=== PATIENT | female | born 1940 | race Caucasian/White ===

== ENCOUNTER 2019-07-04 16:48 | Emergency (ER) | payer MEDICARE, MEDICAID, SELFPAY ==
[2019-07-04] VITALS (8 sets, daily range): BP systolic 150–180; BP diastolic 94–111; PULSE 79–90; RESP 18–20; TEMP 36.5–36.9; O2SAT 92–95; BMI 26.9
--- NOTE | 2019-07-04 19:46 | ED_ITS ---
Entered by Kelley Pacheco, acting as scribe for Jul 04, 2019 16:48 HPI - SOB/Dyspnea General: Chief Complaint: Shortness of Breath/Dyspnea Stated Complaint: sob Time Seen by Provider: 07/04/19 19:50 Source: patient Mode of arrival: ambulatory History of Present Illness: HPI Narrative: 78 yo female presents with shortness of breath due to coughing. pt states this started before rebecca and it has worsened. pt stated she has bilateral swelling to lower legs. pt was seen on 07/02/19 and they placed her on Doxycline for the cough. pt denies any other symptoms at this time. MD elicited complaint: shortness of breath and cough Onset (ago): week(s) (3 weeks) Context: recent illness (cough and congestion, given medications Doxycline from ED) Timing: constant Exacerbating factors: coughing Relieving factors: nothing Associated symptoms: Reports cough and other (bilateral leg swelling); Deny abdominal pain, chest pain, fever(s), nausea, polyuria or vomiting Treatment prior to arrival: other (Doxycline from ED for coughing on ) Related Data: Home oxygen amount: none Review of Systems Const: Denies: fever or chills Eyes: Denies: change in vision ENMT: Denies: throat pain or mouth pain Card: Denies: chest pain Resp: Reports: non-productive cough; Denies: shortness of breath GI: Denies: abdominal pain, nausea, vomiting or diarrhea : Denies: difficulty urinating Musc: Reports: extremity swelling; Denies: back pain or joint pain Skin/Breast: Denies: rash Neuro: Denies: headache or behavioral changes Psych: Denies: depression Endo: Denies: excessive urination Mik/Lymph: Denies: easy bruising All/Imm: Denies: hives PFSH ED PFSH: Statuses (acute, chronic, etc) shown below reflect problem list status as previously entered and may not be historically accurate Social History Smoking and tobacco status: never smoked Physical Exam Const: COMMON NORMALS: no apparent distress and healthy appearing HENMT: COMMON NORMALS: normocephalic and external nose normal HEAD & SCALP: normocephalic NOSE: external nose normal and no nasal discharge (nasal dischage) Eye: COMMON NORMALS: PERRL PUPIL: Yes PERRL Neck/C-Spine: COMMON NORMALS: full ROM and no lymphadenopathy Chest: COMMONS NORMALS: inspection of chest normal Resp: COMMON NORMALS: normal respiratory effort and clear to auscultation bilaterally AUSCULTATION: clear to auscultation bilaterally Cardio: COMMON NORMALS: regular rate and regular rhythm RATE: regular rate RHYTHM: regular rhythm GI: COMMON NORMALS: soft to palpation PALPATION: Yes soft Extremity: COMMON NORMALS: normal to inspection, full ROM and normal capillary refill NARRATIVE EXTREMITY EXAM: 2+ lower ext edema Psych: COMMON NORMALS: mental status grossly normal and cooperative Skin: COMMON NORMALS: no rashes or lesions noted GENERAL SKIN EXAM: no rashes or lesions noted Course Vital Signs: Vital signs: Vital Signs Temperature 97.7 F 07/04/19 18:02 Pulse Rate 89 07/04/19 22:40 Respiratory Rate 19 H 07/04/19 22:40 Blood Pressure 180/109 07/04/19 22:40 Pulse Oximetry 93 07/04/19 22:40 MDM - SOB/Dyspnea MDM Narrative: Medical decision making narrative: Patient presents here with lower extremity edema. Patient has no signs of congestive heart failure and EKG and x-ray are normal. Patient is in no distress here. Will start on Lasix and she is to use compression stockings. Patient is to follow-up with Ben in 3 to 5 days and return if worsening. Lab Data: Labs: Lab Results 07/04/19 07/04/19 07/04/19 Range/Units 20:08 20:08 20:08 WBC 10.7 H (4.0-10.0) 10^3/ uL RBC 3.55 L (4.1-5.3) 10^6/u L Hgb 9.8 L (11.5-15.3) g/dL Hct 30.7 L (37.0-47.0) % MCV 86.5 (81-99) fL MCH 27.6 L (28.0-34.0) pg MCHC 31.9 (30.0-36.0) g/dL RDW 15.7 H (12.1-15.1) % Plt Count 426 H (130-400) 10^3/c mm MPV 9.2 (7.4-10.4) fL Neut % (Auto) 74.6 % Lymph % (Auto) 14.2 % [place] % (Auto) 7.8 % Eos % (Auto) 2.3 % Baso % (Auto) 0.3 % Neut # (Auto) 8.0 H (1.8-7.7) 10^3/u L Lymph # (Auto) 1.5 (0.8-4.8) 10^3/u L [place] # (Auto) 0.8 (0.2-0.9) 10^3/u L Eos # (Auto) 0.3 (0.0-0.8) 10^3/u L Baso # (Auto) 0.0 (0.0-0.1) 10^3/u L Nucleated RBC % (a uto) 0 % Nucleated RBCs # 0.0 /100WBC Sodium 127 L (136-145) mmol/L Potassium 3.6 (3.5-5.1) mmol/L Chloride 90 L (98-107) mmol/L Carbon Dioxide 25 (22-29) mmol/L Anion Gap 15.6 (5-19) BUN 13 (8-23) mg/dL Creatinine 0.6 (0.5-0.9) mg/dL Glucose 106 (74-106) mg/dL Calcium 9.5 (8.8-10.2) mg/Dl Total Bilirubin 0.5 (0.15-1.2) mg/dL AST 50 H (0-32) U/L ALT 41 H (0-33) U/L Alkaline Phosphata se 79 (35-105) IU/L Troponin T Baselin e 20 H (0-10) ng/mL Troponin T 120 Min [place] (0-10) ng/mL Delta Troponin T (0-10) ABS# NT-Pro-B Natriuret Pep 308 (0-450) pg/mL Total Protein 6.7 (6.6-8.7) g/dL Albumin 3.8 (3.5-5.2) g/dL Globulin 2.9 (1.3-4.6) g/dL Urine Color (Yellow) Urine Appearance (CLEAR) Urine pH (5-7) Ur Specific Gravit y (1.005-1.030) Urine Protein (Negative) Urine Glucose (UA) (Normal) Urine Ketones (Negative) Urine Occult Blood (Negative) Urine Nitrate (Negative) Urine Bilirubin (NEGATIVE) Urine Urobilinogen (Negative) mg/dL Ur Leukocyte Sophie ase (Negative) 07/04/19 07/04/19 Range/Units 21:13 22:02 WBC (4.0-10.0) 10^3/ uL RBC (4.1-5.3) 10^6/u L Hgb (11.5-15.3) g/dL Hct (37.0-47.0) % MCV (81-99) fL MCH (28.0-34.0) pg MCHC (30.0-36.0) g/dL RDW (12.1-15.1) % Plt Count (130-400) 10^3/c mm MPV (7.4-10.4) fL Neut % (Auto) % Lymph % (Auto) % [place] % (Auto) % Eos % (Auto) % Baso % (Auto) % Neut # (Auto) (1.8-7.7) 10^3/u L Lymph # (Auto) (0.8-4.8) 10^3/u L [place] # (Auto) (0.2-0.9) 10^3/u L Eos # (Auto) (0.0-0.8) 10^3/u L Baso # (Auto) (0.0-0.1) 10^3/u L Nucleated RBC % (a uto) % Nucleated RBCs # /100WBC Sodium (136-145) mmol/L Potassium (3.5-5.1) mmol/L Chloride (98-107) mmol/L Carbon Dioxide (22-29) mmol/L Anion Gap (5-19) BUN (8-23) mg/dL Creatinine (0.5-0.9) mg/dL Glucose (74-106) mg/dL Calcium (8.8-10.2) mg/Dl Total Bilirubin (0.15-1.2) mg/dL AST (0-32) U/L ALT (0-33) U/L Alkaline Phosphata se (35-105) IU/L Troponin T Baselin e (0-10) ng/mL Troponin T 120 Min [place] 21.29 H (0-10) ng/mL Delta Troponin T 1.29 (0-10) ABS# NT-Pro-B Natriuret Pep (0-450) pg/mL Total Protein (6.6-8.7) g/dL Albumin (3.5-5.2) g/dL Globulin (1.3-4.6) g/dL Urine Color Colorless (Yellow) Urine Appearance Clear (CLEAR) Urine pH 7 (5-7) Ur Specific Gravit y 1.010 (1.005-1.030) Urine Protein Neg (Negative) Urine Glucose (UA) Norm (Normal) Urine Ketones Negative (Negative) Urine Occult Blood Neg (Negative) Urine Nitrate Negative (Negative) Urine Bilirubin Neg (NEGATIVE) Urine Urobilinogen Norm (Negative) mg/dL Ur Leukocyte Sophie ase Negative (Negative) Imaging Data^: CXR: Attestation: I personally reviewed and interpreted this imaging study as follows: My impression: no acute abnormalities EKG Data^: EKG 1: Attestation: I personally reviewed and interpreted this EKG as follows: EKG Interpretation Date: 07/04/19 EKG interpretation time: 20:20 Interpretation: nsr hr [address] or t wave abnormalities qrs 90 qtc 430 EKG 2: Attestation: I personally reviewed and interpreted this EKG as follows: EKG Interpretation Date: 07/04/19 EKG interpretation time: 21:57 Interpretation: nsr hr [address] or t wave abnormalities qrs 90 qtc 428 Discharge Plan Discharge Patient Disposition: Home, Self-Care Clinical Impression: Edema leg, Acute upper respiratory infection Condition: Stable Prescriptions: New Lasix 40 mg tablet 40 mg PO DAILY Qty: 30 RF: 0 No Action labetalol 100 mg Tablet 100 mg PO BID RF: 0 Referrals: Baldev Duque MD [Primary Care Provider] - Carl Burch DO [Family Provider] - (in 3-5 days) Discharge Diet: Advance as tolerated Discharge Activity: Resume usual activity Patient Instructions: Furosemide (By mouth), Leg Edema (ED) Coding Level of Care Code ED Developer Programmer for Chg Fwd Exam Problem Focused The documentation recorded by the Junior james Bridget Annette, accurately reflects the service I personally performed and the decisions made by me, Anderson Anaya MD Jul 04, 2019 16:48
--- NOTE | 2019-07-04 19:58 | ECG_ITS ---
Measurements Intervals [place] Rate: 90 P: 32 WV: 152 QRS: -16 QRSD: 90 T: 18 QT: 382 QTc: 469 SINUS RHYTHM Compared to ECG 07/02/2017 08:48:59 No significant changes Electronically Signed On 07-05-2019 5:36:38 INGOT SUPERVISOR by Danelle Brady M.D. [email or web address]
--- NOTE | 2019-07-04 19:58 | XR_ITS ---
WS: [id number] PORTABLE CHEST HISTORY: cough COMPARISON: 06/22/2019 Hyperinflated lungs with emphysema. There are a few scattered opacifications in the RIGHT lower lung field which are new. No pleural effusion or pneumothorax. Cardiac size: Mildly enlarged cardiac silhouette. Mediastinum/Aorta: Mild atherosclerosis aorta. Diffuse osteopenia. Degenerative changes at the glenohumeral joints. XR/XR chest 1V portable [id number] IMPRESSION: 1. New opacifications in the RIGHT lower lobe. Most likely developing pneumoni a or pneumonitis. 2. Chronic emphysema and cardiomegaly.
[2019-07-04] MEDS: FUROsemide 10 mg/mL SDV 4mL 40 MG IVP (20:20)
[2019-07-04 20:31] LABS: Basophils % 0.3 %; Eosinophils # 0.3 10^3/uL (0.0-0.8); Eosinophils % 2.3 %; Hematocrit 30.7 % (37.0-47.0); Hemoglobin 9.8 g/dL (11.5-15.3); Lymphocytes # 1.5 10^3/uL (0.8-4.8); Lymphocytes % 14.2 %; Mean Corpuscular HGB Conc 31.9 g/dL (30.0-36.0); Mean Corpuscular Hemoglobin 27.6 pg (28.0-34.0); Mean Corpuscular Volume 86.5 fL (81-99); Mean Platelet Volume 9.2 fL (7.4-10.4); Monocytes # 0.8 10^3/uL (0.2-0.9); Monocytes % 7.8 %; Neutrophils % 74.6 %; Nucleated Red Blood Cells % 0 %; Platelet Count 426 10^3/cmm (130-400); Red Blood Count 3.55 10^6/uL (4.1-5.3); Red Cell Distribution Width 15.7 % (12.1-15.1); White Blood Count 10.7 10^3/uL (4.0-10.0)
[2019-07-04 20:34] LABS: Troponin(5th) Baseline 20 ng/mL (0-10)
[2019-07-04 20:43] LABS: Alanine Aminotransferase 41 U/L (0-33); Albumin Level 3.8 g/dL (3.5-5.2); Alkaline Phosphatase 79 IU/L (35-105); Anion Gap 15.6 (5-19); Aspartate Amino Transferase 50 U/L (0-32); Blood Urea Nitrogen 13 mg/dL (8-23); Calcium 9.5 mg/Dl (8.8-10.2); Carbon Dioxide 25 mmol/L (22-29); Chloride 90 mmol/L (98-107); Globulin 2.9 g/dL (1.3-4.6); Glucose 106 mg/dL (74-106); NT Pro B Type Natriuretic Pept 308 pg/mL (0-450); Potassium 3.6 mmol/L (3.5-5.1); Sodium 127 mmol/L (136-145); Total Bilirubin 0.5 mg/dL (0.15-1.2); Total Protein 6.7 g/dL (6.6-8.7)
[2019-07-04 21:33] LABS: Add Urine Microscopic? NO
[2019-07-04 21:40] LABS: Bilirubin Urine Neg (NEGATIVE); Blood Urine Neg (Negative); Glucose Urine UA Norm (Normal); Ketones Urine Negative (Negative); Leukocyte Esterase Urine Negative (Negative); Nitrate Urine Negative (Negative); Protein Urine Neg (Negative); Urine Appearance Clear (CLEAR); Urine Color Colorless (Yellow); Urobilinogen Urine Norm (Negative); pH Urine 7 (5-7)
--- NOTE | 2019-07-04 22:00 | ECG_ITS ---
Measurements Intervals [place] Rate: 81 P: -8 WA: 149 QRS: -26 QRSD: 90 T: 8 QT: 390 QTc: 455 SINUS RHYTHM BORDERLINE LEFT AXIS DEVIATION [QRS AXIS < -20] MODERATE VOLTAGE CRITERIA FOR LVH, CONSIDER NORMAL VARIANT [MEETS CRITERIA IN ONE OF: R(aVL), S(V1), R(V5), R(V5/V6)+S(V1)] Compared to ECG 07/02/2017 08:48:59 No significant changes Electronically Signed On 07-05-2019 15:08:10 DIGITAL FORENSICS EXAMINER by Ramila Garnica M.D. [email or web address]
--- NOTE | 2019-07-04 22:23 | PC.NURSE ---
Assisted patient to the bedside commode and back to bed. Patient stated that she takes two Tylenol at night and it helps her cough. Informed a nurse and assigned nurse will be informed.
[2019-07-04 22:25] LABS: Troponin 5 2HR 21.29 ng/mL (0-10)
[2019-07-04 22:28] LABS: Troponin 5 2HR Delta 1.29 ABS# (0-10)
[2019-07-04] MEDS: acetaminophen 500 mg Tablet 1000 MG PO (22:42)
== END 2019-07-04 22:59 | disposition home or self-care (01) ==
PROVIDERS: Emergency Provider Emergency Medicine; Family Provider Family Medicine; PCP Internal Medicine
DX: J06.9 Acute upper respiratory infection, unspecified (principal); R60.0 Localized edema; I70.0 Atherosclerosis of aorta
CPT/HCPCS: 71045; 80053; 81003; 83880; 84484; 85025; 93005; 96374; 99283; J1940; J7611

== ENCOUNTER → 2020-11-27 10:19 | Outpatient (BNVA) | payer MEDICARE, MEDICAID, SELFPAY | PROVIDERS: PCP Internal Medicine; Visit Provider Surgery | DX: Z01.812 Encounter for preprocedural laboratory examination (principal); Z20.822 Contact with and (suspected) exposure to COVID-19 | CPT/HCPCS: 87635 ==

== ENCOUNTER 2020-12-01 10:51 | Day surgery (SDC) | payer MEDICARE, MEDICAID, SELFPAY ==
[2020-11-26 12:58] VITALS: BMI 26.6
[2020-12-01 11:29] VITALS: BP 140/87; PULSE 99; RESP 16; TEMP 36.6; O2SAT 98
[2020-12-01] MEDS: sodium chloride 0.9% 1,000 ML 30 ML IV (11:58)
--- NOTE | 2020-12-01 12:44 | ANES.PREANE2 ---
Pre-Anesthetic Assessment Pre-Anesthetic Assessment: Height/Weight: Height 1.7 m Weight 77.111 kg Temp Pulse Resp BP Pulse Ox 97.8 F 99 16 140/87 98 12/01/20 11:29 12/01/20 11:29 12/01/20 11:29 12/01/20 11:29 12/01/20 11:29 Preop Diagnosis: Bleeding per rectum Proposed Procedure: Operation Date: 12/01/20 12:30 Proposed Procedures p Colonoscopy 54077 k62.5(Not Applicable) - Rickey Dugan MD Was Beta Dorota taken within 24 hours: N/A Was Clonidine taken within 24 hours: N/A Last intake: Intake Last Liquid Date 11/30/20 Last Liquid Time 00:00 Last Solid Date 11/29/20 Last Solid Time 21:00 Social: Social History: No alcohol and No tobacco Exam: Pre-Anes Outpt Exam: alert, oriented x 3, clear to auscultation bilaterally and regular rate & rhythm Airway: Submandibular: WNL Cervical ROM: WNL MP: 3 Dentition: Full CV/HEM: CV/HEM: HTN Anesthetic Plan: ASA status: 2 Anesthesia: MAC Risk of > 500 ml blood loss (7ml/kg in children): No Meds/Allergies Current Medications: Current Medications Generic Name Dose Route Start Last Admin Trade Name Freq PRN Reason Stop Dose Admin Sodium Chloride 1,000 mls @ 30 ml s/hr 12/01/20 11:30 12/01/20 11:58 Sodium Chloride 0.9% IV 12/02/20 11:29 30 mls/hr .Q24H SEAN Administration PFSH Anesthesia PFSH: Family History Father CAD (coronary artery disease) Mother Cancer Hypertension Denies family history of Diabetes Social History Smoking and tobacco status: never smoked Data Anesthesia Cardiac Studies: No Data to Display
--- NOTE | 2020-12-01 14:31 | W.PM.OPSFHP ---
Same Day Surgery H&P Indication for Procedure/HPI DATE OF PROCEDURE: December 01, 2020 CHIEF COMPLAINT/INDICATIONFOR SURGICAL PROCEDURE: Blood in stool PREOP DIAGNOSIS: Bleeding per rectum PLANNED PROCEDRUE: Operation Date: 12/01/20 12:30 Proposed Procedures p Colonoscopy 56582 k62.5(Not Applicable) - Rickey Dugan MD This is a pleasant 80 years old female patient referred to my practice with history of bleeding per rectum, she did have a colonoscopy about 12 years ago and polyps were found and she reports they were benign. No evidence of colon cancer history or nonintentional weight loss. Patient is referred to my practice for evaluation potential colonoscopy. Interim history 12/02/2019 Patient comes today for colonoscopy ROS All systems have been reviewed negative except as per the above or per problem list Medications/Allergies* Home Medications Medication Instructions Recorded Confirmed Type labetalol 100 mg PO BID 07/04/19 12/01/20 History ibuprofen 200 mg PO Q6H PRN 11/26/20 12/01/20 History loratadine 10 mg PO DAILY 11/26/20 12/01/20 History Allergies/Adverse Reactions Allergy/AdvReac Type Severity Reaction Status Date / Time No Known Allergies Allergy Verified 11/26/20 12:46 Current Medications: Generic Name Dose Route Start Last Admin Trade Name Freq PRN Reason Stop Dose Admin Sodium Chloride 1,000 mls @ 30 mls/hr 12/01/20 11:30 12/01/20 11:58 Sodium Chloride 0.9% IV 12/02/20 11:29 30 mls/hr .Q24H SEAN Administration Pertinent History/Comorbid Conditions* Family History (Updated 10/15/20 @ 13:23 by Muna Villatoro) CAD (coronary artery disease) Father Cancer Mother Hypertension Mother Denies family history of Diabetes Social History Smoking and tobacco status: never smoked Pertinent Exam Findings alert, oriented x 3, clear to auscultation bilaterally, regular rate & rhythm and procedure specific exam findings (Abdominal examination nontender nondistended soft) Recommendations Surgery/Procedure today (Diagnostic colonoscopy) Other Plans: Plan of care; After thorough history and physical examination and reviewing the chart, plan to perform diagnostic colonoscopy. I discussed with the patient in details the risks,benefits,alternatives and indications.The risk of aspiration, bleeding, soft tissue injury, perforation of the colon and other potential concomitant complications were explained to the patient in details,also the potential need for Laproscoy/Laparotomy to repair any related complications including but not limited to colectomy and or Closotomy.The patient understood this well and did agree to proceed. Rationale was carefully and clearly discussed with the patient.Appropriate informed consent have been reviewed and signed All questions have been answered and all concerns have been addressed to patient's satisfaction. Verbal and written Instructions were given to the patient for colonoscopy prep Coding Level of Care Code Acute Clinical Biostatistics Director for Prabhu Sullivan
[2020-12-01 16:36] VITALS: BP 165/89; PULSE 84; RESP 18; TEMP 37.2; O2SAT 96
--- NOTE | 2020-12-01 16:38 | ANE.PACU2 ---
Documented by User: Artie Jaime Jr, CRNA 12/01/20 16:38 Inpatient post-anesthesia follow up: Airway intact: Yes Vital signs: Temperature 97.8 F Pulse Rate 99 Respiratory Rate 16 Blood Pressure 140/87 Pulse Oximetry 98 Oxygen Delivery Me thod Room Air Oxygen Flow Rate Fraction of Inspir ed Oxygen Hydration adequate: Yes Nausea and vomiting: No Pain level: 1 Mental status: Baseline
--- NOTE | 2020-12-01 16:59 | ANE.PACU2 ---
Inpatient post-anesthesia follow up: Airway intact: Yes Vital signs: Temperature 99 F Pulse Rate 84 Respiratory Rate 18 Blood Pressure 165/89 Pulse Oximetry 96 Oxygen Delivery Me thod Nasal Cannula Oxygen Flow Rate 3 Fraction of Inspir ed Oxygen Hydration adequate: Yes Nausea and vomiting: No Pain level: 1 Mental status: Baseline
[2020-12-10 08:20] LABS: Miscellaneous Test See Scanned Lab Rpt
== END 2020-12-01 17:36 | disposition home or self-care (01) ==
PROVIDERS: PCP Obstetrics & Gynecology; Visit Provider Surgery
PROC: 0DJD8ZZ Inspection of Lower Intestinal Tract, Via Natural or Artificial Opening Endoscopic (ICD-10-PCS; CPT 45378; principal; 2020-12-01 12:30)
DX: C18.9 Malignant neoplasm of colon, unspecified (principal); K92.1 Melena; K57.30 Diverticulosis of large intestine without perforation or abscess without bleeding; I10 Essential (primary) hypertension
CPT/HCPCS: 45380; 88304; 88341; 88342; 96360; 96361; J2704; J7030

== ENCOUNTER 2020-12-15 13:48 | Outpatient (CLI) | payer MEDICARE, MEDICAID, SELFPAY ==
[2020-12-15 14:06] LABS: Basophils # 0.1 10^3/uL (0.0-0.1); Basophils % 0.9 %; Eosinophils # 0.2 10^3/uL (0.0-0.8); Eosinophils % 3.8 %; Hematocrit 28.2 % (37.0-47.0); Hemoglobin 8.6 g/dL (11.5-15.3); Lymphocytes # 1.3 10^3/uL (0.8-4.8); Lymphocytes % 22.5 %; Mean Corpuscular HGB Conc 30.5 g/dL (30.0-36.0); Mean Corpuscular Hemoglobin 25.7 pg (28.0-34.0); Mean Corpuscular Volume 84.4 fL (81-99); Mean Platelet Volume 8.8 fL (7.4-10.4); Monocytes # 0.6 10^3/uL (0.2-0.9); Monocytes % 9.6 %; Nucleated Red Blood Cells % 0 %; Platelet Count 324 10^3/cmm (130-400); Red Blood Count 3.34 10^6/uL (4.1-5.3); Red Cell Distribution Width 17.7 % (12.1-15.1); White Blood Count 5.9 10^3/uL (4.0-10.0)
[2020-12-15 14:51] LABS: Carcinoembryonic Antigen 30.5 ng/mL (0.0-4.7)
[2020-12-15 15:02] LABS: Alanine Aminotransferase 10 U/L (0-33); Alkaline Phosphatase 62 IU/L (35-105); Anion Gap 14.6 (5-19); Aspartate Amino Transferase 16 U/L (0-32); Blood Urea Nitrogen 18 mg/dL (8-23); Calcium 9.1 mg/dL (8.5-10.5); Carbon Dioxide 23 mmol/L (22-29); Chloride 101 mmol/L (98-107); Globulin 2.5 g/dL (1.3-4.6); Glucose 90 mg/dL (65-115); Osmolality Calculated 279 mOsm/kg (285-295); Potassium 4.6 mmol/L (3.5-5.1); Sodium 134 mmol/L (136-145); Total Bilirubin 0.2 mg/dL (0.15-1.2); Total Protein 6.5 g/dL (6.6-8.7)
== END 2020-12-15 13:49 | disposition home or self-care (01) ==
LOC: LAB 13:51
PROVIDERS: PCP Obstetrics & Gynecology; Visit Provider Surgery
DX: K62.5 Hemorrhage of anus and rectum (principal)
CPT/HCPCS: 80053; 82378; 85025

== ENCOUNTER 2020-12-21 05:47 | Outpatient (CLI) | payer MEDICARE, MEDICAID, SELFPAY ==
--- NOTE | 2020-12-22 16:01 | ONC CON_ITS ---
Dr. Espinoza New Patient Note Patient: Macy Guevara Unit #: [id number]: 1940 Dicatated By: Isela Espinoza M.D.Date of Visit: Dec 21, 2020 Onc MED New Patient/Consult Referring Physician: Dr. KENNY BAILEY M.D. History of Present Illness: Ms. Diane Guevara, is a 80-year-old female with history of off-and-on rectal bleed for which she was referred to Dr. Bailey for evaluation, patient underwent colonoscopy on December 01, 2020 which showed circumferential, about 2 cm from anal verge proximal and going all the way to the distal about 10 cm mass, bleed to touch with induration and hard in consistency. Mass noted to have ulceration and cavitation with heaped up edges consistent with malignant growth and presence of external hemorrhoids,. 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 Bellamy in [place] for further evaluation. Patient denies any abdominal pain, denies any nausea or vomiting, denies any diarrhea or but off-and-on constipation, denies any hematuria or dysfunctional uterine bleeding. Denies any bony pains, denies any jaundice denies any weight loss Past Medical History: Ms. Guevara's medical history is unremarkable. Past Surgical History: Ms. Guevara's surgical/procedural history consists of colonoscopy in 2020. Medications: There is no information available for Current Medications - Patient. Allergies: No Known Allergies. Social History: Ms. Guevara is . Ms. Guevara has never smoked. She has no history of drinking. Family History: Ms. Guevara's mother at age 83: Cancer, and hypertension. Ms. Guevara's father at age 84: coronary artery disease. Review Of Symptoms: Review of Systems is not available for this patient. Vital Signs: Performed on Dec 21, 2020 11:26: 0, 29.22, 1.87 sq.m, 65 in, 97 %, 82 /min, 18 /min, 165/92 mm(hg) (HIGH), 98.7 F, and 175.6 lbs (HIGH). Performance Status: 0 - Fully active, able to carry on all predisease activities without restrictions. (ECOG) Physical Examination: ENMT - No mouth sores, no thrush, no jaundice, Respiratory - Lungs are clear to auscultation, Cardiovascular - Regular rate and rhythm of heart, Abdomen - Soft, bowel sounds present, Extremities - No visible edema. Lab/Imaging: Most recent lab results are not available for this patient. 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 Simon, colorectal surgeon in [place] for evaluation, in the meantime, we will refer her to radiation oncology for possible neoadjuvant therapy as patient is not considering colostomy bag, which I think she will need it at least temporarily., Treatment options based on the staging including upfront surgery but less likely or neoadjuvant chemoradiation, followed by adjuvant chemotherapy based on thePostsurgical disease status/staging or total neoadjuvant therapy. Patient agreed for staging work-up but somewhat reluctant for chemotherapy but may consider oral chemotherapy. She will return to clinic after CT PET scan with CBC CMP and CEA. Signed By: Isela Espinoza M.D. <<Signature on File>>
== END 2020-12-21 05:48 | disposition home or self-care (01) ==
LOC: ONCMED 05:55
PROVIDERS: PCP Family Medicine; Visit Provider Internal Medicine Hematology & Oncology
DX: C20 Malignant neoplasm of rectum (principal); I10 Essential (primary) hypertension; Z79.899 Other long term (current) drug therapy
CPT/HCPCS: 99204

== ENCOUNTER 2020-12-30 06:11 | Outpatient (CLI) | payer MEDICARE, MEDICAID, SELFPAY ==
[2020-12-30 15:44] LABS: Basophils % 0.7 %; Eosinophils # 0.2 10^3/uL (0.0-0.8); Eosinophils % 3.6 %; Hematocrit 30.5 % (37.0-47.0); Hemoglobin 9.1 g/dL (11.5-15.3); Lymphocytes # 1.1 10^3/uL (0.8-4.8); Lymphocytes % 19.3 %; Mean Corpuscular HGB Conc 29.8 g/dL (30.0-36.0); Mean Corpuscular Hemoglobin 25.4 pg (28.0-34.0); Mean Corpuscular Volume 85.2 fL (81-99); Mean Platelet Volume 9.4 fL (7.4-10.4); Monocytes # 0.6 10^3/uL (0.2-0.9); Monocytes % 10.5 %; Neutrophils # 3.63 10^3/uL (1.8-7.7); Neutrophils % 65.5 %; Nucleated Red Blood Cells % 0 %; Platelet Count 338 10^3/cmm (130-400); Red Blood Count 3.58 10^6/uL (4.1-5.3); White Blood Count 5.5 10^3/uL (4.0-10.0)
[2020-12-30 16:45] LABS: Carcinoembryonic Antigen 31.2 ng/mL (0.0-4.7)
[2020-12-30 17:00] LABS: Alanine Aminotransferase 10 U/L (0-33); Albumin Level 3.6 g/dL (3.5-5.2); Alkaline Phosphatase 61 IU/L (35-105); Anion Gap 15.3 (5-19); Aspartate Amino Transferase 14 U/L (0-32); Blood Urea Nitrogen 22 mg/dL (8-23); Calcium 8.4 mg/dL (8.5-10.5); Carbon Dioxide 23 mmol/L (22-29); Chloride 102 mmol/L (98-107); Globulin 2.7 g/dL (1.3-4.6); Glucose 98 mg/dL (65-115); Osmolality Calculated 285 mOsm/kg (285-295); Potassium 4.3 mmol/L (3.5-5.1); Sodium 136 mmol/L (136-145); Total Bilirubin 0.2 mg/dL (0.15-1.2); Total Protein 6.3 g/dL (6.6-8.7)
== END 2020-12-30 06:12 | disposition home or self-care (01) ==
LOC: ONCMED 06:29
PROVIDERS: PCP Family Medicine; Visit Provider Internal Medicine Hematology & Oncology
DX: C18.6 Malignant neoplasm of descending colon (principal); Z79.899 Other long term (current) drug therapy
CPT/HCPCS: 36415; 80053; 82378; 85025

== ENCOUNTER 2020-12-31 05:28 | Outpatient (CLI) | payer MEDICARE, MEDICAID, SELFPAY ==
--- NOTE | 2020-12-31 17:49 | ONC FU_ITS ---
Dr. Espinoza follow up note Patient: Macy Guevara Unit #: [id number]: 1940 Dicatated By: Isela Espinoza M.D.Date of Visit:Dec 31, 2020 Onc Med Follow-up/Prog Note History of Present Illness: Ms. Diane Guevara, is a 80-year-old female with history of off-and-on rectal bleed for which she was referred to Dr. Dugan for evaluation, patient underwent colonoscopy on December 01, 2020 which showed circumferential, about 2 cm from anal verge proximal and going all the way to the distal about 10 cm mass, bleed to touch with induration and hard in consistency. Mass noted to have ulceration and cavitation with heaped up edges consistent with malignant growth and presence of external hemorrhoids,. 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 Bellamy in [place] for further evaluation. Patient denies any abdominal pain, denies any nausea or vomiting, denies any diarrhea or but off-and-on constipation, denies any hematuria or dysfunctional uterine bleeding. Denies any bony pains, denies any jaundice denies any weight loss Follow-up CT PET scan done on December 26, 2020 showed there is a 3.8 cm rectal mass with SUV of 25.5, multiple perirectal lymph nodes with modest FDG activity, consistent with local metastatic disease. Additional malignant adenopathy in the right common iliac, left external iliac territories. Index right common iliac lymph node is 1.4 cm with SUV of 3.8. No hepatic metastatic disease or distant mets. Came for follow-up, denies any specific complaints, no fever chills, no nausea or vomiting, no diarrhea or constipation, no abdominal pain Medications: There is no information available for Current Medications - Patient. Allergies: No Known Allergies. Review of Systems: Review of Systems is not available for this patient. Vital Signs: Performed on Dec 31, 2020 10:49 Height - 65.00 in Weight - 173.8 lbs (LOW) BSA - 1.86 sq.m BMI - 28.92 Temperature - 97 F (LOW) Pulse - 96 /min Respiration - 18 /min BP - 146/91 mm(hg) (HIGH) O2 Sat - 98 % Pain - 0 Fatigue - 0 Performance Status: 0 - Fully active, able to carry on all predisease activities without restrictions. (ECOG) Physical Examination: ENMT - No mouth sores, no thrush, no jaundice, Respiratory - Lungs are clear to auscultation, Cardiovascular - Regular rate and rhythm of heart, Abdomen - Soft, bowel sounds present, Extremities - No visible edema. Lab/Imaging: Most recent lab results are not available for this patient. 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 done on December 01, 2020, Staging CT PET scan done on December 26, 2020 shows FDG positive perirectal, bilateral common iliac and left external iliac lymph node consistent with malignancy no distant mets, clinically stage III disease Anemia, probably due to above, considering her age underlying myelodysplasia cannot be ruled out Hypertension Plan: Discussed with patient regarding her labs white blood count 5.5 hemoglobin 9.1 g hematocrit 30.5 platelets 338 CMP within normal limits CEA 31.2, CT PET scan shows primary rectal carcinoma, FDG positive perirectal, bilateral common iliac, left external iliac lymph nodes, no distant mets Clinically, patient doing reasonably well, her staging CT PET scan shows rectal primary and pelvic lymphadenopathy, case was discussed with radiation oncology, with extent of lymph nodes, will be extended field radiation therapy if upfront chemoradiation is considered, means higher toxicity on the other hand will consider total neoadjuvant therapy with systemic chemotherapy with FOLFOX by weekly x6 followed by CT PET scan, if there is resolution of lymphadenopathy then reduced field radiation therapy concurrent with oral Xeloda followed by surgical resection is recommended, patient agreed with the plan, all the side effect possible benefits associated with FOLFOX including but not limited to bone marrow suppression, hair loss, nausea vomiting, hand-foot syndrome especially with 5-FU, intolerance to cold beverages, peripheral neuropathy especially with oxaliplatin were mentioned, further teaching will be done by chemotherapy nurse, will obtain approval from her insurance prior to the treatment, will also request Port-A-Cath placement. And patient is also awaiting colorectal surgeon evaluation, patient was referred to [place]. As far as anemia is concerned, we will consider anemia work-up which include iron studies B12 folic acid and if deficiency, consider supplement Patient return to clinic 1 week after chemotherapy is initiated with CBC CMP Signed By: Isela Espinoza M.D. <<Signature on File>>
== END 2020-12-31 05:29 | disposition home or self-care (01) ==
LOC: ONCMED 05:32
PROVIDERS: PCP Family Medicine; Visit Provider Internal Medicine Hematology & Oncology
DX: C20 Malignant neoplasm of rectum (principal); D64.9 Anemia, unspecified; I10 Essential (primary) hypertension; R59.1 Generalized enlarged lymph nodes; Z79.899 Other long term (current) drug therapy
CPT/HCPCS: 99214

== ENCOUNTER 2021-01-07 07:05 | Outpatient (CLI) | payer MEDICARE, MEDICAID, SELFPAY ==
--- NOTE | 2021-01-07 11:18 | N.ONRAD NP_ITS ---
Radiation Oncology Consultation Patient Name: Macy Guevara Date of : 1940 Date of Service: 01/07/2021 Attending Physician: Aldo Newman M.D. Macy Guevara was seen in consultation this morning at the request of Tanya Espinoza M.D. for consideration of pelvic radiotherapy in the management of a recently diagnosed distal rectal cancer. She was evaluated by Rickey Dugan M.D. for evaluation of hematochezia. A colonoscopy performed on December 01, 2020 identified a circumferential mass extending 2 cm from the anal verge distally 10 cm. Biopsies diagnosed a moderately differentiated invasive adenocarcinoma. The tumor demonstrated normal expression of DNA mismatch repair proteins. Initial lab studies indicated anemia (8 g/dL) and the CEA was 31.2 ng/mL. A PET/CT (independently visualized in [facility]) ordered on December 26, 2020 confirmed a 3.8 cm rectal mass with an SUV of 25.5, perirectal, left external iliac, and right common iliac lymphadenopathy. The patient will be scheduled to be evaluated by colorectal surgery. She presents for discussion regarding neoadjuvant pelvic radiotherapy. I discussed with Ms. 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 I also reviewed the National [employer] Guidelines for neoadjuvant chemoradiotherapy. I anticipate a five week course of pelvic radiotherapy subsequent to total neoadjuvant chemotherapy, The potential toxicities of pelvic radiotherapy were reviewed. The patient has verbalized understanding would like to proceed as recommended. The patient's medical treatment plan was discussed with Tanya Espinoza M.D. Signed by: Dr. Aldo Newman 01/07/2021 11:17:03 AM
== END 2021-01-07 07:06 | disposition home or self-care (01) ==
LOC: ONCMED 07:06
PROVIDERS: PCP Family Medicine; Visit Provider Radiology Radiation Oncology
DX: C20 Malignant neoplasm of rectum (principal); K92.1 Melena; Z79.899 Other long term (current) drug therapy
CPT/HCPCS: 87635; 99205

== ENCOUNTER 2021-01-28 05:44 | Outpatient (RCR) | payer MEDICARE, MEDICAID, SELFPAY ==
[2021-01-18 12:44] LABS: Basophils % 0.6 %; Eosinophils # 0.1 10^3/uL (0.0-0.8); Eosinophils % 1.7 %; Hematocrit 29.1 % (37.0-47.0); Hemoglobin 8.8 g/dL (11.5-15.3); Lymphocytes # 1.2 10^3/uL (0.8-4.8); Lymphocytes % 17.3 %; Mean Corpuscular HGB Conc 30.2 g/dL (30.0-36.0); Mean Corpuscular Hemoglobin 25.5 pg (28.0-34.0); Mean Corpuscular Volume 84.3 fL (81-99); Mean Platelet Volume 9.3 fL (7.4-10.4); Monocytes # 0.7 10^3/uL (0.2-0.9); Monocytes % 10.4 %; Neutrophils # 4.83 10^3/uL (1.8-7.7); Neutrophils % 69.9 %; Nucleated Red Blood Cells % 0 %; Platelet Count 345 10^3/cmm (130-400); Red Blood Count 3.45 10^6/uL (4.1-5.3); Red Cell Distribution Width 17.8 % (12.1-15.1); White Blood Count 6.9 10^3/uL (4.0-10.0)
[2021-01-18 13:34] LABS: Alanine Aminotransferase 11 U/L (0-33); Albumin Level 3.5 g/dL (3.5-5.2); Alkaline Phosphatase 63 IU/L (35-105); Anion Gap 15.3 (5-19); Aspartate Amino Transferase 15 U/L (0-32); Blood Urea Nitrogen 19 mg/dL (8-23); Calcium 8.6 mg/dL (8.5-10.5); Carbon Dioxide 24 mmol/L (22-29); Chloride 100 mmol/L (98-107); Globulin 2.9 g/dL (1.3-4.6); Glucose 100 mg/dL (65-115); Osmolality Calculated 282 mOsm/kg (285-295); Potassium 4.3 mmol/L (3.5-5.1); Sodium 135 mmol/L (136-145); Total Bilirubin 0.3 mg/dL (0.15-1.2); Total Protein 6.4 g/dL (6.6-8.7)
[2021-01-19 10:02] LABS: Ferritin 20 ng/mL (15-150); Iron 25 ug/dL (37-145); Percent Saturation 7.8 % (20-50); Total Iron Binding Capacity 319 mcg/dl; Unsaturated Iron Binding 294 ug/dL (112-347)
[2021-01-19 10:18] LABS: Vitamin B12 1450 pg/mL (232-1245)
--- NOTE | 2021-01-19 17:32 | ONC FU_ITS ---
Dr. Espinoza follow up note Patient: Macy Guevara < Unit #: [id number]: 1940 Dicatated By: Isela Espinoza M.D.Date of Visit:Jan 19, 2021 Onc Med Follow-up/Prog Note History of Present Illness: Ms. Diane Guevara, is a 80-year-old female with history of off-and-on rectal bleed for which she was referred to Dr. Dugan for evaluation, patient underwent colonoscopy on December 01, 2020 which showed circumferential, about 2 cm from anal verge proximal and going all the way to the distal about 10 cm mass, bleed to touch with induration and hard in consistency. Mass noted to have ulceration and cavitation with heaped up edges consistent with malignant growth and presence of external hemorrhoids,. 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 Bellamy in [place] for further evaluation. Patient denies any abdominal pain, denies any nausea or vomiting, denies any diarrhea or but off-and-on constipation, denies any hematuria or dysfunctional uterine bleeding. Denies any bony pains, denies any jaundice denies any weight loss Follow-up CT PET scan done on December 26, 2020 showed there is a 3.8 cm rectal mass with SUV of 25.5, multiple perirectal lymph nodes with modest FDG activity, consistent with local metastatic disease. Additional malignant adenopathy in the right common iliac, left external iliac territories. Index right common iliac lymph node is 1.4 cm with SUV of 3.8. No hepatic metastatic disease or distant mets. Came for follow-up, denies any specific complaints, no fever chills, no nausea or vomiting, no diarrhea or constipation, patient was scheduled for Port-A-Cath placement but patient said she was told it will take 2 hours so she decided not to go for it rather consider chemotherapy pill. Patient is here to discuss further treatment plans Medications: There is no information available for Current Medications - Patient. Allergies: No Known Allergies. Review of Systems: Review of Systems is not available for this patient. Vital Signs: Performed on Jan 19, 2021 08:18 Height - 65.00 in Weight - 173.6 lbs (LOW) BSA - 1.86 sq.m BMI - 28.89 Temperature - 98.1 F (LOW) Pulse - 94 /min Respiration - 18 /min BP - 144/85 mm(hg) (HIGH) O2 Sat - 97 % Pain - 0 Fatigue - 0 Performance Status: 0 - Fully active, able to carry on all predisease activities without restrictions. (ECOG) Physical Examination: ENMT - No mouth sores, no thrush, no jaundice, Respiratory - Lungs are clear to auscultation , Cardiovascular - Regular rate and rhythm of heart, Abdomen - Soft, bowel sounds present, Extremities - No visible edema. Lab/Imaging: Most recent lab results are not available for this patient. 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 done on December 01, 2020, Staging CT PET scan done on December 26, 2020 shows FDG positive perirectal, bilateral common iliac and left external iliac lymph node consistent with malignancy no distant mets, clinically stage III disease Anemia, probably due to above, considering her age underlying myelodysplasia cannot be ruled out Hypertension Plan: Discussed with patient regarding her labs white blood count 6.9 hemoglobin 8.8 hematocrit 29.1 platelets 345,000 CMP within normal limits Clinically, patient is doing reasonably well with no new signs symptoms, total neoadjuvant chemotherapy with FOLFOX x6 followed by Xeloda/radiation therapy is under consideration but for FOLFOX, patient had Port-A-Cath placement which she is refusing, patient was reassured and advised to discuss with Dr. Dugan as Port-A-Cath placement would not take 2 hours. Patient said she would consider chemotherapy pill, in that case she was advised to consider oxaliplatin/Xeloda based chemo regimen but considering her age, higher dose of oxaliplatin using Capox regimen is some concern. But patient said she would consider 3 weekly oxaliplatin and 2-week oral Xeloda rather than FOLFOX which she has to take chemotherapy pump on, moreover she does not want Port-A-Cath. So all the side effect possible benefits associated with oxaliplatin/Xeloda were discussed including but not limited to hand-foot syndrome, especially with Xeloda and mouth sores, diarrhea, hepatic toxicity, skin rash and cold intolerance, peripheral neuropathy especially with oxaliplatin, bone marrow suppression, hair loss were also mentioned, further teaching done by chemotherapy nurse. At this point will obtain approval from her insurance prior to treatment and consider oxaliplatin every 3 weeks and oral Xeloda day 1 through 14 and repeat every 3 weeks x [address] PET scan if good response, proceed with oral Xeloda/concurrent radiation therapy. Patient agreed, and at this time we have decided to use peripheral line for chemo administration so patient return to clinic 1 week after chemotherapy is initiated with CBC CMP As far as anemia is concerned, could be multifactorial we will consider anemia work-up including iron studies B12 folic acid and reticulocyte count and if there is a deficiency, consider supplement Signed By: Isela Espinoza M.D. <<Signature on File>>
[2021-01-28 10:05] LABS: Basophils # 0.1 10^3/uL (0.0-0.1); Basophils % 0.8 %; Eosinophils # 0.1 10^3/uL (0.0-0.8); Hematocrit 26.7 % (37.0-47.0); Hemoglobin 8.1 g/dL (11.5-15.3); Lymphocytes # 1.2 10^3/uL (0.8-4.8); Lymphocytes % 19.3 %; Mean Corpuscular HGB Conc 30.3 g/dL (30.0-36.0); Mean Corpuscular Hemoglobin 25.5 pg (28.0-34.0); Mean Platelet Volume 9.1 fL (7.4-10.4); Monocytes # 0.7 10^3/uL (0.2-0.9); Monocytes % 11.1 %; Neutrophils # 3.99 10^3/uL (1.8-7.7); Neutrophils % 66.5 %; Nucleated Red Blood Cells % 0 %; Platelet Count 339 10^3/cmm (130-400); Red Blood Count 3.18 10^6/uL (4.1-5.3); Red Cell Distribution Width 17.7 % (12.1-15.1)
[2021-01-28 10:31] LABS: Alanine Aminotransferase 10 U/L (0-33); Albumin Level 3.6 g/dL (3.5-5.2); Alkaline Phosphatase 60 IU/L (35-105); Anion Gap 14.2 (5-19); Aspartate Amino Transferase 16 U/L (0-32); Blood Urea Nitrogen 14 mg/dL (8-23); Calcium 8.6 mg/dL (8.5-10.5); Carbon Dioxide 23 mmol/L (22-29); Chloride 104 mmol/L (98-107); Globulin 2.8 g/dL (1.3-4.6); Glucose 90 mg/dL (65-115); Osmolality Calculated 284 mOsm/kg (285-295); Potassium 4.2 mmol/L (3.5-5.1); Sodium 137 mmol/L (136-145); Total Bilirubin 0.2 mg/dL (0.15-1.2); Total Protein 6.4 g/dL (6.6-8.7)
--- NOTE | 2021-01-29 09:41 | ONC FU_ITS ---
Dr. Espinoza follow up note Patient: Macy Guevara Unit #: [id number]: 1940 Dicatated By: Isela Espinoza M.D.Date of Visit:Jan 29, 2021 Onc Med Follow-up/Prog Note History of Present Illness: Ms. Diane Guevara, is a 80-year-old female with history of off-and-on rectal bleed for which she was referred to Dr. Dugan for evaluation, patient underwent colonoscopy on December 01, 2020 which showed circumferential, about 2 cm from anal verge proximal and going all the way to the distal about 10 cm mass, bleed to touch with induration and hard in consistency. Mass noted to have ulceration and cavitation with heaped up edges consistent with malignant growth and presence of external hemorrhoids,. 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 Bellamy in [place] for further evaluation. Patient denies any abdominal pain, denies any nausea or vomiting, denies any diarrhea or but off-and-on constipation, denies any hematuria or dysfunctional uterine bleeding. Denies any bony pains, denies any jaundice denies any weight loss Follow-up CT PET scan done on December 26, 2020 showed there is a 3.8 cm rectal mass with SUV of 25.5, multiple perirectal lymph nodes with modest FDG activity, consistent with local metastatic disease. Additional malignant adenopathy in the right common iliac, left external iliac territories. Index right common iliac lymph node is 1.4 cm with SUV of 3.8. No hepatic metastatic disease or distant mets. CT scan of chest abdomen pelvis done on January 22, 2021 in [place] showed no pulmonary nodule or mediastinal lymphadenopathy. Asymmetric rectal thickening, involving length of approximately 6.5 cm. Perirectal stranding thickening of mesorectal fascia. Mild perirectal adenopathy. A few small low-attenuation hepatic lesions that are too small to accurately characterize. Came for follow-up, denies any specific complaints except generalized weakness and fatigue, as per patient she was taking oral iron for iron deficiency anemia but had to quit because of upset stomach and nausea. Complaining of dyspnea on exertion but no shortness of breath at rest, denies any melena or hematochezia denies any hemoptysis or hematemesis denies any jaundice denies any abdominal pain. Patient has seen Dr. Simon in [place] last week and as per patient and discussion with him, patient will need APR and most likely permanent colostomy bag and patient is reluctant. Now being started on total neoadjuvant therapy with oxaliplatin/Xeloda followed by combined chemoradiation with oral Xeloda alone. Medications: This patient reports not taking external medications. Allergies: No Known Allergies. Review of Systems: Review of Systems is not available for this patient. Vital Signs: Performed on Jan 29, 2021 08:40 Height - 65.00 in Temperature - 98.3 F (LOW) Pulse - 85 /min Respiration - 18 /min BP - 162/100 mm(hg) (HIGH) O2 Sat - 97 % Pain - 0 Performance Status: 0 - Fully active, able to carry on all predisease activities without restrictions. (ECOG) Physical Examination: ENMT - No mouth sores, no thrush, no jaundice, Respiratory - Lungs are clear to auscultation , Cardiovascular - Regular rate and rhythm of heart, Abdomen - Soft, bowel sounds present, Extremities - No visible edema. Lab/Imaging: Most recent lab results are not available for this patient. 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 done on December 01, 2020, Staging CT PET scan done on December 26, 2020 shows FDG positive perirectal, bilateral common iliac and left external iliac lymph node consistent with malignancy no distant mets, clinically stage III disease CT scan of chest abdomen pelvis done on January 23, 2020 in [place] showed no pulmonary nodule, no mediastinal lymphadenopathy. Asymmetric rectal thickening, involving the length of approximately 6.5 cm. Perirectal stranding. Thickening of mesorectal fascia. Mild perirectal adenopathy. Few very small low-attenuation hepatic lesions that are too small to characterize Anemia, probably due to above, considering her age underlying myelodysplasia cannot be ruled out Hypertension Plan: Discussed with patient regarding her labs white blood count 6.0 hemoglobin 8.1 g compared to 8.8 g earlier hematocrit 26.7 platelets 339,000 CMP within normal limits and anemia work-up done recently showed iron saturation 7.8% ferritin 20 iron 25 B12 1450 TIBC 319 Clinically, patient is doing reasonably well, now in mild to moderate distress due to progressive severe iron deficiency anemia, patient was on oral iron but stopped taking it because of GI intolerance., We will continue to monitor her H&H if hemoglobin drops below 8 g, will consider blood transfusion and in the meantime, as patient not willing to take oral iron, will consider parenteral iron Injectafer 750 mg IV weekly x2. As far as locally advanced rectal cancer is concerned, CT PET scan done on December 26, 2020 showed no liver mets but CT scan done on January 22, 2021 shows a few very small low-attenuation hepatic lesions that are too small to accurately characterize. At this point, will consider total neoadjuvant chemotherapy with [place] ox regimen, she will start day 1 oxaliplatin on coming Monday which will be given every 3 weeks and she will also start her oral Xeloda on Monday, day 1 through 14 and then will repeat cycle every 3 weeks, chemotherapy nurse will discuss with patient again regarding chemotherapy schedule. So patient will return to clinic on Monday to start her 3 weekly oxaliplatin and oral Xeloda day 1 through 14., We will consider follow-up CT PET scan after 4 cycles to assess disease response Patient will return to clinic 1 week after chemotherapy is initiated with CBC CMP Signed By: Isela Espinoza M.D. <<Signature on File>>
== END 2021-01-30 23:59 | disposition home or self-care (01) ==
LOC: ONCMED 05:44
PROVIDERS: PCP Family Medicine; Visit Provider Internal Medicine Hematology & Oncology
DX: C18.6 Malignant neoplasm of descending colon (principal); D50.9 Iron deficiency anemia, unspecified; I10 Essential (primary) hypertension; Z79.899 Other long term (current) drug therapy
CPT/HCPCS: 36415; 80053; 82607; 82728; 82746; 83540; 83550; 85025; 99214

== ENCOUNTER 2021-02-10 13:53 | Outpatient (RCR) | payer MEDICARE, MEDICAID, SELFPAY ==
[2021-02-01] MEDS: dextrose 5% 250 ML IV (09:36)
[2021-02-01] MEDS: palonosetron 0.25 mg/5 mL SDV IVP (09:36)
[2021-02-01] MEDS: ferric carboxy (IVPB) 750 MG in sodium chloride 0.9% (100 ml) 100 ML 460 MG IV (14:35)
[2021-02-01] MEDS: sodium chloride 0.9% (100 ml) 100 ML 75 ML (14:35)
[2021-02-08 13:43] LABS: Basophils % 0.2 %; Eosinophils # 0.2 10^3/uL (0.0-0.8); Eosinophils % 2.7 %; Hematocrit 29.7 % (37.0-47.0); Lymphocytes # 1.1 10^3/uL (0.8-4.8); Lymphocytes % 20.5 %; Mean Corpuscular HGB Conc 30.3 g/dL (30.0-36.0); Mean Corpuscular Hemoglobin 25.4 pg (28.0-34.0); Mean Corpuscular Volume 83.7 fL (81-99); Mean Platelet Volume 9.2 fL (7.4-10.4); Monocytes # 0.9 10^3/uL (0.2-0.9); Monocytes % 16.5 %; Neutrophils # 3.27 10^3/uL (1.8-7.7); Neutrophils % 59.7 %; Nucleated Red Blood Cells % 0 %; Platelet Count 351 10^3/cmm (130-400); Red Blood Count 3.55 10^6/uL (4.1-5.3); Red Cell Distribution Width 16.9 % (12.1-15.1); White Blood Count 5.5 10^3/uL (4.0-10.0)
[2021-02-08] MEDS: sodium chloride 0.9% (100 ml) 100 ML 75 ML (13:49)
[2021-02-08] MEDS: ferric carboxy (IVPB) 750 MG in sodium chloride 0.9% (100 ml) 100 ML 460 MG IV (13:49)
[2021-02-08 14:20] LABS: Alanine Aminotransferase 12 U/L (0-33); Albumin Level 3.7 g/dL (3.5-5.2); Alkaline Phosphatase 59 IU/L (35-105); Anion Gap 16.5 (5-19); Aspartate Amino Transferase 22 U/L (0-32); Blood Urea Nitrogen 20 mg/dL (8-23); Calcium 8.2 mg/dL (8.5-10.5); Carbon Dioxide 20 mmol/L (22-29); Chloride 104 mmol/L (98-107); Globulin 3.2 g/dL (1.3-4.6); Glucose 89 mg/dL (65-115); Osmolality Calculated 286 mOsm/kg (285-295); Potassium 3.5 mmol/L (3.5-5.1); Sodium 137 mmol/L (136-145); Total Bilirubin 0.4 mg/dL (0.15-1.2); Total Protein 6.9 g/dL (6.6-8.7)
[2021-02-09 10:01] LABS: Add Urine Microscopic? NO; Charge for UA Resulting for Rev
[2021-02-09 10:16] LABS: Bilirubin Urine Neg (Negative); Blood Urine Neg (Negative); Glucose Urine UA Norm (Normal); Ketones Urine Negative (Negative); Leukocyte Esterase Urine Negative (Negative); Nitrate Urine Negative (Negative); Protein Urine Neg (Negative); Urine Appearance Clear (CLEAR); Urine Color Yellow (Yellow); Urobilinogen Urine Norm (Negative); pH Urine 6 (5-7)
--- NOTE | 2021-02-09 17:48 | ONC FU_ITS ---
Dr. Espinoza follow up note Patient: Macy Guevara Unit #: [id number]: 1940 Dicatated By: Isela Espinoza M.D.Date of Visit:Feb 09, 2021 Onc Med Follow-up/Prog Note History of Present Illness: Ms. Diane Guevara, is a 80-year-old female with history of off-and-on rectal bleed for which she was referred to Dr. Dugan for evaluation, patient underwent colonoscopy on December 01, 2020 which showed circumferential, about 2 cm from anal verge proximal and going all the way to the distal about 10 cm mass, bleed to touch with induration and hard in consistency. Mass noted to have ulceration and cavitation with heaped up edges consistent with malignant growth and presence of external hemorrhoids,. 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 Bellmay in [place] for further evaluation. Patient denies any abdominal pain, denies any nausea or vomiting, denies any diarrhea or but off-and-on constipation, denies any hematuria or dysfunctional uterine bleeding. Denies any bony pains, denies any jaundice denies any weight loss Follow-up CT PET scan done on December 26, 2020 showed there is a 3.8 cm rectal mass with SUV of 25.5, multiple perirectal lymph nodes with modest FDG activity, consistent with local metastatic disease. Additional malignant adenopathy in the right common iliac, left external iliac territories. Index right common iliac lymph node is 1.4 cm with SUV of 3.8. No hepatic metastatic disease or distant mets. CT scan of chest abdomen pelvis done on January 22, 2021 in [place] showed no pulmonary nodule or mediastinal lymphadenopathy. Asymmetric rectal thickening, involving length of approximately 6.5 cm. Perirectal stranding thickening of mesorectal fascia. Mild perirectal adenopathy. A few small low-attenuation hepatic lesions that are too small to accurately characterize. Started on total neoadjuvant chemotherapy with oxaliplatin/Xeloda on February 01, 2021 Came for follow-up, denies any specific complaint except off-and-on mild discomfort in the right flank and burning micturition but no hematuria, no fever chills, no nausea or vomiting, no diarrhea or constipation, no peripheral neuropathy, tolerated first cycle of oxaliplatin well now tolerating oral Xeloda well, no mouth sores, no jaundice, no skin rash, no hand-foot rash.Also tolerated parenteral iron well Medications: This patient reports not taking external medications. Allergies: No Known Allergies. Review of Systems: Review of Systems is not available for this patient. Vital Signs: Performed on Feb 09, 2021 09:30 Height - 65.00 in Weight - 167 lbs (LOW) BSA - 1.83 sq.m BMI - 27.79 Temperature - 98.4 F Pulse - 98 /min Respiration - 18 /min BP - 145/92 mm(hg) (HIGH) O2 Sat - 99 % Pain - 0 Fatigue - 0 Performance Status: 0 - Fully active, able to carry on all predisease activities without restrictions. (ECOG) Physical Examination: ENMT - No mouth sores, no thrush, no jaundice, Respiratory - Lungs are clear to auscultation, Cardiovascular - Regular rate and rhythm of heart, Abdomen - Soft, bowel sounds present, Extremities - No visible edema or rash. Lab/Imaging: Most recent lab results are not available for this patient. 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 done on December 01, 2020, Staging CT PET scan done on December 26, 2020 shows FDG positive perirectal, bilateral common iliac and left external iliac lymph node consistent with malignancy no distant mets, clinically stage III [address] CT scan of chest abdomen pelvis done on January 23, 2020 in [place] showed no pulmonary nodule, no mediastinal lymphadenopathy. Asymmetric rectal thickening, involving the length of approximately 6.5 cm. Perirectal stranding. Thickening of mesorectal fascia. Mild perirectal adenopathy. Few very small low-attenuation hepatic lesions that are too small to characterize Started on total neoadjuvant chemotherapy with oxaliplatin/Xeloda on February 01, 2021 Anemia, probably due to above, considering her age underlying myelodysplasia cannot be ruled out, Status post Injectafer x2 in January 2021 Hypertension Plan: Discussed with patient regarding her labs white blood count 5.5 hemoglobin 9 g compared to 8.1 g previously prior to Injectafer infusion hematocrit 29.7 platelets 351,000 CMP within normal limits Clinically, patient doing well with no new signs symptoms tolerated first cycle of 3 weekly oxaliplatin well now tolerating 14 days course of oral Xeloda well. She will conclude her first cycle in a week. Patient was also given parenteral iron for iron deficiency anemia as she could not tolerate oral iron and she tolerated parenteral iron well. She is complaining of off and on right flank discomfort/dysuria so we will check her urine, if there is sign of infection may consider intervention but patient not spiking any fever. Return to clinic in 2 weeks with CBC CMP blood count reasonable for the second cycle of chemotherapy with 3 weekly oxaliplatin and day 1 through 14 oral Xeloda. She return to clinic in 2 weeks with CBC CMP Signed By: Isela Espinoza M.D. <<Signature on File>>
[2021-02-10] MEDS: sodium chloride 0.9% 1,000 ML 999 ML IV (14:17)
[2021-02-10] MEDS: HYDROcodone-acetaminophen 10-325 mg Tablet 0.5 TAB PO (15:00)
--- NOTE | 2021-02-10 15:35 | XR_ITS ---
WS: [id number] Lumbar spine, 3 views, 02/10/2021 Clinical Data: lower back pain Comparison: None. Findings: No compression fractures or subluxation is seen. There is degenerative disc narrowing at L2-L3, L3-L4 and L4-L5.. The transverse processes and SI joints are normal. There is a levoscoliosis of the lumbar spine. There is anterior osteoarthritic change of the vertebra l bodies L1-L5. Osteoporosis is present. There is a large amount of fecal material throughout the col on. There is a 3.7 cm calcification in the left true pelvis which is probably a leiomyoma. XR/XR lumbar spine 2-3V* [id number] Impression: 1. 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 2. Levoscoliosis.
--- NOTE | 2021-02-10 15:35 | XR_ITS ---
WS: [id number] Left hip, AP and frog leg views, 02/10/2021 Clinical Data: lt. hip pain Comparison: None. Findings: No fractures or dislocations are seen. There is an acetabular spur. No erosion, sclerosis or severe narrowing is present but there is mild narrowing of the left hip joint. The left SI joint and pubic symphysis are unremarkable.. The soft tissues are not remarkable. There is a 3.7 cm calcification in the true pelvis which is probably a uterine leiomyoma. WS: [id number] Right hip, AP and frog leg views, 02/10/2021 Clinical Data: rt. hip pain Comparison: None. Findings: No fractures or dislocations are seen. The right hip joint is intact. There is an acetabular spur of the right hip. There is minimal narrowing of the joint space but no sclerosis or cyst formation. The soft tissues are not remarkable. The right SI joint and pubic symphysis are unremarkable.. There is a 3.7 cm irregular calcification on the left side of the true pelvis which is probably a leiomyoma. XR/XR hip RT 2-3V wo/w pel* [id number] Impression: Mild osteoarthritis of the right hip. Tonnis classification: grade 1: sclerosis of femoral head and acetabulum or slight joint space narrowing or slight lipping at joint margins Dictated By: Claudette Cannon MD Signed By: Claudette Cannon MD Signed Date/Time: 02/10/211550 DD/ [facility] XR/XR hip LT 2-3V wo/w pel* [id number] Impression: Mild osteoarthritis of the left hip. Tonnis classification: grade 1: sclerosis of femoral head and acetabulum or sli ght joint space narrowing or slight lipping at joint margins
== END 2021-02-11 09:30 | disposition home or self-care (01) ==
LOC: ONCMED 13:53
PROVIDERS: PCP Family Medicine; Visit Provider Internal Medicine Hematology & Oncology
DX: Z51.11 Encounter for antineoplastic chemotherapy (principal); C20 Malignant neoplasm of rectum; D50.9 Iron deficiency anemia, unspecified; D46.9 Myelodysplastic syndrome, unspecified; Z79.899 Other long term (current) drug therapy
CPT/HCPCS: 72100; 73502; 73522; 80053; 81003; 85025; 96360; 96365; 96367; 96413; 96415; 99214; J1100; J1439; J2469; J7030; J9263

== ENCOUNTER 2021-02-18 17:57 | Emergency (ER) | payer MEDICARE, MEDICAID, SELFPAY ==
[2021-02-18 18:18] VITALS: BP 111/74; PULSE 127; RESP 22; TEMP 37; O2SAT 98
[2021-02-18 18:44] VITALS: BP 107/82; PULSE 123; RESP 16; O2SAT 98
--- NOTE | 2021-02-18 19:00 | XRR_ITS ---
PROCEDURE INFORMATION: Exam: XR Abdomen Exam date and time: 02/18/2021 7:00 PM Age: 80 years old Clinical indication: Abdominal pain; Patient HX: HX rectal cancer, abd pain, n/d TECHNIQUE: Imaging protocol: XR of the abdomen. Views: 2 Views. Upright and supine views. COMPARISON: CT abdomen pelvis w con* [id number] 07/02/2017 11:38 AM FINDINGS: Heart/Mediastinum: Stable moderate enlargement of the cardiac silhouette. Mediastinal contours are unremarkable. Lungs: Lungs are clear bilaterally. Pleural space: No pleural effusion. No pneumothorax. Gastrointestinal tract: No evidence for bowel obstruction or perforation. Intraperitoneal space: No free intraperitoneal air. Organs: Popcorn like calcification consistent with an intrauterine fibroid in the pelvis, findings are stable. No organomegaly. Vasculature: Vascular calcifications in the aorta. Bones/joints: Multiple old right-sided rib fractures. Mild scoliosis in the visualized spine. Degenerative changes in the spine, sacroiliac joints, hips, and shoulders. Bones are diffusely osteopenic. XR/XR acute abdomen series [id number] IMPRESSION: 1. No evidence for bowel obstruction or perforation. 2. No acute cardiopulmonary process. 3. Incidental/nonacute findings are listed in the report.
--- NOTE | 2021-02-18 19:02 | W.ED.ABDPA2 ---
HPI - Abdominal Pain General: Chief Complaint: Abdominal Pain Stated Complaint: DIARRHEA & BACK PAIN X 3 WEEKS Time Seen by Provider: 02/18/21 18:55 History of Present Illness: HPI narrative: This patient is a 80-year-old female who presents to the emergency department with a recent diagnosis of rectal cancer. And is followed by Dr. Espinoza and Dr. Dugan. Patient states that she has had a couple weeks worth of developing diarrhea and loose stools. Patient states she is currently starting chemotherapy on Monday of this week. Patient states she did get nauseated after eating a piece of fish and vomited. Patient states that she is having some rumbling in her lower abdomen denies any fever. Patient came in for medical evaluation believes she is dehydrated. MD elicited complaint: abdominal pain Pertinent past history: none Onset (ago): day(s) Pain Consistency: intermittent Location: None Severity: moderate Radiation: none Exacerbating factors: nothing Relieving factors: nothing Associated Symptoms: Reports diarrhea and nausea; Denies chills, dysuria, fever(s) and vomiting Review of Systems General: Reports: 10 or more systems reviewed and unremarkable except in HPI and below Const: Denies: fever(s), chills, body aches or fatigue Eyes: Denies: change in vision or blurry vision ENMT: Denies: throat pain, hoarseness or mouth pain Card: Denies: chest pain, palpitations, irregular heart rhythm, edema, swelling of feet/ankles or lightheadedness Resp: Denies: dyspnea, productive cough, non-productive cough, wheezing or pain on inspiration GI: Reports: abdominal pain, nausea and diarrhea; Denies: vomiting : Denies: flank pain, difficulty voiding, dysuria, urinary frequency, urinary urgency or urinary hesitancy Musc: Denies: neck pain, back pain, extremity pain, extremity swelling, joint pain, joint swelling, joint redness, joint warmth or limited range of motion Skin/Breast: Denies: rash, pruritus, erythema or skin tenderness Neuro: Denies: headache(s), numbness in extremities or weakness in extremities Psych: Denies: anxiety or depression PFS ED PFSH: Medical History Bleeding per rectum Anal mass, biopsies were obtained to rule out anal cancer Diverticulosis Family History Father CAD (coronary artery disease) Mother Cancer Hypertension Denies family history of Diabetes Social History Smoking and tobacco status: never smoked Physical Exam Const: COMMON NORMALS: no acute distress, average body habitus, patient oriented x3, no limitations, healthy appearing, alert and well nourished HENMT: COMMON NORMALS: normocephalic, atraumatic, hearing grossly normal bilaterally, external ears normal, EAC's normal, TM's normal bilaterally, Normal external nose present, Normal nasal mucous membranes and turbinates present, moist oral mucous membranes, oropharynx normal, dentition normal and gingiva normal HEAD & SCALP: normocephalic and atraumatic NOSE: Normal external nose present and Normal nasal mucous membranes and turbinates present EXTERNAL EAR: Yes external ears normal EXTERNAL AUDITORY CANAL: EAC's normal TYMPANIC MEMBRANE: TM's normal bilaterally Neck/C-Spine: COMMON NORMALS: full ROM, no lymphadenopathy, supple, no meningeal signs, no JVD, Thyroid normal and No carotid bruits THYROID: Thyroid normal Chest: COMMONS NORMALS: normal inspection of the chest, normal palpation of entire chest wall, normal inspection of the breasts and normal palpation of the breasts Breast/axilla inspection: Yes normal inspection of the breasts BREAST/AXILLA PALPATION: Yes normal palpation of the breasts Resp: COMMON NORMALS: normal respiratory effort, No retractions, No use of accessory muscles, clear to auscultation bilaterally and percussion normal AUSCULTATION: clear to auscultation bilaterally PERCUSSION: percussion normal Cardio: COMMON NORMALS: no JVD, regular rate, regular rhythm, S1 normal heart sound present, S2 normal heart sound present, No gallops present (Cardio), No clicks present (Cardio), No murmurs present (Cardio), No rub (Cardio) and Peripheral pulses 2+ throughout RATE: regular rate RHYTHM: regular rhythm HEART SOUNDS: S1 normal heart sound present and S2 normal heart sound present PERIPHERAL PULSES: Peripheral pulses 2+ throughout : COMMON NORMALS: Yes no CVA tenderness, Yes normal external appearance, Yes normal appearance of the vagina, Yes normal appearance of the cervix, Yes normal bimanual exam, Yes No adnexal tenderness and Yes no masses BLADDER/KIDNEY EXAM: Yes no CVA tenderness BIMANUAL EXAM - VAGINA & UTERUS: Yes normal bimanual exam Back/Pelvis: COMMON NORMALS: no CVA tenderness, thoracic and lumbar spine normal to inspection, no thoracic nor lumbar tenderness, thoraco-lumbar ROM normal and straight leg raise negative bilaterally Extremity: COMMON NORMALS: normal to inspection, full ROM, capillary refill normal, no joint enlargement, no clubbing, cyanosis or edema, no calf tenderness and no pedal edema Neuro: COMMON NORMALS: patient oriented x3 SENSORIUM/ORIENTATION: Yes alert MENINGEAL SIGNS: Yes no meningeal signs Course Reevaluation(s): Reevaluation #1: Patient appears to be stable. Patient is supposed start chemotherapy on Monday. Patient complains of back muscle pain on the right especially she tries to get up and move. This has been going on for some time request pain medication. Patient will be discharged home on Flagyl. Patient is encouraged to continue with her home medications. And follow-up with oncology as instructed. Patient will also be given a prescription for hydrocodone for the next couple days for her back pain. Time: 22:08 Vital Signs: Vital signs: Vital Signs Temperature 98.6 F 02/18/21 18:18 Pulse Rate 100 02/18/21 20:29 Respiratory Rate 18 02/18/21 20:29 Blood Pressure 135/86 02/18/21 20:29 Pulse Oximetry 98 02/18/21 20:29 MDM - Abdominal Pain Differential Diagnosis: Differential diagnosis abdominal pain: Likely abdominal pain, acute appendicitis, calculus of kidney, constipation, diverticulitis, endometriosis, gastroenteritis, pancreatitis and small bowel obstruction Medical Records: Attestation: I reviewed the patient's medical records. Lab Data: Attestation: I reviewed the patient's lab results. Labs: Lab Results 02/18/21 02/18/21 Range/Units 19:49 20:15 WBC 4.0 (4.0-10.0) 10^3/ uL RBC 3.78 L (4.1-5.3) 10^6/u L Hgb 10.2 L (11.5-15.3) g/dL Hct 31.8 L (37.0-47.0) % MCV 84.1 (81-99) fl MCH 27.0 L (28.0-34.0) pg MCHC 32.1 (30.0-36.0) g/dL RDW 21.2 H (12.1-15.1) % Plt Count 361 (130-400) 10^3/c mm MPV 9.5 (7.4-10.4) fL Neut % (Auto) 69.7 % Lymph % (Auto) 8.3 % [place] % (Auto) 20.5 % Eos % (Auto) 0.0 % Baso % (Auto) 1.0 % Neut # (Auto) 2.79 (1.8-7.7) 10^3/u L Lymph # (Auto) 0.3 L (0.8-4.8) 10^3/u L [place] # (Auto) 0.8 (0.2-0.9) 10^3/u L Eos # (Auto) 0.0 (0.0-0.8) 10^3/u L Baso # (Auto) 0.0 (0.0-0.1) 10^3/u L Nucleated RBC % (a uto) 0 % Nucleated RBCs # 0.0 /100WBC Sodium 134 L (136-145) mmol/L Potassium 3.1 L (3.5-5.1) mmol/L Chloride 104 (98-107) mmol/L Carbon Dioxide 18 L (22-29) mmol/L Anion Gap 15.1 (5-19) BUN 18 (8-23) mg/dL Creatinine 0.3 L (0.5-0.9) mg/dL GFR Calculation Not Reportable Glucose 120 H (65-115) mg/dL Calculated Osmolal ity 281 L (285-295) mOsm/k g Calcium 8.3 L (8.5-10.5) mg/dL Total Bilirubin 0.4 (0.15-1.2) mg/dL AST 22 (0-32) U/L ALT 14 (0-33) U/L Alkaline Phosphata se 64 (35-105) IU/L Total Protein 6.1 L (6.6-8.7) g/dL Albumin 3.2 L (3.5-5.2) g/dL Globulin 2.9 (1.3-4.6) g/dL Lipase 36 (13-60) U/L Imaging Data ^: AAS: Attestation: I personally reviewed and interpreted this imaging study as follows: Radiologist's impression: IMPRESSION: 1. No evidence for bowel obstruction or perforation. 2. No acute cardiopulmonary process. 3. Incidental/nonacute findings are listed in the report. Discharge Plan Discharge Patient Disposition: Home Clinical Impression: Rectal cancer, Frequent loose stools, Low back pain Condition: Stable Prescriptions: New hydrocodone-acetaminophen 5-325 mg tablet 1 tab PO Q6H PRN (Reason: pain) Qty: 7 RF: 0 metronidazole [Flagyl] 500 mg tablet 500 mg PO BID 7 Days Qty: 14 RF: 0 No Action loratadine 10 mg Capsule 10 mg PO DAILY RF: 0 labetalol 100 mg Tablet 100 mg PO BID RF: 0 Discharge Orders: Discharge ED (Routine); Ordered 02/18/21 Ordered By: Jae Muir Referrals: Carl Burch DO [Primary Care Provider] - Discharge Diet: Advance as tolerated Discharge Activity: Resume usual activity Patient Instructions: Opioid Safety Activity Restrictions/Additional Instructions: Encourage p.o. fluids. Take medications as instructed. May use heating pad as needed for low back pain. Take medications as prescribed. High-fiber diet to help with loose stool. Follow-up with oncology as scheduled to begin her chemotherapy treatment. Coding Level of Care Code ED Cable Television Program Director for Prabhu Fwd Exam Comprehensive
[2021-02-18 20:17] LABS: Hematocrit 31.8 % (37.0-47.0); Hemoglobin 10.2 g/dL (11.5-15.3); Lymphocytes # 0.3 10^3/uL (0.8-4.8); Lymphocytes % 8.3 %; Mean Corpuscular HGB Conc 32.1 g/dL (30.0-36.0); Mean Corpuscular Volume 84.1 fl (81-99); Mean Platelet Volume 9.5 fL (7.4-10.4); Monocytes # 0.8 10^3/uL (0.2-0.9); Monocytes % 20.5 %; Neutrophils # 2.79 10^3/uL (1.8-7.7); Neutrophils % 69.7 %; Nucleated Red Blood Cells % 0 %; Platelet Count 361 10^3/cmm (130-400); Red Blood Count 3.78 10^6/uL (4.1-5.3); Red Cell Distribution Width 21.2 % (12.1-15.1)
[2021-02-18 20:29] VITALS: BP 135/86; PULSE 100; RESP 18; O2SAT 98
[2021-02-18 20:32] LABS: Alanine Aminotransferase 14 U/L (0-33); Albumin Level 3.2 g/dL (3.5-5.2); Alkaline Phosphatase 64 IU/L (35-105); Aspartate Amino Transferase 22 U/L (0-32); Blood Urea Nitrogen 18 mg/dL (8-23); Calcium 8.3 mg/dL (8.5-10.5); Carbon Dioxide 18 mmol/L (22-29); Chloride 104 mmol/L (98-107); Globulin 2.9 g/dL (1.3-4.6); Glucose 120 mg/dL (65-115); Lipase 36 U/L (13-60); Osmolality Calculated 281 mOsm/kg (285-295); Sodium 134 mmol/L (136-145); Total Bilirubin 0.4 mg/dL (0.15-1.2); Total Protein 6.1 g/dL (6.6-8.7)
[2021-02-18 20:34] LABS: Anion Gap 15.1 (5-19); Potassium 3.1 mmol/L (3.5-5.1)
[2021-02-18] MEDS: sodium chloride 0.9% 1,000 ML 999 ML IV (21:02)
[2021-02-18] MEDS: ondansetron 2 mg/ML SDV 2 mL 4 MG IVP (21:03)
[2021-02-18 22:50] LABS: Urine Color Yellow (Yellow)
[2021-02-18 22:51] LABS: Bilirubin Urine 1+ (Negative); Blood Urine Neg (Negative); Glucose Urine UA Norm (Normal); Ketones Urine 2+ (Negative); Nitrate Urine Negative (Negative); Protein Urine Trace (Negative); Specific Gravity, Urine 1.015 (1.005-1.030); Urine Appearance Hazy (CLEAR); pH Urine 6.5 (5-7)
[2021-02-18 22:52] LABS: Add Urine Microscopic? YES; Leukocyte Esterase Urine Trace (Negative); RBC Urine 0-4 /hpf (0-2); Urobilinogen Urine Norm (Negative)
[2021-02-18 22:53] LABS: Add Urine Culture? No; Amorphous Sediment Urine TRACE /hpf; Bacteria Urine TRACE /hpf; Mucus Urine 3+ /hpf; Squamous Epithelial Cell Urine 0-4 /hpf (0-5)
[2021-02-18] MEDS: morphine 4 mg/mL SDV 1 mL 2 MG IM (22:58)
[2021-02-18] MEDS: ondansetron 2 mg/ML SDV 2 mL 4 MG IM (22:58)
[2021-02-18 23:08] VITALS: BP 135/86; PULSE 100; RESP 18; TEMP 37; O2SAT 98
== END 2021-02-18 23:18 | disposition home or self-care (01) ==
PROVIDERS: Nurse Practitioner Family; Emergency Provider Emergency Medicine; PCP Family Medicine
DX: R19.7 Diarrhea, unspecified (principal); M54.5 Low back pain; C20 Malignant neoplasm of rectum
CPT/HCPCS: 74022; 80053; 81001; 83690; 85025; 87493; 96361; 96372; 96374; 99284; J2270; J2405; J7030

== ENCOUNTER 2021-03-03 05:27 | Outpatient (RCR) | payer MEDICARE, MEDICAID, SELFPAY ==
[2021-03-03 08:49] LABS: Basophils % 0.5 %; Eosinophils % 0.3 %; Hematocrit 38.7 % (37.0-47.0); Lymphocytes # 0.6 10^3/uL (0.8-4.8); Lymphocytes % 14.1 %; Mean Corpuscular HGB Conc 33.6 g/dL (30.0-36.0); Mean Corpuscular Hemoglobin 27.8 pg (28.0-34.0); Mean Corpuscular Volume 82.9 fl (81-99); Mean Platelet Volume 10.3 fL (7.4-10.4); Monocytes # 0.1 10^3/uL (0.2-0.9); Monocytes % 3.1 %; Neutrophils % 81.7 %; Nucleated Red Blood Cells % 0 %; Platelet Count 222 10^3/cmm (130-400); Red Blood Count 4.67 10^6/uL (4.1-5.3); Red Cell Distribution Width 25.5 % (12.1-15.1); White Blood Count 3.9 10^3/uL (4.0-10.0)
[2021-03-03 09:25] LABS: Alanine Aminotransferase 16 U/L (0-33); Albumin Level 2.6 g/dL (3.5-5.2); Alkaline Phosphatase 73 IU/L (35-105); Anion Gap 17.9 (5-19); Aspartate Amino Transferase 19 U/L (0-32); Blood Urea Nitrogen 35 mg/dL (8-23); Calcium 7.9 mg/dL (8.5-10.5); Carbon Dioxide 16 mmol/L (22-29); Chloride 103 mmol/L (98-107); Globulin 2.2 g/dL (1.3-4.6); Glucose 147 mg/dL (65-115); Osmolality Calculated 289 mOsm/kg (285-295); Sodium 134 mmol/L (136-145); Total Bilirubin 0.5 mg/dL (0.15-1.2); Total Protein 4.8 g/dL (6.6-8.7)
[2021-03-03 09:33] LABS: Slide Review Slide Review Perform
[2021-03-03 09:36] LABS: Potassium 2.9 mmol/L (3.5-5.1)
--- NOTE | 2021-03-04 15:45 | ONC FU_ITS ---
Dr. Espinoza follow up note Patient: Macy Guevara Unit #: [id number]: 1940 Dicatated By: Isela Espinoza M.D.Date of Visit:Mar 03, 2021 Onc Med Follow-up/Prog Note History of Present Illness: Ms. Diane Guevara, is a 80-year-old female with history of off-and-on rectal bleed for which she was referred to Dr. Dugan for evaluation, patient underwent colonoscopy on December 01, 2020 which showed circumferential, about 2 cm from anal verge proximal and going all the way to the distal about 10 cm mass, bleed to touch with induration and hard in consistency. Mass noted to have ulceration and cavitation with heaped up edges consistent with malignant growth and presence of external hemorrhoids,. 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 Bellamy in [place] for further evaluation. Patient denies any abdominal pain, denies any nausea or vomiting, denies any diarrhea or but off-and-on constipation, denies any hematuria or dysfunctional uterine bleeding. Denies any bony pains, denies any jaundice denies any weight loss Follow-up CT PET scan done on December 26, 2020 showed there is a 3.8 cm rectal mass with SUV of 25.5, multiple perirectal lymph nodes with modest FDG activity, consistent with local metastatic disease. Additional malignant adenopathy in the right common iliac, left external iliac territories. Index right common iliac lymph node is 1.4 cm with SUV of 3.8. No hepatic metastatic disease or distant mets. CT scan of chest abdomen pelvis done on January 22, 2021 in [place] showed no pulmonary nodule or mediastinal lymphadenopathy. Asymmetric rectal thickening, involving length of approximately 6.5 cm. Perirectal stranding thickening of mesorectal fascia. Mild perirectal adenopathy. A few small low-attenuation hepatic lesions that are too small to accurately characterize. Started on total neoadjuvant chemotherapy with oxaliplatin/Xeloda on February 01, 2021 Came for follow-up, complaining of generalized weakness and fatigue, dizziness lightheadedness, near syncopal attack, palpitations/tachycardia and poor oral intake and progressive diarrhea no fever chills, no nausea or vomiting no jaundice, no skin rash, no mouth sores, as per patient she did not not take her oral Xeloda for the last 2 days. Medications: This patient reports not taking external medications. Allergies: No Known Allergies. Review of Systems: Review of Systems is not available for this patient. Vital Signs: Performed on Mar 03, 2021 10:53 Height - 65.00 in Temperature - 96.9 F (LOW) Pulse - 124 /min (HIGH) Respiration - 20 /min BP - 145/95 mm(hg) (HIGH) O2 Sat - 98 % Pain - 0 Fatigue - 10 Performance Status: 2 - Ambulatory/capable of all self-care, unable to perform any work activities. Up and about more than 50% of waking hours. (ECOG) Physical Examination: ENMT - Dry oral mucosa, mild mucositis, no thrush, no jaundice, Respiratory - Poor air entry otherwise clear, Cardiovascular - Sinus tachycardia, Abdomen - Soft, bowel sounds present nontender, Extremities - Trace edema. Lab/Imaging: Most recent lab results are not available for this patient. 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 done on December 01, 2020, Staging CT PET scan done on December 26, 2020 shows FDG positive perirectal, bilateral common iliac and left external iliac lymph node consistent with malignancy no distant mets, clinically stage III disease CT scan of chest abdomen pelvis done on January 23, 2020 in [place] showed no pulmonary nodule, no mediastinal lymphadenopathy. Asymmetric rectal thickening, involving the length of approximately 6.5 cm. Perirectal stranding. Thickening of mesorectal fascia. Mild perirectal adenopathy. Few very small low-attenuation hepatic lesions that are too small to characterize Started on total neoadjuvant chemotherapy with oxaliplatin/Xeloda on February 01, 2021 Anemia, probably due to above, considering her age underlying myelodysplasia cannot be ruled out, Status post Injectafer x2 in January 2021 Hypertension Plan: Discussed with patient regarding her labs white blood count 3.9 hemoglobin 13 hematocrit 38.7 platelets 222,000 CMP within normal limit except potassium 2.9 sodium 134 albumin 2.6 compared to 3.7 previously Clinically, patient is moderate to severe distress due to severe dehydration due to poor oral intake as well as diarrhea probably due to chemotherapy, as per patient she did not take oral Xeloda for the last 2 days she was not supposed to be taking it as she is on oxaliplatin/oral Xeloda which she take for 2 weeks along with day 1 oxaliplatin which was given on February 01, 2021, patient appears confused, at this point we will admit her to hospital for inpatient care and supportive care, in the meantime we will request chemo nurse to review her chemotherapy regimen and do patient education. Signed By: Isela Espinoza M.D. <<Signature on File>>
== END 2021-03-03 11:00 | disposition home or self-care (01) ==
LOC: ONCMED 05:27
PROVIDERS: PCP Family Medicine; Visit Provider Internal Medicine Hematology & Oncology
DX: C18.6 Malignant neoplasm of descending colon (principal); C77.8 Secondary and unspecified malignant neoplasm of lymph nodes of multiple regions; C78.7 Secondary malignant neoplasm of liver and intrahepatic bile duct; D50.9 Iron deficiency anemia, unspecified; I10 Essential (primary) hypertension; Z79.899 Other long term (current) drug therapy; Z92.21 Personal history of antineoplastic chemotherapy
CPT/HCPCS: 36415; 80053; 83735; 85025; 99214

== ENCOUNTER 2021-03-03 11:36 | Inpatient (IN) | payer MEDICARE, MEDICAID, SELFPAY ==
[2021-03-03] VITALS (8 sets, daily range): BP systolic 113–141; BP diastolic 83–103; PULSE 102–121; RESP 17–19; TEMP 36.4–36.7; O2SAT 95–100; BMI 24.2
--- NOTE | 2021-03-03 11:40 | XR_ITS ---
WS: [id number] Portable AP upright chest, 03/03/2021 Clinical Data: dyspnea Comparison: Portable chest, 07/04/2019. Findings: No nodules, masses or effusions are seen. The heart is normal. The pulmonary vascularity is not increased. No pneumonia or pneumothorax is seen. The aortic arch and descending aorta are tortuo us. There is a slight dextroscoliosis. There is osteoarthritis of the right shoulder joint. XR/XR chest 1V portable [id number] Impression: Atherosclerosis.
--- NOTE | 2021-03-03 11:40 | ECG_ITS ---
[facility] Test Date: 2021-03-03 Pat Name: Macy Guevara Department: Room: Gender: Female Medicine Worker: : 1940 Requested By: Zane Hare Order Number: [id number] Jose MD: Jn Orozco M.D. Measurements Intervals [place] Rate: 127 P: 39 [place]: 145 QRS: -28 QRSD: 91 T: 55 QT: 407 QTc: 593 Interpretive Statements SINUS TACHYCARDIA LEFT VENTRICULAR HYPERTROPHY AND ST-T CHANGE [VOLTAGE CRITERIA PLUS ST/T ABNORMALITY] POSSIBLE SEPTAL MYOCARDIAL INFARCTION , PROBABLY OLD [30 ms Q WAVE IN V1/V2] Compared to ECG 07/04/2019 21:57:41 ST (T wave) deviation now present Myocardial infarct finding now present Sinus rhythm no longer present Electronically Signed On 03-03-2021 19:43:29 CDT by Jn Orozco M.D. [email or web address] [facility].[employer]/store/NU/[id number] f
--- NOTE | 2021-03-03 12:17 | ED_ITS ---
HPI - General Adult General: Chief complaint: Arrhythmia/Palpitations Stated complaint: TACHYCARDIA/ WEAKNESS Time Seen by Provider: 03/03/21 11:40 History of Present Illness: HPI narrative: Patient is a 80-year-old female with a history of rectal cancer complicated by bleeding presenting to the emergency room for generalized weakness, inability to tolerate p.o., diarrhea and dehydration. Patient was transferred here at the request of Dr. Espinoza for concerns of dehydration and tachycardia. Patient denies any GI bleeding, melena/hematochezia, or current rectal drainage. Patient reports last round of neoadjuvant chemotherapy was 3 weeks ago. Patient denies any cough, chest pain, shortness of breath, palpitation, nausea/vomiting, fever or chills. Onset: chronic Duration:ongoing Location:home Severity:moderate/severe Review of Systems Narrative: Constitutional: No fever, no chills. +generalized weakness, +fatigue HEENT: No vision changes CV: No chest pain, no palpitations PULM: no cough, no dyspnea. GI: No abdominal pain, +N/-V/+D. : No dysuria MSKEL: No muscle pain SKIN: No new rashes, no lesions. NEURO: No headache, no focal weakness. HEME: No visible bruises PSYCH: Normal mood PFSH ED PFSH: Medical History (Updated 03/03/21 @ 19:20 by Lester Osman MD) Arthritis Bleeding per rectum Anal mass, biopsies were obtained to rule out anal cancer Diverticulosis Hypertension Surgical History (Updated 03/03/21 @ 18:59 by Lester Osman MD) H/O rhinoplasty History of colonoscopy 2011 History of nasal surgery History of tonsillectomy Family History Father CAD (coronary artery disease) Mother Cancer Hypertension Denies family history of Diabetes Social History Smoking and tobacco status: never smoked Alcohol intake: never Substance/Drug Use: never Lives independently: Yes Household members: none Housing: Apartment Marital status: Single Female Reproductive History: Date of last menstrual period: 09/24/20 Physical Exam Narrative: EXAM NARRATIVE: Head: Atraumatic Eyes: PERRL, conjunctiva without injection ENT: Dry membrane moist NECK: Supple, ROM intact LUNGS: LCTAB, no crackles/rhonchi CV: Tachycarida ABDOMEN: Soft, nontender in all quadrants EXTREMITY: Normal ROM SKIN: No rash or erythema NEURO: Awake and alert, no focal motor deficits PSYCH: Normal mood and affect Course Vital Signs: Vital signs: Vital Signs Temperature 97.7 F 03/04/21 04:00 Pulse Rate 79 03/04/21 04:00 Respiratory Rate 20 H 03/04/21 04:00 Blood Pressure 127/85 03/04/21 04:00 Pulse Oximetry 96 03/04/21 04:00 MDM - General Adult MDM Narrative: Medical decision making narrative: 80-year-old female with history of rectal cancer on neoadjuvant chemotherapy presenting to the emergency room with worsening diarrhea x1 month. On arrival, patient appears to be dry on exam. Tachycardic to the 130s to 140s. Given physical exam findings, will work-up for sepsis and dehydration at the request of Dr. Espinoza. EKG showing regular sinus rhythm at HT of [127]. Normal axis. No ST elevations/depressions to suggest coronary occlusion. Normal CA, QRS, QT intervals. Patient is noted to have a white count of 3.5K, afebrile today. Will order blood culture lactic acid. Patient is noted to have potassium of 3.1 today. Will supplement. Patient received 1 L fluid, heart rate improved to low 100s. Given no neutropenia, fever, or lactic elevation, will defer ABx. Given decreased p.o. intake, patient will be admitted to hospital for rehydration. Disposition: Admission Lab Data: Labs: Lab Results 03/03/21 03/03/21 03/03/21 Range/Units 12:20 12:50 12:50 WBC 3.5 L (4.0-10.0) 10^3/ uL RBC 4.61 (4.1-5.3) 10^6/u L Hgb 13.0 (11.5-15.3) g/dL Hct 39.9 (37.0-47.0) % MCV 86.6 (81-99) fl MCH 28.2 (28.0-34.0) pg MCHC 32.6 (30.0-36.0) g/dL RDW 25.8 H (12.1-15.1) % Plt Count 198 (130-400) 10^3/c mm MPV 9.5 (7.4-10.4) fL Neut % (Auto) 82.8 % Lymph % (Auto) 12.8 % [place] % (Auto) 2.9 % Eos % (Auto) 0.3 % Baso % (Auto) 0.9 % Neut # (Auto) 2.86 (1.8-7.7) 10^3/u L Lymph # (Auto) 0.4 L (0.8-4.8) 10^3/u L [place] # (Auto) 0.1 L (0.2-0.9) 10^3/u L Eos # (Auto) 0.0 (0.0-0.8) 10^3/u L Baso # (Auto) 0.0 (0.0-0.1) 10^3/u L Nucleated RBC % (a uto) 0 % Nucleated RBCs # 0.0 /100WBC PT 18.40 H (12.1-14.9) SECO NDS INR 1.49 H (0.8-1.2) Sodium (136-145) mmol/L Potassium (3.5-5.1) mmol/L Chloride (98-107) mmol/L Carbon Dioxide (22-29) mmol/L Anion Gap (5-19) BUN (8-23) mg/dL Creatinine (0.5-0.9) mg/dL GFR Calculation Glucose (65-115) mg/dL Calculated Osmolal ity (285-295) mOsm/k g Lactic Acid (0.5-2.2) mmol/L Calcium (8.5-10.5) mg/dL Total Bilirubin (0.15-1.2) mg/dL AST (0-32) U/L ALT (0-33) U/L Alkaline Phosphata se (35-105) IU/L NT-Pro-B Natriuret Pep (0-450) pg/mL Total Protein (6.6-8.7) g/dL Albumin (3.5-5.2) g/dL Globulin (1.3-4.6) g/dL Lipase (13-60) U/L SARS-CoV-2 Ag (Rap id) Negative (Negative) 03/03/21 03/03/21 Range/Units 12:50 12:50 WBC (4.0-10.0) 10^3/ uL RBC (4.1-5.3) 10^6/u L Hgb (11.5-15.3) g/dL Hct (37.0-47.0) % MCV (81-99) fl MCH (28.0-34.0) pg MCHC (30.0-36.0) g/dL RDW (12.1-15.1) % Plt Count (130-400) 10^3/c mm MPV (7.4-10.4) fL Neut % (Auto) % Lymph % (Auto) % [place] % (Auto) % Eos % (Auto) % Baso % (Auto) % Neut # (Auto) (1.8-7.7) 10^3/u L Lymph # (Auto) (0.8-4.8) 10^3/u L [place] # (Auto) (0.2-0.9) 10^3/u L Eos # (Auto) (0.0-0.8) 10^3/u L Baso # (Auto) (0.0-0.1) 10^3/u L Nucleated RBC % (a uto) % Nucleated RBCs # /100WBC PT (12.1-14.9) SECO NDS INR (0.8-1.2) Sodium 137 (136-145) mmol/L Potassium 3.1 L (3.5-5.1) mmol/L Chloride 107 (98-107) mmol/L Carbon Dioxide 19 L (22-29) mmol/L Anion Gap 14.1 (5-19) BUN 39 H (8-23) mg/dL Creatinine 0.7 (0.5-0.9) mg/dL GFR Calculation Not Reportable Glucose 164 H (65-115) mg/dL Calculated Osmolal ity 297 H (285-295) mOsm/k g Lactic Acid 1.3 (0.5-2.2) mmol/L Calcium 7.6 L (8.5-10.5) mg/dL Total Bilirubin 0.4 (0.15-1.2) mg/dL AST 16 (0-32) U/L ALT 14 (0-33) U/L Alkaline Phosphata se 65 (35-105) IU/L NT-Pro-B Natriuret Pep 435 (0-450) pg/mL Total Protein 4.8 L (6.6-8.7) g/dL Albumin 2.7 L (3.5-5.2) g/dL Globulin 2.1 (1.3-4.6) g/dL Lipase 100 H (13-60) U/L SARS-CoV-2 Ag (Rap id) (Negative) Imaging Data^: Other Imaging: Radiologist's impression: [facility] [place], [place] [address]WMaj ReportSigned Patient: Fawad Guevara #: [id number]: 1940cct#:[id number]/Sex: 80 / FADM Date: 03/03/21Loc: ERRoom/Bed:Attending Dr: Ordering Provider/Ordering MD: Zane Hare MD Date of Service: 03/03/21 Procedure(s): XR chest 1V portable [id number] Accession Number(s): [id number] Report Number: [id number] WS: [id number] Portable AP upright chest, 03/03/2021 Clinical Data: dyspnea Comparison: Portable chest, 07/04/2019. Findings: No nodules, masses or effusions are seen. The heart is normal. The pulmonary vascularity is not increased. No pneumonia or pneumothorax is seen. The aortic arch and descending aorta are tortuous. There is a slight dextroscoliosis. There is osteoarthritis of the right shoulder joint. XR/XR chest 1V portable [id number] Impression: Atherosclerosis. Dictated By:Claudette Cannon MDSigned By:Claudette Cannon MDSigned Date/Time:0 03/03/21 1202 Discharge Plan Discharge Patient Disposition: Admitted As Inpatient Admit Provider: Lester Osman Clinical Impression: Dehydration, Diarrhea, Rectal cancer Condition: Stable Coding Level of Care Code ED Personal Consultant for Prabhu Sullivan
[2021-03-03] MEDS: sodium chloride 0.9% 1,000 ML 999 ML IV ×2 (12:18→15:09)
--- NOTE | 2021-03-03 12:58 | PC.PHAR ---
Addendum entered by Aileen Storey 03/03/21 13:04: I ALSO SPOKE WITH DR. MENDES AND HE SAID IT WAS OK FOR ME TO JUST NOTE EVERYTHING SHE SAID AND NOT TRY TO TALK TO HER AGAIN. Original Note: PT STATES SHE CANNOT UNDERSTAND WHAT I AM ASKING HER, THEN SHE SITS UP IN BED AND YELLS THAT SHE TAKES CANCER MEDICATION AND IBUPROFEN. I CALLED HER PHARMACY AND THEY STATES THAT ON HER XELODA, BOTH THE 500 MG AND THE 150 MG WERE SUPPOSED TO START ON 02/22/2021, AND SHE WAS TO TAKE THEM FOR 2 WEEKS. THEY STATED THAT THEY WORRIED ABOUT WHETHER OR NOT SHE UNDERSTOOD THE DIRECTIONS. I WENT BY HER MED HISTORY AND PHARMACY LIST AND KELSEY, FROM THE PHARMACY.
[2021-03-03 12:59] LABS: Basophils % 0.9 %; Eosinophils % 0.3 %; Hematocrit 39.9 % (37.0-47.0); Lymphocytes # 0.4 10^3/uL (0.8-4.8); Lymphocytes % 12.8 %; Mean Corpuscular HGB Conc 32.6 g/dL (30.0-36.0); Mean Corpuscular Hemoglobin 28.2 pg (28.0-34.0); Mean Corpuscular Volume 86.6 fl (81-99); Mean Platelet Volume 9.5 fL (7.4-10.4); Monocytes # 0.1 10^3/uL (0.2-0.9); Monocytes % 2.9 %; Neutrophils # 2.86 10^3/uL (1.8-7.7); Neutrophils % 82.8 %; Nucleated Red Blood Cells % 0 %; Platelet Count 198 10^3/cmm (130-400); Red Blood Count 4.61 10^6/uL (4.1-5.3); Red Cell Distribution Width 25.8 % (12.1-15.1); White Blood Count 3.5 10^3/uL (4.0-10.0)
[2021-03-03 13:13] LABS: INR 1.49 (0.8-1.2)
--- NOTE | 2021-03-03 13:14 | ECG_ITS ---
[facility] Test Date: 2021-03-03 Pat Name: Macy Guevara Department: Room: Gender: Female Creative Project Manager: : 1940 Requested By: Zane Hare Order Number: [id number] Jose MD: Jn Orozco M.D. Measurements Intervals [place] Rate: 126 P: 37 TN: 143 QRS: -28 QRSD: 92 T: 5 QT: 408 QTc: 593 Interpretive Statements SINUS TACHYCARDIA LEFT VENTRICULAR HYPERTROPHY AND ST-T CHANGE [VOLTAGE CRITERIA PLUS ST/T ABNORMALITY] POSSIBLE SEPTAL MYOCARDIAL INFARCTION , PROBABLY OLD [30 ms Q WAVE IN V1/V2] Compared to ECG 07/04/2019 21:57:41 ST (T wave) deviation now present Myocardial infarct finding now present Sinus rhythm no longer present Electronically Signed On 03-03-2021 19:37:50 CDT by Jn Orozco M.D. [email or web address] Therapeuticsblanchard valley [facility].LiquidText/store/NU/[id number] f
[2021-03-03 13:15] LABS: Lactic Sepsis W/Reflex 1.3 mmol/L (0.5-2.2)
[2021-03-03 13:23] LABS: SARS Covid-2 Antigen Negative (Negative)
[2021-03-03 13:32] LABS: Alanine Aminotransferase 14 U/L (0-33); Albumin Level 2.7 g/dL (3.5-5.2); Alkaline Phosphatase 65 IU/L (35-105); Anion Gap 14.1 (5-19); Aspartate Amino Transferase 16 U/L (0-32); Blood Urea Nitrogen 39 mg/dL (8-23); Calcium 7.6 mg/dL (8.5-10.5); Carbon Dioxide 19 mmol/L (22-29); Chloride 107 mmol/L (98-107); Globulin 2.1 g/dL (1.3-4.6); Glucose 164 mg/dL (65-115); Lipase 100 U/L (13-60); NT Pro B Type Natriuretic Pept 435 pg/mL (0-450); Osmolality Calculated 297 mOsm/kg (285-295); Potassium 3.1 mmol/L (3.5-5.1); Sodium 137 mmol/L (136-145); Total Bilirubin 0.4 mg/dL (0.15-1.2); Total Protein 4.8 g/dL (6.6-8.7)
[2021-03-03] MEDS: potassium chloride oral liq 20 mEq/15 mL UDC 40 MEQ PO (15:56)
--- NOTE | 2021-03-03 17:10 | ECG_ITS ---
[facility] Test Date: 2021-03-03 Pat Name: Macy Guevara Department: Room: 261 Gender: Female Psychologists: : 1940 Requested By: Zane Hare Order Number: [id number] Jose MD: Jn Orozco M.D. Measurements Intervals [place] Rate: 103 P: 26 [place]: 149 QRS: -32 QRSD: 95 T: 29 QT: 344 QTc: 452 Interpretive Statements SINUS TACHYCARDIA LEFT AXIS DEVIATION [QRS AXIS < -30] PATTERN CONSISTENT WITH PULMONARY DISEASE LEFT VENTRICULAR HYPERTROPHY AND ST-T CHANGE [VOLTAGE CRITERIA PLUS ST/T ABNORMALITY] Compared to ECG 03/03/2021 12:08:26 Left-axis deviation now present Myocardial infarct finding no longer present ST (T wave) deviation still present Electronically Signed On 03-03-2021 19:43:59 CDT by Jn Orozco M.D. [email or web address]app[employer] EnergyCivitas Therapeuticscleveland clinic.smsPREP/store/[id number]
--- NOTE | 2021-03-03 18:43 | PM.HP ---
Providers/Chief Complaint Admitting Physician: Lester Osman Primary Care Provider: Carl Burch DO Chief Complaint: TACHYCARDIA/ WEAKNESS History of Present Illness Pleasant 80-year-old lady with history of rectal cancer, rectal bleeding, with persistent diarrhea over the last 3-4 weeks, last chemotherapy 4 weeks ago, presented with generalized weakness, orthostatic symptoms with lightheadedness, shortness of breath after standing up, walking, dehydration, tachycardia. In ER with noted sinus tachycardia, initially in 120s, with improvement with fluid bolus, down to 108. COVID-19 obtained in ER, rapid negative. PCR pending. Chest x-ray without acute abnormality. Atherosclerosis. As she is not yet back to baseline, continues with some dehydration, sinus tachycardia, we are asked to place her under observation in the hospital for additional IV hydration and monitoring. In case of cardiopulmonary arrest she would not want to have CPR. 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 Review of Systems Const: Reports: fatigue; Denies: fever(s), chills, body aches or malaise Eyes: Denies: change in vision or eye redness ENMT: Denies: throat pain, oral sores or ear or mastoid pain Card: Reports: swelling of feet/ankles and dyspnea on exertion; Denies: chest pain, edema or pre-syncope Resp: Denies: dyspnea, productive cough, change in phlegm color or hemoptysis GI: Denies: abdominal pain, nausea, vomiting, diarrhea, constipation, hematochezia or melena : Denies: flank pain, urinary frequency or hematuria Musc: Denies: back pain, joint swelling or joint redness Skin/Breast: Denies: rash, sores or new lesions Neuro: Reports: dizziness; Denies: headache(s), numbness in extremities, weakness in extremities, confusion or seizure-like activity Endo: Denies: polyuria or polydipsia Mik/Lymph: Denies: easy bleeding or purpura All/Imm: Denies: urticaria, throat swelling or tongue swelling Medications/Allergies Home Medications Medication Instructions Recorded Confirmed Last Taken Type labetalol 100 mg PO BID 07/04/19 03/03/21 12/01/20 History loratadine 10 mg PO DAILY 11/26/20 03/03/21 11/30/20 History hydrocodone-acetaminophen 1 tab PO Q6H PRN #7 tab 02/18/21 03/03/21 Unknown Rx capecitabine [Xeloda] See Rx Instructions .ROUTE .COMPLEX 03/03/21 03/03/21 Unknown History capecitabine [Xeloda] See Rx Instructions .ROUTE .COMPLEX 03/03/21 03/03/21 Unknown History Allergies Allergy/AdvReac Type Severity Reaction Status Date / Time No Known Allergies Allergy Verified 01/14/21 06:29 PFSH Acute PFSH: Medical History (Updated 03/03/21 @ 19:20 by Lester Osman MD) Arthritis Bleeding per rectum Anal mass, biopsies were obtained to rule out anal cancer Diverticulosis Hypertension Surgical History (Updated 03/03/21 @ 18:59 by Lester Osman MD) H/O rhinoplasty History of colonoscopy 2010 History of nasal surgery History of tonsillectomy Family History Father CAD (coronary artery disease) Mother Cancer Hypertension Denies family history of Diabetes Social History Smoking and tobacco status: never smoked Alcohol intake: never Substance/Drug Use: never Lives independently: Yes Household members: none Housing: Apartment Marital status: Single Female Reproductive History: Date of last menstrual period: 09/24/20 Vitals/I&O/Wt Last Vital Signs Temp 97.6 F 03/03/21 15:16 Pulse 108 H 03/03/21 18:32 Resp 19 H 03/03/21 18:32 BP 130/102 03/03/21 18:32 Pulse Ox 99 03/03/21 18:32 Weight last 48 hrs Weight 68.039 kg Physical Exam Const: COMMON NORMALS: no acute distress and patient oriented x3 OTHER: [place] [employer] HENMT: COMMON NORMALS: oropharynx normal Neck/C-Spine: COMMON NORMALS: no JVD Resp: COMMON NORMALS: normal respiratory effort and clear to auscultation bilaterally AUSCULTATION: clear to auscultation bilaterally Cardio: COMMON NORMALS: no JVD, regular rhythm, S1 normal heart sound present, S2 normal heart sound present and No murmurs present (Cardio) RHYTHM: regular rhythm HEART SOUNDS: S1 normal heart sound present and S2 normal heart sound present GI: COMMON NORMALS: Normal to inspection, nondistended, normoactive bowel sounds present, Soft to palpation and non-tender PALPATION: Yes Soft to palpation Extremity: COMMON NORMALS: no joint enlargement GENERAL: Yes edema (2+ LE edema) Neuro: COMMON NORMALS: patient oriented x3 and moves all extremities Skin: COMMON NORMALS: no rashes or lesions noted GENERAL SKIN EXAM: no rashes or lesions noted Data : 03/03/21 12:50 03/03/21 12:50 Micro: Microbiology 03/03/21 12:52 Blood Culture - Preliminary Blood SPECIMEN COLLECTED 03/03/21 12:50 Blood Culture - Preliminary Blood SPECIMEN COLLECTED A&P Assessment and plan (1) Dehydration: Continue gentle rehydration. Oral intake is tolerating. Check orthostatic blood pressure. Status: Acute (2) Diarrhea: Dehydration with IV fluids. Also stool studies, C. difficile, bacterial, parasite panel panel. Status: Acute (3) Rectal cancer: Status: Acute (4) Leg edema: Assess lower extremity duplex. Status: Acute (5) Hypokalemia: Replace. Check magnesium. Status: Acute Attestations Medical Necessity Statement*: Place in observation/management of dehydration, orthostatic symptoms secondary to protracted diarrhea, assessment of the diarrhea, electrolyte replacement, reassessment of orthostasis, electrolyte replacement. 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
[2021-03-03 21:21] LABS: Potassium 3.2 mmol/L (3.5-5.1)
[2021-03-03 21:42] LABS: Magnesium 1.9 mg/dL (1.7-2.3)
[2021-03-03] MEDS: potassium chloride oral liq 20 mEq/15 mL UDC PO (22:01)
[2021-03-03] MEDS: trazodone 50 mg Tablet 25 MG PO (22:01)
[2021-03-03] MEDS: lactated ringers 1,000 ML 75 ML IV (22:01)
[2021-03-04] VITALS (8 sets, daily range): BP systolic 107–136; BP diastolic 75–90; PULSE 79–144; RESP 14–20; TEMP 36.3–36.6; O2SAT 96–98; BMI 24.2
[2021-03-04] MEDS: ondansetron 2 mg/ML SDV 2 mL 4 MG IVP (01:03)
--- NOTE | 2021-03-04 07:00 | USCV_ITS ---
Macy Guevara Age: 80 Gender: F : 1940 Exam Date: 03/04/2021 06:33 Ordering Phys: Lester Osman MD Technologist: [place] [facility] [place]: LT SWELLING HISTORY: Lower extremity edema. PROCEDURES: The venous duplex Doppler examination of both lower extremities was performed in the standard fashion. The following venous structures were evaluated: common femoral vein, profunda vein, proximal portion of the greater saphenous vein, superficial femoral vein, and the popliteal vein. In addition, the posterior tibial and peroneal trunk were evaluated. FINDINGS: Evidence of acute occlusive deep vein thrombosis in the left popliteal vein with abnormal flow dynamics. Evidence of acute occlusive deep vein thrombosis in the left tibioperoneal vein with abnormal flow dynamics. The veins of the right lower extremity are readily compressible with normal venous flow dynamics including spontaneous flow, respiratory phasic variation and augmentation. CONCLUSIONS Acute, occlusive left lower extremity deep venous thrombosis, popliteal through tibioperoneal veins. Dr. Ariana Jasso DO (Electronically Signed) Final Date: 04 March 2021 08:03 S
--- NOTE | 2021-03-04 07:00 | USCV_ITS ---
Macy Guevara Age: 80 Gender: F : 1940 Exam Date: 03/04/2021 06:19 Ordering Phys: Lester Osman MD Technologist: [place] [facility] [place]: TACH BP: 127 / 85 HR: 125 Rhythm: Sinus Technical Quality: Adequate MEASUREMENTS (Male / Female) Normal Values 2D ECHO LV Diastolic Diameter PLAX 2.9 cm 4.2 - 5.9 / 3.9 - 5.3 cm LV Systolic Diameter PLAX 2.3 cm IVS Diastolic Thickness 0.8 cm 0.6 - 1.0 / 0.6 - 0.9 cm IVS Systolic Thickness 1.2 cm LVPW Diastolic Thickness 0.7 cm 0.6 - 1.0 / 0.6 - 0.9 cm LVPW Systolic Thickness 1.0 cm LVOT Diameter 2.0 cm LV Ejection Fraction 2D Teich 46.1 % LV Ejection Fraction MOD 2C 70.0 % LV Ejection Fraction 2C AL 70.4 % LA Diameter 3.0 cm LA Width 4.0 cm LA Height 4.4 cm RA Width 3.3 cm RA Height 4.9 cm Aorta at Sinotubular Diameter 2.8 cm DOPPLER AV Peak Velocity 121.0 cm/s LVOT Peak Velocity 107.0 cm/s AV Area Cont Eq vti 3.6 cm squared AV Area Cont Eq pk 2.9 cm squared MV Area PHT 5.0 cm squared Mitral E to A Ratio 0.7 MV E' Velocity 38.5 cm/s Mitral E to MV E' Ratio 8.7 Mitral E to LV E' Lateral Ratio 7.8 Mitral E to LV E' Septal Ratio 9.9 TR Peak Velocity 155.0 cm/s TR Peak Gradient 9.6 mmHg TV Peak E Velocity 95.0 cm/s Right Atrial Pressure 3.0 mmHg Pulmonary Artery Systolic Pressu 12.6 mmHg FINDINGS Left Ventricle Normal left ventricular cavity size. Normal left ventricular systolic function. Left ventricular ejection fraction is estimated at 60 %. In the presence of tachycardia diastolic function cannot be assessed accurately Right Ventricle The right ventricle is normal in size and function. Right Atrium The right atrium is normal in size. Left Atrium The left atrium is normal in size. Mitral Valve Moderately thickened mitral valve. Severe mitral annulus calcification trace mitral valve regurgitation. Aortic Valve Aortic valve sclerosis without stenosis or regurgitation. Tricuspid Valve Structurally normal tricuspid valve without significant stenosis or regurgitation. Pulmonary artery systolic pressure is normal. Pulmonic Valve Structurally normal pulmonic valve without significant stenosis. There is no pulmonic regurgitation. Pericardium Normal pericardium without effusion. Aorta Normal ascending aorta dimension. CONCLUSIONS 1-Normal left ventricular cavity size. Normal left ventricular systolic function. Left ventricular ejection fraction is estimated at 60 %. In the presence of tachycardia diastolic function cannot be assessed accurately. 2-Moderately thickened mitral valve. Severe mitral annulus calcification trace mitral valve regurgitation. 3-Aortic valve sclerosis without stenosis or regurgitation. 4-There is no pericardial effusion. 5-Pulmonary artery systolic pressure is within normal limits. 6-Right atrial pressure is around 5 mm of mercury. 7-There are no prior echocardiogram studies to compare. Ramila Garnica MD (Electronically Signed) Final Date: 04 March 2021 19:23 S
[2021-03-04 08:03] LABS: Basophils % 0.6 %; Eosinophils % 0.3 %; Hematocrit 35.7 % (37.0-47.0); Hemoglobin 11.4 g/dL (11.5-15.3); Lymphocytes # 0.4 10^3/uL (0.8-4.8); Lymphocytes % 12.7 %; Mean Corpuscular HGB Conc 31.9 g/dL (30.0-36.0); Mean Corpuscular Volume 87.7 fl (81-99); Monocytes # 0.1 10^3/uL (0.2-0.9); Monocytes % 3.9 %; Neutrophils # 2.72 10^3/uL (1.8-7.7); Neutrophils % 81.9 %; Nucleated Red Blood Cells % 0 %; Platelet Count 178 10^3/cmm (130-400); Red Blood Count 4.07 10^6/uL (4.1-5.3); Red Cell Distribution Width 26.2 % (12.1-15.1); White Blood Count 3.3 10^3/uL (4.0-10.0)
[2021-03-04 08:21] LABS: Alanine Aminotransferase 10 U/L (0-33); Alkaline Phosphatase 47 IU/L (35-105); Aspartate Amino Transferase 9 U/L (0-32); Blood Urea Nitrogen 29 mg/dL (8-23); Calcium 7.2 mg/dL (8.5-10.5); Carbon Dioxide 16 mmol/L (22-29); Chloride 110 mmol/L (98-107); Globulin 1.6 g/dL (1.3-4.6); Glucose 97 mg/dL (65-115); Osmolality Calculated 290 mOsm/kg (285-295); Sodium 137 mmol/L (136-145); Total Bilirubin 0.3 mg/dL (0.15-1.2); Total Protein 3.6 g/dL (6.6-8.7)
[2021-03-04 08:34] LABS: Slide Review Slide Review Perform
--- NOTE | 2021-03-04 10:00 | PC.CHAP ---
Pastoral Care Encounter/Spiritual Assessment Type of Contact [] Declined tile erector visit [] Patient/Family/Request visit [] Outpatient visit [] Follow-up visit [] Physician referral [] Code/Alert [] Routine visit [] Staff referral [] Actively dying [] Patient sleeping [] Family support [] [] Out of room [] Palliative care [] [] Receiving care in room [] Pre-surgical visit [] Trauma [] Long length of stay [] ICU visit [x] Other: Isolation Relational/Emotional Strength [] Patient feels connected with others/family/visitors/staff [] Distress [] Loneliness/isolation [] Abandonment Spirituality of Patient [] Person of Sheila [] Attends Scientology of their Sheila [] Believes in Prayer [] Reads Bible or Scientology materials [] There are Spiritual issues to be addressed Gold Buyer Interventions [] Prayer [] Active listening [] Non-anxious presence [] Spiritual/emotional support [] Crisis/trauma care [] Spiritual counseling [] Bereavement support [] Provided bereavement packet [] Provided Bible/devotional materials [] Provided toy/stuffed animal, coloring book to patient or family member [] Provided Communion [] Anointing/[place] [] Salvation [] Completed spiritual assessment [] Other: Impact on Illness or Injury [] Angry [] Fearful [] Anxious [] Often cries [] Exhaustion [] Unable to work [] Unable to attend evangelical [] Unable to walk/stand [] Unable to read [] Unable to drive [] Unable to eat/drink [] Unable to sleep [] Unable to be with family [] Patient intubated [] Other: Summary Isolation Time spent with patient 5 mins
--- NOTE | 2021-03-04 10:26 | NM_ITS ---
WS: [id number] NUCLEAR MEDICINE VENTILATION/PERFUSION LUNG SCAN HISTORY: dvt, tachycardia, assess for PE COMPARISON: Chest radiograph 03/03/2021 TECHNIQUE: Ventilation: 32.2 mCi of Technetium 99 DTPA aerosol inhaled. Perfusion: 5.5 mCi of technetium 99m MAA IV. Very patchy distribution of radionuclide on the ventilatory portion of the examination. Very heteroge neous appearance to both lungs. No wedge-shaped defects on the perfusion examination. There is a matc hed wedge-shaped defect posterior RIGHT lateral upper lobe. NM/NM pul vent and perfus* [id number] IMPRESSION: Indeterminate for pulmonary embolism.
[2021-03-04] MEDS: lactated ringers 1,000 ML 75 ML IV (10:42)
--- NOTE | 2021-03-04 10:43 | PM.PN ---
Subjective Subjective: Interval history: Feels it is painful for her to swallow after potassium yesterday and today. No chest pain. Slightly harder to breathe. Vitals/I&O/Wt Last Vital Signs Temp 97.8 F 03/04/21 07:49 Pulse 106 H 03/04/21 07:49 Resp 14 03/04/21 07:49 BP 136/90 03/04/21 07:49 Pulse Ox 97 03/04/21 07:49 03/03/21 03/04/21 03/04/21 22:59 06:59 14:59 Intake Total 1999 950 / 950 Balance 1999 950 / 950 Weight last 48 hrs Weight 68.039 kg Weight 68.039 kg Weight 68.039 kg Physical Exam Const: COMMON NORMALS: no acute distress and patient oriented x3 OTHER: [employer] [employer] [place] HENMT: COMMON NORMALS: oropharynx normal Neck/C-Spine: COMMON NORMALS: no JVD Resp: COMMON NORMALS: normal respiratory effort and clear to auscultation bilaterally AUSCULTATION: clear to auscultation bilaterally Cardio: COMMON NORMALS: no JVD, regular rhythm, S1 normal heart sound present, S2 normal heart sound present and No murmurs present (Cardio) RHYTHM: regular rhythm HEART SOUNDS: S1 normal heart sound present and S2 normal heart sound present GI: COMMON NORMALS: Normal to inspection, nondistended, normoactive bowel sounds present, Soft to palpation and non-tender PALPATION: Yes Soft to palpation Extremity: COMMON NORMALS: no joint enlargement GENERAL: Yes edema (2+ LE edema) Neuro: COMMON NORMALS: patient oriented x3 and moves all extremities Skin: COMMON NORMALS: no rashes or lesions noted GENERAL SKIN EXAM: no rashes or lesions noted Data : 03/04/21 06:14 03/04/21 06:14 Micro: Microbiology 03/03/21 12:52 Blood Culture - Preliminary Blood SPECIMEN COLLECTED 03/03/21 12:50 Blood Culture - Preliminary Blood SPECIMEN COLLECTED A&P Assessment and plan (1) DVT (deep venous thrombosis): Left lower extremity. Discussed with her regarding treatment options. Discussed initiation of anticoagulation which may be risky given some episodes of rectal bleeding previously. She states has not been having any bleeding recently. States her bottom has been overall recently with wiping due to diarrhea. She is wanting to start trial of blood thinner medication. We will start with heparin drip so it may be discontinued in case of bleeding. She has been persistently tachycardic, notes some dyspnea with exertion. Will assess also VQ scan for PE as discussed with her. Hold off additional IV fluid for now. Given prior rectal bleeding, rectal cancer, is at elevated risk of bleeding, needs close monitoring in the hospital with initiation of anticoagulation. Pending COVID-19 PCR. Status: Acute (2) Dehydration: DC IVF. Oral intake as tolerating. Check orthostatic blood pressure. Status: Acute (3) Diarrhea: Dehydration with IV fluids. Also stool studies, C. difficile, bacterial, parasite panel panel. Status: Acute (4) Rectal cancer: Status: Acute (5) Leg edema: Assess lower extremity duplex positive for DVT left lower extremity. Status: Acute (6) Hypokalemia: Replaced. She does not want any more potassium. Status: Acute (7) Dysphagia: Esophageal dysphagia. Suspect esophagitis, possibly candidal. Possibly esophagitis. She states was triggered by potassium pills. Having pain with swallowing water. Add PPI, sucralfate, nystatin swish and swallow. Status: Acute Attestations Medical Necessity Statement*: Admission of over 2 midnights is going to be needed for assessment management with initiation of anticoagulation due to DVT in the presence of rectal cancer, rectal bleeding. Assessment for PE. 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
[2021-03-04] MEDS: pantoprazole 40 mg SDV IVP (11:35)
[2021-03-04] MEDS: sucralfate 1 gm/10 mL Oral Liq UDC PO ×2 (11:38→16:27)
[2021-03-04] MEDS: nystatin 100,000 unit/mL UDC 5 mL 400000 UNIT PO ×2 (13:05→16:28)
--- NOTE | 2021-03-04 14:08 | PC.NURSE ---
Unable to assess standing blood pressure. Repeated test multiple times with errors.
[2021-03-04 16:19] LABS: Coronavirus Test Green County Not Detected
[2021-03-04] MEDS: heparin drip 25,000 UNIT/500 ML PREMIX 20 UNIT IV (16:22)
[2021-03-04] MEDS: heparin 5,000 unit/mL INJ 1 mL IV (16:24)
[2021-03-04] MEDS: labetalol 200 mg Tablet 50 MG PO (17:51)
[2021-03-04] MEDS: trazodone 50 mg Tablet 25 MG PO (21:54)
--- NOTE | 2021-03-04 22:47 | PC.NURSE ---
BM'S Having copious amts watery BM with some vicente mucousy soft stool observed as well. Watery stool has gone all the way to foot of bed. Has been changed X2 this evening. Sent specimen to lab to check for C-diff. Rectal area is extremely red and tender with couple of skin breaks noted. Using Aloe [place] ointment generously to areas.
[2021-03-04 23:46] LABS: Partial Thromboplastin Time 201.2 SECONDS (23.9-36.7)
[2021-03-05] VITALS: BP 109/76; PULSE 90; RESP 16; TEMP 36.5; O2SAT 96
--- NOTE | 2021-03-05 00:03 | PC.NURSE ---
Pt PTT was 201.2 so IV pump was stopped at [address] notified.
[2021-03-05 03:30] LABS: Basophils % 0.5 %; Eosinophils % 0.3 %; Hematocrit 37.5 % (37.0-47.0); Hemoglobin 12.4 g/dL (11.5-15.3); Lymphocytes # 0.5 10^3/uL (0.8-4.8); Lymphocytes % 12.1 %; Mean Corpuscular HGB Conc 33.1 g/dL (30.0-36.0); Mean Corpuscular Hemoglobin 28.5 pg (28.0-34.0); Mean Corpuscular Volume 86.2 fl (81-99); Mean Platelet Volume 9.7 fL (7.4-10.4); Monocytes # 0.1 10^3/uL (0.2-0.9); Monocytes % 3.5 %; Neutrophils % 83.3 %; Nucleated Red Blood Cells % 0 %; Platelet Count 229 10^3/cmm (130-400); Red Blood Count 4.35 10^6/uL (4.1-5.3); Red Cell Distribution Width 26.3 % (12.1-15.1)
[2021-03-05 03:59] LABS: Partial Thromboplastin Time 37.6 SECONDS (23.9-36.7)
[2021-03-05 04:00] VITALS: BP 93/71; PULSE 76; RESP 16; TEMP 36.3; O2SAT 96
[2021-03-05 04:08] LABS: Blood Urea Nitrogen 29 mg/dL (8-23); Calcium 7.9 mg/dL (8.5-10.5); Carbon Dioxide 16 mmol/L (22-29); Chloride 109 mmol/L (98-107); Glucose 124 mg/dL (65-115); Osmolality Calculated 289 mOsm/kg (285-295); Sodium 136 mmol/L (136-145)
[2021-03-05 04:21] LABS: Slide Review Slide Review Perform
--- NOTE | 2021-03-05 04:29 | PC.NURSE ---
New ptt 37.6. Heparin drip resumed at 600 units/[address] notified
--- NOTE | 2021-03-05 06:15 | PC.NURSE ---
Nurse explained purose of carafate to pt but she kept refusing
[2021-03-05] MEDS: lactated ringers 1,000 ML 75 ML IV ×2 (06:27→20:44)
[2021-03-05 07:18] VITALS: BP 115/83; PULSE 110; RESP 18; TEMP 36.5; O2SAT 97
[2021-03-05] MEDS: pantoprazole 40 mg SDV IVP (08:37)
--- NOTE | 2021-03-05 08:51 | PC.NURSE ---
Patient refused all po am medications. States states all medication makes her stomach burn. Attempted to educate patient on medication uses and benefits without success. Patient continued to refuse medication. Will notify primary nurse.
[2021-03-05] MEDS: apixaban 5 mg Tablet 10 MG PO ×2 (10:24→20:43)
[2021-03-05 12:00] VITALS: BP 134/78; PULSE 74; RESP 18; TEMP 36.9; O2SAT 91
--- NOTE | 2021-03-05 13:22 | PM.PN ---
Subjective Subjective: Interval history: Very poor oral intake. Unable to hydrate herself adequately. Mouth feels dry. Pain on swallowing. Some burning pain migrated lower in her abdomen. She blames the potassium supplements. Vitals/I&O/Wt Last Vital Signs Temp 98.4 F 03/05/21 12:00 Pulse 74 03/05/21 12:00 Resp 18 03/05/21 12:00 BP 134/78 03/05/21 12:00 Pulse Ox 91 03/05/21 12:00 03/04/21 03/05/21 03/05/21 22:59 06:59 14:59 Intake Total 700 / 1802.5 371.667 / 2174.167 258.333 / 258.333 Output Total 800 / 1200 Balance 700 / 1402.5 -428.333 / 974.167 258.333 / 258.333 Weight last 48 hrs Weight 68.039 kg Weight 68.039 kg Physical Exam Const: COMMON NORMALS: no acute distress and patient oriented x3 OTHER: [place] HENMT: COMMON NORMALS: oropharynx normal Neck/C-Spine: COMMON NORMALS: no JVD Resp: COMMON NORMALS: normal respiratory effort and clear to auscultation bilaterally AUSCULTATION: clear to auscultation bilaterally Cardio: COMMON NORMALS: no JVD, regular rhythm, S1 normal heart sound present, S2 normal heart sound present and No murmurs present (Cardio) RHYTHM: regular rhythm HEART SOUNDS: S1 normal heart sound present and S2 normal heart sound present GI: COMMON NORMALS: Normal to inspection, nondistended, normoactive bowel sounds present, Soft to palpation and non-tender PALPATION: Yes Soft to palpation Extremity: COMMON NORMALS: no joint enlargement GENERAL: Yes edema (2+ LE edema) Neuro: COMMON NORMALS: patient oriented x3 and moves all extremities Skin: COMMON NORMALS: no rashes or lesions noted GENERAL SKIN EXAM: no rashes or lesions noted Data : 03/05/21 03:15 03/05/21 03:15 Micro: Microbiology 03/04/21 22:35 C.difficile Toxin B Gene (PCR) - Final Stool Routine Collection 03/03/21 12:50 Blood Culture - Preliminary Blood NEGATIVE TO DATE 03/03/21 12:52 Blood Culture - Preliminary Blood NEGATIVE TO DATE A&P Assessment and plan (1) Dehydration: She is having pharyngoesophageal dysphagia. Difficulty with eating or drinking. Very poor oral intake. Mouth is dry. Continued on IV hydration. Getting weaker. Requiring assistance with turning. Feeding. Continue IV hydration for now. Continue sucralfate. PPI. Nystatin swish and swallow. We will assess barium swallow. Could not stand for orthostatics. Status: Acute (2) DVT (deep venous thrombosis): Known DVT. Possible PE, VQ scan indeterminate. Continue to evaluation. Transitioned to oral Eliquis, however, appears to be having difficulties with swallowing. Monitor intake. May need to switch back to parenteral anticoagulation if unable to tolerate medications. Monitor for rectal bleeding and presence of rectal cancer. Negative COVID-19 PCR. Status: Acute (3) Diarrhea: Dehydration with IV fluids. No C. difficile. Status: Acute (4) Rectal cancer: Status: Acute (5) Leg edema: LLE DVT. Anticoagulation as above. Status: Acute (6) Hypokalemia: Replaced. She does not want any more potassium. Status: Acute (7) Dysphagia: Very poor oral intake. Assess barium swallow. Continue PPI, sucralfate, nystatin swish and swallow. Status: Acute (8) Decreased functional activity tolerance: Requiring significant assistance. States recently has been walking with a walker, and even then having difficulty. Here requiring assistance with turning, feeding. This is made worse by very poor oral intake. Continue PT, OT. Appreciate CM assistance withrehabilitation after discharge. Status: Acute Attestations Medical Necessity Statement*: Continue admission for transition of anticoagulation to oral, however complicated by severe limitation of oral intake, odynophagia, as well as needing anticoagulation in the setting of rectal cancer with prior rectal bleeds. Also significantly worsening functional capacity recently, currently unable to independently ambulate turn in bed, and requiring assistance with feeding. Needs quite significant rehabilitation prior to return home. Coding Level of Care Code Acute Senior Product Integrity Engineer for Chg Fwd Diagnoses Dehydration E86.0 DVT (deep venous thrombosis) I82.409 Diarrhea R19.7 Rectal cancer C20 Leg edema R60.0 Hypokalemia E87.6 Dysphagia R13.10 Decreased functional activity tolerance R68.89
--- NOTE | 2021-03-05 13:25 | FL_ITS ---
WS: [id number] Barium swallow and esophagram, 03/05/2021 Clinical Data: Poor oral intake, pain on swallowing Comparison: None. Fluoroscopy time: 0.9 minutes. Findings: The patient swallowed the thin barium, and it flowed through the hypopharynx without hesitation. No stricture, mass, polyp or erosion was seen. The barium entered the esophagus and there was normal motility throughout. No reflux, stricture, poly p, mass, erosion or ulcer was noted. There was a small sliding hiatal hernia. FL/FL barium swallow [id number] Impression: Small hiatal hernia without significant reflux.
[2021-03-05 13:48] LABS: Creatine Phosphokinase 10 U/L (26-192)
--- NOTE | 2021-03-05 14:29 | PC.NUTR ---
Nutrition assessment for MST. Recommend modifying diet texture as appropriate based upon MBS interpretation. May also benefit from GI soft diet d/t diarrhea. Will add clear supplement at this time, however consistency may need to be modified per INTERNAL AUDIT MANAGER recommendation. See full RD assessment for further details.
--- NOTE | 2021-03-05 14:43 | PC.OT ---
Patient unavailable when therapist there, as she was going out to barium swallow, will attempt later when able.
--- NOTE | 2021-03-05 14:47 | PC.PT ---
Attempted to see patient 2 times for evaluation today, patient having diarrhea both times needing cleaned up by nurses which was done, reattempted evaluation patient's complaint of fatigue, requested attempt in a.m., will see her then thank you
--- NOTE | 2021-03-05 15:17 | PC.CHAP ---
Pastoral Care Encounter/Spiritual Assessment Type of Contact [] Declined grinding machine operator visit [] Patient/Family/Request visit [] Outpatient visit [] Follow-up visit [] Physician referral [] Code/Alert [] Routine visit [] Staff referral [] Actively dying [XX] Patient sleeping [] Family support [] [] Out of room [] Palliative care [] [] Receiving care in room [] Pre-surgical visit [] Trauma [] Long length of stay [] ICU visit [] Other: Relational/Emotional Strength [] Patient feels connected with others/family/visitors/staff [] Distress [] Loneliness/isolation [] Abandonment Spirituality of Patient [] Person of Sheila [] Attends Restoration of their Sheila [] Believes in Prayer [] Reads Bible or Adventism materials [] There are Spiritual issues to be addressed Supervisor Ornamental Ironworking Interventions [] Prayer [] Active listening [] Non-anxious presence [] Spiritual/emotional support [] Crisis/trauma care [] Spiritual counseling [] Bereavement support [] Provided bereavement packet [] Provided Bible/devotional materials [] Provided toy/stuffed animal, coloring book to patient or family member [] Provided Communion [] Anointing/[place] [] Salvation [] Completed spiritual assessment [] Other: Impact on Illness or Injury [] Angry [] Fearful [] Anxious [] Often cries [] Exhaustion [] Unable to work [] Unable to attend yazdanism [] Unable to walk/stand [] Unable to read [] Unable to drive [] Unable to eat/drink [] Unable to sleep [] Unable to be with family [] Patient intubated [] Other: Summary Follow up needed Time spent with patient
[2021-03-05 16:00] VITALS: BP 132/72; PULSE 64; RESP 18; TEMP 36.9; O2SAT 95
[2021-03-05] MEDS: nystatin 100,000 unit/mL UDC 5 mL 400000 UNIT PO ×2 (17:44→20:42)
[2021-03-05] MEDS: sucralfate 1 gm/10 mL Oral Liq UDC PO ×2 (17:44→20:42)
[2021-03-05] MEDS: labetalol 200 mg Tablet 50 MG PO (17:44)
[2021-03-05 20:00] VITALS: BP 110/80; PULSE 114; RESP 20; TEMP 36.4; O2SAT 95
[2021-03-05] MEDS: trazodone 50 mg Tablet 25 MG PO (20:43)
[2021-03-06] VITALS: BP 120/75; PULSE 103; RESP 20; TEMP 36.2; O2SAT 96
[2021-03-06 04:00] VITALS: BP 120/81; PULSE 125; RESP 18; TEMP 36.5; O2SAT 96
[2021-03-06 06:00] VITALS: BMI 23.8
[2021-03-06 07:40] VITALS: BP 105/71; PULSE 137; RESP 20; TEMP 36.7; O2SAT 97
[2021-03-06] MEDS: sucralfate 1 gm/10 mL Oral Liq UDC PO ×3 (08:36→21:07)
[2021-03-06] MEDS: loratadine 10 mg Tablet PO (08:37)
[2021-03-06] MEDS: apixaban 5 mg Tablet 10 MG PO ×2 (08:37→21:07)
[2021-03-06] MEDS: pantoprazole 40 mg SDV IVP (09:09)
[2021-03-06] MEDS: nystatin 100,000 unit/mL UDC 5 mL 400000 UNIT PO ×3 (09:37→21:07)
[2021-03-06] MEDS: HYDROcodone-acetaminophen 5-325 mg Tablet 1 TAB PO (09:38)
[2021-03-06] MEDS: labetalol 200 mg Tablet 50 MG PO ×2 (09:38→19:10)
[2021-03-06 10:55] LABS: Basophils % 1.4 %; Hematocrit 38.9 % (37.0-47.0); Hemoglobin 12.8 g/dL (11.5-15.3); Lymphocytes # 0.1 10^3/uL (0.8-4.8); Lymphocytes % 9.8 %; Mean Corpuscular HGB Conc 32.9 g/dL (30.0-36.0); Mean Corpuscular Hemoglobin 28.3 pg (28.0-34.0); Mean Corpuscular Volume 85.9 fl (81-99); Mean Platelet Volume 10.2 fL (7.4-10.4); Monocytes % 1.4 %; Neutrophils % 83.9 %; Nucleated Red Blood Cells % 0 %; Platelet Count 207 10^3/cmm (130-400); Red Blood Count 4.53 10^6/uL (4.1-5.3); Red Cell Distribution Width 26.5 % (12.1-15.1); White Blood Count 1.4 10^3/uL (4.0-10.0)
[2021-03-06 11:25] VITALS: BP 95/65; PULSE 137; RESP 18; TEMP 36.4; O2SAT 96
[2021-03-06] MEDS: lactated ringers 1,000 ML 75 ML IV (13:19)
[2021-03-06] MEDS: ibuprofen 600 mg Tablet PO ×2 (15:27→23:02)
[2021-03-06 15:37] VITALS: BP 106/74; PULSE 134; RESP 18; O2SAT 93
[2021-03-06 20:00] VITALS: BP 106/71; PULSE 117; RESP 16; TEMP 36.3; O2SAT 97
[2021-03-06] MEDS: trazodone 50 mg Tablet 25 MG PO (21:07)
--- NOTE | 2021-03-06 21:09 | PC.NURSE ---
i reported low temp 97.3 and high pulse 117 to nurse
--- NOTE | 2021-03-06 22:04 | P.PN_ITS ---
Subjective Subjective: Interval history: She is adamant that she wants to take ibuprofen otherwise she is states she is going home. Discussed with her that this has been her concern that she has not been able to go home as she is not getting up, and currently also not eating. We are noticing that she is very weak. She states that she is hurting from her arthritis, which is why she is not getting up, and only ibuprofen can make it better according to her prior experience. Discussed with her ibuprofen may worsen her stomach inflammation, lead to ulcers, GI bleeding, lead to kidney injury, elevated blood pressure, and or other complications. She states she understands, and still wants it. Discussed we will add it to try and get her some relief. Discussed with her results of VQ scan. Discussed continued concern for possible underlying PE. Vitals/I&O/Wt Last Vital Signs Temp 97.3 F L 03/06/21 20:00 Pulse 117 H 03/06/21 20:00 Resp 16 03/06/21 20:00 BP 106/71 03/06/21 20:00 Pulse Ox 97 03/06/21 20:00 03/06/21 03/06/21 03/06/21 06:59 14:59 22:59 Intake Total 1000 / 1000 50 / 1050 Balance 1000 / 1000 50 / 1050 Weight last 48 hrs Weight 67.132 kg Physical Exam Const: COMMON NORMALS: no acute distress and patient oriented x3 OTHER: [place] HENMT: COMMON NORMALS: oropharynx normal Neck/C-Spine: COMMON NORMALS: no JVD Resp: COMMON NORMALS: normal respiratory effort and clear to auscultation bilaterally AUSCULTATION: clear to auscultation bilaterally Cardio: COMMON NORMALS: no JVD, regular rhythm, S1 normal heart sound present, S2 normal heart sound present and No murmurs present (Cardio) RHYTHM: regular rhythm HEART SOUNDS: S1 normal heart sound present and S2 normal heart sound present GI: COMMON NORMALS: Normal to inspection, nondistended, normoactive bowel sounds present, Soft to palpation and non-tender PALPATION: Yes Soft to palpation Extremity: COMMON NORMALS: no joint enlargement GENERAL: Yes edema (2+ LE edema) Neuro: COMMON NORMALS: patient oriented x3 and moves all extremities OTHER: Appears generally weak, lifts legs up off the bed against gravity, moves upper extremities, takes deep breaths. Skin: COMMON NORMALS: no rashes or lesions noted GENERAL SKIN EXAM: no rashes or lesions noted Data : 03/06/21 10:23 03/05/21 03:15 Micro: Microbiology 03/04/21 22:35 Enteric Pathogens (PCR) - Final Stool - Stool Aspirate Parasite Antigen Panel - Final A&P Assessment and plan (1) Generalized weakness: She is convinced that her arthritis pain is to blame for her not getting up, not eating. Insists that she is started on ibuprofen. After discussion of risks, discussed we will start it. The same time discussed we will do some additional work-up. We will check CRP, ESR to start. Check CK. TSH. Phos. B12, folic acid. Recheck UA which for some reason is still uncollected. Has been requiring assistance with turning, feeding. Status: Acute (2) Dehydration: Continue IV hydration for now. Continue sucralfate. PPI. Nystatin swish and swallow. Assessed barium swallow which was unremarkable. Status: Acute (3) DVT (deep venous thrombosis): Known DVT. Possible PE, VQ scan indeterminate. Continue to evaluation. Transitioned to oral Eliquis, however, appears to be having difficulties with swallowing. Monitor intake. May need to switch back to parenteral anticoagulation if unable to tolerate medications. Monitor for rectal bleeding and presence of rectal cancer. Negative COVID-19 PCR. Status: Acute (4) Diarrhea: Dehydration with IV fluids. No C. difficile. Enteric bacterial, parasite panel is negative. Status: Acute (5) Rectal cancer: Status: Acute (6) Leg edema: LLE DVT. Possible PE. Anticoagulation as above. Status: Acute (7) Hypokalemia: Replaced. Status: Acute (8) Dysphagia: Very poor oral intake. Assess barium swallow. Continue PPI, sucralfate, nystatin swish and swallow. Status: Acute (9) Decreased functional activity tolerance: Requiring significant assistance. States recently has been walking with a walker, and even then having difficulty. Here requiring assistance with turning, feeding. This is made worse by very poor oral intake. Continue PT, OT. Appreciate CM assistance withrehabilitation after discharge. Status: Acute Attestations Medical Necessity Statement*: Continue admission for assessment management of weakness, poor oral intake, in the setting of DVT, possible PE. Coding Level of Care Code Acute Bracelet Maker Novelty for Prabhu Sullivan Diagnoses Generalized weakness R53.1 Dehydration E86.0 DVT (deep venous thrombosis) I82.409 Diarrhea R19.7 Rectal cancer C20 Leg edema R60.0 Hypokalemia E87.6 Dysphagia R13.10 Decreased functional activity tolerance R68.89
[2021-03-06 23:37] LABS: Blood Urea Nitrogen 41 mg/dL (8-23); Calcium 7.4 mg/dL (8.5-10.5); Carbon Dioxide 14 mmol/L (22-29); Chloride 111 mmol/L (98-107); Glucose 133 mg/dL (65-115); Osmolality Calculated 294 mOsm/kg (285-295); Sodium 136 mmol/L (136-145)
[2021-03-06 23:39] LABS: Anion Gap 15.7 (5-19); Potassium 4.7 mmol/L (3.5-5.1)
[2021-03-07] VITALS (7 sets, daily range): BP systolic 79–121; BP diastolic 57–91; PULSE 104–119; RESP 16–18; TEMP 36.3–36.9; O2SAT 93–98
--- NOTE | 2021-03-07 00:21 | PC.NURSE ---
i reported low temp 97.5 and high pulse 107 to nurse
[2021-03-07] MEDS: lactated ringers 1,000 ML 75 ML IV ×2 (01:44→15:49)
--- NOTE | 2021-03-07 04:37 | PC.NURSE ---
i reported high pulse 116 to nurse
[2021-03-07] MEDS: ibuprofen 600 mg Tablet PO ×3 (05:51→20:15)
[2021-03-07] MEDS: sucralfate 1 gm/10 mL Oral Liq UDC PO ×4 (06:00→20:15)
[2021-03-07 06:58] LABS: Basophils % 0.8 %; Eosinophils % 2.4 %; Hematocrit 35.7 % (37.0-47.0); Hemoglobin 11.7 g/dL (11.5-15.3); Lymphocytes # 0.4 10^3/uL (0.8-4.8); Lymphocytes % 30.4 %; Mean Corpuscular HGB Conc 32.8 g/dL (30.0-36.0); Mean Corpuscular Hemoglobin 28.3 pg (28.0-34.0); Mean Corpuscular Volume 86.4 fl (81-99); Mean Platelet Volume 10.2 fL (7.4-10.4); Monocytes # 0.1 10^3/uL (0.2-0.9); Monocytes % 8.8 %; Nucleated Red Blood Cells % 0 %; Platelet Count 232 10^3/cmm (130-400); Red Blood Count 4.13 10^6/uL (4.1-5.3); Red Cell Distribution Width 26.7 % (12.1-15.1); White Blood Count 1.3 10^3/uL (4.0-10.0)
[2021-03-07 08:00] LABS: Anion Gap 13.2 (5-19); Blood Urea Nitrogen 41 mg/dL (8-23); C Reactive Protein 68.6 mg/L (0.0-4.9); Calcium 7.8 mg/dL (8.5-10.5); Carbon Dioxide 15 mmol/L (22-29); Chloride 108 mmol/L (98-107); Creatine Phosphokinase 25 U/L (26-192); Glucose 110 mg/dL (65-115); Osmolality Calculated 285 mOsm/kg (285-295); Phosphorus 2.9 mg/dL (2.5-4.5); Potassium 4.2 mmol/L (3.5-5.1); Sodium 132 mmol/L (136-145); Thyroid Stimulating Hormone 2.36 uIU/mL (0.27-4.20); Vitamin B12 1251 pg/mL (232-1245)
[2021-03-07] MEDS: pantoprazole 40 mg SDV IVP (08:38)
[2021-03-07 09:15] LABS: Erythrocyte Sedimentation Rate 10 mm/hr (0-15)
[2021-03-07] MEDS: nystatin 100,000 unit/mL UDC 5 mL 400000 UNIT PO ×4 (09:15→20:15)
[2021-03-07] MEDS: loratadine 10 mg Tablet PO (09:16)
[2021-03-07] MEDS: apixaban 5 mg Tablet 10 MG PO ×2 (09:16→20:14)
[2021-03-07] MEDS: labetalol 200 mg Tablet 50 MG PO (09:31)
--- NOTE | 2021-03-07 10:04 | PC.SOCIAL ---
Pg 2 IMM Explained to pt Pg 2 IMM. No questions voiced. Provided pt a copy. Initialed, dated, & timed a copy & placed in chart.
[2021-03-07] MEDS: lanolin oint 7 gm 1 APPLIC TOPICAL (10:40)
[2021-03-07 11:02] LABS: Folate Level 10.5 ng/mL (4.8-37.3)
[2021-03-07 11:57] LABS: LAB Peripheral Smear Sent for Review
[2021-03-07 12:08] LABS: Monoscreen Negative (Negative)
--- NOTE | 2021-03-07 13:19 | PC.NURSE ---
IV INFILTRATED RIGHT AC SPACE, IV DISCONTINUED, ALL CANNULA INTACT, 2X2 PRESSURE AND COBAN APPLIED TO SITE.
--- NOTE | 2021-03-07 17:03 | PC.CHAP ---
Pastoral Care Encounter/Spiritual Assessment Type of Contact [] Declined wildfire prevention specialist visit [] Patient/Family/Request visit [] Outpatient visit [XX] Follow-up visit [] Physician referral [] Code/Alert [] Routine visit [] Staff referral [] Actively dying [XX] Patient sleeping [] Family support [] [] Out of room [] Palliative care [] [] Receiving care in room [] Pre-surgical visit [] Trauma [] Long length of stay [] ICU visit [] Other: Relational/Emotional Strength [] Patient feels connected with others/family/visitors/staff [] Distress [] Loneliness/isolation [] Abandonment Spirituality of Patient [] Person of Sheila [] Attends Confucianism of their Sheila [] Believes in Prayer [] Reads Bible or Pentecostalism materials [] There are Spiritual issues to be addressed Oxide Furnace Tender Interventions [] Prayer [] Active listening [] Non-anxious presence [] Spiritual/emotional support [] Crisis/trauma care [] Spiritual counseling [] Bereavement support [] Provided bereavement packet [] Provided Bible/devotional materials [] Provided toy/stuffed animal, coloring book to patient or family member [] Provided Communion [] Anointing/[place] [] Salvation [] Completed spiritual assessment [] Other: Impact on Illness or Injury [] Angry [] Fearful [] Anxious [] Often cries [] Exhaustion [] Unable to work [] Unable to attend faith [] Unable to walk/stand [] Unable to read [] Unable to drive [] Unable to eat/drink [] Unable to sleep [] Unable to be with family [] Patient intubated [] Other: Summary Time spent with patient
[2021-03-07] MEDS: trazodone 50 mg Tablet 25 MG PO (20:14)
[2021-03-07 20:59] LABS: Bilirubin Urine 1+ (Negative); Blood Urine Neg (Negative); Glucose Urine UA Norm (Normal); Ketones Urine Negative (Negative); Nitrate Urine Negative (Negative); Protein Urine Trace (Negative); Urine Appearance Clear (CLEAR); Urine Color Yellow (Yellow); pH Urine 5 (5-7)
[2021-03-07 21:00] LABS: Add Urine Microscopic? YES; Leukocyte Esterase Urine Negative (Negative); Sulfosalicylic Acid Urine Negative (Negative); Urobilinogen Urine Norm (Negative)
--- NOTE | 2021-03-07 21:01 | PC.NURSE ---
i reported high pulse 119 to nurse
--- NOTE | 2021-03-07 21:06 | P.PN_ITS ---
Subjective Subjective: Interval history: Bothered by having to have repeat blood work. Discussed with her results of the studies including neutropenia. She is still not mobilizing. Reports that she was in catatonic state for a week after starting her chemotherapy originally. Reports last chemo she had taken was 3 weeks ago. Vitals/I&O/Wt Last Vital Signs Temp 97.6 F 03/07/21 20:00 Pulse 119 H 03/07/21 20:00 Resp 18 03/07/21 20:00 BP 92/60 03/07/21 20:00 Pulse Ox 98 03/07/21 20:00 03/07/21 03/07/21 03/07/21 06:59 14:59 22:59 Intake Total 1591.25 / 2641.25 1240 / 1240 Output Total 240 / 240 Balance 1351.25 / 2401.25 1240 / 1240 Weight last 48 hrs Weight 70.307 kg Weight 67.132 kg Physical Exam Const: COMMON NORMALS: no acute distress and patient oriented x3 OTHER: [place] HENMT: COMMON NORMALS: oropharynx normal Neck/C-Spine: COMMON NORMALS: no JVD Resp: COMMON NORMALS: normal respiratory effort and clear to auscultation bilaterally AUSCULTATION: clear to auscultation bilaterally Cardio: COMMON NORMALS: no JVD, regular rhythm, S1 normal heart sound present, S2 normal heart sound present and No murmurs present (Cardio) RHYTHM: regular rhythm HEART SOUNDS: S1 normal heart sound present and S2 normal heart sound present GI: COMMON NORMALS: Normal to inspection, nondistended, normoactive bowel sounds present, Soft to palpation and non-tender PALPATION: Yes Soft to palpation Extremity: COMMON NORMALS: no joint enlargement GENERAL: Yes edema (2+ LE edema) Neuro: COMMON NORMALS: patient oriented x3 and moves all extremities OTHER: Appears generally weak, lifts legs up off the bed against gravity, moves upper extremities, takes deep breaths. Skin: COMMON NORMALS: no rashes or lesions noted GENERAL SKIN EXAM: no rashes or lesions noted Data : 03/07/21 06:18 03/07/21 06:18 A&P Assessment and plan (1) Generalized weakness: Still not clear because of generalized weakness, to the point of needing assistance with turning. Is not focal, not limited to lower or upper extremities. She reports she was in catatonic state for a week after starting her chemotherapy, although asking her when last chemotherapy dose she is taking states 3 weeks ago. Per review of the oncologist note, however, does appear that she has been confused about the chemotherapy regimen. Once able to con digital marketing coordinator touching base with her chemo nurse. Discussed with her noted neutropenia. Otherwise TSH is normal. B12, folic acid not low. CK normal. CRP with moderate elevation 68.6, although ESR is normal. Not sure what to think of her symptoms, does not appear to present like GBS. LEMS is not really associated with rectal cancer. Possibly hematologic malignancies, although has isolated neutropenia. Peripheral smear requested. Monospot is negative. Myasthenia gravis could be a consideration, although does not appear to have radiation in intensity through the day. Consider icepack test. We will also check tick panel, although tick paralysis likely also less likely. Does not appear to have ascending nature to the symptoms. Also depression may need to be considered. She is here alone, without family. States family lives in [place] are not communicating with her. States she had been staying in contact with some of the caretakers in her building, 1 of whom who could not walk and she had healed with prayer. Has been requiring assistance with turning, feeding. Status: Acute (2) Neutropenia: As above. Reports has not taken chemo for 3 weeks, however, per most recent oncology follow-up note appeared to be confused about her chemo regimen as well. Neutropenic precautions. Afebrile. Monitor for any signs of acute infectious disease. If she will allow consider stopping ibuprofen. Status: Acute (3) Dehydration: Continue IV hydration for now. Blood pressure soft today. Stopped labetalol. Status: Acute (4) DVT (deep venous thrombosis): DVT left lower extremity. Possible PE. Continue anticoagulation with Eliquis. VQ scan indeterminate. Monitor for rectal bleeding and presence of rectal cancer. Negative COVID-19 PCR. Status: Acute (5) Diarrhea: Continue IV fluids. No C. difficile. Enteric bacterial, parasite panel is negative. Check lactoferrin. Loperamide as needed. Status: Acute (6) Dysphagia: Very poor oral intake. Barium swallow with small hiatal hernia, otherwise was normal. Consider appetite stimulant. Continue PPI, sucralfate, nystatin swish and swallow. Status: Acute (7) Rectal cancer: Status: Acute (8) Leg edema: LLE DVT. Anticoagulation as above. Status: Acute (9) Hypokalemia: Replaced. Status: Acute (10) Decreased functional activity tolerance: Requiring significant assistance. States recently has been walking with a walker, and even then having difficulty. Here requiring assistance with turning, feeding. This is made worse by very poor oral intake. Continue PT, OT. Appreciate CM assistance withrehabilitation after discharge. Status: Acute Attestations Medical Necessity Statement*: Continue admission for assessment of management of functional decline, generalized weakness, poor oral intake, neutropenia, in the setting of rectal cancer, new DVT, possible PE. Coding Level of Care Code Acute Mergers And Acquisitions Manager for g Fwd Diagnoses Generalized weakness R53.1 Neutropenia D70.9 Dehydration E86.0 DVT (deep venous thrombosis) I82.409 Diarrhea R19.7 Dysphagia R13.10 Rectal cancer C20 Leg edema R60.0 Hypokalemia E87.6 Decreased functional activity tolerance R68.89
[2021-03-07 21:14] LABS: Add Urine Culture? No; Amorphous Sediment Urine TRACE /hpf; Bacteria Urine TRACE /hpf; Mucus Urine 2+ /hpf; RBC Urine 0-4 /hpf (0-2); Squamous Epithelial Cell Urine 0-4 /hpf (0-5); WBC Urine 0-4 /hpf (0-5)
[2021-03-08] VITALS: BP 90/61; PULSE 100; RESP 18; TEMP 36.5; O2SAT 96
[2021-03-08 04:00] VITALS: BP 94/63; PULSE 99; RESP 16; TEMP 36.6; O2SAT 96
[2021-03-08] MEDS: lactated ringers 1,000 ML 75 ML IV ×2 (04:45→17:42)
[2021-03-08 06:44] LABS: Basophils % 1.2 %; Eosinophils % 1.2 %; Hematocrit 34.8 % (37.0-47.0); Hemoglobin 11.4 g/dL (11.5-15.3); Lymphocytes # 0.4 10^3/uL (0.8-4.8); Lymphocytes % 21.4 %; Mean Corpuscular HGB Conc 32.8 g/dL (30.0-36.0); Mean Corpuscular Hemoglobin 27.7 pg (28.0-34.0); Mean Corpuscular Volume 84.7 fl (81-99); Mean Platelet Volume 10.4 fL (7.4-10.4); Monocytes # 0.2 10^3/uL (0.2-0.9); Monocytes % 14.3 %; Neutrophils # 1.01 10^3/uL (1.8-7.7); Neutrophils % 60.1 %; Nucleated Red Blood Cells % 1.2 %; Platelet Count 252 10^3/cmm (130-400); Red Blood Count 4.11 10^6/uL (4.1-5.3); White Blood Count 1.7 10^3/uL (4.0-10.0)
[2021-03-08 07:10] LABS: Alanine Aminotransferase 8 U/L (0-33); Alkaline Phosphatase 63 IU/L (35-105); Anion Gap 15.3 (5-19); Aspartate Amino Transferase 10 U/L (0-32); Blood Urea Nitrogen 40 mg/dL (8-23); Calcium 7.7 mg/dL (8.5-10.5); Carbon Dioxide 15 mmol/L (22-29); Chloride 109 mmol/L (98-107); Globulin 1.9 g/dL (1.3-4.6); Glucose 86 mg/dL (65-115); Osmolality Calculated 289 mOsm/kg (285-295); Potassium 4.3 mmol/L (3.5-5.1); Sodium 135 mmol/L (136-145); Total Bilirubin 0.5 mg/dL (0.15-1.2); Total Protein 3.9 g/dL (6.6-8.7)
[2021-03-08 07:24] VITALS: BP 106/71; PULSE 130; RESP 18; TEMP 37; O2SAT 97
[2021-03-08] MEDS: nystatin 100,000 unit/mL UDC 5 mL 400000 UNIT PO ×2 (08:17→15:23)
[2021-03-08] MEDS: apixaban 5 mg Tablet 10 MG PO ×2 (08:17→20:09)
[2021-03-08] MEDS: pantoprazole 40 mg SDV IVP (08:17)
[2021-03-08] MEDS: loratadine 10 mg Tablet PO (08:17)
--- NOTE | 2021-03-08 10:37 | PC.PT ---
Patient refused physical therapy 2x (early and late AM).
--- NOTE | 2021-03-08 12:13 | P.PN_ITS ---
Subjective Subjective: Interval history: Patient reports she still feels very weak. Still having quite a few bowel movements. Wonders if she can have something for diarrhea. Wants to take her home ibuprofen. Medications: Reviewed: Yes Vitals/I&O/Wt Last Vital Signs Temp 98.6 F 03/08/21 07:24 Pulse 130 H 03/08/21 07:24 Resp 18 03/08/21 07:24 BP 106/71 03/08/21 07:24 Pulse Ox 97 03/08/21 07:24 03/07/21 03/08/21 03/08/21 22:59 06:59 14:59 Intake Total 1240 / 1240 970 / 2210 Balance 1240 / 1240 970 / 2210 Weight last 48 hrs Weight 70.307 kg Physical Exam Narrative: EXAM NARRATIVE: General exam no distress Oropharynx multiple mouth lesions Neck is supple no lymphadenopathy or thyromegaly Cardiovascular regular, tachycardic Lungs clear Abdomen is soft, positive bowel sounds Extremities no cyanosis clubbing or edema. Able to lift all extremities off bed. Data : 03/08/21 06:12 03/08/21 06:12 Micro: Microbiology 03/08/21 04:40 Stool Lactoferrin - Final Stool A&P Assessment and plan (1) Generalized weakness: Appears to have generalized weakness. Patient relates this has been going on since initiating chemotherapy. She is able to lift all extremities off the bed and demonstrates a fair amount of resistance and muscle tone. TSH was normal. CK normal. I do not think she has myasthenia gravis, or any other nefarious myopathy/neuropathy causing consideration. I think she is globally weak secondary to her chemotherapy. She may also be depressed. Encouraged her to be up with physical therapy She reports she also needs her ibuprofen so she can participate. I am okay with her taking her home medication as long as the dosage is appropriate. Status: Acute (2) Neutropenia: Resolving Last chemotherapy 3 weeks ago Status: Acute (3) Dehydration: Resolved. Reinitiate beta-juan ramon secondary to tachycardia. Lower dose. Status: Acute (4) DVT (deep venous thrombosis): DVT left lower extremity. Possible PE. Continue anticoagulation with Eliquis. VQ scan indeterminate. Monitor for rectal bleeding and presence of rectal cancer. Negative COVID-19 PCR. Status: Acute (5) Diarrhea: Continue IV fluids. No C. difficile. Enteric bacterial, parasite panel is negative. Loperamide as needed. Status: Acute (6) Dysphagia: Very poor oral intake. Barium swallow with small hiatal hernia, otherwise was normal. Consider appetite stimulant. Continue PPI, sucralfate, nystatin swish and swallow. Status: Acute (7) Rectal cancer: Status: Acute (8) Leg edema: LLE DVT. Anticoagulation as above. Status: Acute (9) Hypokalemia: Replaced. Normal today Status: Acute (10) Decreased functional activity tolerance: Requiring significant assistance. States recently has been walking with a walker, and even then having difficulty. Continue PT, OT. Placement being arranged Status: Acute Additional A&P Information Stomatitis. Add acyclovir to nystatin Attestations Medical Necessity Statement*: Needs continued hospitalization secondary to severe weakness, stomatitis, poor oral intake requiring continued IV hydration. Coding Level of Care Code Acute [employer] Programs Director for Chg Fwd Diagnoses Generalized weakness R53.1 Neutropenia D70.9 Dehydration E86.0 DVT (deep venous thrombosis) I82.409 Diarrhea R19.7 Dysphagia R13.10 Rectal cancer C20 Leg edema R60.0 Hypokalemia E87.6 Decreased functional activity tolerance R68.89
[2021-03-08] MEDS: loperamide 2 mg Capsule 4 MG PO ×2 (15:24→20:09)
[2021-03-08] MEDS: ibuprofen 600 mg Tablet PO (15:24)
[2021-03-08] MEDS: acyclovir 400 mg Tablet PO ×2 (15:24→20:09)
[2021-03-08 16:00] VITALS: BP 131/79; PULSE 127; RESP 16; TEMP 36.9; O2SAT 98
[2021-03-08] MEDS: labetalol 200 mg Tablet 50 MG PO (17:49)
[2021-03-08 20:00] VITALS: BP 105/75; PULSE 120; RESP 18; TEMP 36.6; O2SAT 97
[2021-03-08] MEDS: trazodone 50 mg Tablet 25 MG PO (20:09)
[2021-03-09] VITALS (9 sets, daily range): BP systolic 74–120; BP diastolic 52–86; PULSE 88–132; RESP 17–95; TEMP 36.3–37.1; O2SAT 93–100
--- NOTE | 2021-03-09 02:14 | PC.NURSE ---
@2000 during hygiene after episode of bowel incontinence, patient stated I wish I would just , patient denied wanting to kill self, patient stated no i don't want to kill myself, I just wish I just , no one should be like this further conversation with patient and patient conveyed feeling tired of being sick. no suicidal ideation
[2021-03-09] MEDS: lactated ringers 1,000 ML 75 ML IV ×2 (06:22→20:44)
[2021-03-09] MEDS: ibuprofen 600 mg Tablet PO (06:22)
[2021-03-09] MEDS: loperamide 2 mg Capsule 4 MG PO ×3 (06:23→20:45)
[2021-03-09 06:48] LABS: Hematocrit 37.3 % (37.0-47.0); Hemoglobin 11.4 g/dL (11.5-15.3); Lymphocytes # 0.4 10^3/uL (0.8-4.8); Lymphocytes % 20.5 %; Mean Corpuscular HGB Conc 30.6 g/dL (30.0-36.0); Mean Corpuscular Hemoglobin 28.2 pg (28.0-34.0); Mean Corpuscular Volume 92.3 fl (81-99); Mean Platelet Volume 10.5 fL (7.4-10.4); Monocytes # 0.3 10^3/uL (0.2-0.9); Monocytes % 14.1 %; Neutrophils # 1.24 10^3/uL (1.8-7.7); Neutrophils % 60.4 %; Platelet Count 266 10^3/cmm (130-400); Red Blood Count 4.04 10^6/uL (4.1-5.3); Red Cell Distribution Width 27.4 % (12.1-15.1); White Blood Count 2.1 10^3/uL (4.0-10.0)
[2021-03-09 07:03] LABS: Alanine Aminotransferase 8 U/L (0-33); Albumin Level 1.8 g/dL (3.5-5.2); Alkaline Phosphatase 72 IU/L (35-105); Anion Gap 16.9 (5-19); Aspartate Amino Transferase 12 U/L (0-32); Blood Urea Nitrogen 28 mg/dL (8-23); Calcium 7.9 mg/dL (8.5-10.5); Carbon Dioxide 13 mmol/L (22-29); Chloride 107 mmol/L (98-107); Globulin 2.1 g/dL (1.3-4.6); Glucose 85 mg/dL (65-115); Osmolality Calculated 281 mOsm/kg (285-295); Potassium 3.9 mmol/L (3.5-5.1); Sodium 133 mmol/L (136-145); Total Bilirubin 0.6 mg/dL (0.15-1.2); Total Protein 3.9 g/dL (6.6-8.7)
[2021-03-09 07:50] LABS: Slide Review Slide Review Perform
[2021-03-09] MEDS: nystatin 100,000 unit/mL UDC 5 mL 400000 UNIT PO ×2 (08:46→12:08)
[2021-03-09] MEDS: loratadine 10 mg Tablet PO (08:47)
[2021-03-09] MEDS: labetalol 200 mg Tablet 50 MG PO (08:47)
[2021-03-09] MEDS: acyclovir 400 mg Tablet PO ×3 (08:47→20:45)
[2021-03-09] MEDS: apixaban 5 mg Tablet 10 MG PO ×2 (08:48→20:45)
[2021-03-09] MEDS: pantoprazole 40 mg SDV IVP (09:59)
--- NOTE | 2021-03-09 11:55 | PM.PN ---
Subjective Subjective: Interval history: Macy reports the nurse is not giving her ibuprofen regularly. She realizes that has significant side effects and wants it given regularly. We went over her dosing at home and she typically will take 400 mg every 4-5 hours. Here she has been getting 600 every 6 hours as needed. She reports this makes everything better and does not make her stomach hurt. She states her mouth is still sore. She does not want any narcotic. Medications: Reviewed: Yes Vitals/I&O/Wt Last Vital Signs Temp 97.6 F 03/09/21 10:49 Pulse 114 H 03/09/21 10:49 Resp 18 03/09/21 10:49 BP 74/52 03/09/21 10:49 Pulse Ox 94 03/09/21 10:49 03/08/21 03/09/21 03/09/21 22:59 06:59 14:59 Intake Total 971.25 / 971.25 1190 / 2161.25 0 / 0 Output Total 0 / 0 Balance 971.25 / 971.25 1190 / 2161.25 0 / 0 Physical Exam Narrative: EXAM NARRATIVE: General exam no distress, somewhat easier to understand than yesterday. Oropharynx multiple mouth lesions Neck is supple no lymphadenopathy or thyromegaly Cardiovascular regular, tachycardic Lungs clear Abdomen is soft, positive bowel sounds Extremities no cyanosis clubbing or edema. Able to lift all extremities off bed. Data : 03/09/21 06:01 03/09/21 06:01 Micro: Microbiology 03/03/21 12:52 Blood Culture - Final Blood NO GROWTH AFTER 5 DAYS 03/03/21 12:50 Blood Culture - Final Blood NO GROWTH AFTER 5 DAYS 03/08/21 04:40 Stool Lactoferrin - Final Stool A&P Assessment and plan (1) Generalized weakness: Appears to have generalized weakness. Patient relates this has been going on since initiating chemotherapy. She is able to lift all extremities off the bed and demonstrates a fair amount of resistance and muscle tone. TSH was normal. CK normal. I do not think she has myasthenia gravis, or any other nefarious myopathy/neuropathy causing consideration. I think she is globally weak secondary to her chemotherapy. She may also be depressed. Encouraged her to be up with physical therapy We will change her ibuprofen to scheduled 400 every 6 hours while in the hospital. I discussed with her this should not continue long-term. Status: Acute (2) Neutropenia: Resolving Last chemotherapy 3 weeks ago Status: Acute (3) Dehydration: Resolved. Beta-juan ramon reinitiated yesterday. Increase dose today. Status: Acute (4) DVT (deep venous thrombosis): DVT left lower extremity. Possible PE. Continue anticoagulation with Eliquis. This will need to be changed to 5 mg twice daily on March 12. VQ scan indeterminate. Monitor for rectal bleeding and presence of rectal cancer. Negative COVID-19 PCR. Status: Acute (5) Diarrhea: Continue IV fluids. Reduce rate. No C. difficile. Enteric bacterial, parasite panel is negative. Loperamide as needed. Appears to be improving. Status: Acute (6) Dysphagia: Very poor oral intake. Barium swallow with small hiatal hernia, otherwise was normal. Consider appetite stimulant. Continue PPI, sucralfate, nystatin swish and swallow. Status: Acute (7) Rectal cancer: Status: Acute (8) Leg edema: LLE DVT. Anticoagulation as above. Status: Acute (9) Hypokalemia: Replaced. Normal today Status: Acute (10) Decreased functional activity tolerance: Requiring significant assistance. States recently has been walking with a walker, and even then having difficulty. Continue PT, OT. Placement being arranged Status: Acute Additional A&P Information Stomatitis. Acyclovir added to nystatin Possible discharge to long term facility tomorrow if continues to improve. 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
[2021-03-09] MEDS: ibuprofen 200 mg Tablet 400 MG PO ×2 (12:08→18:33)
[2021-03-09] MEDS: sucralfate 1 gm/10 mL Oral Liq UDC PO (12:09)
--- NOTE | 2021-03-09 15:39 | PC.SOCIAL ---
IMM update IMM updated with patient. Verbalized an understanding. Initialled, dated, timed, and placed in chart.
[2021-03-09] MEDS: labetalol 200 mg Tablet 100 MG PO (18:34)
[2021-03-09] MEDS: trazodone 50 mg Tablet 25 MG PO (20:45)
[2021-03-10] VITALS (10 sets, daily range): BP systolic 76–104; BP diastolic 50–64; PULSE 113–160; RESP 16–19; TEMP 36.3–37.1; O2SAT 93–97
[2021-03-10] MEDS: ibuprofen 200 mg Tablet 400 MG PO ×2 (00:25→06:25)
[2021-03-10 06:20] LABS: Basophils % 0.7 %; Hematocrit 34.1 % (37.0-47.0); Hemoglobin 11.1 g/dL (11.5-15.3); Lymphocytes # 0.5 10^3/uL (0.8-4.8); Lymphocytes % 16.2 %; Mean Corpuscular HGB Conc 32.6 g/dL (30.0-36.0); Mean Corpuscular Hemoglobin 28.2 pg (28.0-34.0); Mean Corpuscular Volume 86.8 fl (81-99); Mean Platelet Volume 10.8 fL (7.4-10.4); Monocytes # 0.2 10^3/uL (0.2-0.9); Monocytes % 7.7 %; Neutrophils # 2.05 10^3/uL (1.8-7.7); Platelet Count 265 10^3/cmm (130-400); Red Blood Count 3.93 10^6/uL (4.1-5.3); Red Cell Distribution Width 27.6 % (12.1-15.1)
[2021-03-10 06:39] LABS: Alanine Aminotransferase 7 U/L (0-33); Albumin Level 1.5 g/dL (3.5-5.2); Alkaline Phosphatase 74 IU/L (35-105); Anion Gap 19.4 (5-19); Aspartate Amino Transferase 12 U/L (0-32); Blood Urea Nitrogen 40 mg/dL (8-23); Calcium 7.9 mg/dL (8.5-10.5); Carbon Dioxide 13 mmol/L (22-29); Chloride 107 mmol/L (98-107); Globulin 2.2 g/dL (1.3-4.6); Glucose 84 mg/dL (65-115); Osmolality Calculated 289 mOsm/kg (285-295); Potassium 4.4 mmol/L (3.5-5.1); Sodium 135 mmol/L (136-145); Total Bilirubin 0.6 mg/dL (0.15-1.2); Total Protein 3.7 g/dL (6.6-8.7)
[2021-03-10 06:40] LABS: Slide Review Slide Review Perform
--- NOTE | 2021-03-10 10:58 | PM.PN ---
Subjective Subjective: Interval history: Macy reports she feels poorly. She still wants ibuprofen. I discussed the reasons that she should not have it at this time as her renal function is worsening. Medications: Reviewed: Yes Vitals/I&O/Wt Last Vital Signs Temp 97.4 F L 03/10/21 07:18 Pulse 113 H 03/10/21 07:18 Resp 16 03/10/21 07:18 BP 99/64 03/10/21 07:18 Pulse Ox 97 03/10/21 07:18 03/09/21 03/10/21 03/10/21 22:59 06:59 14:59 Intake Total 1000 / 1240 120 / 1360 360 / 360 Balance 1000 / 1240 120 / 1360 360 / 360 Physical Exam Narrative: EXAM NARRATIVE: General exam no distress, somewhat easier to understand than yesterday. Oropharynx multiple mouth lesions, stomatitis still present Neck is supple no lymphadenopathy or thyromegaly Cardiovascular regular, tachycardic Lungs clear Abdomen is soft, positive bowel sounds, some mild generalized tenderness Extremities no cyanosis clubbing or edema. Data : 03/10/21 06:09 03/10/21 06:09 A&P Assessment and plan (1) Generalized weakness: Appears to have generalized weakness. Patient relates this has been going on since initiating chemotherapy. She is able to lift all extremities off the bed and demonstrates a fair amount of resistance and muscle tone. TSH was normal. CK normal. I do not think she has myasthenia gravis, or any other nefarious myopathy/neuropathy causing consideration. I think she is globally weak secondary to her chemotherapy. She may also be depressed. Encouraged her to be up with physical therapy At this point ibuprofen has to be discontinued. Tramadol as needed for pain. Status: Acute (2) Neutropenia: Resolving Last chemotherapy 3 weeks ago Status: Acute (3) Dehydration: Continued poor oral intake. Increase IV fluids to 100 cc an hour Status: Acute (4) DVT (deep venous thrombosis): DVT left lower extremity. Possible PE. Continue anticoagulation with Eliquis. This will need to be changed to 5 mg twice daily on March 12. VQ scan indeterminate. Monitor for rectal bleeding and presence of rectal cancer. Negative COVID-19 PCR. Status: Acute (5) Diarrhea: Increase fluids. Enteric bacterial, parasite panel is negative. Loperamide as needed. Although this appears to be improving per output recorded patient and nursing reports she is still having this. We will check a CT of her abdomen and pelvis noncontrast secondary to her renal function. Status: Acute (6) Dysphagia: Very poor oral intake. Barium swallow with small hiatal hernia, otherwise was normal. Continue PPI, sucralfate, Magic mouthwash Acyclovir for stomatitis Changed to Diflucan IV Status: Acute (7) Rectal cancer: Status: Acute (8) Leg edema: LLE DVT. Anticoagulation as above. Status: Acute (9) Hypokalemia: Replaced. Normal today Status: Acute (10) Decreased functional activity tolerance: Requiring significant assistance. States recently has been walking with a walker, and even then having difficulty. Continue PT, OT. Placement being arranged Status: Acute Additional A&P Information Stomatitis. Acyclovir, fluconazole Possible discharge to shelter facility if improves Attestations Medical Necessity Statement*: Needs continued hospital stay for persistent diarrhea, weakness, poor oral intake and severe stomatitis not yet able to hydrate enough to discontinue IV fluids. 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
--- NOTE | 2021-03-10 11:03 | CT_ITS ---
WS: [id number] CT ABDOMEN PELVIS TECHNIQUE: Noncontrast CT of the abdomen and pelvis with coronal and sagittal reformatted images. CLINICAL INFORMATION: abdominal pain COMPARISON: 017 DLP: 1531.[address] scans at [facility] use at least one of these dose optimization techniques: automated e xposure control; mA and/or kV adjustment per patient size (includes targeted exams where dose is matc hed to clinical indication); or iterative reconstruction. FINDINGS: Noncontrast liver is normal. Fluid distended gallbladder which is otherwise normal in appearance. No gallbladder wall thickening or pericholecystic fluid. Small left hepatic cyst. Small esophageal hiata l hernia. Trace fluid left lower lobe. Atelectasis in the lung bases. Fatty atrophy of the pancreas. Noncontrast spleen is normal. Adrenal glands are normal. Normal caliber abdominal aorta. Aortic calci fication. Diffuse air formation in the bladder wall compatible with emphysematous cystitis. Recommend correlati on with urinary tract infection and gas forming bacteria. Calcified uterine fibroid. A few sigmoid di verticuli. No evidence of acute diverticulitis. Air distended transverse colon compatible with ileus. Normal caliber small bowel loops with a few air-fluid levels. Prior appendectomy. No abdominal or pelvic lymphadenopathy. No periaortic or retroperitoneal lymphadenopathy. Small amoun t of fluid along the right proximal inguinal canal. Lumbar curve convex left. Chronic appearing biconcave compression L1 vertebral body. CT/CT abdomen pelvis con [id number] IMPRESSION: 1. Peripheral gas formation within the bladder wall compatible with emphysemat ous cystitis. Correlation with urinary tract infection and gas forming bacteria . 2. No evidence of pyelonephritis or hydronephrosis in either kidney. 3. Trace left pleural fluid with slight bibasilar atelectasis. 4. Fluid distended gallbladder is otherwise normal in appearance. 5. Air distended transverse colon. Compatible with ileus. Normal caliber small bowel with a few air-fluid levels. No evidence of high-grade obstruction. 6. Sigmoid diverticulosis. 7. Chronic appearing biconcave compression L1. Notified Malvin Scott MD at 03/10/2021 1:08 PM.
[2021-03-10] MEDS: sucralfate 1 gm/10 mL Oral Liq UDC PO (11:21)
[2021-03-10] MEDS: acyclovir 400 mg Tablet PO ×2 (11:22→21:54)
[2021-03-10] MEDS: apixaban 5 mg Tablet 10 MG PO (11:22)
[2021-03-10] MEDS: loratadine 10 mg Tablet PO (11:26)
[2021-03-10] MEDS: lidocaine 2% viscous 1.667 ML, diphenhydrAMINE oral liq 4.165 MG, aluminum-mag hydrox-s... MUCOUS MEM (11:33)
[2021-03-10 13:08] LABS: Lyme AB Screen <0.90 index
[2021-03-10] MEDS: lactated ringers 1,000 ML 100 ML IV (13:13)
[2021-03-10] MEDS: fluconazole premix 200 MG/100 ML PREMIX 100 MG IV (13:14)
[2021-03-10] MEDS: pantoprazole 40 mg SDV IVP (15:02)
[2021-03-10] MEDS: cefTRIAXone 1,000 MG in sodium chloride 0.9% (plus) 50 ML 100 MG IV (15:35)
[2021-03-10 18:29] LABS: Glucose Urine UA Norm (Normal); Ketones Urine 1+ (Negative); Protein Urine 3+ (Negative); Specific Gravity, Urine 1.015 (1.005-1.030); Urine Appearance Cloudy (CLEAR); Urine Color Red (Yellow); pH Urine 7 (5-7)
[2021-03-10 18:30] LABS: Add Urine Microscopic? YES; Bilirubin Urine Neg (Negative); Blood Urine 4+ (Negative); Leukocyte Esterase Urine Trace (Negative); Nitrate Urine Negative (Negative); Urobilinogen Urine Norm (Negative)
[2021-03-10 18:31] LABS: Add Urine Culture? No; Bacteria Urine 4+ /hpf; RBC Urine TOO NUMEROUS TO CNT /hpf (0-2); Squamous Epithelial Cell Urine 0-4 /hpf (0-5)
[2021-03-10] MEDS: sodium chloride 0.9% 500 ML 999 ML IV (18:32)
[2021-03-10] MEDS: sodium chloride 0.9% 1,000 ML 999 ML IV (20:00)
--- NOTE | 2021-03-10 20:09 | PC.NURSE ---
this morning during med pass patient assignment was changed and this nurse was given this patient d/t her demanding another nurse. in report this nurse was told the patient had refused all PO meds after they had been crushed so she had wasted them in the pyxis. after passing meds for other patients, this nurse pulled all morning meds and went to pts room, pt is YUROK, and d/t stomatis is also hard to understand when speaking. pt was willing to take most of her morning meds for this nurse.
--- NOTE | 2021-03-10 20:17 | PC.NUTR ---
Nutrition note: PO intakes averaging 0-10% X past 7 days. Will increase Ensure clear to BID. Recommend to continue to encourage po intakes of meals/supplements and provide preferences as available. If po intakes as poor as chart indicates, would recommend consideration of nutrition support if consistent with goals of pt care. See full RD assessment for further details.
[2021-03-10 20:51] LABS: Hematocrit 34.8 % (37.0-47.0); Hemoglobin 10.6 g/dL (11.5-15.3)
[2021-03-10] MEDS: trazodone 50 mg Tablet 25 MG PO (21:54)
--- NOTE | 2021-03-10 22:13 | ECG_ITS ---
[facility] Test Date: 2021-03-10 Pat Name: Macy Guevara Department: Room: 261 Gender: Female Media Relations Associate: Janet : 1940 Requested By: Kira Brown Order Number: [id number] Jose MD: Roddy Sylvester M.D. Measurements Intervals [place] Rate: 128 P: 172 SD: 206 QRS: -19 QRSD: 89 T: 44 QT: 314 QTc: 459 Interpretive Statements SINUS TACHYCARDIA MODERATE ST DEPRESSION [0.05+ mV ST DEPRESSION] Compared to ECG 03/03/2021 13:53:02 Left-axis deviation no longer present Left ventricular hypertrophy no longer present ST (T wave) deviation still present Electronically Signed On 03-11-2021 20:07:57 CDT by Roddy Sylvester M.D. [email or web address]
[2021-03-11] VITALS (139 sets, daily range): BP systolic 80–137; BP diastolic 60–92; PULSE 88–132; RESP 10–29; TEMP 35.5; O2SAT 89–100; BMI 25.0
[2021-03-11] MEDS: lactated ringers 1,000 ML 100 ML IV ×3 (01:22→21:11)
[2021-03-11 03:48] LABS: Basophils # 0.1 10^3/uL (0.0-0.1); Eosinophils % 0.4 %; Hematocrit 35.3 % (37.0-47.0); Hemoglobin 11.3 g/dL (11.5-15.3); Lymphocytes # 0.5 10^3/uL (0.8-4.8); Lymphocytes % 7.5 %; Mean Corpuscular Volume 87.4 fl (81-99); Mean Platelet Volume 10.4 fL (7.4-10.4); Monocytes # 0.2 10^3/uL (0.2-0.9); Monocytes % 2.6 %; Neutrophils # 5.76 10^3/uL (1.8-7.7); Neutrophils % 83.2 %; Nucleated Red Blood Cells % 0.6 %; Platelet Count 315 10^3/cmm (130-400); Red Blood Count 4.04 10^6/uL (4.1-5.3); White Blood Count 6.9 10^3/uL (4.0-10.0)
[2021-03-11 04:09] LABS: Alanine Aminotransferase 7 U/L (0-33); Albumin Level 1.5 g/dL (3.5-5.2); Alkaline Phosphatase 84 IU/L (35-105); Aspartate Amino Transferase 10 U/L (0-32); Blood Urea Nitrogen 54 mg/dL (8-23); Calcium 7.2 mg/dL (8.5-10.5); Carbon Dioxide 11 mmol/L (22-29); Chloride 107 mmol/L (98-107); Glucose 87 mg/dL (65-115); Osmolality Calculated 292 mOsm/kg (285-295); Sodium 134 mmol/L (136-145); Total Bilirubin 0.6 mg/dL (0.15-1.2); Total Protein 3.5 g/dL (6.6-8.7)
[2021-03-11 05:06] LABS: Acanthocytes 1+; Add RBC Morph Yes; Anisocytosis 2+; Burr Cells 3+; Macrocytosis 2+; Ovalocytes Trace; Poikilocytosis 2+; RBC Morph Comp No; Slide Review Slide Review Perform
--- NOTE | 2021-03-11 07:08 | PC.NURSE ---
Patient continues to have blood colored urine. Irrigated Vargas until was running clear then within minutes the vargas bag would be blood colored. Numerous clots when irrigating. Patient bp also at 112/66 after 2 hours of norepinephrine.
--- NOTE | 2021-03-11 09:05 | PC.PHAR ---
Pharmacokinetic dosing service Date:03/11/21 Time: 899 Patient: Macy Guevara Floor: ICU06-1 Age: 80 yo Serum creatinine: 1.3 mg/dL Height: 66.0 Inches Weight (kg): 70.31 Assessment: IBW (kg): 59.30 Dosing wt(kg): 70.31 Estimated Creatinine clearance (ml/min): 33.4 CRCL method: Cockcroft and Gault using ibw(default). Drug selected: Vancomycin Loading dose (mg): Vd (liters): 49.2 (factor used: 0.7 L/kg) Nash (hr-1): 0.032 Half life (hrs): 21.66 CLvanco= 1.574 L/hr Recommended dose: 1000 mg Interval: 24 hrs Infusion time (hrs): 1 Predicted peak (mcg/mL): 37.3 Predicted trough (mcg/mL): 17.87 Total body weight is being used for vancomycin dosing. Renal function is stable [ ] /unstable [X] Recommendations: Give Vancomycin 1000 mg q 24 hrs with an expected Cpeak of 37.3 mcg/ml and an expected Ctrough of 17.87 mcg/ml AUC 0-24 /TOM Data: TOM 0.5 mcg/mL: AUC/TOM: 1270.6 TOM 1.0 mcg/mL: AUC/TOM: 635.3 --------- TOM 1.5 mcg/mL: AUC/TOM: 423.5 TOM 2.0 mcg/mL: AUC/TOM: 317.7 Thank you for the consult, will continue to follow. Signature: Quita PerkinsD
[2021-03-11] MEDS: nystatin 100,000 unit/mL UDC 5 mL 400000 UNIT PO ×4 (10:52→21:11)
[2021-03-11] MEDS: loratadine 10 mg Tablet PO (10:53)
[2021-03-11] MEDS: sodium bicarbonate 650 mg Tablet PO ×3 (10:53→21:11)
[2021-03-11] MEDS: acyclovir 400 mg Tablet PO ×3 (10:53→21:11)
[2021-03-11] MEDS: pantoprazole 40 mg SDV IVP (10:54)
[2021-03-11] MEDS: vancomycin 1,000 MG in sodium chloride 0.9% 250 ML 250 MG IV (10:55)
--- NOTE | 2021-03-11 12:33 | PC.NURSE ---
labetolol not given this am d/t just turning levophed off. dr. cuellar notified and will [facility].
[2021-03-11] MEDS: sucralfate 1 gm/10 mL Oral Liq UDC PO ×3 (12:44→21:17)
[2021-03-11] MEDS: metoprolol tartrate 25 mg Tablet 12.5 MG PO ×2 (13:35→21:11)
[2021-03-11] MEDS: fluconazole premix 200 MG/100 ML PREMIX 100 MG IV (13:56)
--- NOTE | 2021-03-11 14:43 | PC.SOCIAL ---
IMM not Given IMM not Updated. Pt is not expected to d/c within the next 24-48hrs.
--- NOTE | 2021-03-11 15:01 | P.PN_ITS ---
Subjective Subjective: Interval history: Macy reports she still has some mouth pain. I discussed with her in detail why she was moved to the ICU, and the concerns with her bladder. Medications: Reviewed: Yes Vitals/I&O/Wt Last Vital Signs Temp 98.1 F 03/10/21 20:00 Pulse 113 H 03/11/21 07:00 Resp 13 03/11/21 07:00 BP 112/69 03/11/21 07:00 Pulse Ox 97 03/11/21 07:00 03/11/21 03/11/21 03/11/21 06:59 14:59 22:59 Intake Total 1000 / 4130 1306.667 / 1306.667 Balance 1000 / 4130 1306.667 / 1306.667 Weight last 48 hrs Weight 70.307 kg Physical Exam Narrative: EXAM NARRATIVE: General exam no distress, I am able to understand her but phonation is not yet normal. Oropharynx multiple mouth lesions, stomatitis still present Neck is supple no lymphadenopathy or thyromegaly Cardiovascular regular, tachycardic Lungs clear Abdomen is soft, positive bowel sounds, some mild generalized tenderness Extremities no cyanosis clubbing or edema. Urinary Catheter Management^: Cain: Cath Placed During This Visit: yes Reason for Continuing Indwelling Catheter: Other Urinary Catheter Date of Insertion: 03/10/21 Urinary Catheter Time of Insertion: 17:10 Data : 03/11/21 03:30 03/11/21 03:30 A&P Assessment and plan (1) Generalized weakness: Appears to have generalized weakness. Patient relates this has been going on since initiating chemotherapy. She is able to lift all extremities off the bed and demonstrates a fair amount of resistance and muscle tone. TSH was normal. CK normal. I do not think she has myasthenia gravis, or any other nefarious myopathy/neuropathy causing consideration. I think she is globally weak secondary to her chemotherapy. She may also be depressed. Encouraged her to be up with physical therapy Ibuprofen discontinued secondary to renal dysfunction. Tramadol as needed for pain. Status: Acute (2) Neutropenia: Resolving Last chemotherapy 3 weeks ago Status: Acute (3) Dehydration: Continued poor oral intake. Continue IV fluids Status: Acute (4) DVT (deep venous thrombosis): DVT left lower extremity. Possible PE. Anticoagulation discontinued secondary to significant hematuria VQ scan indeterminate. Monitor for rectal bleeding and presence of rectal cancer. Consider restart of anticoagulation at lower dose if bleeding improves Negative COVID-19 PCR. Status: Acute (5) Diarrhea: Enteric bacterial, parasite panel is negative. Loperamide as needed. Status: Acute (6) Dysphagia: Very poor oral intake. Barium swallow with small hiatal hernia, otherwise was normal. Continue PPI, sucralfate, Magic mouthwash Acyclovir for stomatitis Diflucan IV Status: Acute (7) Rectal cancer: Status: Acute (8) Leg edema: LLE DVT. Anticoagulation discontinued secondary to active bleeding Status: Acute (9) Hypokalemia: Supplemented Status: Acute (10) Decreased functional activity tolerance: Requiring significant assistance. States recently has been walking with a walker, and even then having difficulty. Continue PT, OT. Will need placement on discharge Status: Acute Additional A&P Information Stomatitis. Acyclovir, fluconazole Emphysematous bladder with hematuria. Broad-spectrum antibiotics of vancomycin and imipenem. Urine culture. Urology consultation. Bladder irrigation. Hypotension. Has required norepinephrine intermittently Metabolic acidosis. Bicarbonate initiated. Possible discharge to [facility] facility if improves Attestations Medical Necessity Statement*: Needs continued hospital stay secondary to emphysematous bladder with infection, severe weakness. Coding Level of Care Code Acute Community Relations Police Lieutenant for g Fwd Diagnoses Generalized weakness R53.1 Neutropenia D70.9 Dehydration E86.0 DVT (deep venous thrombosis) I82.409 Diarrhea R19.7 Dysphagia R13.10 Rectal cancer C20 Leg edema R60.0 Hypokalemia E87.6 Decreased functional activity tolerance R68.89
[2021-03-11 16:43] LABS: RMSF IGG NOT DETECTED; RMSF IGM NOT DETECTED
[2021-03-11 17:18] LABS: E. Chaffeensis AB IGG <1:64; E. Chaffeensis AB IGM <1:20
--- NOTE | 2021-03-11 18:34 | PM.CONSULT ---
Providers/Reason For Consult Consulting Physician/Specialty*: Urology/Francisco Reason for Consult*: Hematuria Attending Physician: Malvin Scott MD Primary Care Provider: Carl Burch DO History of Present Illness History of Present Illness Macy Guevara is a 80 year old female who I evaluated for the first time today for gross hematuria. Chart has been reviewed. From a urologic perspective she was recently noted while hospitalized with having gross hematuria. Catheter was placed. Irrigation has been continued manually periodically. CT scan demonstrated emphysematous cystitis. She denied recurrent urinary tract infection history. She also denied any significant bladder symptoms until the gross hematuria was identified. Catheter has been irrigated on multiple occasions. And is currently functioning with bloody urine but not thick. Is on vancomycin, ceftriaxone, and fluconazole.Urine culture is growing gram-negative rods. Final ID and sensitivities pending. In addition she is suffering from severe stomatitis related to chemotherapy for rectal cancer. Struggling with communication because of that and is obviously frustrated. Recommendations: 1. Maintain Cain catheter with manual irrigation as needed 2. If catheter becomes repeatedly occluded from clots would manually irrigate and follow with normal saline CBI running at a rate to keep clear to light pink. Review of Systems Const: Reports: fatigue and malaise ENMT: Reports: throat pain, oral sores and other GI: Reports: nausea and diarrhea : Reports: hematuria Musc: Denies: joint redness Psych: Reports: anxiety and depression Mik/Lymph: Reports: easy bruising and easy bleeding; Denies: enlarged lymph nodes All/Imm: Denies: urticaria Meds/Allergies Home Medications and Allergies Home Medications Medication Instructions Recorded Confirmed Last Taken Type labetalol 100 mg PO BID 07/04/19 03/03/21 12/01/20 History loratadine 10 mg PO DAILY 11/26/20 03/03/21 11/30/20 History hydrocodone-acetaminophen 1 tab PO Q6H PRN #7 tab 02/18/21 03/03/21 Unknown Rx capecitabine [Xeloda] See Rx Instructions .ROUTE .COMPLEX 03/03/21 03/03/21 Unknown History capecitabine [Xeloda] See Rx Instructions .ROUTE .COMPLEX 03/03/21 03/03/21 Unknown History Allergies Allergy/AdvReac Type Severity Reaction Status Date / Time No Known Allergies Allergy Verified 01/14/21 06:29 Current Medications Current Medications Generic Name Dose Route Start Last Admin Trade Name Freq PRN Reason Stop Dose Admin Hydrocodone Bitart/Acetaminophen 1 tab 03/03/21 21:14 03/06/21 09:38 Hydrocodone-Acetaminophen 5-325 Mg Tablet PO 1 tab Q6H PRN Administration SEVERE pain Acyclovir 400 mg 03/08/21 15:00 03/11/21 16:28 Acyclovir 400 Mg Tablet PO 400 mg TID SEAN Administration Apixaban 10 mg 03/05/21 09:00 03/10/21 11:22 Apixaban 5 Mg Tablet PO 10 mg BID@0900,2100 SEAN Administration Lidocaine HCl 1.667 ml/ 0 ml 03/09/21 10:28 03/10/21 11:33 Diphenhydramine HCl 4.165 mg/ MUCOUS MEM 7 ml Al Hydrox/Mg Hydrox/ Q4H PRN Administration Simethicone 1.667 ml MOUTH PAIN Lactated Ringer's 1,000 mls @ 100 mls/hr 03/03/21 21:14 03/11/21 10:56 Lactated Ringers IV 100 mls/hr .Q10H SEAN Administration Fluconazole 200 mg in 100 mls @ 100 mls/hr 03/10/21 12:00 03/11/21 13:56 Diflucan Premix IV 100 mls/hr Q24H SEAN Administration Norepinephrine Bitartrate 4 mg 254 mls @ 0 mls/hr 03/10/21 23:15 03/11/21 00:55 / Dextrose IV 2 mcg/min .Q0M SEAN 7.62 mls/hr Administration Protocol Per Protocol Imipenem/Cilastatin Sodium 250 100 mls @ 200 mls/hr 03/11/21 09:30 03/11/21 17:00 mg/ Sodium Chloride IV Infused Q6H SEAN Infusion Protocol Vancomycin HCl 1,000 mg/ 250 mls @ 250 mls/hr 03/11/21 09:30 03/11/21 13:57 Sodium Chloride IV Infused Q24H SEAN Infusion Lanolin 1 applic 03/05/21 22:13 03/07/21 10:40 Lanolin Oint 7 Gm TOPICAL 1 applic PRN PRN Administration DRYNESS Loratadine 10 mg 03/04/21 09:00 03/11/21 10:53 Loratadine 10 Mg Tablet PO 10 mg DAILY SEAN Administration Nystatin 400,000 unit 03/04/21 13:00 03/11/21 14:19 Nystatin 100,000 Unit/Ml Udc 5 Ml PO 400,000 unit QID SEAN Administration Ondansetron HCl 4 mg 03/03/21 21:14 03/04/21 01:03 Ondansetron 2 Mg/Ml Sdv 2 Ml IVP 4 mg Q8H PRN Administration vomiting, or N/V if npo Pantoprazole Sodium 40 mg 03/04/21 11:30 03/11/21 10:54 Pantoprazole 40 Mg Sdv IVP 40 mg DAILY SEAN Administration Sodium Bicarbonate 650 mg 03/11/21 09:00 03/11/21 16:28 Sodium Bicarbonate 650 Mg Tablet PO 650 mg TID SEAN Administration Sucralfate 1 gm 03/04/21 11:00 03/11/21 12:44 Sucralfate 1 Gm/10 Ml Oral Liq Udc PO 1 gm AC&BEDTIME SEAN Administration Trazodone HCl 25 mg 03/03/21 21:14 03/10/21 21:54 Trazodone 50 Mg Tablet PO 25 mg BEDTIME SEAN Administration PFSH Acute PFSH: Medical History Arthritis Bleeding per rectum Anal mass, biopsies were obtained to rule out anal cancer Diverticulosis Hypertension Surgical History H/O rhinoplasty History of colonoscopy 2011 History of nasal surgery History of tonsillectomy Family History Father CAD (coronary artery disease) Mother Cancer Hypertension Denies family history of Diabetes Social History Smoking and tobacco status: never smoked Alcohol intake: never Substance/Drug Use: never Lives independently: Yes Household members: none Housing: Apartment Marital status: Single Female Reproductive History: Date of last menstrual period: 09/24/20 Vitals/I&O/Wt Last Vital Signs Temp 98.1 F 03/10/21 20:00 Pulse 113 H 03/11/21 07:00 Resp 13 03/11/21 07:00 BP 112/69 03/11/21 07:00 Pulse Ox 97 03/11/21 07:00 03/11/21 03/11/21 03/11/21 06:59 14:59 22:59 Intake Total 1000 / 4130 1306.667 / 1306.667 100 / 1406.667 Balance 1000 / 4130 1306.667 / 1306.667 100 / 1406.667 Weight last 48 hrs Weight 155 lb Physical Exam : OTHER: Catheter draining pink urine. Psych: COMMON NORMALS: negative for speech normal ATTITUDE: Yes engaged SPEECH: No normal speech MOOD & AFFECT: Yes anxious Urinary Catheter Management^: Cain: Cath Placed During This Visit: yes Reason for Continuing Indwelling Catheter: Other Urinary Catheter Date of Insertion: 03/10/21 Urinary Catheter Time of Insertion: 17:10 Data Micro: Micro: Microbiology 03/10/21 17:10 Urine Culture - Pr eliminary Urine Catheterize d Gram Negative R ods A&P Assessment and plan (1) Emphysematous cystitis: Identified on CT scan. Denied having history of recurrent UTIs or any overt severe bladder symptoms until gross hematuria identified. Status: Acute (2) Gross hematuria: Does not appear to be that bad at this point. Encouraged nursing staff to irrigate as needed. Status: Acute (3) DVT (deep venous thrombosis): Was on anticoagulation which may have stimulated more bleeding in her bladder from the emphysematous cystitis. Status: Acute Consult Attestations Medical Necessity Statement: See attending Coding Level of Care Code Acute Real Estate Broker Associate for Prabhu Sullivan Diagnoses Emphysematous cystitis N30.80 Gross hematuria R31.0 DVT (deep venous thrombosis) I82.409
[2021-03-11] MEDS: trazodone 50 mg Tablet 25 MG PO (21:11)
[2021-03-12] VITALS (23 sets, daily range): BP systolic 102–120; BP diastolic 69–86; PULSE 97–124; RESP 11–25; TEMP 36.7; O2SAT 94–100
--- NOTE | 2021-03-12 05:47 | PC.NURSE ---
8 run of V then converted back to baseline of sinus tach of [address] Brown, approved t.o. for BMP and Mg
[2021-03-12] MEDS: lactated ringers 1,000 ML 100 ML IV ×2 (05:51→17:27)
[2021-03-12] MEDS: sucralfate 1 gm/10 mL Oral Liq UDC PO ×4 (06:11→20:50)
[2021-03-12] MEDS: pantoprazole 40 mg SDV IVP (08:13)
[2021-03-12] MEDS: vancomycin 1,000 MG in sodium chloride 0.9% 250 ML 250 MG IV (09:37)
[2021-03-12 12:05] LABS: Hematocrit 36.3 % (37.0-47.0); Hemoglobin 11.8 g/dL (11.5-15.3); Mean Corpuscular HGB Conc 32.5 g/dL (30.0-36.0); Mean Corpuscular Hemoglobin 28.3 pg (28.0-34.0); Mean Corpuscular Volume 87.1 fl (81-99); Mean Platelet Volume 11.1 fL (7.4-10.4); Platelet Count 292 10^3/cmm (130-400); Red Blood Count 4.17 10^6/uL (4.1-5.3); Red Cell Distribution Width 28.7 % (12.1-15.1); White Blood Count 9.5 10^3/uL (4.0-10.0)
[2021-03-12] MEDS: fluconazole premix 200 MG/100 ML PREMIX 100 MG IV (12:09)
[2021-03-12] MEDS: nystatin 100,000 unit/mL UDC 5 mL 400000 UNIT PO ×3 (12:09→20:49)
[2021-03-12 12:22] LABS: Anion Gap 13.7 (5-19); Blood Urea Nitrogen 41 mg/dL (8-23); Carbon Dioxide 15 mmol/L (22-29); Chloride 110 mmol/L (98-107); Glucose 83 mg/dL (65-115); Osmolality Calculated 289 mOsm/kg (285-295); Potassium 3.7 mmol/L (3.5-5.1); Sodium 135 mmol/L (136-145)
[2021-03-12 12:41] LABS: Absolute Segmented Neutrophil 6.7 10/cmm (1.6-7.1); Band Neutrophils Absolute 1.4 10^3/cmm (0.0-1.2); Lymphocytes 4 %; Segmented Neutrophils 71 %; Total Cells Counted 100 (0-100)
[2021-03-12 12:42] LABS: Absolute Neutrophil 8.2 10^3/cmm (1.4-6.5); Anisocytosis 2+; Lymphocytes Absolute 0.6 10^3/cmm (1.2-3.4); Monocytes Absolute 0.6 10^3/cmm (0.1-0.6); Platelet Estimate Normal (Normal); Poikilocytosis 2+; Tear Drop Cells 1+
[2021-03-12 12:43] LABS: Burr Cells Trace; Crenated RBC 2+; Ovalocytes 1+
--- NOTE | 2021-03-12 12:52 | PM.PN ---
Subjective Subjective: Interval history: Macy reports she has met the nurse last night for a variety of issues. It is hard to get her to talk about anything else. Medications: Reviewed: Yes Vitals/I&O/Wt Last Vital Signs Temp 96 F L 03/11/21 15:45 Pulse 113 H 03/12/21 08:00 Resp 11 L 03/12/21 08:00 BP 109/74 03/12/21 08:00 Pulse Ox 97 03/12/21 08:00 03/11/21 03/12/21 03/12/21 22:59 06:59 14:59 Intake Total 1200 / 2606.667 966.667 / 3573.334 100 / 100 Output Total 300 / 300 Balance 1200 / 2606.667 666.667 / 3273.334 100 / 100 Weight last 48 hrs Weight 71.214 kg Weight 70.307 kg Physical Exam Narrative: EXAM NARRATIVE: General exam no distress Oropharynx multiple mouth lesions, possibly slightly improved. Neck is supple no lymphadenopathy or thyromegaly Cardiovascular regular, tachycardic Lungs clear Abdomen is soft, positive bowel sounds, some mild generalized tenderness Extremities no cyanosis clubbing or edema. Urine appears clear Urinary Catheter Management^: Cain: Cath Placed During This Visit: yes Reason for Continuing Indwelling Catheter: Accurate Measurement of Urinary Output in Critically Ill Patients Urinary Catheter Date of Insertion: 03/10/21 Urinary Catheter Time of Insertion: 17:10 Data : 03/12/21 11:48 03/12/21 11:48 Micro: Microbiology 03/10/21 17:10 Urine Culture - Final Urine Catheterized Klebsiella pneumoniae A&P Assessment and plan (1) Generalized weakness: Appears to have generalized weakness. Patient relates this has been going on since initiating chemotherapy. She is able to lift all extremities off the bed and demonstrates a fair amount of resistance and muscle tone. TSH was normal. CK normal. I do not think she has myasthenia gravis, or any other nefarious myopathy/neuropathy causing consideration. I think she is globally weak secondary to her chemotherapy. She may also be depressed. Encouraged her to be up with physical therapy Ibuprofen discontinued secondary to renal dysfunction. Tramadol as needed for pain. Status: Acute (2) Neutropenia: Resolving Last chemotherapy 3 weeks ago Status: Acute (3) Dehydration: Continued poor oral intake. Continue IV fluids Status: Acute (4) DVT (deep venous thrombosis): DVT left lower extremity. Possible PE. Anticoagulation discontinued secondary to significant hematuria VQ scan indeterminate. Monitor for rectal bleeding and presence of rectal cancer. Consider restart of anticoagulation at lower dose if bleeding improves. Urine appears to be clearing up significantly. Consider restarting Eliquis at 2.5 mg twice daily tomorrow if no recurrence. Negative COVID-19 PCR. Status: Acute (5) Diarrhea: Enteric bacterial, parasite panel is negative. Loperamide as needed. Status: Acute (6) Dysphagia: Very poor oral intake. Barium swallow with small hiatal hernia, otherwise was normal. Continue PPI, sucralfate, Magic mouthwash Acyclovir for stomatitis Diflucan IV Status: Acute (7) Rectal cancer: Status: Acute (8) Leg edema: LLE DVT. Anticoagulation discontinued secondary to active bleeding. Consider restarting tomorrow if no evidence of significant hematuria at that time. Could consider starting at lower dose 2.5 mg twice daily. Status: Acute (9) Hypokalemia: Supplemented Status: Acute (10) Decreased functional activity tolerance: Requiring significant assistance. States recently has been walking with a walker, and even then having difficulty. Continue PT, OT. Will need placement on discharge Status: Acute Additional A&P Information Stomatitis. Acyclovir, fluconazole Emphysematous bladder with hematuria. Broad-spectrum antibiotics of vancomycin and imipenem. Urine culture growing gram-negative lev. Can discontinue vancomycin. Urology consultation appreciated. Bladder irrigation. Hypotension. Has required norepinephrine intermittently Metabolic acidosis. Bicarbonate initiated. Improving Possible discharge to assisted facility if improves Attestations Medical Necessity Statement*: Needs continued hospitalization for IV antibiotics secondary to UTI, emphysematous bladder, hematuria, DVT, global weakness. Coding Level of Care Code Acute Lunch Counter Manager for Chg Fwd Diagnoses Generalized weakness R53.1 Neutropenia D70.9 Dehydration E86.0 DVT (deep venous thrombosis) I82.409 Diarrhea R19.7 Dysphagia R13.10 Rectal cancer C20 Leg edema R60.0 Hypokalemia E87.6 Decreased functional activity tolerance R68.89
[2021-03-12] MEDS: acyclovir 400 mg Tablet PO ×2 (15:41→20:50)
[2021-03-12] MEDS: sodium bicarbonate 650 mg Tablet PO ×2 (15:41→20:49)
--- NOTE | 2021-03-12 15:52 | PC.NURSE ---
Q2HR turns have been attempted. Patient continues to refuse. Education has been provided on importance of frequent turning.
[2021-03-12] MEDS: trazodone 50 mg Tablet 25 MG PO (20:49)
[2021-03-12] MEDS: metoprolol tartrate 25 mg Tablet 12.5 MG PO (20:49)
--- NOTE | 2021-03-12 23:57 | PC.NURSE ---
report called to Med surg
[2021-03-13] VITALS (8 sets, daily range): BP systolic 95–111; BP diastolic 58–78; PULSE 107–121; RESP 18–20; TEMP 36.4–36.7; O2SAT 96–99; BMI 25.3
[2021-03-13] MEDS: lactated ringers 1,000 ML 100 ML IV (03:34)
[2021-03-13] MEDS: sucralfate 1 gm/10 mL Oral Liq UDC PO ×4 (06:06→21:23)
[2021-03-13 07:36] LABS: Basophils # 0.1 10^3/uL (0.0-0.1); Eosinophils % 0.3 %; Hematocrit 37.8 % (37.0-47.0); Hemoglobin 12.2 g/dL (11.5-15.3); Lymphocytes # 0.7 10^3/uL (0.8-4.8); Lymphocytes % 8.9 %; Mean Corpuscular HGB Conc 32.3 g/dL (30.0-36.0); Mean Corpuscular Volume 86.7 fl (81-99); Mean Platelet Volume 11.6 fL (7.4-10.4); Monocytes # 0.5 10^3/uL (0.2-0.9); Neutrophils # 5.57 10^3/uL (1.8-7.7); Nucleated Red Blood Cells % 0.5 %; Platelet Count 285 10^3/cmm (130-400); Red Blood Count 4.36 10^6/uL (4.1-5.3); Red Cell Distribution Width 27.9 % (12.1-15.1); White Blood Count 7.3 10^3/uL (4.0-10.0)
[2021-03-13 07:58] LABS: Anion Gap 13.8 (5-19); Blood Urea Nitrogen 35 mg/dL (8-23); Calcium 7.2 mg/dL (8.5-10.5); Carbon Dioxide 16 mmol/L (22-29); Chloride 112 mmol/L (98-107); Glucose 79 mg/dL (65-115); Osmolality Calculated 293 mOsm/kg (285-295); Potassium 3.8 mmol/L (3.5-5.1); Sodium 138 mmol/L (136-145)
--- NOTE | 2021-03-13 08:58 | PC.SOCIAL ---
IM follow up explained and copy provided. Patient verbalized understanding.
[2021-03-13] MEDS: pantoprazole 40 mg SDV IVP (09:28)
[2021-03-13] MEDS: nystatin 100,000 unit/mL UDC 5 mL 400000 UNIT PO ×4 (09:28→21:21)
[2021-03-13] MEDS: metoprolol tartrate 25 mg Tablet 12.5 MG PO ×2 (09:29→21:09)
[2021-03-13] MEDS: acyclovir 400 mg Tablet PO ×2 (09:29→16:05)
[2021-03-13] MEDS: sodium bicarbonate 650 mg Tablet PO ×3 (09:29→21:07)
[2021-03-13] MEDS: loratadine 10 mg Tablet PO (09:29)
[2021-03-13 09:47] LABS: Slide Review Slide Review Perform
[2021-03-13 09:48] LABS: Neutrophils % 82.8 %
[2021-03-13] MEDS: fluconazole premix 200 MG/100 ML PREMIX 100 MG IV (11:14)
[2021-03-13] MEDS: albumin 12.5 GM/250 ML VIAL IV (12:24)
--- NOTE | 2021-03-13 14:09 | PC.NUTR ---
Nutrition support recommendations: Pt with < 10% intakes X 10 days, with past 3 days being 0% all meals. Will increase Ensure clear to TID but no documentation of whether pt is consuming. Recommend to continue to encourage po intakes of meals/supplements and provide preferences as available. If consistent with patient's goals of care, would recommend consideration of nutrition support. If TF appropriate, recommend Jevity 1.2, starting at 10 ml/hr, increasing by 10 ml/hr q 8 hrs to goal rate of 60 ml/hr, with 100 ml H2O flushes q 4 hours, to provide 1728 kcal, 79 g protein, and 1762 ml H2O. If TF not appropriate, recommend TPN, Clinimix 5/20, beginning at 10 ml/hr and increasing by 10 ml/hr q 8 hours to goal rate of 60 ml/hr, with 250 ml lipids daily, to provide 1767 kcal, 72 g protein, and 288 g dextrose. See full RD assessment for further details.
--- NOTE | 2021-03-13 15:02 | CTR_ITS ---
PROCEDURE INFORMATION: Exam: CT Head Without Contrast Exam date and time: 03/13/2021 3:02 PM Age: 80 years old Clinical indication: Speech disturbance; Slurred speech; Additional info: Dysarthia TECHNIQUE: Imaging protocol: Computed tomography of the head without contrast. Radiation optimization: All CT scans at this facility use at least one of these dose optimization techniques: automated exposure control; mA and/or kV adjustment per patient size (includes targeted exams where dose is matched to clinical indication); or iterative reconstruction. COMPARISON: XA FL barium swallow [id number] 03/05/2021 1:42 PM RADIATION DOSE METRICS: Total DLP (mGy-cm): 705.74 FINDINGS: Brain: No intracranial hemorrhage. Normal singletary white differentiation. No evidence of edema or territorial infarct. Mild decreased attenuation of the periventricular white matter is nonspecific but compatible with chronic microvascular ischemic change. No abnormal mass effect or midline shift. No extra-axial fluid collection. Cerebral ventricles: No hydrocephalus. A normal variant cavum septum pellucidum et vergae is noted. Paranasal sinuses: Visualized sinuses are unremarkable. No fluid levels. Mastoid air cells: Visualized mastoid air cells are well aerated. Bones/joints: No acute fracture. Soft tissues: Unremarkable. CT/CT head wo con* [id number] IMPRESSION: No acute findings on non-contrast CT. Radiation Dose CTDIVOL = (mGy): DLP = 705.74 (mGy-cm)
--- NOTE | 2021-03-13 17:12 | PM.PN ---
Subjective Subjective: Interval history: Requested speech evaluation CT head Rule out stroke Patient does have dysarthria Modified barium swallow unremarkable Patient is refusing dietary recommendations by dietitian She is very frustrated with her dysarthria Generalized weakness no acute neurological deficits noted Vitals/I&O/Wt Last Vital Signs Temp 97.6 F 03/13/21 12:00 Pulse 107 H 03/13/21 12:00 Resp 18 03/13/21 12:00 BP 100/58 03/13/21 12:05 Pulse Ox 97 03/13/21 12:00 03/13/21 03/13/21 03/13/21 06:59 14:59 22:59 Intake Total 1704 / 3004 690 / 690 250 / 940 Output Total 400 / 400 Balance 1304 / 2604 690 / 690 250 / 940 Weight last 48 hrs Weight 71.214 kg Weight 71.214 kg Physical Exam Narrative: EXAM NARRATIVE: female appears stated age Dysarthria noted EOMI, PERRLA She does have good neck flexion, no acute respite distress Generalized weakness of upper and lower extremities No acute neurological/focal deficits noted No facial asymmetry or pupillary deficits Awake alert oriented x3 S1, S2 Generalized anasarca Tender papule right arm noted No sign of cellulitis Urinary Catheter Management^: Cain: Cath Placed During This Visit: yes Reason for Continuing Indwelling Catheter: Accurate Measurement of Urinary Output in Critically Ill Patients Urinary Catheter Date of Insertion: 03/10/21 Urinary Catheter Time of Insertion: 17:10 Data : 03/13/21 06:54 03/13/21 06:54 Micro: Microbiology 03/10/21 17:10 Urine Culture - Final Urine Catheterized Klebsiella pneumoniae A&P Assessment and plan (1) Gross hematuria: Status: Acute (2) Emphysematous cystitis: Status: Acute (3) Generalized weakness: Status: Acute (4) Decreased functional activity tolerance: Status: Acute (5) Dysphagia: Status: Acute (6) DVT (deep venous thrombosis): Status: Acute (7) Anasarca: Status: Acute Additional A&P Information Generalized weakness Does not have typical myasthenia gravis features, adequate ventilation on room air She does have good neck flexion No acute neurological deficits noted We will request CT head TSH, CK normal 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 antibiotics Dysphagia and dysarthria Barium swallow unremarkable will request speech evaluation for appropriate diet orders however she refused dietary recommendations today For stomatitis she has been getting acyclovir Anasarca: We will give 1 amp of albumin Awaiting group home placement We will follow up with Dr. Francisco in 2 weeks Metabolic acidosis currently on bicarb DNR/DNI Attestations Medical Necessity Statement*: Awaiting group home placement Time Spent in Patient Care: 16 - 35 minutes Coding Level of Care Code Acute Sweatband Cutting Machine Operator for Chg Fwd Diagnoses Gross hematuria R31.0 Emphysematous cystitis N30.80 Generalized weakness R53.1 Decreased functional activity tolerance R68.89 Dysphagia R13.10 DVT (deep venous thrombosis) I82.409 Anasarca R60.1
[2021-03-13] MEDS: trazodone 50 mg Tablet 25 MG PO (21:06)
[2021-03-13] MEDS: apixaban 5 mg Tablet PO (21:10)
[2021-03-13] MEDS: lanolin oint 7 gm 1 APPLIC TOPICAL (23:27)
[2021-03-14] MEDS: HYDROcodone-acetaminophen 5-325 mg Tablet 1 TAB PO (00:40)
[2021-03-14 03:16] VITALS: BP 101/69; PULSE 79; RESP 18; TEMP 36.3; O2SAT 92
[2021-03-14 07:27] VITALS: BP 108/76; PULSE 102; RESP 16; TEMP 36.4; O2SAT 99
[2021-03-14] MEDS: nystatin 100,000 unit/mL UDC 5 mL 400000 UNIT PO ×4 (08:34→21:36)
[2021-03-14] MEDS: apixaban 5 mg Tablet PO ×2 (08:34→21:36)
[2021-03-14] MEDS: sodium bicarbonate 650 mg Tablet PO ×3 (08:34→21:36)
[2021-03-14 10:45] VITALS: BP 128/87; PULSE 104; RESP 20; TEMP 36.4; O2SAT 97
[2021-03-14] MEDS: sucralfate 1 gm/10 mL Oral Liq UDC PO ×3 (10:48→21:36)
[2021-03-14] MEDS: loperamide 2 mg Capsule PO ×2 (10:48→16:26)
--- NOTE | 2021-03-14 11:17 | CTR_ITS ---
PROCEDURE INFORMATION: Exam: CT Angiography Head With Contrast, Arteriography Exam date and time: 03/14/2021 11:17 AM Age: 80 years old Clinical indication: Other: Dysarthria TECHNIQUE: Imaging protocol: Computed tomography angiography of the head with contrast. Exam focused on the arteries. 3D rendering (Not supervised by radiologist): MIP and/or 3D reconstructed images were created by the technologist. Radiation optimization: All CT scans at this facility use at least one of these dose optimization techniques: automated exposure control; mA and/or kV adjustment per patient size (includes targeted exams where dose is matched to clinical indication); or iterative reconstruction. Contrast material: OMNI 350; Contrast volume: 95 ml; Contrast route: INTRAVENOUS (IV); COMPARISON: CT head wo con* [id number] 03/13/2021 4:29 PM RADIATION DOSE METRICS: Total DLP (mGy-cm): 1726.33 FINDINGS: ANTERIOR CIRCULATION: Right internal carotid artery: Unremarkable. Intracranial segment is patent with no significant stenosis. No aneurysm. Right middle cerebral artery: Unremarkable. No occlusion or significant stenosis. No aneurysm. Right anterior cerebral artery: Unremarkable. No occlusion or significant stenosis. No aneurysm. Left internal carotid artery: Unremarkable. Intracranial segment is patent with no significant stenosis. No aneurysm. Left middle cerebral artery: Unremarkable. No occlusion or significant stenosis. No aneurysm. Left anterior cerebral artery: Unremarkable. No occlusion or significant stenosis. No aneurysm. POSTERIOR CIRCULATION: Right vertebral artery: Unremarkable. No occlusion or significant stenosis. No aneurysm. Left vertebral artery: Unremarkable. No occlusion or significant stenosis. No aneurysm. Basilar artery: Unremarkable. No occlusion or significant stenosis. No aneurysm. Right posterior cerebral artery: Unremarkable. No occlusion or significant stenosis. No aneurysm. Left posterior cerebral artery: Unremarkable. No occlusion or significant stenosis. No aneurysm. Brain: No definite mass, mass effect, or midline shift. Cerebral ventricles: No ventriculomegaly. Bones/joints: Unremarkable. No acute fracture. Soft tissues: Unremarkable. IMPRESSION: No large vessel stenosis or occlusion. PROCEDURE INFORMATION: Exam: CT Angiography Neck With Contrast Exam date and time: 03/14/2021 11:17 AM Age: 80 years old Clinical indication: Other: Dysarthria TECHNIQUE: Imaging protocol: Computed tomography angiography of the neck with contrast. 3D rendering (Not supervised by radiologist): MIP and/or 3D reconstructed images were created by the technologist. Radiation optimization: All CT scans at this facility use at least one of these dose optimization techniques: automated exposure control; mA and/or kV adjustment per patient size (includes targeted exams where dose is matched to clinical indication); or iterative reconstruction. Contrast material: OMNI 350; Contrast volume: 95 ml; Contrast route: INTRAVENOUS (IV); COMPARISON: CT head wo con* [id number] 03/13/2021 4:29 PM RADIATION DOSE METRICS: Total DLP (mGy-cm): 1726.33 FINDINGS: Right common carotid artery: No stenosis. No dissection or occlusion. Right internal carotid artery: There is mild calcification at the origin with no stenosis. No dissection or occlusion. Right external carotid artery: No occlusion or stenosis of the origin. Left common carotid artery: No stenosis. No dissection or occlusion. Left internal carotid artery: There is mild calcification at the origin with mild less than 50% stenosis. No dissection or occlusion. Left external carotid artery: No occlusion or stenosis of the origin. Right vertebral artery: No stenosis. No dissection or occlusion. Left vertebral artery: No stenosis. No dissection or occlusion. Soft tissues: Normal. No significant soft tissue swelling. Bones/joints: No acute fracture. Pleural spaces: There are small bilateral pleural effusions. CT/CT angio headneck* [id number] IMPRESSION: No significant stenosis in the carotid or vertebral arteries. REFERENCES: NASCET CRITERIA. The degree of internal carotid artery stenosis is based on NASCET criteria. Normal is no stenosis. Mild is less than 50% stenosis. Moderate is 50-69% stenosis. Severe is 70% to 99% stenosis. Total occlusion is no detectable patent lumen. Radiation Dose CTDIVOL = (mGy): DLP = 1726.33~1726.33 (mGy-cm)
--- NOTE | 2021-03-14 11:59 | P.PN_ITS ---
Subjective Subjective: Interval history: Patient was in better mood today she was able to tell me her roman catholic belief Not complaining of any active chest pain or shortness of breath She has not been able to get out of bed Has active diarrhea requested C. difficile panel Tachycardia Turned off fluids yesterday Received albumin as well which improved her blood pressure We will request CTA head and neck today CT head unremarkable Requested Cetacaine spray and change of diet to GI soft Vitals/I&O/Wt Last Vital Signs Temp 97.5 F L 03/14/21 10:45 Pulse 104 H 03/14/21 10:45 Resp 20 H 03/14/21 10:45 BP 128/87 03/14/21 10:45 Pulse Ox 97 03/14/21 10:45 03/13/21 03/14/21 03/14/21 22:59 06:59 14:59 Intake Total 490 / 1900 30 / 30 Output Total 400 / 400 375 / 775 Balance 90 / 1500 -375 / 1125 30 / 30 Weight last 48 hrs Weight 88.949 kg Weight 71.214 kg Physical Exam Narrative: EXAM NARRATIVE: Sensations intact no neurological deficit She has good neck flexion Does not have typical myasthenia gravis symptoms Good neck flexion Generalized weakness with proximal distal muscle involvement No ptosis Patient is stating that she is not able to talk because of burning sensation and dry mouth Dysarthria slightly improved S1, S2 sinus tachycardia Abdomen soft Extremity edema generalized anasarca Awake alert &o x3 GCS 15 Pressure ulcer stage I multiple at 5 different spots buttocks and sacral area Urinary Catheter Management^: Cain: Cath Placed During This Visit: yes Reason for Continuing Indwelling Catheter: Accurate Measurement of Urinary Output in Critically Ill Patients Urinary Catheter Date of Insertion: 03/10/21 Urinary Catheter Time of Insertion: 17:10 Data : 03/13/21 06:54 03/13/21 06:54 A&P Assessment and plan (1) Anasarca: Status: Acute (2) Gross hematuria: Status: Acute (3) Emphysematous cystitis: Status: Acute (4) Generalized weakness: Status: Acute (5) Decreased functional activity tolerance: Status: Acute (6) Dysphagia: Status: Acute (7) DVT (deep venous thrombosis): Status: Acute Additional A&P Information Generalized anasarca status post albumin on 03/13 blood pressure improved Diarrhea: Requested C. difficile Emphysematous cystitis currently afebrile started on p.o. antibiotics culture sensitive report reviewed Generalized weakness without focal deficits CT head unremarkable we will request CTA head and neck she has proximal distal muscle weakness with intact sensations does not have Guillain-Crowley? 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
[2021-03-14] MEDS: cetacaine Spray 5 gm Can 1 SPRAY TOPICAL (12:19)
[2021-03-14] MEDS: iohexol 350 mg/mL 100 mL Btl IV (12:52)
[2021-03-14 15:59] VITALS: BP 125/84; PULSE 100; RESP 18; TEMP 36.4; O2SAT 98
[2021-03-14 20:00] VITALS: BP 99/76; PULSE 127; RESP 17; TEMP 36.2; O2SAT 96
[2021-03-14] MEDS: trazodone 50 mg Tablet 25 MG PO (21:36)
[2021-03-14] MEDS: metoprolol tartrate 25 mg Tablet 12.5 MG PO (21:36)
[2021-03-15] VITALS: BP 107/76; PULSE 107; RESP 16; TEMP 36.5; O2SAT 96
[2021-03-15 04:00] VITALS: BP 100/70; PULSE 111; RESP 18; TEMP 36.8; O2SAT 95
[2021-03-15] MEDS: sucralfate 1 gm/10 mL Oral Liq UDC PO (06:01)
[2021-03-15 08:00] VITALS: BP 109/70; PULSE 110; RESP 16; TEMP 36.5; O2SAT 94
[2021-03-15] MEDS: metoprolol tartrate 25 mg Tablet 12.5 MG PO (08:14)
[2021-03-15] MEDS: methylphenidate 10 mg Tablet PO (08:14)
[2021-03-15] MEDS: loperamide 2 mg Capsule PO (08:16)
[2021-03-15] MEDS: loratadine 10 mg Tablet PO (08:16)
[2021-03-15] MEDS: apixaban 5 mg Tablet PO (08:16)
[2021-03-15] MEDS: sodium bicarbonate 650 mg Tablet PO (08:16)
[2021-03-15] MEDS: nystatin 100,000 unit/mL UDC 5 mL 400000 UNIT PO (08:16)
--- NOTE | 2021-03-15 11:01 | PC.SOCIAL ---
IMM IMM signed, dated and given to patient, patient verbalized understanding
--- NOTE | 2021-03-15 11:09 | P.DS_ITS ---
Discharge Providers Date of Admission: 03/04/21 10:45 Date of Discharge: March 15, 2021 Attending Provider at Admission: Lester Osman Attending Provider at Discharge: Ramila Light MD Primary Care Provider: Carl Burch DO Diagnoses at Discharge Discharge Diagnosis (1) Anasarca: Status: Acute (2) Gross hematuria: Status: Acute (3) Emphysematous cystitis: Status: Acute (4) Generalized weakness: Status: Acute (5) Decreased functional activity tolerance: Status: Acute (6) Dysphagia: Status: Acute (7) DVT (deep venous thrombosis): Status: Acute Reason for Visit Reason for Visit: TACHYCARDIA/ WEAKNESS Hospital Course Hospital Course History of Present Illness by Dr. Osman Pleasant 80-year-old lady with history of rectal cancer, rectal bleeding, with persistent diarrhea over the last 3-4 weeks, last chemotherapy 4 weeks ago, presented with generalized weakness, orthostatic symptoms with lightheadedness, shortness of breath after standing up, walking, dehydration, tachycardia. In ER with noted sinus tachycardia, initially in 120s, with improvement with fluid bolus, down to 108. COVID-19 obtained in ER, rapid negative. PCR pending. Chest x-ray without acute abnormality. Atherosclerosis. As she is not yet back to baseline, continues with some dehydration, sinus tachycardia, we are asked to place her under observation in the hospital for additional IV hydration and monitoring. In case of cardiopulmonary arrest she would not want to have CPR. 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 Hospital course patient was admitted for management of generalized weakness, dehydration and diarrhea, her weakness was in proximal and distal muscles however did not show typical myasthenia gravis or Guillain-Crowley? symptoms , she did have good neck flexion CK, TSH normal no neurological deficits CTA head and neck CT head unremarkable. She was not able to participate with physical therapy during hospitalization. Her mentation remained normal. Neutropenia improved. Her dehydration was treated with IV fluids, she had generalized anasarca, 1 dose of albumin was given which improved her blood pressure and swelling of extremities. She was diagnosed with DVT and required Eliquis. This was put on hold with hematuria however her urine color improved and Cain catheter was removed at the time of discharge. Negative Covid PCR. Her diarrhea was most likely secondary to underlying cancer enteric bacterial and parasitic panel negative. C. difficile panel negative. She did have multiple stage I ulcers around her buttocks, zinc oxide was prescribed. For her stomatitis nystatin acyclovir and Cetacaine spray was used she was treated with vancomycin and ceftriaxone and fluconazole for emphysematous cystitis, urine culture positive for Klebsiella she was transitioned to p.o. antibiotics after culture and sensitivity report. She remained afebrile. She qualified for SNF placement. She'll be discharged to [facility] CODE STATUS DNR/DNI Physical Exam Narrative: EXAM NARRATIVE: Sensations intact no neurological deficit She has good neck flexion Does not have typical myasthenia gravis symptoms Good neck flexion Generalized weakness with proximal distal muscle involvement No ptosis Patient is stating that she is not able to talk because of burning sensation and dry mouth Dysarthria slightly improved S1, S2 sinus tachycardia Abdomen soft Extremity edema generalized anasarca Awake alert &o x3 GCS 15 Pressure ulcer stage I multiple at 5 different spots buttocks and sacral area Urinary Catheter Management^: Cain: Cath Placed During This Visit: yes Reason for Continuing Indwelling Catheter: Assist Healing of Perineal & Sacral Wounds- Incontinent Patients Urinary Catheter Date of Insertion: 03/10/21 Urinary Catheter Time of Insertion: 17:10 Discharge Data Data Completed and Pending: Completed Studies During Hospitalization Category Date Time Status CT abdomen pelvis wo con 11813 Rout ine Cat Scan 03/10/21 11:[address] angio headneck * [id number] Stat Cat Scan 03/14/21 11:[address] head wo con* 7 0450 Stat Cat Scan 03/13/21 15:02 Completed FL barium swallow [id number] Routine Exams 03/05/21 13:25 Completed XR chest 1V bart ble [id number] Urgent Exams 03/03/21 11:40 Completed NM pul vent and p erfus* [id number] Routi ne Nuc Med 03/04/21 10:26 [place] [id number] Routin e Ultrasound 03/04/21 07:00 Completed CV. echo complete * [id number] Routine Ultrasound 03/04/21 07:00 Completed Pending at discharge Category Date Time Status COVID [SARS Covid -2 Antigen] Routin e Lab 03/15/21 09:03 Uncollected Clostridioides Di fficile PCR Routin e Lab 03/14/21 15:17 Received Vitals: Last Vital Signs Temp 97.7 F 03/15/21 08:00 Pulse 110 H 03/15/21 08:00 Resp 16 03/15/21 08:00 BP 109/70 03/15/21 08:00 Pulse Ox 94 03/15/21 08:00 Discharge Plan Discharge Patient Disposition: Xfer SNF Condition: Stable Prescriptions: New Eliquis 5 mg Tablet 5 mg PO BID@0900,2100 30 Days Qty: 60 RF: 3 nystatin 100,000 unit/mL Suspension 400,000 unit PO QID 14 Days Qty: 224 RF: 0 loperamide 2 mg Capsule 2 mg PO QID PRN (Reason: Diarrhea) 30 Days Qty: 30 RF: 0 zinc oxide 20 % Ointment 1 applic topical PRN PRN (Reason: Skin Protectant) Qty: 30 RF: 0 levofloxacin 750 mg tablet 750 mg PO DAILY 14 Days RF: 0 Medrol (Ed) 4 mg tablets,dose pack See Rx Instructions .ROUTE .COMPLEX Qty: 21 RF: 0 Cetacaine 2 %-2 %-14 % (200 mg/sec) aerosol,spray 1 spray mucous membrane .with meal 7 Days Qty: 5 RF: 0 Cetacaine 2 %-2 %-14 % (200 mg/sec) aerosol,spray 1 spray mucous membrane .with meals Qty: 20 RF: 0 Eliquis 5 mg tablet 5 mg PO BID Qty: 60 RF: 2 levofloxacin 750 mg tablet 750 mg PO DAILY 14 Days RF: 0 nystatin 100,000 unit/mL suspension 1 ml PO QID 14 Days Qty: 56 RF: 0 zinc oxide Ointment 1 applic topical TID PRN (Reason: skin irritation) Qty: 56.7 RF: 0 Medrol (Ed) 4 mg tablets,dose pack See Rx Instructions .ROUTE .COMPLEX Qty: 21 RF: 0 loperamide 2 mg tablet 1 mg PO DAILY PRN (Reason: loose stool) Qty: 30 RF: 0 Continued loratadine 10 mg Capsule 10 mg PO DAILY RF: 0 hydrocodone-acetaminophen 5-325 mg tablet 1 tab PO Q6H PRN (Reason: pain) Qty: 7 RF: 0 Xeloda 500 mg tablet See Rx Instructions .ROUTE .COMPLEX RF: 0 Xeloda 150 mg tablet See Rx Instructions .ROUTE .COMPLEX RF: 0 labetalol 100 mg Tablet 100 mg PO BID RF: 0 Discharge Orders: Discharge Order (Routine); Ordered 03/15/21 Ordered By: Ramila Light Referrals: [facility] [Other] (Please call this number to provide all the information related to your health and ask about completing questionnaire to be approved for in home services. ) Carl Burch, DO [Primary Care Provider] - Discharge Diet: GI Soft Discharge Activity: Increase activity as tolerated and Use walker/crutches as instructed Patient Instructions: Levofloxacin (By mouth), Apixaban (By mouth), Opioid Safety Activity Restrictions/Additional Instructions: You will take Eliquis 5 mg twice a day for DVT Levaquin 14 days for Klebsiella UTI You can use Cetacaine spray along nystatin for your stomatitis Your diarrhea seems related to chemotherapy give you Medrol pack Discharge Attestations Time Spent in Discharge Care*: less than 30 min Quality Metrics Clinical Quality Measures During this hospital stay, did patient experience: None Coding Level of Care Code Acute [facility] note Diagnoses Anasarca R60.1 Gross hematuria R31.0 Emphysematous cystitis N30.80 Generalized weakness R53.1 Decreased functional activity tolerance R68.89 Dysphagia R13.10 DVT (deep venous thrombosis) I82.409
[2021-03-15 11:43] VITALS: BP 100/68; PULSE 105; RESP 16; TEMP 36.7; O2SAT 98
[2021-03-15 12:17] LABS: SARS Covid-2 Antigen Negative (Negative)
[2021-03-15 14:35] VITALS: BP 100/68; PULSE 105; RESP 16; TEMP 36.7; O2SAT 98
--- NOTE | 2021-03-16 12:44 | PC.SOCIAL ---
spoke with case management at [facility], patient will be seeing facility physician then at discharge the snf will make follow up appointment for patient to see PCP.
== END 2021-03-15 14:36 | disposition skilled nursing facility (03) | DRG 300 ==
LOC: ER 12:19 → MEDSURG 17:07 → ICU 03-11 00:14 → MEDSURG 03-13 00:13
PROVIDERS: Hospitalist; Internal Medicine; Student in an Organized Health Care Education/Training Program; Admitting Provider Internal Medicine; Emergency Provider Emergency Medicine; PCP Family Medicine; Visit Provider Internal Medicine
DX: I82.432 Acute embolism and thrombosis of left popliteal vein (principal); C20 Malignant neoplasm of rectum; K52.1 Toxic gastroenteritis and colitis; E87.2 Acidosis; I82.442 Acute embolism and thrombosis of left tibial vein; E86.0 Dehydration; R00.0 Tachycardia, unspecified; Z79.899 Other long term (current) drug therapy; K57.90 Diverticulosis of intestine, part unspecified, without perforation or abscess without bleeding; I10 Essential (primary) hypertension; T45.1X5A Adverse effect of antineoplastic and immunosuppressive drugs, initial encounter; I25.10 Atherosclerotic heart disease of native coronary artery without angina pectoris; Z66 Do not resuscitate; E87.6 Hypokalemia; R13.10 Dysphagia, unspecified; M19.90 Unspecified osteoarthritis, unspecified site; D70.1 Agranulocytosis secondary to cancer chemotherapy; F32.9 Major depressive disorder, single episode, unspecified; K44.9 Diaphragmatic hernia without obstruction or gangrene; M62.81 Muscle weakness (generalized); K12.1 Other forms of stomatitis; I95.9 Hypotension, unspecified; N30.81 Other cystitis with hematuria; B96.1 Klebsiella pneumoniae [K. pneumoniae] as the cause of diseases classified elsewhere; L89.321 Pressure ulcer of left buttock, stage 1; L89.311 Pressure ulcer of right buttock, stage 1; Z79.891 Long term (current) use of opiate analgesic
CPT/HCPCS: 36415; 51702; 70450; 70496; 70498; 71045; 74176; 74220; 78014; 80048; 80053; 80500; 81001; 82550; 82607; 82746; 83605; 83630; 83690; 83735; 83880; 84100; 84132; 84443; 85007; 85014; 85018; 85025; 85610; 85651; 85730; 86140; 86308; 86618; 86666; 86757; 87040; 87077; 87086; 87186; 87426; 87493; 87506; 87635; 93005; 93306; 93970; 96360; 96361; 97110; 97161; 97165; 97530; 97535; 99214; 99285; A9540; A9567; C9113; G0378; J0696; J0743; J1450; J1644; J2405; J3370; J7030; J7040; J7050; J8499; P9041; Q9967

== ENCOUNTER 2021-03-26 13:18 | Inpatient (IN) | payer MEDICARE, MEDICAID, SELFPAY ==
--- NOTE | 2021-03-26 13:22 | XR_ITS ---
WS: [id number] Portable AP upright chest, 03/26/2021 Clinical Data: rule out pna Comparison: Portable chest, 03/03/2021. Findings: No nodules, masses or effusions are seen. The heart is normal. The pulmonary vascularity is not increased. No pneumonia or pneumothorax is seen. The aortic arch shows tortuosity. The patient h as a poor inspiratory effort. There are monitor leads on the chest wall. XR/XR chest 1V portable [id number] Impression: Atherosclerosis.
--- NOTE | 2021-03-26 13:22 | CT_ITS ---
WS: [id number] CTA scan of the head and neck. Additional two-dimensional coronal and sagittal reconstruction along w ith MIP images was performed. 03/26/2021 Clinical Data: rule out dissection Comparison: CTA of the head and neck, 03/14/2021. DLP: 1693.[address] scans at [facility] use at least one of these dose optimization techniques: automated e xposure control; mA and/or kV adjustment per patient size (includes targeted exams where dose is matc hed to clinical indication); or iterative reconstruction. Findings: The carotid arteries bifurcate normally into the internal carotid arteries. There is minimal calcific ation at the bifurcations of the right and left common carotid arteries. The vertebral arteries are u nremarkable. The internal carotid and common carotid arteries are unremarkable. No stenosis or dissec tion is seen. The intracerebral circulation shows that the internal carotid arteries bifurcate into t he anterior and middle cerebral arteries. The basilar arterial system is normal. The [place] of [place] is intact. No aneurysms are seen. There is no prevertebral soft tissue swelling. 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 The intraorbital contents, paranasal sinuses, internal auditory canals and s fiona turcica are normal. The parotid glands are normal. The parapharyngeal areas are unremarkable. Th e larynx is symmetrical. The thyroid gland shows normal enhancement. The ventricular system is modera tely dilated without shift. CT/CT angio headneck* [id number] Impression: 1. Negative CTA of the arteries of the head and neck unchanged from 12 days ago . 2. No evidence of any carotid or vertebral artery dissection.
--- NOTE | 2021-03-26 13:23 | ECG_ITS ---
[facility] Test Date: 2021-03-26 Pat Name: Macy Guevara Department: Room: Gender: Female Filer Finish: : 1940 Requested By: Zane Hare Order Number: [id number] Reading MD: HUI MIR Measurements Intervals [place] Rate: 109 P: 39 MO: 155 QRS: -25 QRSD: 94 T: 138 QT: 365 QTc: 492 Interpretive Statements SINUS TACHYCARDIA BORDERLINE LEFT AXIS DEVIATION [QRS AXIS < -20] ST DEVIATION AND MODERATE T-WAVE ABNORMALITY, CONSIDER LATERAL ISCHEMIA [-0.1+ mV T-WAVE IN I/aVL/V5/V6] Compared to ECG 03/10/2021 22:25:53 T-wave abnormality now present Possible ischemia now present ST (T wave) deviation no longer present Electronically Signed On 03-26-2021 15:40:36 CDT by HUI MIR [id number] f
--- NOTE | 2021-03-26 13:23 | CT_ITS ---
WS: [id number] CT HEAD TECHNIQUE: Noncontrast CT of the head obtained from the skullbase to the vertex. CLINICAL INFORMATION: Symptoms of Acute Stroke COMPARISON: March 13, 2021 DLP: [address] scans at [facility] use at least one of these dose optimization techniques: automated e xposure control; mA and/or kV adjustment per patient size (includes targeted exams where dose is matc hed to clinical indication); or iterative reconstruction. FINDINGS: No evidence of intracranial hemorrhage or mass effect. Ventricular system and basal cisterns are bartlett nt. Mild small vessel changes with moderate parenchymal volume loss. No extra-axial fluid collections . No evidence of mass or mass effect. Chronic encephalomalacia left inferior frontal lobe unchanged f rom previous. Incidental cavum septum pellucidum and vergae. Paranasal sinuses are well aerated. Chronic appearing opacification right mastoid air cells and middl e ear CT/CT head wo con* [id number] IMPRESSION: 1. No evidence of intracranial hemorrhage or mass effect. 2. Mild small vessel changes. Moderate parenchymal volume loss. 3. Chronic appearing opacification right mastoid air cells and middle ear. 4. No acute intracranial findings. Attempted notification Zane Hare MD at 03/26/2021 1:34 PM.
[2021-03-26] MEDS: iodixanol 320 mg/mL 100mL Btl IV (13:25)
[2021-03-26 13:40] VITALS: BP 96/68; PULSE 112; RESP 18; TEMP 36.6; O2SAT 93
[2021-03-26 13:45] VITALS: BP 103/68; PULSE 103; RESP 20; TEMP 37; O2SAT 95
[2021-03-26 13:57] LABS: Glucose Point of Care 93 mg/dL (70-110)
[2021-03-26 14:17] LABS: Basophils % 0.4 %; Eosinophils % 0.2 %; Hematocrit 29.9 % (37.0-47.0); Lymphocytes # 0.8 10^3/uL (0.8-4.8); Lymphocytes % 14.7 %; Mean Corpuscular HGB Conc 33.4 g/dL (30.0-36.0); Mean Corpuscular Hemoglobin 29.2 pg (28.0-34.0); Mean Corpuscular Volume 87.2 fl (81-99); Mean Platelet Volume 9.5 fL (7.4-10.4); Monocytes # 0.5 10^3/uL (0.2-0.9); Monocytes % 9.2 %; Neutrophils # 4.13 10^3/uL (1.8-7.7); Neutrophils % 74.8 %; Nucleated Red Blood Cells % 0 %; Platelet Count 156 10^3/cmm (130-400); Red Blood Count 3.43 10^6/uL (4.1-5.3); Red Cell Distribution Width 28.2 % (12.1-15.1); White Blood Count 5.5 10^3/uL (4.0-10.0)
[2021-03-26] MEDS: sodium chloride 0.9% 1,000 ML 999 ML IV (14:24)
[2021-03-26 14:31] LABS: INR 2.27 (0.8-1.2)
[2021-03-26 14:32] LABS: Partial Thromboplastin Time 41.5 SECONDS (23.9-36.7)
[2021-03-26 14:33] LABS: Base Excess VBG 7.7 mmol/L (-3.0-3.0); HCO3 VBG 31.8 mmol/L (24-28); PO2 VBG 31.8 mmHg (25-40); Venous Blood Gas Hematocrit 33.8 % (37-47); pH VBG 7.49 (7.32-7.42)
--- NOTE | 2021-03-26 14:33 | ED_ITS ---
HPI - General Adult General: Chief complaint: Neuro Symptoms/Deficit Stated complaint: STROKE LIKE SYMPTOMS RESOLVING Time Seen by Provider: 03/26/21 13:22 History of Present Illness: HPI narrative: Patient is a 80-year-old female with a history of rectal cancer not on chemotherapy followed by Dr. Espinoza, recent UTI, recent diagnosis of DVT on Eliquis 5 mg twice daily who presents the emergency room after concerns for TIA. Patient was last seen normal at 12:30 PM. Per [facility] facility, patient had left-sided facial droop and left arm numbness. By the time EMS arrived, patient had resolution symptoms at 1:50 PM. Arrival, patient is completely back to baseline H stroke scale 0. Patient is noted to be tachycardic to the 110s, with direct mucous membrane cream. Patient denies fever, chills, cough runny nose, sore throat, abdominal complaints, complaints, diarrhea, excessive rectal bleeding, melena or hematochezia. Onset: 12:30 Duration: 1 hr and 20 minutes Location:home Severity:moderate Review of Systems Narrative: Constitutional: No fever, no chills. HEENT: No vision changes, +transient L facial droop CV: No chest pain, no palpitations PULM: no cough, no dyspnea. GI: No abdominal pain, no N/V/D. : No dysuria MSKEL: No muscle pain, +transient L arm numbness SKIN: No new rashes, no lesions. NEURO: No headache, no focal weakness. HEME: No visible bruises PSYCH: Normal mood PFSH ED PFSH: Medical History Arthritis Bleeding per rectum Anal mass, biopsies were obtained to rule out anal cancer Diverticulosis Hypertension Surgical History H/O rhinoplasty History of colonoscopy 2011 History of nasal surgery History of tonsillectomy Family History Father CAD (coronary artery disease) Mother Cancer Hypertension Denies family history of Diabetes Social History Smoking and tobacco status: never smoked Alcohol intake: never Lives independently: Yes Household members: none Housing: Apartment Marital status: Single Female Reproductive History: Date of last menstrual period: 09/24/20 Physical Exam Narrative: EXAM NARRATIVE: Head: Atraumatic Eyes: PERRL, conjunctiva without injection ENT: Mucous membrane moist NECK: Supple, ROM intact LUNGS: LCTAB, no crackles/rhonchi CV: RRR ABDOMEN: Soft, nontender in all quadrants EXTREMITY: Normal ROM SKIN: No rash or erythema NEURO: Mental status? Awake, alert, and oriented to self, year, month, location, and situation.? Following simple axial and appendicular commands.? Has appropriate fund of knowledge, comprehension, and insight.? Able to recall and understands pertinent aspects of medical history and current treatment status.? ? Language? Speech is fluent without word-finding difficulties.? Intact naming, expression, bisque ware dipper, and repetition.? ? Cranial nerves? 2,3,4,6: PERRL, EOMI with no nystagmus. 5: Intact sensation to light touch, symmetric? 7: Smile symmetrical, no facial droop.? 8: Hearing grossly intact.? 9,10: Normal palate movement.? 11: Normal strength in trapezius bilaterally 12: Tongue protrudes midline.? ? Motor examination? Normal bulk & tone. Strength as follows (R/L): Delts (5/5), Biceps (5/5), Triceps (5/5), Wrist ext (5/5), hip flexors (5/5), plantarflexors (5/5), dorsiflexors (5/5). ? Reflexs? Deep tendon examination (R/L): Biceps (2+/2+), Brachialis (2+/2+), Triceps (2+/2+), Knee jerk (2+/2+), Ankle Jerk (1+, 1+), Plantars (down/down) ? Sensation? Light Touch: Grossly intact and equal in upper and lower extremities bilaterally? Romberg: Negative.? Distal joint position sense intact ? Coordination? Fcuqul-vf-mimj-finger movements intact without dysmetria or past-pointing.? Rapid fingertaps: preserved amplitude without decriment.? No tremor, myoclonus or truncal ataxia.? ? Gait/stance? Steady, normal narrow base gait with appropriate arm swing and turning.? Tandem gait without hesitation or loss of balance. PSYCH: Normal mood and affect Course Vital Signs: Vital signs: Vital Signs Temperature 97.6 F 03/26/21 20:00 Pulse Rate 114 H 03/26/21 20:00 Respiratory Rate 16 03/26/21 20:00 Blood Pressure 96/64 03/26/21 20:00 Pulse Oximetry 98 03/26/21 20:00 MDM - General Adult MDM Narrative: Medical decision making narrative: 80-year-old female who presents the emergency room after possible TIA. Arrival, patient is tachycardic to 110s, appears to be dry on exam. Patient has a temperature of 98. White count within normal limit. Not currently on chemotherapy. Given concerns of TIA, case was discussed with Dr. Sales who tells me that patient is already on maximal therapy and at this point time, not been benefit from further medical management of TIA. She will follow patient during hospitalization. White count 5.5 not currently on chemotherapy. No suspicion for acute sepsis at this time. Likely source of tachycardia is dehydration. Patient will be admitted to the hospital for rehydration. K of 2.5, will replete. Troponin of 66, will trend. Disposition: Admission for rehydration and lab abnormalities. Lab Data: Labs: Lab Results 03/26/21 03/26/21 03/26/21 13:55 14:08 14:08 WBC 5.5 10^3/uL 10^3/ uL (4.0-10.0) RBC 3.43 10^6/uL L 10 ^6/uL (4.1-5.3) Hgb 10.0 g/dL L g/dL (11.5-15.3) Hct 29.9 % L % (37.0-47.0) MCV 87.2 fl fl (81-99) MCH 29.2 pg pg (28.0-34.0) MCHC 33.4 g/dL g/dL (30.0-36.0) RDW 28.2 % H % (12.1-15.1) Plt Count 156 10^3/cmm 10^3 /cmm (130-400) MPV 9.5 fL fL (7.4-10.4) Neut % (Auto) 74.8 % % Lymph % (Auto) 14.7 % % Cotton % (Auto) 9.2 % % Eos % (Auto) 0.2 % % Baso % (Auto) 0.4 % % Neut # (Auto) 4.13 10^3/uL 10^3 /uL (1.8-7.7) Lymph # (Auto) 0.8 10^3/uL 10^3/ uL (0.8-4.8) Cotton # (Auto) 0.5 10^3/uL 10^3/ uL (0.2-0.9) Eos # (Auto) 0.0 10^3/uL 10^3/ uL (0.0-0.8) Baso # (Auto) 0.0 10^3/uL 10^3/ uL (0.0-0.1) Nucleated RBC % (a uto) 0 % % Nucleated RBCs # 0.0 /100WBC /100W BC PT 25.50 SECONDS H S ECONDS (12.1-14.9) INR 2.27 H (0.8-1.2) APTT 41.5 SECONDS H SE CONDS (23.9-36.7) Specimen Type Sample Site Jeremias Test VBG pH VBG pCO2 VBG pO2 VBG HCO3 VBG Base Excess VBG Hematocrit O2 Delivery Device Manufacturing Engineer Supervisor ID Sodium Potassium Chloride Carbon Dioxide Anion Gap BUN Creatinine GFR Calculation Glucose POC Glucose 93 mg/dL mg/dL (70-110) Calculated Osmolal ity Lactate Calcium Total Bilirubin AST ALT Alkaline Phosphata se Troponin T Gen 5 n g/L NT-Pro-B Natriuret Pep Total Protein Albumin Globulin Procalcitonin 03/26/21 03/26/21 03/26/21 14:08 14:08 14:08 WBC RBC Hgb Hct MCV MCH MCHC RDW Plt Count MPV Neut % (Auto) Lymph % (Auto) Cotton % (Auto) Eos % (Auto) Baso % (Auto) Neut # (Auto) Lymph # (Auto) Cotton # (Auto) Eos # (Auto) Baso # (Auto) Nucleated RBC % (a uto) Nucleated RBCs # PT INR APTT Specimen Type Sample Site Jeremias Test VBG pH VBG pCO2 VBG pO2 VBG HCO3 VBG Base Excess VBG Hematocrit O2 Delivery Device Manufacturing Engineer Supervisor ID Sodium 130 mmol/L L mmol /L (136-145) Potassium 2.5 mmol/L L* mmo l/L (3.5-5.1) Chloride 94 mmol/L L mmol/ L (98-107) Carbon Dioxide 26 mmol/L mmol/L (22-29) Anion Gap 12.5 (5-19) BUN 12 mg/dL mg/dL (8-23) Creatinine 0.3 mg/dL L mg/dL (0.5-0.9) GFR Calculation Not Reportable Glucose 85 mg/dL mg/dL (65-115) POC Glucose Calculated Osmolal ity 269 mOsm/kg L mOs m/kg (285-295) Lactate 1.5 mmol/L mmol/L (0.5-2.2) Calcium 7.2 mg/dL L mg/dL (8.5-10.5) Total Bilirubin 0.5 mg/dL mg/dL (0.15-1.2) AST 19 U/L U/L (0-32) ALT 12 U/L U/L (0-33) Alkaline Phosphata se 103 IU/L IU/L (35-105) Troponin T Gen 5 n g/L 67 ng/L H ng/L (0-10) NT-Pro-B Natriuret Pep Total Protein 3.8 g/dL L g/dL (6.6-8.7) Albumin 1.6 g/dL L g/dL (3.5-5.2) Globulin 2.2 g/dL g/dL (1.3-4.6) Procalcitonin 03/26/21 03/26/21 14:08 14:23 WBC RBC Hgb Hct MCV MCH MCHC RDW Plt Count MPV Neut % (Auto) Lymph % (Auto) Cotton % (Auto) Eos % (Auto) Baso % (Auto) Neut # (Auto) Lymph # (Auto) Cotton # (Auto) Eos # (Auto) Baso # (Auto) Nucleated RBC % (a uto) Nucleated RBCs # PT INR APTT Specimen Type Venous Sample Site Not specified Jeremias Test N/a VBG pH 7.49 H (7.32-7.42) VBG pCO2 42.0 mmHg mmHg (41-51) VBG pO2 31.8 mmHg mmHg (25-40) VBG HCO3 31.8 mmol/L H mmo l/L (24-28) VBG Base Excess 7.7 mmol/L H mmol /L (-3.0-3.0) VBG Hematocrit 33.8 % L % (37-47) O2 Delivery Device N/paper feeder ID Ed Sodium Potassium Chloride Carbon Dioxide Anion Gap BUN Creatinine GFR Calculation Glucose POC Glucose Calculated Osmolal ity Lactate Calcium Total Bilirubin AST ALT Alkaline Phosphata se Troponin T Gen 5 n g/L NT-Pro-B Natriuret Pep 3155 pg/mL H pg/m L (0-450) Total Protein Albumin Globulin Procalcitonin 0.13 ng/mL ng/mL (0-0.5) Imaging Data^: Other Imaging: Radiologist's impression: [facility] [place], [place] [address]GY Scan ReportSigned Patient: Fawad Guevara #: [id number]: [id number]#:[id number]/Sex: 80 / FADM Date: 03/26/21Loc: ERRoom/Bed:Attending Dr: Ordering Provider/Ordering MD: Zane Hare MD Date of Service: 03/26/21 Procedure(s): CT head wo con* [id number] Accession Number(s): [id number] Report Number: [id number] WS: [id number] CT HEAD TECHNIQUE: Noncontrast CT of the head obtained from the skullbase to the vertex. CLINICAL INFORMATION: Symptoms of Acute Stroke COMPARISON: March 13, 2021 DLP: [address] scans at [facility] use at least one of these dose optimization techniques: automated exposure control; mA and/or kV adjustment per patient size (includes targeted exams where dose is matched to clinical indication); or iterative reconstruction. FINDINGS: No evidence of intracranial hemorrhage or mass effect. Ventricular system and basal cisterns are patent. Mild small vessel changes with moderate parenchymal volume loss. No extra-axial fluid collections. No evidence of mass or mass effect. Chronic encephalomalacia left inferior frontal lobe unchanged from previous. Incidental cavum septum pellucidum and vergae. Paranasal sinuses are well aerated. Chronic appearing opacification right mastoid air cells and middle ear CT/CT head wo con* [id number] IMPRESSION: 1. No evidence of intracranial hemorrhage or mass effect. 2. Mild small vessel changes. Moderate parenchymal volume loss. 3. Chronic appearing opacification right mastoid air cells and middle ear. 4. No acute intracranial findings. Attempted notification Zane Hare MD at 03/26/2021 1:34 PM. Dictated By:Wilian Montanez MDSigned By:Wilian Montanez MDSigned Date/Time:03/26/21 1336DD/ 1328 [facility] [place], [place] [address]FW Scan ReportSigned Patient: Fawad Guevara #: [id number]: 1940cct#:[id number]/Sex: 80 / FADM Date: 03/26/21Loc: ERRoom/Bed:Attending Dr: Ordering Provider/Ordering MD: Zane Hare MD Date of Service: 03/26/21 Procedure(s): CT angio headneck* [id number] Accession Number(s): [id number] Report Number: [id number] WS: [id number] CTA scan of the head and neck. Additional two-dimensional coronal and sagittal reconstruction along with MIP images was performed. 03/26/2021 Clinical Data: rule out dissection Comparison: CTA of the head and neck, 03/14/2021. DLP: 1693.[address] scans at [facility] use at least one of these dose optimization techniques: automated exposure control; mA and/or kV adjustment per patient size (includes targeted exams where dose is matched to clinical indication); or iterative reconstruction. Findings: The carotid arteries bifurcate normally into the internal carotid arteries. There is minimal calcification at the bifurcations of the right and left common carotid arteries. The vertebral arteries are unremarkable. The internal carotid and common carotid arteries are unremarkable. No stenosis or dissection is seen. The intracerebral circulation shows that the internal carotid arteries bifurcate into the anterior and middle cerebral arteries. The basilar arterial system is normal. The blackfeet of [place] is intact. No aneurysms are seen. There is no prevertebral soft tissue swelling. 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 The intraorbital contents, paranasal sinuses, internal auditory canals and sella turcica are normal. The parotid glands are normal. The parapharyngeal areas are unremarkable. The larynx is symmetrical. The thyroid gland shows normal enhancement. The ventricular system is moderately dilated without shift. CT/CT angio headneck* [id number] Impression: 1. Negative CTA of the arteries of the head and neck unchanged from 12 days ago. 2. No evidence of any carotid or vertebral artery dissection. Dictated By:Claudette Cannon MDSigned By:Claudette Cannon MDSigned Date/Time:03/26/[address] [address]YEik ReportSigned Patient: Fawad Guevara #: [id number]: 1940cct#:[id number]/Sex: 80 / FADM Date: 03/26/21Loc: ERRoom/Bed:Attending Dr: Ordering Provider/Ordering MD: Zane Hare MD Date of Service: 03/26/21 Procedure(s): XR chest 1V portable [id number] Accession Number(s): [id number] Report Number: [id number] WS: [id number] Portable AP upright chest, 03/26/2021 Clinical Data: rule out pna Comparison: Portable chest, 03/03/2021. Findings: No nodules, masses or effusions are seen. The heart is normal. The pulmonary vascularity is not increased. No pneumonia or pneumothorax is seen. The aortic arch shows tortuosity. The patient has a poor inspiratory effort. There are monitor leads on the chest wall. XR/XR chest 1V portable [id number] Impression: Atherosclerosis. Dictated By:Claudette Cannon MDSigned By:Claudette Cannon MDSigned Date/Time:03/26/21 1355DD/ 1354 Discharge Plan Discharge Patient Disposition: Admitted As Inpatient Admit Provider: Papito Gilmore Clinical Impression: Brain TIA, Dehydration, Hypokalemia, Elevated troponin Condition: Stable Coding Level of Care Code ED Smelter Liner for Maryg Laurie
[2021-03-26 14:34] LABS: Blood Gas Operator Identificat ED; Blood Gas Sample Site Not specified; Blood Gas Sample Type Venous
[2021-03-26 14:36] LABS: Lactate (Lactic Acid level) 1.5 mmol/L (0.5-2.2)
[2021-03-26 14:37] LABS: Alanine Aminotransferase 12 U/L (0-33); Albumin Level 1.6 g/dL (3.5-5.2); Alkaline Phosphatase 103 IU/L (35-105); Anion Gap 12.5 (5-19); Aspartate Amino Transferase 19 U/L (0-32); Blood Urea Nitrogen 12 mg/dL (8-23); Calcium 7.2 mg/dL (8.5-10.5); Carbon Dioxide 26 mmol/L (22-29); Chloride 94 mmol/L (98-107); Globulin 2.2 g/dL (1.3-4.6); Glucose 85 mg/dL (65-115); Osmolality Calculated 269 mOsm/kg (285-295); Sodium 130 mmol/L (136-145); Total Bilirubin 0.5 mg/dL (0.15-1.2); Total Protein 3.8 g/dL (6.6-8.7)
[2021-03-26 14:38] LABS: Troponin T (5th) Once 67 ng/L (0-10)
[2021-03-26 14:52] LABS: Potassium 2.5 mmol/L (3.5-5.1)
--- NOTE | 2021-03-26 15:40 | PC.NURSE ---
dr changed potassium order to iv.
--- NOTE | 2021-03-26 16:12 | P.HP_ITS ---
Providers/Chief Complaint Primary Care Provider: Carl Burch DO Chief Complaint: STROKE LIKE SYMPTOMS RESOLVING History of Present Illness Macy Guevara is a 80 year old female with a past medical history of rectal cancer, rectal bleeding, on chemotherapy,left lower extremity DVT on Eliquis, finished antibiotic therapy, history of emphysematous bladder infection, who presents to [facility] due to left-sided weakness, facial droop, slurring of speech. Currently patient is at [facility], recently discharged from [facility] for deconditioning, left lower extremity DVT, emphysematous cystitis. According to penitentiary at baseline they get her up into a wheelchair, but she prefers to be in bed, she is alert oriented x3, she can feed herself, patient's last known well normal was 12:30 PM. At roughly 1:30 patient was up in a chair, when nursing staff noticed that her speech became slurred, she had left facial droop, left pupil was dilated, she had left upper left lower extremity weakness, and then she became unresponsive, lasting roughly a minute, nursing staff checked her vitals, her blood pressures were 90s over 60s, heart rates in the 140s, irregular, temp was 99.4, she was put back into bed, she had Trendelenburg, and she returned back to normal self roughly 20 minutes after, no seizure-like episode, no urinary or bowel incontinence, no postictal confusion. In the emergency room emergency room physician did discuss the case with Dr. Sales, initial CT of the head was negative for acute bleed, given that she is on Eliquis, she is not deemed a candidate for TPA. During my examination, she is alert oriented x3, she has a very slight left facial droop, left upper and left lower extremities are slightly more weak compared to the right, no slurring of her speech, no word finding difficulty, no visual deficits, NIH stroke scale is 3, she is passed a bedside swallow eval, her neck CTA had no acute findings, EKG showed no arrhythmia event, 5-second cardiac, ST depressions in lateral leads, she appeared dehydrated, was given fluid, hypokalemic, urine is pending, she does have generalized anasarca, particular in the bilateral lower extremities. Patient tells me that she was originally from [place], born and raised, she is half Lao half Togolese, she came to [place] because her 's work brought her here, her has , and all her family in [place], she tells me that she is here because the penitentiary center of them are worried about her weakness on the left side, she is concerned about her left facial droop, she asked me if it still there, she does report diarrhea, she has a Cain catheter in place which was placed on the due to concerns of urinary retention, denies any fevers, chills, no cough, currently her only complaint is that she is quite thirsty and would like something to drink Review of Systems Const: Denies: fever(s) or chills Eyes: Denies: blurry vision Resp: Denies: dyspnea or wheezing GI: Denies: abdominal pain, nausea, vomiting, diarrhea, hematochezia or melena : Denies: flank pain Musc: Denies: back pain Skin/Breast: Denies: rash Neuro: Denies: headache(s) Endo: Denies: polyuria Medications/Allergies Home Medications Medication Instructions Recorded Confirmed Last Taken Type labetalol 100 mg PO BID 07/04/19 03/03/21 12/01/20 History loratadine 10 mg PO DAILY 11/26/20 03/03/21 11/30/20 History hydrocodone-acetaminophen 1 tab PO Q6H PRN #7 tab 02/18/21 03/03/21 Unknown Rx Xeloda See Rx Instructions .ROUTE .COMPLEX 03/03/21 03/03/21 Unknown History Xeloda See Rx Instructions .ROUTE .COMPLEX 03/03/21 03/03/21 Unknown History apixaban [Eliquis] 5 mg PO BID #60 tab 03/15/21 Unknown Rx apixaban [Eliquis] 5 mg PO BID@0900,2100 30 Days #60 03/15/21 Unknown Rx tab suxsbxjl-lxujmwawvn-kekhstrufd 1 spray MUCOUS MEMBRANE .with 03/15/21 Unknown Rx [Cetacaine] meals #20 g levofloxacin 750 mg PO DAILY 14 Days tab 03/15/21 Unknown Rx levofloxacin 750 mg PO DAILY 14 Days tab 03/15/21 Unknown Rx loperamide 1 mg PO DAILY PRN #30 tab 03/15/21 Unknown Rx loperamide 2 mg PO QID PRN 30 Days #30 cap 03/15/21 Unknown Rx methylprednisolone [Medrol (Ed)] See Rx Instructions .ROUTE 03/15/21 Unknown Rx .COMPLEX #21 ea methylprednisolone [Medrol (Ed)] See Rx Instructions .ROUTE 03/15/21 Unknown Rx .COMPLEX #21 ea nystatin 1 ml PO QID 14 Days #56 ml 03/15/21 Unknown Rx nystatin 400,000 unit PO QID 14 Days #224 ml 03/15/21 Unknown Rx zinc oxide 1 applic TOPICAL PRN PRN #30 g 03/15/21 Unknown Rx zinc oxide 1 applic TOPICAL TID PRN #56.7 g 03/15/21 Unknown Rx Allergies Allergy/AdvReac Type Severity Reaction Status Date / Time No Known Allergies Allergy Verified 01/14/21 06:29 PFSH Acute PFSH: Medical History Arthritis Bleeding per rectum Anal mass, biopsies were obtained to rule out anal cancer Diverticulosis Hypertension Surgical History H/O rhinoplasty History of colonoscopy 2011 History of nasal surgery History of tonsillectomy Family History Father CAD (coronary artery disease) Mother Cancer Hypertension Denies family history of Diabetes Social History Smoking and tobacco status: never smoked Alcohol intake: never Lives independently: Yes Household members: none Housing: Apartment Marital status: Single Female Reproductive History: Date of last menstrual period: 09/24/20 Vitals/I&O/Wt Last Vital Signs Temp 97.9 F 03/26/21 13:40 Pulse 112 H 03/26/21 13:40 Resp 18 03/26/21 13:40 BP 96/68 03/26/21 13:40 Pulse Ox 93 03/26/21 13:40 Weight last 48 hrs Weight 76.657 kg Physical Exam Const: COMMON NORMALS: no acute distress ORIENTATION/CONSCIOUSNESS: Yes awake, Yes oriented to person and Yes oriented to place; not oriented to time HENMT: COMMON NORMALS: normocephalic Eye: COMMON NORMALS: Equal, round and reactive pupils present Neck/C-Spine: COMMON NORMALS: no lymphadenopathy and Thyroid normal Resp: COMMON NORMALS: normal respiratory effort, No retractions, No use of accessory muscles and clear to auscultation bilaterally Cardio: COMMON NORMALS: regular rate, regular rhythm, S1 normal heart sound present and S2 normal heart sound present GI: COMMON NORMALS: Normal to inspection, nondistended, normoactive bowel sounds present, Soft to palpation and non-tender : COMMON NORMALS: Yes no CVA tenderness Extremity: COMMON NORMALS: full ROM NARRATIVE EXTREMITY EXAM: Bilateral lower extremity anasarca, 2+ pitting edema Neuro: SENSORIUM/ORIENTATION: Yes alert, Yes oriented to person, Yes oriented to place and No oriented to time CRANIAL NERVES: Yes CN normal except as noted COORDINATION/BALANCE: No bamivz-bq-kvst test normal SPEECH: speech normal (Possibly quite slight slurring, difficult to discern, as she has a Togolese ) OTHER: Left upper extremity compared to right upper extremity 4 out of 5 Left lower extremity compared to right lower extremity strength 4 out of 5 But does have generalized weakness Slight left facial droop but has generalized weakness Data : 03/26/21 14:08 03/26/21 14:08 Micro: Microbiology 03/26/21 14:21 Blood Culture - Preliminary Blood SPECIMEN COLLECTED 03/26/21 14:24 Blood Culture - Preliminary Blood SPECIMEN COLLECTED A&P Assessment and plan (1) CVA (cerebral vascular accident): -Some very mildly persistent left-sided deficits -NIH stroke scale of 3 -Out of TPA window -Is already on Eliquis -ER physician contacted Dr. Sales, advised of medical management CT head: -1. No evidence of intracranial hemorrhage or mass effect. 2. Mild small vessel changes. Moderate parenchymal volume loss. 3. Chronic appearing opacification right mastoid air cells and middle ear. 4. No acute intracranial findings. -CTA head and neck: 1. Negative CTA of the arteries of the head and neck unchanged from 12 days ago. 2. No evidence of any carotid or vertebral artery dissection. -Given history provided from the ER sounds like possible embolic event with her tachycardia, but also could be a watershed stroke as she was sat up and had a drop in blood pressure Plan: -Admit to general medical floors -Neurochecks, NIH stroke scales, seizure precautions, aspiration precautions -Continue Eliquis -Continue aspirin 1 mg, atorvastatin 80 mg -Follow urine cultures, stool cultures -Allow for permissive hypertension, might require midodrine -Telemetry monitoring -Protonix for GI prophylaxis -Eliquis for DVT prophylaxis -DNR/DNI Dehydration, continue gentle IV hydration, keep patient flat might require midodrine Previous history of UTI, continue antibiotic therapy Hypokalemia, potassium replacement Elevated troponin, EKG does show ST depressions and T wave inversions in lateral leads, no complaints of chest pain, telemetry monitoring serial EKGs, serial troponins, aspirin, statin, cardiac echo Anasarca likely secondary to hypoalbuminemia, 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, currently Xeloda is on hold Status: Acute (2) Dehydration: Status: Acute (3) Hypokalemia: Status: Acute (4) Elevated troponin: Status: Acute (5) Anasarca: Status: Acute (6) Generalized weakness: Status: Acute (7) DVT (deep venous thrombosis): Status: Acute (8) Diarrhea: Status: Acute (9) Rectal cancer: Status: Acute Attestations Medical Necessity Statement*: Patient requires hospitalization, inpatient, greater than 2 midnights for CVA, dehydration, elevated troponins Coding Level of Care Code Acute Haircutter for Chg Fwd Diagnoses CVA (cerebral vascular accident) I63.9 Dehydration E86.0 Hypokalemia E87.6 Elevated troponin R77.8 Anasarca R60.1 Generalized weakness R53.1 DVT (deep venous thrombosis) I82.409 Diarrhea R19.7 Rectal cancer C20
[2021-03-26] MEDS: lidocaine 1% 5 ML in potassium chloride premix 100 ML 25 ML IV ×2 (16:20→20:43)
[2021-03-26 16:25] LABS: NT Pro B Type Natriuretic Pept 3155 pg/mL (0-450); Procalcitonin 0.13 ng/mL (0-0.5)
--- NOTE | 2021-03-26 16:49 | PC.NURSE ---
unable to updated medications, patient unsurem no family at bedside, no pharmacy care coordinator on shift. dr darby
[2021-03-26 17:10] LABS: Add Urine Microscopic? YES; Bilirubin Urine Neg (Negative); Blood Urine 2+ (Negative); Glucose Urine UA Norm (Normal); Ketones Urine Negative (Negative); Leukocyte Esterase Urine Negative (Negative); Nitrate Urine Negative (Negative); Protein Urine Neg (Negative); Urine Appearance Clear (CLEAR); Urine Color Colorless (Yellow); Urobilinogen Urine Norm (Negative); pH Urine 7 (5-7)
[2021-03-26 17:11] LABS: Add Urine Culture? No; Bacteria Urine TRACE /hpf; Squamous Epithelial Cell Urine 0-4 /hpf (0-5); WBC Urine 0-4 /hpf (0-5)
[2021-03-26 17:13] LABS: SARS Covid-2 Antigen Negative (Negative)
--- NOTE | 2021-03-26 17:21 | PC.NURSE ---
tried to call report, rosario unavailable at this time. will call back.
[2021-03-26 17:42] VITALS: BP 104/65; PULSE 106; RESP 20; TEMP 36.9; O2SAT 98
[2021-03-26 19:51] LABS: Lactic Sepsis W/Reflex 1.2 mmol/L (0.5-2.2)
[2021-03-26 20:00] VITALS: BP 96/64; PULSE 114; RESP 16; TEMP 36.4; O2SAT 98
[2021-03-26 20:01] LABS: Thyroid Stimulating Hormone 4.17 uIU/mL (0.27-4.20)
[2021-03-26 21:00] VITALS: BP 96/64; PULSE 114; RESP 16; TEMP 36.4
[2021-03-26] MEDS: apixaban 5 mg Tablet PO (21:00)
[2021-03-26] MEDS: nystatin powder 15 gm Btl 1 APPLIC TOPICAL (21:00)
[2021-03-26] MEDS: atorvastatin 40 mg Tablet PO (21:00)
[2021-03-26] MEDS: aspirin 81 mg EC Tablet PO (21:00)
[2021-03-26] MEDS: pantoprazole DR 40 mg Tablet PO (21:00)
[2021-03-26] MEDS: cefTRIAXone 1,000 MG in sodium chloride 0.9% (plus) 50 ML 100 MG IV (22:17)
[2021-03-26 23:00] VITALS: BP 96/64; PULSE 114; RESP 16; TEMP 36.4
[2021-03-27] VITALS (9 sets, daily range): BP systolic 94–122; BP diastolic 55–83; PULSE 90–111; RESP 14–19; TEMP 36.6–37.1; O2SAT 95–97
[2021-03-27] MEDS: sodium chloride 0.9% 1,000 ML 75 ML IV (01:35)
[2021-03-27 05:19] LABS: Basophils % 0.5 %; Eosinophils % 0.5 %; Hematocrit 29.1 % (37.0-47.0); Hemoglobin 9.3 g/dL (11.5-15.3); Lymphocytes # 0.9 10^3/uL (0.8-4.8); Lymphocytes % 15.6 %; Mean Corpuscular Hemoglobin 29.1 pg (28.0-34.0); Mean Corpuscular Volume 90.9 fl (81-99); Mean Platelet Volume 9.9 fL (7.4-10.4); Monocytes # 0.6 10^3/uL (0.2-0.9); Monocytes % 9.6 %; Neutrophils # 4.18 10^3/uL (1.8-7.7); Neutrophils % 73.3 %; Nucleated Red Blood Cells % 0 %; Platelet Count 145 10^3/cmm (130-400); Red Cell Distribution Width 28.6 % (12.1-15.1); White Blood Count 5.7 10^3/uL (4.0-10.0)
[2021-03-27 05:54] LABS: Alanine Aminotransferase 12 U/L (0-33); Albumin Level 1.4 g/dL (3.5-5.2); Alkaline Phosphatase 95 IU/L (35-105); Anion Gap 11.3 (5-19); Aspartate Amino Transferase 19 U/L (0-32); Blood Urea Nitrogen 10 mg/dL (8-23); Calcium 7.1 mg/dL (8.5-10.5); Carbon Dioxide 26 mmol/L (22-29); Chloride 99 mmol/L (98-107); Globulin 2.2 g/dL (1.3-4.6); Glucose 65 mg/dL (65-115); Magnesium 1.5 mg/dL (1.7-2.3); Osmolality Calculated 273 mOsm/kg (285-295); Potassium 3.3 mmol/L (3.5-5.1); Sodium 133 mmol/L (136-145); Total Bilirubin 0.4 mg/dL (0.15-1.2); Total Protein 3.6 g/dL (6.6-8.7)
[2021-03-27] MEDS: apixaban 5 mg Tablet PO ×2 (08:08→20:20)
[2021-03-27] MEDS: pantoprazole DR 40 mg Tablet PO ×2 (08:08→20:21)
[2021-03-27] MEDS: aspirin 81 mg EC Tablet PO (08:08)
[2021-03-27] MEDS: nystatin powder 15 gm Btl 1 APPLIC TOPICAL (08:10)
[2021-03-27] MEDS: midodrine 5 mg TABLET 10 MG PO ×3 (10:15→20:20)
[2021-03-27] MEDS: lidocaine 1% 5 ML in potassium chloride premix 100 ML 25 ML IV (10:21)
[2021-03-27] MEDS: FUROsemide 10 mg/mL SDV 4mL 40 MG IVP (11:28)
--- NOTE | 2021-03-27 13:26 | PM.PN ---
Subjective Subjective: Interval history: Patient was seen this morning, she is alert and oriented x3, no slurring of her speech, no facial droop, no left upper and left lower extremity weakness, her blood pressures have been on the lower end of normal, she does have generalized anasarca secondary to hypoalbuminemia, she does complain of generalized swelling, she asks for the water pill. Vitals/I&O/Wt Last Vital Signs Temp 98.4 F 03/27/21 11:33 Pulse 102 H 03/27/21 11:33 Resp 18 03/27/21 11:33 BP 106/70 03/27/21 12:40 Pulse Ox 97 03/27/21 11:33 03/26/21 03/27/21 03/27/21 22:59 06:59 14:59 Intake Total 1155 / 1155 105 / 1260 1310 / 1310 Output Total 1500 / 1500 300 / 1800 Balance -345 / -345 -195 / -540 1310 / 1310 Weight last 48 hrs Weight 76.657 kg Physical Exam Const: COMMON NORMALS: no acute distress and patient oriented x3 Resp: COMMON NORMALS: normal respiratory effort, No retractions, No use of accessory muscles and clear to auscultation bilaterally AUSCULTATION: clear to auscultation bilaterally Cardio: COMMON NORMALS: regular rate, regular rhythm, S1 normal heart sound present and S2 normal heart sound present RATE: regular rate RHYTHM: regular rhythm HEART SOUNDS: S1 normal heart sound present and S2 normal heart sound present GI: COMMON NORMALS: Normal to inspection, nondistended, normoactive bowel sounds present, Soft to palpation and non-tender PALPATION: Yes Soft to palpation Extremity: COMMON NORMALS: no pedal edema Neuro: COMMON NORMALS: patient oriented x3, CN's II-XII intact bilaterally, moves all extremities and no focal motor deficits Psych: COMMON NORMALS: mental status grossly normal Data : 03/27/21 04:44 03/27/21 04:44 Micro: Microbiology 03/26/21 14:21 Blood Culture - Preliminary Blood SPECIMEN COLLECTED 03/26/21 14:24 Blood Culture - Preliminary Blood SPECIMEN COLLECTED A&P Assessment and plan (1) CVA (cerebral vascular accident): -Some very mildly persistent left-sided deficits on admission -NIH stroke scale of 3 on admission -Out of TPA window -Is already on Eliquis -ER physician contacted Dr. Sales, advised of medical management CT head: -1. No evidence of intracranial hemorrhage or mass effect. 2. Mild small vessel changes. Moderate parenchymal volume loss. 3. Chronic appearing opacification right mastoid air cells and middle ear. 4. No acute intracranial findings. -CTA head and neck: 1. Negative CTA of the arteries of the head and neck unchanged from 12 days ago. 2. No evidence of any carotid or vertebral artery dissection. -Given history provided from the ER sounds like possible embolic event with her tachycardia, but also could be a watershed stroke as she was sat up and had a drop in blood pressure -Currently resolved, no significant focal neurologic deficits Plan: -Admit to general medical floors -Neurochecks, NIH stroke scales, seizure precautions, aspiration precautions -Continue Eliquis -Continue aspirin 1 mg, atorvastatin 80 mg -Follow urine cultures, stool cultures -Start midodrine -Telemetry monitoring -Protonix for GI prophylaxis -Eliquis for DVT prophylaxis -DNR/DNI Dehydration, hold IV hydration Previous history of UTI, continue antibiotic therapy Hypokalemia, potassium replacement Elevated troponin, EKG does show ST depressions and T wave inversions in lateral leads, no complaints of chest pain, telemetry monitoring serial EKGs, serial troponins, aspirin, statin, cardiac echo Anasarca likely secondary to hypoalbuminemia, will give 1 dose of Lasix with albumin, with midodrine 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, currently Xeloda is on hold Status: Acute (2) Dehydration: Status: Acute (3) Hypokalemia: Status: Acute (4) Elevated troponin: Status: Acute (5) Anasarca: Status: Acute (6) Generalized weakness: Status: Acute (7) DVT (deep venous thrombosis): Status: Acute (8) Diarrhea: Status: Acute (9) Rectal cancer: Status: Acute Attestations Medical Necessity Statement*: Patient requires hospitalization for acute CVA, anasarca, dehydration, UTI Coding Level of Care Code Acute 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
[2021-03-27] MEDS: cefTRIAXone 1,000 MG in sodium chloride 0.9% (plus) 50 ML 100 MG IV (20:20)
[2021-03-27] MEDS: atorvastatin 40 mg Tablet PO (20:20)
[2021-03-28 04:00] VITALS: BP 112/70; PULSE 92; RESP 18; TEMP 36.6; O2SAT 95
[2021-03-28 04:52] LABS: Quest SARS-CoV-2 RNA NOT DETECTED (NOT DETECTED)
[2021-03-28 05:34] LABS: Magnesium 1.4 mg/dL (1.7-2.3); Phosphorus 2.4 mg/dL (2.5-4.5)
--- NOTE | 2021-03-28 06:00 | USCV_ITS ---
Macy Guevara Age: 80 Gender: F : 1940 Exam Date: 03/28/2021 06:36 Ordering Phys: Papito Gilmore MD Technologist: Shantel Archer [place] [facility] [place]: CVA BP: 112 / 70 HR: 86 Rhythm: Sinus Technical Quality: Adequate MEASUREMENTS (Male / Female) Normal Values 2D ECHO LV Diastolic Diameter PLAX 3.4 cm 4.2 - 5.9 / 3.9 - 5.3 cm LV Systolic Diameter PLAX 2.4 cm LV Chamber Size 3.9 cm IVS Diastolic Thickness 1.7 cm 0.6 - 1.0 / 0.6 - 0.9 cm IVS Systolic Thickness 1.9 cm LVPW Diastolic Thickness 1.2 cm 0.6 - 1.0 / 0.6 - 0.9 cm LVPW Systolic Thickness 1.3 cm RV Chamber Size 3.1 cm LVOT Diameter 1.9 cm LV Ejection Fraction 2D Teich 58.4 % LV Ejection Fraction MOD 2C 57.2 % LV Ejection Fraction 2C AL 57.5 % LA Diameter 2.9 cm LA Width 3.5 cm LA Height 4.6 cm RA Width 2.2 cm RA Height 4.7 cm Aorta at Sinotubular Diameter 3.0 cm M-MODE LV Diastolic Diameter MM 5.0 cm 4.2 - 5.9 / 3.9 - 5.3 cm LV Systolic Diameter MM 3.2 cm LV Ejection Fraction MM Teich 64.9 % IVS Diastolic Thickness MM 1.7 cm 0.6 - 1.0 / 0.6 - 0.9 cm IVS Systolic Thickness MM 2.1 cm LVPW Diastolic Thickness MM 1.2 cm 0.6 - 1.0 / 0.6 - 0.9 cm LVPW Systolic Thickness MM 1.9 cm Aortic Annulus Diameter 3.3 cm LA Ao Ratio MM 1.1 MV E Point Septal Separation 0.4 cm DOPPLER AV Peak Velocity 139.0 cm/s LVOT Peak Velocity 112.0 cm/s AV Area Cont Eq vti 2.3 cm squared AV Area Cont Eq pk 2.2 cm squared MV Area PHT 3.3 cm squared Mitral E to A Ratio 0.8 MV E' Velocity 43.0 cm/s Mitral E to MV E' Ratio 15.9 Mitral E to LV E' Lateral Ratio 14.0 Mitral E to LV E' Septal Ratio 19.0 TR Peak Velocity 216.0 cm/s TR Peak Gradient 18.7 mmHg TV Peak E Velocity 63.0 cm/s Right Atrial Pressure 3.0 mmHg Pulmonary Artery Systolic Pressu 21.7 mmHg PV Peak Velocity 75.0 cm/s RV Acceleration Time 0.1 s RV Ejection Time 0.2 s RV AcT/ET 0.2 FINDINGS Left Ventricle Normal left ventricular size. LV systolic function is normal with EF of 60-65%. No regional wall motion abnormalities. Grade 1 diastolic dysfunction Right Ventricle The right ventricle is mildly dilated. Right Atrium The right atrium is normal in size. Left Atrium The left atrium is normal in size. Mitral Valve Mitral annular calcification is noted without significant stenosis or prolapse. There is trace mitral regurgitation. Aortic Valve Structurally normal aortic valve without significant sclerosis or stenosis. There is no aortic regurgitation. Tricuspid Valve Structurally normal tricuspid valve without significant stenosis or regurgitation. Insufficient TR jet to calculate RVSP Pulmonic Valve Structurally normal pulmonic valve without significant stenosis. There is no pulmonic regurgitation. Pericardium Normal pericardium without effusion. Aorta Normal ascending aorta dimension. CONCLUSIONS LV systolic function is normal with EF of 60-65% Grade 1 diastolic dysfunction Right ventricle is midly dilated and hypokinetic Trace mitral regurgitation Compared to prior echocardiogram from 03/04/2021, right ventricle is mildly dilated. Roddy Sylvester MD (Electronically Signed) Final Date: 28 March 2021 12:00 S
[2021-03-28 06:26] LABS: Alanine Aminotransferase 11 U/L (0-33); Albumin Level 2.1 g/dL (3.5-5.2); Alkaline Phosphatase 87 IU/L (35-105); Aspartate Amino Transferase 21 U/L (0-32); Blood Urea Nitrogen 6 mg/dL (8-23); Carbon Dioxide 27 mmol/L (22-29); Chloride 97 mmol/L (98-107); Globulin 1.6 g/dL (1.3-4.6); Glucose 73 mg/dL (65-115); Osmolality Calculated 270 mOsm/kg (285-295); Sodium 132 mmol/L (136-145); Total Bilirubin 0.6 mg/dL (0.15-1.2); Total Protein 3.7 g/dL (6.6-8.7)
[2021-03-28 06:29] LABS: Basophils % 0.5 %; Eosinophils % 0.3 %; Hematocrit 25.6 % (37.0-47.0); Hemoglobin 8.2 g/dL (11.5-15.3); Lymphocytes # 0.8 10^3/uL (0.8-4.8); Mean Corpuscular Hemoglobin 29.1 pg (28.0-34.0); Mean Corpuscular Volume 90.8 fl (81-99); Mean Platelet Volume 10.4 fL (7.4-10.4); Monocytes # 0.6 10^3/uL (0.2-0.9); Monocytes % 10.5 %; Neutrophils # 4.46 10^3/uL (1.8-7.7); Neutrophils % 74.7 %; Nucleated Red Blood Cells % 0 %; Platelet Count 133 10^3/cmm (130-400); Red Blood Count 2.82 10^6/uL (4.1-5.3); Red Cell Distribution Width 28.4 % (12.1-15.1)
[2021-03-28 07:16] VITALS: BP 105/64; PULSE 94; RESP 18; TEMP 36.8; O2SAT 97
[2021-03-28 09:26] LABS: Iron 26 ug/dL (37-145)
[2021-03-28 09:38] LABS: Ferritin 1361 ng/mL (15-150)
[2021-03-28 09:58] LABS: Vitamin B12 > 2000 pg/mL (232-1245)
[2021-03-28 10:01] LABS: Folate Level 9.5 ng/mL (4.8-37.3)
[2021-03-28] MEDS: midodrine 5 mg TABLET 10 MG PO ×3 (10:05→20:45)
[2021-03-28] MEDS: pantoprazole DR 40 mg Tablet PO ×2 (10:06→20:45)
[2021-03-28] MEDS: magnesium sulfate premix 2 GM/50 ML PIGGYBACK IV (10:55)
[2021-03-28 11:07] VITALS: BP 107/64; PULSE 95; RESP 18; TEMP 36.8; O2SAT 100
[2021-03-28] MEDS: sucralfate 1 gm Tablet PO ×3 (11:43→20:45)
[2021-03-28] MEDS: nystatin powder 15 gm Btl 1 APPLIC TOPICAL ×2 (11:49→20:55)
--- NOTE | 2021-03-28 12:51 | P.PN_ITS ---
Vitals/I&O/Wt Last Vital Signs Temp 98.3 F 03/28/21 11:07 Pulse 95 03/28/21 11:07 Resp 18 03/28/21 11:07 BP 107/64 03/28/21 11:07 Pulse Ox 100 03/28/21 11:07 03/27/21 03/28/21 03/28/21 22:59 06:59 14:59 Intake Total 715 / 5 236 / 236 Output Total 640 / 640 230 / 870 Balance 75 / 1385 -230 / 1155 236 / 236 Weight last 48 hrs Weight 76.657 kg Physical Exam Const: COMMON NORMALS: no acute distress, patient oriented x3 and alert ORIENTATION/CONSCIOUSNESS: Yes awake, Yes oriented to person, Yes oriented to place and Yes oriented to time Resp: COMMON NORMALS: normal respiratory effort, No retractions, No use of accessory muscles and clear to auscultation bilaterally AUSCULTATION: clear to auscultation bilaterally Cardio: COMMON NORMALS: regular rate, regular rhythm, S1 normal heart sound present and S2 normal heart sound present RATE: regular rate RHYTHM: reg ular rhythm HEART SOUNDS: S1 normal heart sound present and S2 normal heart sound present GI: COMMON NORMALS: Normal to inspection, nondistended, normoactive bowel sounds present, Soft to palpation, non-tender and No hepatosplenomegaly present PALPATION: Yes Soft to palpation and Yes No hepatosplenomegaly present Extremity: NARRATIVE EXTREMITY EXAM: Diffuse anasarca, bilateral lower extremity 2+ pitting edema Neuro: COMMON NORMALS: patient oriented x3, CN's II-XII intact bilaterally, moves all extremities and no focal motor deficits SENSORIUM/ORIENTATION: Yes alert, Yes oriented to person, Yes oriented to place and Yes oriented to time Urinary Catheter Management^: Cain: Cath Placed During This Visit: no Reason for Continuing Indwelling Catheter: Assist Healing of Perineal & Sacral Wounds- Incontinent Patients Data : 03/28/21 04:30 03/28/21 04:30 Micro: Microbiology 03/28/21 11:06 Stool Lactoferrin - Final Stool Occult Blood (FIT) - Final 03/26/21 14:21 Blood Culture - Preliminary Blood NEGATIVE TO DATE 03/26/21 14:24 Blood Culture - Preliminary Blood NEGATIVE TO DATE A&P Assessment and plan (1) CVA (cerebral vascular accident): -Some very mildly persistent left-sided deficits on admission -NIH stroke scale of 3 on admission -Out of TPA window -Is already on Eliquis -ER physician contacted Dr. Sales, advised of medical management CT head: -1. No evidence of intracranial hemorrhage or mass effect. 2. Mild small vessel changes. Moderate parenchymal volume loss. 3. Chronic appearing opacification right mastoid air cells and middle ear. 4. No acute intracranial findings. -CTA head and neck: 1. Negative CTA of the arteries of the head and neck unchanged from 12 days ago. 2. No evidence of any carotid or vertebral artery dissection. -Given her history of her drop in blood pressure while sitting up and associate tachycardia, and improvement of her symptoms when she was laid down and Trendelenburg was down, sounds a lot like a watershed stroke -Currently resolved, no significant focal neurologic deficits Plan: -Admit to general medical floors -Neurochecks, NIH stroke scales, seizure precautions, aspiration precautions -Hold Eliquis given anemia -Continue aspirin 1 mg, atorvastatin 80 mg -Urine cultures negative -Continue midodrine 10 mg 3 times daily, likely discharge with this -Telemetry monitoring -Protonix for GI prophylaxis -DVT prophylaxis, Eliquis currently on hold -DNR/DNI Acute on chronic anemia, has a history of iron deficiency anemia, has a history of invasive adenocarcinoma of the rectum, her hemoglobin has dropped to 8.2, iron levels are low, did receive iron transfusion roughly a month ago, Hemoccult positive. Indicated of bleeding from rectal cancer - I have talked Dr. Jasso, who will speak to Dr. Espinoza about pursuing early outpatient radiation therapy for the rectal cancer which will hopefully slow down the bleeding -For now hold Eliquis -Trend hemoglobin, if less than 7 will transfuse -Monitor hemodynamics -Protonix, Carafate Left lower extremity DVT, Acute, occlusive left lower extremity deep venous thrombosis, popliteal through tibioperoneal veins diagnosed 03/04/2021, on Eliquis as outpatient, currently Eliquis on hold due to anemia as above, options are available is we can continue to hold Eliquis and hopefully if she can have radiation therapy soon, this can slow down the rectal bleeding and we can resume Eliquis soon after for versus IVC filter placement Dehydration, resolved Previous history of UTI, on a 14-day treatment, continue antibiotic therapy Hypokalemia, potassium replacement Elevated troponin, EKG does show ST depressions and T wave inversions in lateral leads, no complaints of chest pain, telemetry monitoring serial EKGs, serial troponins, aspirin, statin, cardiac echo Anasarca likely secondary to hypoalbuminemia, will give 1 dose of Lasix with albumin, with midodrine Bilateral lower extremity edema, 1 dose of Lasix with albumin and midodrine 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
[2021-03-28 13:07] LABS: Hematocrit 25.9 % (37.0-47.0); Hemoglobin 8.6 g/dL (11.5-15.3)
[2021-03-28] MEDS: FUROsemide 10 mg/mL SDV 4mL 40 MG IVP (13:31)
--- NOTE | 2021-03-28 13:51 | PC.CHAP ---
Pastoral Care Encounter/Spiritual Assessment Type of Contact [] Declined care companion visit [] Patient/Family/Request visit [] Outpatient visit [] Follow-up visit [] Physician referral [] Code/Alert [XX] Routine visit [] Staff referral [] Actively dying [] Patient sleeping [] Family support [] [] Out of room [] Palliative care [] [] Receiving care in room [] Pre-surgical visit [] Trauma [] Long length of stay [] ICU visit [] Other: Relational/Emotional Strength [XX] Patient feels connected with others/family/visitors/staff [] Distress [] Loneliness/isolation [] Abandonment Spirituality of Patient [XX] Person of Sheila [] Attends Jainism of their Sheila [XX] Believes in Prayer [] Reads Bible or Scientologist materials [] There are Spiritual issues to be addressed Insurance Follow Up Representative Interventions [] Prayer [] Active listening [XX] Non-anxious presence [] Spiritual/emotional support [] Crisis/trauma care [] Spiritual counseling [] Bereavement support [] Provided bereavement packet [] Provided Bible/devotional materials [] Provided toy/stuffed animal, coloring book to patient or family member [] Provided Communion [] Anointing/[place] [] Salvation [] Completed spiritual assessment [] Other: Impact on Illness or Injury [] Angry [] Fearful [] Anxious [] Often cries [] Exhaustion [] Unable to work [] Unable to attend methodist [] Unable to walk/stand [] Unable to read [] Unable to drive [] Unable to eat/drink [] Unable to sleep [] Unable to be with family [] Patient intubated [] Other: Summary: Visit was brief. Pt said that she didn't need care companion visit because she was filled with the spirit. Spiritual assessment incomplete. Time spent with patient: 5 minutes
[2021-03-28 16:00] VITALS: BP 129/81; PULSE 100; RESP 19; TEMP 36.6; O2SAT 97
[2021-03-28] MEDS: lidocaine 1% 5 ML in potassium chloride premix 100 ML 25 ML IV (17:04)
[2021-03-28] MEDS: aspirin 81 mg EC Tablet PO (17:56)
[2021-03-28 19:17] LABS: Hematocrit 25.2 % (37.0-47.0); Hemoglobin 8.5 g/dL (11.5-15.3)
[2021-03-28 19:30] VITALS: BP 120/71; PULSE 108; RESP 17; TEMP 37; O2SAT 96
--- NOTE | 2021-03-28 19:31 | PC.NURSE ---
i reported to nurse high pulse 108
[2021-03-28] MEDS: cefTRIAXone 1,000 MG in sodium chloride 0.9% (plus) 50 ML 100 MG IV (20:45)
[2021-03-28] MEDS: atorvastatin 40 mg Tablet PO (20:45)
[2021-03-29] VITALS (12 sets, daily range): BP systolic 98–129; BP diastolic 50–77; PULSE 81–867; RESP 17–20; TEMP 36.6–37.7; O2SAT 95–97
--- NOTE | 2021-03-29 02:14 | ECG_ITS ---
[facility] Test Date: 2021-03-29 Pat Name: Macy Guevara Department: Room: 254 Gender: Female Assayer: : 1940 Requested By: Kira Brown Order Number: [id number] Jose MD: Roddy Sylvester M.D. Measurements Intervals [place] Rate: 148 P: -25 AR: 152 QRS: 9 QRSD: 93 T: 0 QT: 323 QTc: 507 Interpretive Statements SINUS TACHYCARDIA POSSIBLE LATERAL MYOCARDIAL INFARCTION , PROBABLY OLD [30 ms Q WAVE IN I/aVL/V5/V6] ABNORMAL RHYTHM ECG Compared to ECG 03/26/2021 13:59:48 Myocardial infarct finding now present T-wave abnormality no longer present Possible ischemia no longer present Electronically Signed On 03-29-2021 22:23:01 CDT by Roddy Sylvester M.D. [id number]
[2021-03-29] MEDS: acetaminophen 325 mg Tablet 650 MG PO (02:21)
[2021-03-29] MEDS: metoprolol tartrate 1 mg/1 mL SDV 5 mL 5 MG IVP (02:31)
[2021-03-29 05:52] LABS: Basophils # 0.1 10^3/uL (0.0-0.1); Basophils % 0.6 %; Eosinophils % 0.3 %; Hematocrit 23.9 % (37.0-47.0); Hemoglobin 7.8 g/dL (11.5-15.3); Lymphocytes # 1.2 10^3/uL (0.8-4.8); Lymphocytes % 14.8 %; Mean Corpuscular HGB Conc 32.6 g/dL (30.0-36.0); Mean Corpuscular Hemoglobin 29.2 pg (28.0-34.0); Mean Corpuscular Volume 89.5 fl (81-99); Mean Platelet Volume 9.6 fL (7.4-10.4); Monocytes # 0.7 10^3/uL (0.2-0.9); Monocytes % 8.9 %; Neutrophils # 5.83 10^3/uL (1.8-7.7); Neutrophils % 74.5 %; Nucleated Red Blood Cells % 0 %; Platelet Count 108 10^3/cmm (130-400); Red Blood Count 2.67 10^6/uL (4.1-5.3); White Blood Count 7.8 10^3/uL (4.0-10.0)
[2021-03-29] MEDS: sucralfate 1 gm Tablet PO ×4 (06:17→20:53)
[2021-03-29 06:26] LABS: Alanine Aminotransferase 9 U/L (0-33); Albumin Level 2.5 g/dL (3.5-5.2); Alkaline Phosphatase 84 IU/L (35-105); Anion Gap 9.7 (5-19); Aspartate Amino Transferase 17 U/L (0-32); Blood Urea Nitrogen 6 mg/dL (8-23); Calcium 7.3 mg/dL (8.5-10.5); Carbon Dioxide 31 mmol/L (22-29); Chloride 94 mmol/L (98-107); Globulin 1.6 g/dL (1.3-4.6); Glucose 81 mg/dL (65-115); Magnesium 1.6 mg/dL (1.7-2.3); Osmolality Calculated 271 mOsm/kg (285-295); Phosphorus 2.2 mg/dL (2.5-4.5); Sodium 132 mmol/L (136-145); Total Bilirubin 0.8 mg/dL (0.15-1.2); Total Protein 4.1 g/dL (6.6-8.7)
[2021-03-29 06:29] LABS: Potassium 2.7 mmol/L (3.5-5.1)
[2021-03-29] MEDS: sodium chloride 0.9% (100 ml) 100 ML 25 ML (08:55)
[2021-03-29] MEDS: midodrine 5 mg TABLET 10 MG PO ×3 (08:55→20:52)
[2021-03-29] MEDS: lidocaine 1% 5 ML in potassium chloride premix 100 ML 25 ML IV ×2 (08:55→13:31)
[2021-03-29] MEDS: pantoprazole DR 40 mg Tablet PO ×2 (08:56→20:52)
[2021-03-29] MEDS: aspirin 81 mg EC Tablet PO (08:56)
[2021-03-29] MEDS: nystatin powder 15 gm Btl 1 APPLIC TOPICAL ×2 (11:38→20:53)
[2021-03-29] MEDS: vancomycin 1,250 MG/250 ML PIGGYBACK 250 MG IV (13:35)
--- NOTE | 2021-03-29 14:08 | PC.SOCIAL ---
Imm Update pg 2 of IMM updated and reviewed w/ patient. Copy provided.
--- NOTE | 2021-03-29 19:31 | PM.PN ---
Subjective Subjective: Interval history: Patient was seen and examined this morning, over all she is doing fine. Has remained afebrile, tolerating diet well. Her other Vitals and labs have been reviewed. Medications: Reviewed: Yes Vitals/I&O/Wt Last Vital Signs Temp 98.2 F 03/29/21 19:14 Pulse 116 H 03/29/21 19:14 Resp 20 H 03/29/21 19:14 BP 110/63 03/29/21 19:14 Pulse Ox 95 03/29/21 19:14 03/29/21 03/29/21 03/29/21 06:59 14:59 22:59 Intake Total 100 / 981 355 / 560 Output Total 1200 / 3100 375 / 375 Balance -1100 / -2119 - / 185 Physical Exam Const: COMMON NORMALS: patient oriented x3 HENMT: COMMON NORMALS: normocephalic and atraumatic HEAD & SCALP: normocephalic and atraumatic Resp: COMMON NORMALS: clear to auscultation bilaterally AUSCULTATION: clear to auscultation bilaterally Cardio: COMMON NORMALS: regular rate, regular rhythm, S1 normal heart sound present, S2 normal heart sound present, No gallops present (Cardio), No murmurs present (Cardio), No rub (Cardio) and Peripheral pulses 2+ throughout RATE: regular rate RHYTHM: regular rhythm HEART SOUNDS: S1 normal heart sound present and S2 normal heart sound present PERIPHERAL PULSES: Peripheral pulses 2+ throughout GI: COMMON NORMALS: Normal to inspection, nondistended, normoactive bowel sounds present, Soft to palpation, non-tender, No hepatosplenomegaly present and no masses AUSCULTATION: Yes normoactive bowel sounds PALPATION: Yes Soft to palpation and Yes No hepatosplenomegaly present RECTAL EXAM: deferred Extremity: COMMON NORMALS: no clubbing, cyanosis or edema and no pedal edema Neuro: COMMON NORMALS: patient oriented x3 Urinary Catheter Management^: Cain: Cath Placed During This Visit: no Reason for Continuing Indwelling Catheter: Acute Urinary Retention or Obstruction Data : 03/29/21 05:24 03/29/21 05:24 Micro: Microbiology 03/29/21 15:21 Blood Culture - Preliminary Blood SPECIMEN COLLECTED 03/29/21 15:21 Blood Culture - Preliminary Blood SPECIMEN COLLECTED 03/28/21 11:06 Stool Lactoferrin - Final Stool Enteric Pathogens (PCR) - Final Parasite Antigen Panel - Final C.difficile Toxin B Gene (PCR) - Final Occult Blood (FIT) - Final 03/28/21 11:06 Occult Blood (FIT) - Final Stool - Stool Aspirate 03/26/21 14:24 Blood Culture - Preliminary Blood A&P Assessment and plan (1) CVA (cerebral vascular accident): -Some very mildly persistent left-sided deficits on admission -NIH stroke scale of 3 on admission -Out of TPA window -Is already on Eliquis -ER physician contacted Dr. Sales, advised of medical management CT head: -1. No evidence of intracranial hemorrhage or mass effect. 2. Mild small vessel changes. Moderate parenchymal volume loss. 3. Chronic appearing opacification right mastoid air cells and middle ear. 4. No acute intracranial findings. -CTA head and neck: 1. Negative CTA of the arteries of the head and neck unchanged from 12 days ago. 2. No evidence of any carotid or vertebral artery dissection. -Given her history of her drop in blood pressure while sitting up and associate tachycardia, and improvement of her symptoms when she was laid down and Trendelenburg was down, sounds a lot like a watershed stroke -Currently resolved, no significant focal neurologic deficits Plan: -Admit to general medical floors -Neurochecks, NIH stroke scales, seizure precautions, aspiration precautions -Hold Eliquis given anemia -Continue aspirin 1 mg, atorvastatin 80 mg -Urine cultures negative -Continue midodrine 10 mg 3 times daily, likely discharge with this -Telemetry monitoring -Protonix for GI prophylaxis -DVT prophylaxis, Eliquis currently on hold -DNR/DNI Acute on chronic anemia, has a history of iron deficiency anemia, has a history of invasive adenocarcinoma of the rectum, her hemoglobin has dropped to 8.2, iron levels are low, did receive iron transfusion roughly a month ago, Hemoccult positive. Indicated of bleeding from rectal cancer - I have talked Dr. Jasso, who will speak to Dr. Espinoza about pursuing early outpatient radiation therapy for the rectal cancer which will hopefully slow down the bleeding -For now hold Eliquis -Trend hemoglobin, if less than 7 will transfuse -Monitor hemodynamics -Protonix, Carafate Left lower extremity DVT, Acute, occlusive left lower extremity deep venous thrombosis, popliteal through tibioperoneal veins diagnosed 03/04/2021, on Eliquis as outpatient, currently Eliquis on hold due to anemia as above, options are available is we can continue to hold Eliquis and hopefully if she can have radiation therapy soon, this can slow down the rectal bleeding and we can resume Eliquis soon after for versus IVC filter placement Dehydration, resolved Previous history of UTI, on a 14-day treatment, continue antibiotic therapy Hypokalemia, potassium replacement Elevated troponin, EKG does show ST depressions and T wave inversions in lateral leads, no complaints of chest pain, telemetry monitoring serial EKGs, serial troponins, aspirin, statin, cardiac echo Anasarca likely secondary to hypoalbuminemia, will give 1 dose of Lasix with albumin, with midodrine Bilateral lower extremity edema, 1 dose of Lasix with albumin and midodrine Blood Culture : GPC in clusters /3 : Started on Vancomycin, follow repeat Blood Culture. 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 Espinoza, needs a follow-up on discharge Status: Acute (2) Dehydration: Status: Acute (3) Hypokalemia: Status: Acute (4) Elevated troponin: Status: Acute (5) Anasarca: Status: Acute (6) Generalized weakness: Status: Acute (7) DVT (deep venous thrombosis): Status: Acute (8) Diarrhea: Status: Acute (9) Rectal cancer: Status: Acute Attestations Medical Necessity Statement*: Patient needs to be in hospital for monitoring of dropping Hb as well as to follow repeat blood culture. 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
[2021-03-29] MEDS: cefTRIAXone 1,000 MG in sodium chloride 0.9% (plus) 50 ML 100 MG IV (20:50)
[2021-03-29] MEDS: atorvastatin 40 mg Tablet PO (20:52)
[2021-03-30] VITALS (14 sets, daily range): BP systolic 99–136; BP diastolic 57–88; PULSE 11–119; RESP 14–20; TEMP 36.2–37.3; O2SAT 94–98
[2021-03-30] MEDS: vancomycin 1,250 MG/250 ML PIGGYBACK 250 MG IV ×2 (04:15→22:56)
[2021-03-30 05:51] LABS: Basophils % 0.4 %; Eosinophils % 0.4 %; Hematocrit 23.4 % (37.0-47.0); Hemoglobin 7.6 g/dL (11.5-15.3); Lymphocytes # 1.2 10^3/uL (0.8-4.8); Lymphocytes % 17.4 %; Mean Corpuscular HGB Conc 32.5 g/dL (30.0-36.0); Mean Corpuscular Hemoglobin 29.7 pg (28.0-34.0); Mean Corpuscular Volume 91.4 fl (81-99); Monocytes # 0.6 10^3/uL (0.2-0.9); Monocytes % 8.6 %; Neutrophils # 4.93 10^3/uL (1.8-7.7); Neutrophils % 72.3 %; Nucleated Red Blood Cells % 0 %; Platelet Count 112 10^3/cmm (130-400); Red Blood Count 2.56 10^6/uL (4.1-5.3); Red Cell Distribution Width 28.2 % (12.1-15.1); White Blood Count 6.8 10^3/uL (4.0-10.0)
[2021-03-30] MEDS: sucralfate 1 gm Tablet PO ×4 (06:05→20:41)
[2021-03-30 06:14] LABS: Alanine Aminotransferase 9 U/L (0-33); Albumin Level 2.1 g/dL (3.5-5.2); Alkaline Phosphatase 95 IU/L (35-105); Anion Gap 9.2 (5-19); Aspartate Amino Transferase 16 U/L (0-32); Blood Urea Nitrogen 7 mg/dL (8-23); Calcium 7.1 mg/dL (8.5-10.5); Carbon Dioxide 29 mmol/L (22-29); Chloride 97 mmol/L (98-107); Globulin 1.6 g/dL (1.3-4.6); Glucose 71 mg/dL (65-115); Magnesium 1.5 mg/dL (1.7-2.3); Osmolality Calculated 270 mOsm/kg (285-295); Phosphorus 1.6 mg/dL (2.5-4.5); Potassium 3.2 mmol/L (3.5-5.1); Sodium 132 mmol/L (136-145); Total Bilirubin 0.6 mg/dL (0.15-1.2); Total Protein 3.7 g/dL (6.6-8.7)
[2021-03-30] MEDS: midodrine 5 mg TABLET 10 MG PO ×3 (08:52→20:41)
[2021-03-30] MEDS: pantoprazole DR 40 mg Tablet PO ×2 (08:52→20:41)
[2021-03-30] MEDS: aspirin 81 mg EC Tablet PO (08:52)
[2021-03-30] MEDS: nystatin powder 15 gm Btl 1 APPLIC TOPICAL ×2 (08:53→21:13)
--- NOTE | 2021-03-30 11:07 | P.PN_ITS ---
Subjective Subjective: Interval history: Patient was seen and examined this morning,Her Hb has continued to trend down since admission, even though she has been off Ac. No catalina, BRBPR,hematuria. Plan is to transfuse 1 U PRBC Today. Medications: Reviewed: Yes Vitals/I&O/Wt Last Vital Signs Temp 98.0 F 03/30/21 07:53 Pulse 104 H 03/30/21 07:53 Resp 16 03/30/21 07:53 BP 107/57 03/30/21 07:53 Pulse Ox 96 03/30/21 07:53 03/29/21 03/30/21 03/30/21 22:59 06:59 14:59 Intake Total 405 / 610 370 / 980 240 / 240 Output Total 375 / 375 575 / 950 Balance 30 / 235 -205 / 30 240 / 240 Physical Exam Const: COMMON NORMALS: patient oriented x3 HENMT: COMMON NORMALS: normocephalic and atraumatic HEAD & SCALP: normo cephalic and atraumatic Resp: COMMON NORMALS: clear to auscultation bilaterally AUSCULTATION: clear to auscultation bilaterally Cardio: COMMON NORMALS: regular rate, regular rhythm, S1 normal heart sound present, S2 normal heart sound present, No gallops present (Cardio), No murmurs present (Cardio), No rub (Cardio) and Peripheral pulses 2+ throughout RATE: regular rate RHYTHM: regular rhythm HEART SOUNDS: S1 normal heart sound present and S2 normal heart sound present PERIPHERAL PULSES: Peripheral pulses 2+ throughout GI: COMMON NORMALS: Normal to inspection, nondistended, normoactive bowel soun ds present, Soft to palpation, non-tender, No hepatosplenomegaly present and no masses AUSCULTATION: Yes normoactive bowel sounds PALPATION: Yes Soft to palpation and Yes No hepatosplenomegaly present RECTAL EXAM: deferred Extremity: COMMON NORMALS: no clubbing, cyanosis or edema and no pedal edema Neuro: COMMON NORMALS: patient oriented x3 Urinary Catheter Management^: Cain: Cath Placed During This Visit: no Reason for Continuing Indwelling Catheter: Acute Urinary Retention or Obstruction Data : 03/30/21 04:46 03/30/21 04:46 Micro: Microbiology 03/26/21 14:24 Blood Culture - Preliminary Blood Staphylococcus species 03/29/21 15:21 Blood Culture - Preliminary Blood SPECIMEN COLLECTED 03/29/21 15:21 Blood Culture - Preliminary Blood SPECIMEN COLLECTED 03/28/21 11:06 Stool Lactoferrin - Final Stool Enteric Pathogens (PCR) - Final Parasite Antigen Panel - Final C.difficile Toxin B Gene (PCR) - Final Occult Blood (FIT) - Final 03/28/21 11:06 Occult Blood (FIT) - Final Stool - Stool Aspirate A&P Assessment and plan (1) CVA (cerebral vascular accident): -Some very mildly persistent left-sided deficits on admission -NIH stroke scale of 3 on admission -Out of TPA window -Is already on Eliquis -ER physician contacted Dr. Sales, advised of medical management CT head: -1. No evidence of intracranial hemorrhage or mass effect. 2. Mild small vessel changes. Moderate parenchymal volume loss. 3. Chronic appearing opacification right mastoid air cells and middle ear. 4. No acute intracranial findings. -CTA head and neck: 1. Negative CTA of the arteries of the head and neck unchanged from 12 days ago. 2. No evidence of any carotid or vertebral artery dissection. -Given her history of her drop in blood pressure while sitting up and associate tachycardia, and improvement of her symptoms when she was laid down and Trendelenburg was down, sounds a lot like a watershed stroke -Currently resolved, no significant focal neurologic deficits Plan: -Admit to general medical floors -Neurochecks, NIH stroke scales, seizure precautions, aspiration precautions -Hold Eliquis given anemia -Continue aspirin 1 mg, atorvastatin 80 mg -Urine cultures negative -Continue midodrine 10 mg 3 times daily, likely discharge with this -Telemetry monitoring -Protonix for GI prophylaxis -DVT prophylaxis, Eliquis currently on hold -DNR/DNI Acute on chronic anemia, has a history of iron deficiency anemia, has a history of invasive adenocarcinoma of the rectum, her hemoglobin has dropped to 7.6 , iron levels are low, did receive iron transfusion roughly a month ago, Hemoccult positive. Indicated of bleeding from rectal cancer - I have talked Dr. Jasso, who will speak to Dr. Espinoza about pursuing early outpatient radiation therapy for the rectal cancer which will hopefully slow down the bleeding -For now hold Eliquis -Transfuse 1 U PRBC -Monitor hemodynamics -Protonix, Carafate Left lower extremity DVT, Acute, occlusive left lower extremity deep venous thrombosis, popliteal through tibioperoneal veins diagnosed 03/04/2021, on Eliquis as outpatient, currently Eliquis on hold due to anemia as above, options are available is we can continue to hold Eliquis and hopefully if she can have radiation therapy soon, this can slow down the rectal bleeding and we can resume Eliquis soon after for versus IVC filter placement Dehydration, resolved Previous history of UTI, on a 14-day treatment, continue antibiotic therapy Hypokalemia, potassium replacement Elevated troponin, EKG does show ST depressions and T wave inversions in lateral leads, no complaints of chest pain, telemetry monitoring serial EKGs, serial troponins, aspirin, statin, cardiac echo Anasarca likely secondary to hypoalbuminemia, will give 1 dose of Lasix with albumin, with midodrine Bilateral lower extremity edema, 1 dose of Lasix with albumin and midodrine Blood Culture : GPC in clusters 1/3 : Started on Vancomycin, follow repeat Blood Culture. 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 Espinoza, needs a follow-up on discharge Status: Acute (2) Dehydration: Status: Acute (3) Hypokalemia: Status: Acute (4) Elevated troponin: Status: Acute (5) Anasarca: Status: Acute (6) Generalized weakness: Status: Acute (7) DVT (deep venous thrombosis): Status: Acute (8) Diarrhea: Status: Acute (9) Rectal cancer: Status: Acute Attestations Medical Necessity Statement*: Patient needs to be in hospital for PRBC Trans fusion for anemia. Coding Level of Care Code Acute Body Masker for [facility] Fwd Diagnoses CVA (cerebral vascular accident) I63.9 Dehydration E86.0 Hypokalemia E87.6 Elevated troponin R77.8 Anasarca R60.1 Generalized weakness R53.1 DVT (deep venous thrombosis) I82.409 Diarrhea R19.7 Rectal cancer C20
[2021-03-30] MEDS: sodium chloride 0.9% (100 ml) 100 ML 125 ML (15:56)
[2021-03-30] MEDS: atorvastatin 40 mg Tablet PO (20:41)
[2021-03-30] MEDS: cefTRIAXone 1,000 MG in sodium chloride 0.9% (plus) 50 ML 100 MG IV (20:41)
[2021-03-31] VITALS: BP 124/75; PULSE 112; RESP 15; TEMP 36.4; O2SAT 94
[2021-03-31 04:00] VITALS: BP 132/79; PULSE 113; RESP 18; TEMP 37.2; O2SAT 94
[2021-03-31 05:32] LABS: Basophils # 0.1 10^3/uL (0.0-0.1); Basophils % 0.8 %; Eosinophils % 0.5 %; Hematocrit 28.7 % (37.0-47.0); Hemoglobin 9.7 g/dL (11.5-15.3); Lymphocytes # 0.9 10^3/uL (0.8-4.8); Lymphocytes % 14.6 %; Mean Corpuscular HGB Conc 33.8 g/dL (30.0-36.0); Mean Corpuscular Volume 91.7 fl (81-99); Mean Platelet Volume 9.9 fL (7.4-10.4); Monocytes # 0.4 10^3/uL (0.2-0.9); Monocytes % 6.6 %; Neutrophils # 4.69 10^3/uL (1.8-7.7); Neutrophils % 76.8 %; Nucleated Red Blood Cells % 0 %; Platelet Count 121 10^3/cmm (130-400); Red Blood Count 3.13 10^6/uL (4.1-5.3); Red Cell Distribution Width 27.9 % (12.1-15.1); White Blood Count 6.1 10^3/uL (4.0-10.0)
[2021-03-31 05:52] LABS: Alanine Aminotransferase 11 U/L (0-33); Albumin Level 2.1 g/dL (3.5-5.2); Alkaline Phosphatase 121 IU/L (35-105); Anion Gap 10.5 (5-19); Aspartate Amino Transferase 20 U/L (0-32); Blood Urea Nitrogen 7 mg/dL (8-23); Calcium 7.3 mg/dL (8.5-10.5); Carbon Dioxide 26 mmol/L (22-29); Chloride 98 mmol/L (98-107); Globulin 2.1 g/dL (1.3-4.6); Glucose 77 mg/dL (65-115); Magnesium 1.4 mg/dL (1.7-2.3); Osmolality Calculated 271 mOsm/kg (285-295); Phosphorus 1.6 mg/dL (2.5-4.5); Sodium 132 mmol/L (136-145); Total Bilirubin 0.7 mg/dL (0.15-1.2); Total Protein 4.2 g/dL (6.6-8.7)
[2021-03-31 05:58] LABS: Potassium 2.5 mmol/L (3.5-5.1)
[2021-03-31 06:00] VITALS: PULSE 118
--- NOTE | 2021-03-31 07:22 | PC.NURSE ---
patient had a critical potassium lab of 2.5. Dr. Jim was notified. No new orders at this time.
[2021-03-31 07:57] VITALS: BP 114/71; PULSE 105; RESP 18; TEMP 36.7; O2SAT 96
[2021-03-31] MEDS: nystatin powder 15 gm Btl 1 APPLIC TOPICAL (08:31)
[2021-03-31] MEDS: aspirin 81 mg EC Tablet PO (08:32)
[2021-03-31] MEDS: midodrine 5 mg TABLET 10 MG PO (08:32)
[2021-03-31] MEDS: pantoprazole DR 40 mg Tablet PO (08:32)
[2021-03-31] MEDS: lidocaine 1% 5 ML in potassium chloride premix 100 ML 25 ML IV (09:49)
--- NOTE | 2021-03-31 10:09 | PC.SOCIAL ---
Imm Update pg 2 of IMM updated and reviewed w/ patient. Copy provided.
--- NOTE | 2021-03-31 10:27 | P.DS_ITS ---
Discharge Providers Date of Admission: 03/26/21 14:40 Date of Discharge: March 31, 2021 Attending Provider at Admission: Papito Gilmore MD Attending Provider at Discharge: Jason Todd MD Primary Care Provider: Carl Burch DO Diagnoses at Discharge Discharge Diagnosis (1) CVA (cerebral vascular accident): Status: Resolved (2) Dehydration: Status: Resolved (3) Hypokalemia: Status: Acute (4) Elevated troponin: Status: Acute (5) Anasarca: Status: Acute (6) Generalized weakness: Status: Acute (7) DVT (deep venous thrombosis): Status: Acute (8) Diarrhea: Status: Acute (9) Rectal cancer: Status: Acute Reason for Visit Reason for Visit: STROKE LIKE SYMPTOMS RESOLVING Hospital Course Hospital Course HPI Done by 80 year old female with a past medical history of rectal cancer, rectal bleeding, on chemotherapy,left lower extremity DVT on Eliquis, finished antibiotic therapy, history of emphysematous bladder infection, who presents to [facility] due to left-sided weakness, facial droop, slurring of speech. Currently patient is at [facility], recently discharged from [facility] for deconditioning, left lower extremity DVT, emphysematous cystitis. According to shelter at baseline they get her up into a wheelchair, but she prefers to be in bed, she is alert oriented x3, she can feed herself, patient's last known well normal was 12:30 PM. At roughly 1:30 patient was up in a chair, when nursing staff noticed that her speech became slurred, she had left facial droop, left pupil was dilated, she had left upper left lower extremity weakness, and then she became unresponsive, lasting roughly a minute, nursing staff checked her vitals, her blood pressures were 90s over 60s, heart rates in the 140s, irregular, temp was 99.4, she was put back into bed, she had Trendelenburg, and she returned back to normal self roughly 20 minutes after, no seizure-like episode, no urinary or bowel incontinence, no postictal confusion. In the emergency room emergency room physician did discuss the case with Dr. Sales, initial CT of the head was negative for acute bleed, given that she is on Eliquis, she is not deemed a candidate for TPA. During my examination, she is alert oriented x3, she has a very slight left facial droop, left upper and left lower extremities are slightly more weak compared to the right, no slurring of her speech, no word finding difficulty, no visual deficits, NIH stroke scale is 3, she is passed a bedside swallow eval, her neck CTA had no acute findings, EKG showed no arrhythmia event, 5-second cardiac, ST depressions in lateral leads, she appeared dehydrated, was given fluid, hypokalemic, urine is pending, she does have generalized anasarca, particular in the bilateral lower extremities. Patient tells me that she was originally from [place], born and raised, she is half [place] half [place], she came to [place] because her 's work brought her here, her has , and all her family in [place], she tells me that she is here because the shelter center of them are worried about her weakness on the left side, she is concerned about her left facial droop, she asked me if it still there, she does report diarrhea, she has a Cain catheter in place which was placed on the due to concerns of urinary retention, denies any fevers, chills, no cough, currently her only complaint is that she is quite thirsty and would like something to drink. She was admitted for the management of: Acute CVA: She was continued on aspirin , statin , Eliquis was briefly held as there was some concern for dropping H&H from the rectal bleeding, but it was resumed on discharge given the risk and benefit, as she has acute DVT. The plan is to follow-up with repeat CBC in a week, if the H&H remained stable, Eliquis can be continued, if it shows significant drop, it can be held. For UTI: She was appropriately covered with antibiotic and completed the course. Not discharged on any antibiotic. Blood culture during the hospital stay grew gram-positive cocci in clusters, Staphylococcus: She was briefly kept on IV vancomycin. Repeat blood culture was negative. Stool studies were negative. For acute on chronic anemia: She required 2 units PRBC transfusion. Post transfusion H&H was stable. Left lower extremity acute acute DVT: Eliquis was continued on discharge. Elevated troponin: Likely type II MN: Denies any chest pain: She was continued on aspirin, statin, 2D echo done during the hospital: LV systolic function is normal with EF of 60-65% .Grade 1 diastolic dysfunction Right ventricle is midly dilated and hypokinetic. Trace mitral regurgitation.For anasarca: Bumex 2 mg po daily was discontinued on discharge: As she was becoming dehydrated, due to excess intravascular fluid loss. She was switched to Lasix 40 mg p.o. daily, as well as midodrine 5 mg 3 times daily was started because her blood pressure was slightly soft.Electrolyte abnormality correction was undertaken. Patient responded well to the above medical management and is being discharged in stable condition. To shelter.She will follow Dr. Espinoza as an outpatient. Physical Exam Const: COMMON NORMALS: patient oriented x3 HENMT: COMMON NORMALS: normocephalic and atraumatic HEAD & SCALP: normocephalic and atraumatic Resp: COMMON NORMALS: clear to auscultation bilaterally AUSCULTATION: clear to auscultation bilaterally Cardio: COMMON NORMALS: regular rate, regular rhythm, S1 normal heart sound present, S2 normal heart sound present, No gallops present (Cardio), No murmurs present (Cardio), No rub (Cardio) and Peripheral pulses 2+ throughout RATE: regular rate RHYTHM: regular rhythm HEART SOUNDS: S1 normal heart sound present and S2 normal heart sound present PERIPHERAL PULSES: Peripheral pulses 2+ throughout GI: COMMON NORMALS: Normal to inspection, nondistended, normoactive bowel sounds present, Soft to palpation, non-tender, No hepatosplenomegaly present and no masses AUSCULTATION: Yes normoactive bowel sounds PALPATION: Yes Soft to palpation and Yes No hepatosplenomegaly present RECTAL EXAM: deferred Extremity: NARRATIVE EXTREMITY EXAM: 2+ b/l pitting edema present Neuro: COMMON NORMALS: patient oriented x3 Urinary Catheter Management^: Cain: Cath Placed During This Visit: no Reason for Continuing Indwelling Catheter: Accurate Measurement of Urinary Output in Critically Ill Patients Discharge Data Data Completed and Pending: Completed Studies During Hospitalization Category Date Time Status CT angio headneck * [id number] Stat Cat Scan 03/26/21 13:[address] head wo con* [id number] Stat Cat Scan 03/26/21 13:23 Completed XR chest 1V bart ble [id number] Stat Exams 03/26/21 13:22 Completed CV. echo complete * [id number] Routine Ultrasound 03/28/21 06:00 Completed Pending at discharge Category Date Time Status Blood Culture Sta t Lab 03/26/21 14:21 Results Blood Culture Sta t Lab 03/29/21 15:21 Results Vancomycin Trough Timed Lab 03/31/21 15:00 Ordered Labs from last 24 hours 03/31/21 03/31/21 03/30/21 04:54 04:54 09:10 WBC 6.1 RBC 3.13 L Hgb 9.7 L Hct 28.7 L MCV 91.7 MCH 31.0 MCHC 33.8 RDW 27.9 H Plt Count 121 L MPV 9.9 Neut % (Auto) 76.8 Lymph % (Auto) 14.6 [facility] % (Auto) 6.6 Eos % (Auto) 0.5 Baso % (Auto) 0.8 Neut # (Auto) 4.69 Lymph # (Auto) 0.9 [facility] # (Auto) 0.4 Eos # (Auto) 0.0 Baso # (Auto) 0.1 Nucleated RBC % (a uto) 0 Nucleated RBCs # 0.0 Sodium 132 L Potassium 2.5 L* Chloride 98 Carbon Dioxide 26 Anion Gap 10.5 BUN 7 L Creatinine 0.2 L GFR Calculation Not Reportable Glucose 77 Calculated Osmolal ity 271 L Calcium 7.3 L Phosphorus 1.6 L Magnesium 1.4 L Total Bilirubin 0.7 AST 20 ALT 11 Alkaline Phosphata se 121 H Total Protein 4.2 L Albumin 2.1 L Globulin 2.1 Blood Type O Positive Rho(D) Type Positive Antibody Screen Negative Crossmatch See Detail Vitals: Last Vital Signs Temp 98.0 F 03/31/21 07:57 Pulse 105 H 03/31/21 07:57 Resp 18 03/31/21 07:57 BP 114/71 03/31/21 07:57 Pulse Ox 96 03/31/21 07:57 Discharge Plan Discharge Patient Disposition: Home Condition: Stable Prescriptions: New Lasix 40 mg tablet 40 mg PO DAILY Qty: 30 RF: 0 Klor-Con 20 mEq packet 20 meq PO DAILY Qty: 30 RF: 0 midodrine 5 mg Tablet 5 mg PO TID Qty: 30 RF: 0 Continued loratadine 10 mg Capsule 10 mg PO DAILY RF: 0 hydrocodone-acetaminophen 5-325 mg tablet 1 tab PO Q6H PRN (Reason: pain) Qty: 7 RF: 0 Eliquis 5 mg Tablet 5 mg PO BID@0900,2100 30 Days Qty: 60 RF: 3 loperamide 2 mg Capsule 2 mg PO QID PRN (Reason: Diarrhea) 30 Days Qty: 30 RF: 0 zinc oxide 20 % Ointment 1 applic topical PRN PRN (Reason: Skin Protectant) Qty: 30 RF: 0 Milk of Magnesia 400 mg/5 mL Suspension 30 ml PO DAILY PRN (Reason: Constipation) RF: 0 bisacodyl 10 mg Suppository 10 mg CA DAILY PRN (Reason: Constipation) RF: 0 Fleet Enema 19-7 gram/118 mL Enema 118 ml CA DAILY PRN (Reason: Constipation) RF: 0 Discontinued levofloxacin 750 mg tablet 750 mg PO DAILY 14 Days RF: 0 bumetanide 2 mg Tablet 2 mg PO DAILY RF: 0 Discharge Orders: Discharge Order (Routine); Ordered 03/31/21 Ordered By: Jason Todd Other Ambulatory Orders: Complete Blood Count w/Auto (Routine) Timeframe: 1 Week Location: Determined by Patient Ordered By: Jason Todd Referrals: Carl Burch DO [Primary Care Provider] - 2 weeks Isela Espinoza MD [Staff Physician] - 2 weeks Discharge Diet: Regular Discharge Activity: Increase activity as tolerated Patient Instructions: Opioid Safety Activity Restrictions/Additional Instructions: She will follow with repeat CBC in a week to monitor her Hb as eliquis has been resumed on discharge. Discharge Attestations Time Spent in Discharge Care*: less than 30 min Specific Discharge Activities: educating patient, educating and/or supporting family/caregiver, discussing with pcp/other providers, discussing with porter sample case/social workers/dc planners, documenting/other paperwork and evaluating patient/reviewing data Status at Discharge: Cognitive status at discharge: cognitively intact , Behavioral status at discharge: cooperative , Functional status at discharge: other assisted ambulation Overall status at discharge: patient is back to baseline Quality Metrics Clinical Quality Measures During this hospital stay, did patient experience: None Coding Level of Care Code Acute Chg FW DC note Diagnoses CVA (cerebral vascular accident) I63.9 Dehydration E86.0 Hypokalemia E87.6 Elevated troponin R77.8 Anasarca R60.1 Generalized weakness R53.1 DVT (deep venous thrombosis) I82.409 Diarrhea R19.7 Rectal cancer C20
--- NOTE | 2021-03-31 10:55 | PC.OT ---
OT TREATMENT HELD DUE TO PATIENT SCHEDULED DISCHARGE TODAY
[2021-03-31 11:29] VITALS: BP 119/79; PULSE 111; RESP 16; TEMP 36.4; O2SAT 94
[2021-03-31] MEDS: sucralfate 1 gm Tablet PO (12:30)
[2021-03-31 13:06] LABS: SARS Covid-2 Antigen Negative (Negative)
[2021-03-31 15:55] VITALS: BP 119/79; PULSE 111; RESP 16; TEMP 36.4; O2SAT 94
--- NOTE | 2021-04-01 14:36 | PC.SOCIAL ---
discharge follow up call made, spoke with Paulette at [facility]. She reports pt is eating better than the time before she was at the facility and seems to be doing good. All medications prescribed were available and pt is taking as directed. Area Sales Manager discussed with Paulette that patient needs to follow up with Dr. Espinoza in 2 weeks. Paulette will pass this on to case management for them to set up appointment and transportation. Also discussed the need for patient to have repeat CBC in 1 week. No questions or concerns voiced.
== END 2021-03-31 15:30 | disposition skilled nursing facility (03) | DRG 64 ==
LOC: ER 16:01 → MEDSURG 20:07
PROVIDERS: Admitting Provider Family Medicine; Emergency Provider Emergency Medicine; PCP Family Medicine; Visit Provider Internal Medicine
DX: I63.9 Cerebral infarction, unspecified (principal); I21.A1 Myocardial infarction type 2; G81.94 Hemiplegia, unspecified affecting left nondominant side; C20 Malignant neoplasm of rectum; K62.5 Hemorrhage of anus and rectum; I82.432 Acute embolism and thrombosis of left popliteal vein; I82.442 Acute embolism and thrombosis of left tibial vein; N39.0 Urinary tract infection, site not specified; R29.810 Facial weakness; R47.81 Slurred speech; R29.703 NIHSS score 3; Z87.440 Personal history of urinary (tract) infections; M19.90 Unspecified osteoarthritis, unspecified site; I10 Essential (primary) hypertension; K57.90 Diverticulosis of intestine, part unspecified, without perforation or abscess without bleeding; E86.0 Dehydration; E87.6 Hypokalemia; Z66 Do not resuscitate; D50.9 Iron deficiency anemia, unspecified; R33.9 Retention of urine, unspecified; B95.8 Unspecified staphylococcus as the cause of diseases classified elsewhere; R19.7 Diarrhea, unspecified; Z79.01 Long term (current) use of anticoagulants; Z79.891 Long term (current) use of opiate analgesic
CPT/HCPCS: 36415; 36416; 36430; 36600; 70450; 70496; 70498; 71045; 80053; 81001; 82274; 82607; 82728; 82746; 82803; 82962; 83540; 83605; 83630; 83735; 83880; 84100; 84145; 84443; 84484; 85014; 85018; 85025; 85610; 85730; 86850; 86900; 86920; 87040; 87077; 87186; 87205; 87426; 87493; 87506; 87635; 93005; 93306; 94664; 96365; 96366; 97110; 97161; 97166; 97530; 97535; 99285; J0696; J1940; J3370; J3475; J3480; J3490; J7030; P9016; P9047; Q9967

== ENCOUNTER 2021-04-28 06:17 | Outpatient (RCR) | payer MEDICARE, MEDICAID, SELFPAY ==
[2021-04-13 15:54] LABS: Basophils % 0.5 %; Hematocrit 31.1 % (37.0-47.0); Hemoglobin 9.9 g/dL (11.5-15.3); Lymphocytes # 2.3 10^3/uL (0.8-4.8); Mean Corpuscular HGB Conc 31.8 g/dL (30.0-36.0); Mean Corpuscular Hemoglobin 29.5 pg (28.0-34.0); Mean Corpuscular Volume 92.6 fl (81-99); Mean Platelet Volume 9.1 fL (7.4-10.4); Monocytes # 0.9 10^3/uL (0.2-0.9); Neutrophils # 4.81 10^3/uL (1.8-7.7); Neutrophils % 59.9 %; Nucleated Red Blood Cells % 0 %; Platelet Count 461 10^3/cmm (130-400); Red Blood Count 3.36 10^6/uL (4.1-5.3); Red Cell Distribution Width 23.4 % (12.1-15.1)
[2021-04-13 16:22] LABS: Alanine Aminotransferase 13 U/L (0-33); Albumin Level 2.6 g/dL (3.5-5.2); Alkaline Phosphatase 101 IU/L (35-105); Anion Gap 14.4 (5-19); Aspartate Amino Transferase 20 U/L (0-32); Blood Urea Nitrogen 10 mg/dL (8-23); Calcium 8.3 mg/dL (8.5-10.5); Carbon Dioxide 26 mmol/L (22-29); Chloride 98 mmol/L (98-107); Globulin 2.9 g/dL (1.3-4.6); Glucose 119 mg/dL (65-115); Magnesium 1.4 mg/dL (1.7-2.3); Osmolality Calculated 280 mOsm/kg (285-295); Potassium 3.4 mmol/L (3.5-5.1); Sodium 135 mmol/L (136-145); Total Bilirubin 0.3 mg/dL (0.15-1.2); Total Protein 5.5 g/dL (6.6-8.7)
--- NOTE | 2021-04-17 14:27 | ONC FU_ITS ---
Dr. Espinoza follow up note Patient: Macy Guevara Unit #: [id number]: 1940 Dicatated By: Isela Espinoza M.D.Date of Visit:Apr 13, 2021 Onc Med Follow-up/Prog Note History of Present Illness: Ms. Diane Guevara, is a 80-year-old female with history of off-and-on rectal bleed for which she was referred to Dr. Dugan for evaluation, patient underwent colonoscopy on December 01, 2020 which showed circumferential, about 2 cm from anal verge proximal and going all the way to the distal about 10 cm mass, bleed to touch with induration and hard in consistency. Mass noted to have ulceration and cavitation with heaped up edges consistent with malignant growth and presence of external hemorrhoids,. 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 Bellamy in [place] for further evaluation. Patient denies any abdominal pain, denies any nausea or vomiting, denies any diarrhea or but off-and-on constipation, denies any hematuria or dysfunctional uterine bleeding. Denies any bony pains, denies any jaundice denies any weight loss Follow-up CT PET scan done on December 26, 2020 showed there is a 3.8 cm rectal mass with SUV of 25.5, multiple perirectal lymph nodes with modest FDG activity, consistent with local metastatic disease. Additional malignant adenopathy in the right common iliac, left external iliac territories. Index right common iliac lymph node is 1.4 cm with SUV of 3.8. No hepatic metastatic disease or distant mets. CT scan of chest abdomen pelvis done on January 22, 2021 in [place] showed no pulmonary nodule or mediastinal lymphadenopathy. Asymmetric rectal thickening, involving length of approximately 6.5 cm. Perirectal stranding thickening of mesorectal fascia. Mild perirectal adenopathy. A few small low-attenuation hepatic lesions that are too small to accurately characterize. Started on total neoadjuvant chemotherapy with oxaliplatin/Xeloda on February 01, 2021X1, subsequently patient developed severe complication including diarrhea, dehydration, electrolyte imbalance and eventually TIA, requiring inpatient care, no further chemotherapy was offered After first cycle of oxaliplatin/Xeloda Came for follow-up, complaining of generalized weakness and fatigue, extensive weight loss since last visit in January 2021, as per patient she could not tolerate oral Xeloda/oxaliplatin patient developed diarrhea, dehydration for which she was admitted to hospital then again on March 26, 2021 she was admitted to hospital with left-sided weakness, facial droop, slurring of speech was diagnosed with CVA, which resolved patient was also dehydrated along with electrolyte imbalance, hypokalemia and lower extremity edema, CT scan of the head was negative as patient was on Eliquis for left lower extremity DVT, she was not offered TPA, blood culture was positive for gram-positive cocci in cluster, she was briefly treated with IV vancomycin, repeat blood came back negative her lab work-up also showed progressive anemia, she was discharged home on March 31, 2021 with [facility] placement Medications: Eliquis 1 Tablet (of 5 mg) Oral b.i.d., Furosemide 1 Tablet (of 40 mg) Oral daily, HYDROcodone-Acetaminophen 1 Tablet (of 5-325 mg) Oral q 6 hours PRN, Loperamide HCl 1 Tablet (of 2 mg) Capsule Oral four times a day PRN, Melatonin 1 Tablet (of 3 mg) Oral at bedtime, Midodrine HCl 1 Tablet (of 5 mg) Oral t.i.d., Potassium Chloride Faith ER 1 Tablet (of 20 meq) Tablet, controlled release Oral daily, Zinc Oxide (22 %) Cream Topical b.i.d. Allergies: No Known Allergies. Review of Systems: Review of Systems is not available for this patient. Vital Signs: Performed on Apr 13, 2021 14:21 Height - 65.00 in Weight - 173.8 lbs (HIGH) BSA - 1.86 sq.m BMI - 28.92 Temperature - 100.7 F (HIGH) Pulse - 113 /min (HIGH) Respiration - 18 /min BP - 107/75 mm(hg) O2 Sat - 98 % Pain - 0 Fatigue - 0 Performance Status: 2 - Ambulatory/capable of all self-care, unable to perform any work activities. Up and about more than 50% of waking hours. (ECOG) Physical Examination: ENMT - No visible mouth sores, or thrush or jaundice, Respiratory - Lungs are clear to auscultation, Cardiovascular - Regular rate and rhythm of heart, Abdomen - Soft, bowel sounds present, Extremities - 2+ edema bilaterally. Lab/Imaging: Most recent lab results are not available for this patient. 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 done on December 01, 2020, Staging CT PET scan done on December 26, 2020 shows FDG positive perirectal, bilateral common iliac and left external iliac lymph node consistent with malignancy no distant mets, clinically stage III disease CT scan of chest abdomen pelvis done on January 23, 2020 in [place] showed no pulmonary nodule, no mediastinal lymphadenopathy. Asymmetric rectal thickening, involving the length of approximately 6.5 cm. Perirectal stranding. Thickening of mesorectal fascia. Mild perirectal adenopathy. Few very small low-attenuation hepatic lesions that are too small to characterize Started on total neoadjuvant chemotherapy with oxaliplatin/Xeloda on February 01, 2021 Anemia, probably due to above, considering her age underlying myelodysplasia cannot be ruled out, Status post Injectafer x2 in January 2021 Hypertension Plan: Discussed with patient regarding her disease status, question concerns, patient could not handle neoadjuvant chemotherapy with oxaliplatin/Xeloda, although she was offered FOLFOX earlier but patient opted for oral Xeloda because of she did not like idea about chemotherapy pump. Now she has lost significant weight due to diarrhea, dehydration, poor appetite, now she is a [facility] resident moreover recently developed CVA/TIA presented with left sided weakness, facial droop, slurred speech which was self-limiting, CT scan of head showed no abnormality., Overall, there is a significant decline in her performance status, not a candidate for neoadjuvant chemotherapy and even there is a concern about concurrent chemoradiation with oral Xeloda, she may have DPD deficiency, testing was under consideration but patient is not interested in further chemotherapy, moreover, considering her age and now significantly compromised performance status she may not be a candidate for combined chemoradiation but radiation alone or upfront surgery for her rectal cancer can be considered, we will refer her to radiation oncology for evaluation regarding neoadjuvant radiation alone although data shows better results with combined chemoradiation but patient is not a candidate for chemotherapy right at this moment unless her performance status improves. Or other option would be hospice care, patient would like to see radiation oncology to discuss pros and cons, then she will decide. In the meantime we will check her CBC CMP and patient return to clinic in 3 weeks with CBC CMP, magnesium Signed By: Isela Espinoza M.D. <<Signature on File>>
--- NOTE | 2021-04-28 09:39 | ONCRAD EPV_ITS ---
Radiation Oncology Follow-Up Note Patient Name: Macy Guevara Date of : 1940 Date of Service: 04/28/2021 Attending Physician: Aldo Newman M.D. Macy Guevara was evaluated this morning at the request of Tanya Espinoza M.D. for pelvic radiotherapy for the management of a previously diagnosed rectal cancer. A colonoscopy performed on December 01, 2020 on account of the patient's symptom of hematochezia identified a circumferential mass extending 2 cm from the anal verge distally 10 cm. Biopsies diagnosed a moderately differentiated invasive adenocarcinoma. The tumor demonstrated normal expression of DNA mismatch repair proteins. Initial lab studies indicated anemia (8 g/dL) and the CEA was 31.2 ng/mL. A PET/CT (independently visualized in [facility]) ordered on December 26, 2020 confirmed a 3.8 cm rectal mass with an SUV of 25.5, perirectal, left external iliac, and right common iliac lymphadenopathy. Total neoadjuvant chemotherapy with CapeOX was prescribed. Cycle 1 was administered on February 01, 2021. Severe adverse events developed including diarrhea, electrolyte imbalance, and a TIA resulting in discontinuation of chemotherapy. She presents for discussion regarding pelvic radiotherapy. I discussed with Ms. 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 I also reviewed the National Comprehensive Cancer Network Guidelines for neoadjuvant chemoradiotherapy. I would endorse a five week course of pelvic radiotherapy considering the patient's intolerance to chemotherapy if she is not considered a surgical candidate. I will refer her to colorectal surgery for evaluation. The patient's medical treatment plan was discussed with Tanya Espinoza M.D. Signed by: Dr. Aldo Newman 04/28/2021 9:37:54 AM
== END 2021-05-02 23:59 | disposition home or self-care (01) ==
LOC: ONCMED 06:17
PROVIDERS: Internal Medicine Hematology & Oncology; PCP Family Medicine; Visit Provider Radiology Radiation Oncology
DX: C20 Malignant neoplasm of rectum (principal); D50.9 Iron deficiency anemia, unspecified; I10 Essential (primary) hypertension; Z79.899 Other long term (current) drug therapy
CPT/HCPCS: 36415; 80053; 83735; 85025; 99214; 99215

== ENCOUNTER 2021-05-03 08:40 | Emergency (ER) | payer MEDICARE, MEDICAID, SELFPAY ==
[2021-05-03 08:46] VITALS: BP 129/80; PULSE 111; RESP 15; TEMP 36.6; O2SAT 98; BMI 25.8
--- NOTE | 2021-05-03 08:50 | ED_ITS ---
HPI - GI Bleed General: Chief complaint: GI Bleed Stated complaint: RECTAL BLEED, CA Time Seen by Provider: 05/03/21 08:45 History of Present Illness: HPI Narrative: 80-year-old female who is resident of a halfway with known rectal CA. She presents to the emergency room with complaint of rectal bleeding. Patient has known rectal cancer. Earlier this year she was treated with a single round of chemo had significant adverse effects was unable to eat or drink had large amount of weight loss. She is regained most of that weight. They elected not to do any further chemo radiation oncology was consulted and they decided not to do any radiation since she was not a going to be able to pursue any chemo. They consider surgical resection because of the risk of colostomy patient at this point states she does not want to proceed with any surgical intervention. She is willing to receive blood transfusions. complaint: gross hematochezia Onset (ago): minute(s) Pain Consistency: intermittent Severity: moderate Relieving factors: none Exacerbating factors: none Context: other Associated symptoms: Denies abdominal pain, chills, easy bruising, epistaxis, fever(s), headache(s), malaise, nausea, other bleeding, poor appetite, rash, syncope, vomiting or weakness Treatments Prior to Arrival: none Review of Systems Const: Denies: fever(s), chills or malaise ENMT: Denies: epistaxis Card: Denies: syncope Resp: Denies: dyspnea, productive cough or non-productive cough GI: Denies: abdominal pain, nausea or vomiting : Denies: flank pain, difficulty voiding, dysuria, urinary frequency or urinary urgency Skin/Breast: Denies: rash Neuro: Denies: headache(s) Mik/Lymph: Denies: easy bruising PFS ED PFSH: Medical History Anasarca Arthritis Bleeding per rectum Anal mass, biopsies were obtained to rule out anal cancer Brain TIA CVA (cerebral vascular accident) Dehydration Diarrhea Diverticulosis DVT (deep venous thrombosis) Elevated troponin Generalized weakness Hypertension Hypokalemia Rectal cancer Surgical History H/O rhinoplasty History of colonoscopy 2010 History of nasal surgery History of tonsillectomy Family History Father CAD (coronary artery disease) Mother Cancer Hypertension Denies family history of Diabetes Social History Smoking and tobacco status: never smoked Alcohol intake: never Lives independently: Yes Household members: none Housing: Apartment Marital status: Single Female Reproductive History: Date of last menstrual period: 09/24/20 Physical Exam Const: COMMON NORMALS: no acute distress GENERAL APPEARANCE: cooperative and comfortable ORIENTATION/CONSCIOUSNESS: Yes awake, Yes oriented to person, Yes oriented to place and Yes oriented to time HENMT: COMMON NORMALS: normocephalic, atraumatic and hearing grossly normal bilaterally HEAD & SCALP: normocephalic and atraumatic Neck/C-Spine: COMMON NORMALS: no JVD Resp: COMMON NORMALS: normal respiratory effort, No retractions, No use of accessory muscles and clear to auscultation bilaterally AUSCULTATION: clear to auscultation bilaterally Cardio: COMMON NORMALS: no JVD, regular rate, regular rhythm and No murmurs present (Cardio) RATE: regular rate RHYTHM: regular rhythm GI: COMMON NORMALS: Soft to palpation and No hepatosplenomegaly present AUSCULTATION: Yes normoactive bowel sounds PALPATION: Yes Soft to palpation, No Tenderness to palpation present (GI), No Guarding due to palpation present (GI) and Yes No hepatosplenomegaly present Extremity: COMMON NORMALS: normal to inspection, capillary refill normal, no clubbing, cyanosis or edema, no calf tenderness and no pedal edema Neuro: SENSORIUM/ORIENTATION: Yes oriented to person, Yes oriented to place and Yes oriented to time Skin: COMMON NORMALS: no rashes or lesions noted GENERAL SKIN EXAM: no rashes or lesions noted Course Vital Signs: Vital signs: Vital Signs Temperature 97.8 F 05/03/21 17:43 Pulse Rate 102 H 05/03/21 17:43 Respiratory Rate 21 H 05/03/21 17:43 Blood Pressure 150/87 05/03/21 17:43 Pulse Oximetry 98 05/03/21 17:43 MDM - GI Bleed MDM Narrative: Medical decision making narrative: 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 She has previously failed chemotherapy because she failed chemotherapy radiation and was not a option. They look that surgical resection but felt because of her age and other comorbid conditions that that was not a viable option. She does not want to have surgery either. At this point the cancer is progressed and she is developing your stenosis. We will put her on aggressive laxatives and stool softeners called and discussed with Dr. Jasso who is covering for Dr. Espinoza. We also discussed with the radiation oncologist. He was kind enough to come to the department and see the patient and will look at palliative radiation to prevent the stenosis as a short-term treatment. I discussed with the patient the other option is a resection with diversion with colostomy which she is opposed to at this time. Discharge back to the halfway with plan to initiate palliative radiation treatment tomorrow. Did warn the patient she will continue to have blood with any attempted bowel movement due to the tumor. Lab Data: Labs: Lab Results 05/03/21 05/03/21 08:30 08:30 WBC 7.8 10^3/uL 10^3/ uL (4.0-10.0) RBC 3.03 10^6/uL L 10 ^6/uL (4.1-5.3) Hgb 9.3 g/dL L g/dL (11.5-15.3) Hct 29.8 % L % (37.0-47.0) MCV 98.3 fl fl (81-99) MCH 30.7 pg pg (28.0-34.0) MCHC 31.2 g/dL g/dL (30.0-36.0) RDW 18.1 % H % (12.1-15.1) Plt Count 341 10^3/cmm 10^3 /cmm (130-400) MPV 8.9 fL fL (7.4-10.4) Neut % (Auto) 58.6 % % Lymph % (Auto) 31.5 % % [place] % (Auto) 6.7 % % Eos % (Auto) 2.2 % % Baso % (Auto) 0.6 % % Neut # (Auto) 4.54 10^3/uL 10^3 /uL (1.8-7.7) Lymph # (Auto) 2.4 10^3/uL 10^3/ uL (0.8-4.8) [place] # (Auto) 0.5 10^3/uL 10^3/ uL (0.2-0.9) Eos # (Auto) 0.2 10^3/uL 10^3/ uL (0.0-0.8) Baso # (Auto) 0.1 10^3/uL 10^3/ uL (0.0-0.1) Nucleated RBC % (a uto) 0 % % Nucleated RBCs # 0.0 /100WBC /100W BC Sodium 138 mmol/L mmol/L (136-145) Potassium 3.3 mmol/L L mmol /L (3.5-5.1) Chloride 103 mmol/L mmol/L (98-107) Carbon Dioxide 24 mmol/L mmol/L (22-29) Anion Gap 14.3 (5-19) BUN 10 mg/dL mg/dL (8-23) Creatinine 0.2 mg/dL L mg/dL (0.5-0.9) GFR Calculation Not Reportable Glucose 81 mg/dL mg/dL (65-115) Calculated Osmolal ity 284 mOsm/kg L mOs m/kg (285-295) Calcium 8.7 mg/dL mg/dL (8.5-10.5) Total Bilirubin 0.4 mg/dL mg/dL (0.15-1.2) AST 12 U/L U/L (0-32) ALT 7 U/L U/L (0-33) Alkaline Phosphata se 57 IU/L IU/L (35-105) Total Protein 5.3 g/dL L g/dL (6.6-8.7) Albumin 2.9 g/dL L g/dL (3.5-5.2) Globulin 2.4 g/dL g/dL (1.3-4.6) Lipase 67 U/L H U/L (13-60) Discharge Plan Discharge Patient Disposition: Home Clinical Impression: Rectal cancer, Constipation Condition: Stable Prescriptions: New Citrate of Magnesia Solution 150 ml PO Q6H PRN (Reason: constipation) Qty: 296 RF: 10 Discontinued loperamide 2 mg Capsule 2 mg PO QID PRN (Reason: Diarrhea) RF: 0 No Action hydrocodone-acetaminophen 5-325 mg tablet 1 tab PO Q6H PRN (Reason: pain) Qty: 7 RF: 0 melatonin 3 mg Tablet 6 mg PO BEDTIME@20 RF: 0 loratadine 10 mg Tablet 10 mg PO DAILY@08 RF: 0 potassium chloride 20 mEq Tablet Extended Release 20 meq PO DAILY@08 RF: 0 Lasix 40 mg tablet 40 mg PO DAILY@08 RF: 0 midodrine 5 mg tablet 5 mg PO TID@08,,20 RF: 0 zinc oxide 20 % ointment 1 applic topical BID PRN (Reason: Skin Protectant) RF: 0 Eliquis 5 mg tablet 5 mg PO BID@08,20 RF: 0 magnesium hydroxide [Milk of Magnesia] 400 mg/5 mL Suspension 30 ml PO DAILY PRN (Reason: Constipation) RF: 0 bisacodyl 10 mg Suppository 10 mg HI DAILY PRN (Reason: Constipation) RF: 0 Fleet Enema 19-7 gram/118 mL Enema 118 ml HI DAILY PRN (Reason: Constipation) RF: 0 Discharge Orders: Discharge ED (Routine); Ordered 05/03/21 Ordered By: Joseph Martinez Referrals: Carl Burch, [Primary Care Provider] - Patient Instructions: Opioid Safety Activity Restrictions/Additional Instructions: Follow-up with Dr. Espinoza. Repeat magnesium citrate every 6 hours as needed to relieve constipation. Start loperamide. Recheck CBC tomorrow follow up with Dr. Espinoza. I expect he will continue to have bleeding with bowel movements. Coding Level of Care Code ED Best Worker for Prabhu Fwnegrita Exam Comprehensive
--- NOTE | 2021-05-03 09:03 | CT_ITS ---
WS: [id number] CT ABDOMEN PELVIS TECHNIQUE: Contrast-enhanced CT of the abdomen and pelvis with coronal and sagittal reformatted image s. CLINICAL INFORMATION: abd pain COMPARISON: CT March 10, [address] December 26, 2020 DLP: 1088.[address] scans at [facility] use at least one of these dose optimization techniques: automated e xposure control; mA and/or kV adjustment per patient size (includes targeted exams where dose is matc hed to clinical indication); or iterative reconstruction. FINDINGS: Diffuse induration in the perirectal soft tissues with diffuse enhancement and wall thickening involv ing the rectum. Associated nodular thickening with enlarged perirectal lymph nodes. Findings compatib le with history of known rectal carcinoma. Recommend correlation for superimposed acute colitis. Find ings appear progressed since the noncontrast CT 03/10/21. Cain catheter. Calcified uterine fibroid. Diffuse fatty infiltration of the liver. A few hepatic cys ts. Normal portal vein and splenic vein. Subsegmental atelectasis in the lung bases. Normal portal ve in and splenic vein. Normal GE junction. Adrenal glands are normal. Normal renal parenchymal enhancem ent. Left renal pelvocaliectasis is unchanged. Normal caliber abdominal aorta. Slightly ectatic dista l abdominal aorta unchanged from previous. A few sigmoid diverticuli. No evidence of high-grade small or large bowel obstruction. Chronic compression of the L1 vertebral body with biconcave compression. CT/CT abdomen pelvis w con* [id number] IMPRESSION: 1. Diffuse enhancement and nodular thickening involving the rectum compatible with history of rectal carcinoma. Enlarged surrounding perirectal lymph nodes. Moderate rectal luminal narrowing distally. Findings appear progressed since Se ptember 2020. Recommend correlation for superimposed infectious/inflammator y colitis or radiation colitis. 2. No other significant changes compared to the prior exam Notified Joseph Martinez DO at 05/03/2021 11:03 AM.
[2021-05-03 09:07] VITALS: BP 140/89; PULSE 129; RESP 18; TEMP 36.6; O2SAT 99
[2021-05-03 09:08] LABS: Basophils # 0.1 10^3/uL (0.0-0.1); Basophils % 0.6 %; Eosinophils # 0.2 10^3/uL (0.0-0.8); Eosinophils % 2.2 %; Hematocrit 29.8 % (37.0-47.0); Hemoglobin 9.3 g/dL (11.5-15.3); Lymphocytes # 2.4 10^3/uL (0.8-4.8); Lymphocytes % 31.5 %; Mean Corpuscular HGB Conc 31.2 g/dL (30.0-36.0); Mean Corpuscular Hemoglobin 30.7 pg (28.0-34.0); Mean Corpuscular Volume 98.3 fl (81-99); Mean Platelet Volume 8.9 fL (7.4-10.4); Monocytes # 0.5 10^3/uL (0.2-0.9); Monocytes % 6.7 %; Neutrophils # 4.54 10^3/uL (1.8-7.7); Neutrophils % 58.6 %; Nucleated Red Blood Cells % 0 %; Platelet Count 341 10^3/cmm (130-400); Red Blood Count 3.03 10^6/uL (4.1-5.3); Red Cell Distribution Width 18.1 % (12.1-15.1); White Blood Count 7.8 10^3/uL (4.0-10.0)
--- NOTE | 2021-05-03 09:24 | PC.PHAR ---
pt is from [facility]-karuna nurse from [facility] states the pt refused all her am meds today but states the pt took her meds last night
[2021-05-03 10:02] LABS: Alanine Aminotransferase 7 U/L (0-33); Albumin Level 2.9 g/dL (3.5-5.2); Alkaline Phosphatase 57 IU/L (35-105); Anion Gap 14.3 (5-19); Aspartate Amino Transferase 12 U/L (0-32); Blood Urea Nitrogen 10 mg/dL (8-23); Calcium 8.7 mg/dL (8.5-10.5); Carbon Dioxide 24 mmol/L (22-29); Chloride 103 mmol/L (98-107); Globulin 2.4 g/dL (1.3-4.6); Glucose 81 mg/dL (65-115); Lipase 67 U/L (13-60); Osmolality Calculated 284 mOsm/kg (285-295); Potassium 3.3 mmol/L (3.5-5.1); Sodium 138 mmol/L (136-145); Total Bilirubin 0.4 mg/dL (0.15-1.2); Total Protein 5.3 g/dL (6.6-8.7)
[2021-05-03] MEDS: iohexol 300 mg/mL 100 mL Btl IV (10:18)
[2021-05-03 10:35] VITALS: BP 160/97; PULSE 112; RESP 17; O2SAT 96
[2021-05-03] MEDS: HYDROcodone-acetaminophen 5-325 mg Tablet 1 TAB PO ×2 (14:09→17:41)
[2021-05-03] MEDS: sodium chloride 0.9% 1,000 ML 999 ML IV (14:09)
[2021-05-03 14:11] VITALS: BP 127/85; PULSE 112; RESP 17; O2SAT 98
[2021-05-03 17:43] VITALS: BP 150/87; PULSE 102; RESP 21; TEMP 36.6; O2SAT 98
--- NOTE | 2021-05-04 10:45 | ONCRAD EPV_ITS ---
Radiation Oncology Established Patient Visit Patient: Paola Cavazos [id number] : 1940> Age: 80> Sex: Female> Dictated by: Dr. 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 Diane Guevara, is a 80-year-old female with history of off-and-on rectal bleed for which she was referred to Dr. Dugan for evaluation, patient underwent colonoscopy on December 01, 2020 which showed circumferential, about 2 cm from anal verge proximal and going all the way to the distal about 10 cm mass, bleed to touch with induration and hard in consistency. Mass noted to have ulceration and cavitation with heaped up edges consistent with malignant growth and presence of external hemorrhoids,. 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 Simon in [place] for further evaluation. Patient denies any abdominal pain, denies any nausea or vomiting, denies any diarrhea or but off-and-on constipation, denies any hematuria or dysfunctional uterine bleeding. Denies any bony pains, denies any jaundice denies any weight loss Follow-up CT PET scan done on December 26, 2020 showed there is a 3.8 cm rectal mass with SUV of 25.5, multiple perirectal lymph nodes with modest FDG activity, consistent with local metastatic disease. Additional malignant adenopathy in the right common iliac, left external iliac territories. Index right common iliac lymph node is 1.4 cm with SUV of 3.8. No hepatic metastatic disease or distant mets. CT scan of chest abdomen pelvis done on January 22, 2021 in [place] showed no pulmonary nodule or mediastinal lymphadenopathy. Asymmetric rectal thickening, involving length of approximately 6.5 cm. Perirectal stranding thickening of mesorectal fascia. Mild perirectal adenopathy. A few small low-attenuation hepatic lesions that are too small to accurately characterize. Started on total neoadjuvant chemotherapy with oxaliplatin/Xeloda on February 01, 2021X1, subsequently patient developed severe complication including diarrhea, dehydration, electrolyte imbalance and eventually TIA, requiring inpatient care, no further chemotherapy was offered After first cycle of oxaliplatin/Xeloda Came for follow-up, complaining of generalized weakness and fatigue, extensive weight loss since last visit in January 2021, as per patient she could not tolerate oral Xeloda/oxaliplatin patient developed diarrhea, dehydration for which she was admitted to hospital then again on March 26, 2021 she was admitted to hospital with left-sided weakness, facial droop, slurring of speech was diagnosed with CVA, which resolved patient was also dehydrated along with electrolyte imbalance, hypokalemia and lower extremity edema, CT scan of the head was negative as patient was on Eliquis for left lower extremity DVT, she was not offered TPA, blood culture was positive for gram-positive cocci in cluster, she was briefly treated with IV vancomycin, repeat blood came back negative her lab work-up also showed progressive anemia, she was discharged home on March 31, 2021 with intermediate placement. She was now seen today in the ER. Since chemo in January, she has been in the NH slowly improving in strength. Not yet ambulating alone. Cain still in. In ER for obstipation and rectal bleeding. Able to pass only some loose stool with effort. In ER CT 05/03/2021 rectal mass with significant distal rectal luminal narrowing with perirectal adenopathy. No distant disease appreciated. Primary mass bulkier in appearance vs the previous imagin that I reviewed from 03/10/2021. Radiotherapy to Date: none Current History: Current Medications: Aloxi, bisacodyl, dexamethasone Sodium Phosphate, eliquis, enema, furosemide, hYDROcodone-Acetaminophen, loperamide HCl, loratadine, melatonin, midodrine HCl, oxaliplatin, potassium Chloride Faith ER, prochlorperazine Maleate, sodium Chloride, xeloda, zinc Oxide. Allergies: No Known Allergies Current Complaints / Review of Systems: . Vital Signs: In the ER T 97.8 F, P 129, BP 140/89, RR 18 P02 RA 99% Physical Exam: General: Alert and oriented x 3. No acute distress. HEENT: Normocephalic, atraumatic. Extraocular Movements Intact: Pupils Equal, Round, Reactive to Light and Accommodation: Sclerae anicteric. Oral cavity is clear without lesions, masses or ulcers. ABDOMEN: Soft, nontender, nondistended without masses or organomegaly. EXTREMITIES: No peripheral edema is identified. Limited motor and sensory examination are grossly intact and symmetric bilaterally. Rectal exam declined due to her pain. Cain draining clear urine. Performance Status: 3 Lab: None pending. ER labs 05/03/2021 Hb 9.3 WBC 7800 Plat 341K Chem Na 138 K 3.3 Cr 0.2 Pathology: Primary, c18.6 - malignant neoplasm of descending colon, Diagnosed 12/21/2020 (active). 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 Chemo very poorly tolerated. Now with significantly compromised performance status. I recommend palliative radiation to stop bleeding and improve rectal function. If she has a good response and performance status improves then follow-up surgical evaluation can then be pursued. Discussed with patient, Dr. Martinez in the ER and Dr Jasso in our clinic. Signed by: 05/04/2021 10:43:48 AM <<Signature on File>> Time spent with patient: CPT Code: CPT Code:
== END 2021-05-03 17:45 | disposition home or self-care (01) ==
PROVIDERS: Emergency Provider Family Medicine; PCP Family Medicine
DX: C21.8 Malignant neoplasm of overlapping sites of rectum, anus and anal canal (principal); K59.00 Constipation, unspecified; K62.4 Stenosis of anus and rectum; I10 Essential (primary) hypertension
CPT/HCPCS: 74177; 80053; 83690; 85025; 96360; 99284; J7030; Q9967

== ENCOUNTER 2021-05-06 06:23 | Outpatient (RCR) | payer MEDICARE, MEDICAID, SELFPAY ==
--- NOTE | 2021-05-04 | CT_ITS ---
Radiation Therapy Planning CT images; total exam DLP: 732.56 mGy-cm MTDD
== END 2021-05-07 11:00 | disposition home or self-care (01) ==
LOC: ONCMED 06:23
PROVIDERS: PCP Family Medicine; Visit Provider Radiology Radiation Oncology
DX: Z51.0 Encounter for antineoplastic radiation therapy (principal); C18.6 Malignant neoplasm of descending colon; Z79.899 Other long term (current) drug therapy
CPT/HCPCS: 77300; 77301; 77334; 77338; 77386

== ENCOUNTER 2021-05-07 11:58 | Outpatient (CLI) | payer MEDICARE, MEDICAID, SELFPAY ==
--- NOTE | 2021-05-07 12:12 | CT_ITS ---
WS: [id number] CT scan of the chest With IV contrast, CT scan of the abdomen and pelvis with IV contrast and with oral contrast. Additional two-dimensional coronal and sagittal reconstruction was performed. Clinical Data: MALIGNANT NEOPLASM OF DESCENDING COLON Comparison: CT abdomen and pelvis, 05/03/2021, portable chest, 03/26/2021. DLP: 2206.[address] scans at [facility] use at least one of these dose optimization techniques: automated e xposure control; mA and/or kV adjustment per patient size (includes targeted exams where dose is matc hed to clinical indication); or iterative reconstruction. Findings: Chest: No nodules, masses or effusions are seen. The heart size is enlarged with no pericardial effusion. No pneumonia or pneumothorax is seen. The pulmonary arterial system and thoracic aorta demonstrate no dilatations. There is minimal calcifi cation of the arch of the aorta and descending thoracic aorta. The trachea bifurcates normally into t he bronchi. There is no axillary or significant mediastinal adenopathy. There is a dextroscoliosis with osteoarth ritis of the thoracic vertebral bodies. Abdomen/pelvis: The gallbladder, spleen, adrenal glands and pancreas are normal. The liver has low density areas whic h may represent cysts. The kidneys show equal bilateral contrast excretion with a small left renal cortical cyst. There is a prominent extrarenal pelvis on the left. No masses or hydronephrosis are present.. The abdominal aorta is normal in size with minimal calcification in the wall.. No appendicitis or diverticulitis is seen. Oral contrast is in the stomach and small bowel and there is no bowel dilatation. No abscess, adenopathy, ascites, mass, obstruction or free air is seen. The bladder has a catheter inside. The uterus has a calcified leiomyoma within. No inguinal hernia is seen. The rectum again is thickened with perirectal thickening and stranding. There are adjacent per irectal lymph nodes. The bones of the lumbar spine, pelvis, and hips show a compression fracture at L1 with osteoarthritis and degenerative disc narrowing. CT/CT chest abd pel w con* Impression: 1. Negative for acute cardiopulmonary disease. 2. No change in rectal thickening and perirectal stranding and lymph nodes. 3. No other acute intra-abdominal or pelvic abnormalities.
[2021-05-07] MEDS: iohexol 300 mg/mL 50 mL Btl PO (14:01)
[2021-05-07] MEDS: iohexol 300 mg/mL 100 mL Btl IV (14:01)
== END 2021-05-07 11:59 | disposition home or self-care (01) ==
PROVIDERS: PCP Family Medicine; Visit Provider Radiology Radiation Oncology
DX: C18.6 Malignant neoplasm of descending colon (principal)
CPT/HCPCS: 71260; 74177; Q9967

== ENCOUNTER 2021-06-04 12:21 | Outpatient (CLI) | payer MEDICARE, MEDICAID, SELFPAY ==
[2021-06-05 17:42] LABS: Quest SARS-CoV-2 RNA NOT DETECTED (NOT DETECTED)
== END 2021-06-04 12:22 | disposition home or self-care (01) ==
LOC: LAB 12:27
PROVIDERS: PCP Family Medicine; Visit Provider Internal Medicine
DX: I10 Essential (primary) hypertension (principal); Z20.822 Contact with and (suspected) exposure to COVID-19
CPT/HCPCS: 87635

== ENCOUNTER 2021-08-09 12:14 | Outpatient (CLI) | payer MEDICARE, MEDICAID, SELFPAY ==
[2021-08-09 12:50] LABS: Basophils % 0.5 %; Eosinophils # 0.1 10^3/uL (0.0-0.8); Eosinophils % 1.2 %; Hematocrit 32.6 % (37.0-47.0); Hemoglobin 10.4 g/dL (11.5-15.3); Lymphocytes # 1.4 10^3/uL (0.8-4.8); Lymphocytes % 32.7 %; Mean Corpuscular HGB Conc 31.9 g/dL (30.0-36.0); Mean Corpuscular Hemoglobin 28.8 pg (28.0-34.0); Mean Corpuscular Volume 90.3 fl (81-99); Mean Platelet Volume 9.1 fL (7.4-10.4); Monocytes # 0.4 10^3/uL (0.2-0.9); Neutrophils # 2.45 10^3/uL (1.8-7.7); Neutrophils % 56.4 %; Nucleated Red Blood Cells % 0 %; Platelet Count 274 10^3/cmm (130-400); Red Blood Count 3.61 10^6/uL (4.1-5.3); Red Cell Distribution Width 16.4 % (12.1-15.1); White Blood Count 4.3 10^3/uL (4.0-10.0)
[2021-08-09 13:34] LABS: Carcinoembryonic Antigen 21.5 ng/mL (0.0-4.7)
[2021-08-09 13:45] LABS: Alanine Aminotransferase 8 U/L (0-33); Alkaline Phosphatase 83 IU/L (35-105); Anion Gap 11.9 (5-19); Aspartate Amino Transferase 18 U/L (0-32); Blood Urea Nitrogen 23 mg/dL (8-23); Calcium 9.1 mg/dL (8.5-10.5); Carbon Dioxide 26 mmol/L (22-29); Chloride 106 mmol/L (98-107); Globulin 2.8 g/dL (1.3-4.6); Glucose 96 mg/dL (65-115); Osmolality Calculated 294 mOsm/kg (285-295); Potassium 3.9 mmol/L (3.5-5.1); Sodium 140 mmol/L (136-145); Total Bilirubin 0.3 mg/dL (0.15-1.2); Total Protein 6.8 g/dL (6.6-8.7)
--- NOTE | 2021-08-09 14:01 | ONCRAD EPV_ITS ---
Radiation Oncology Follow-Up Note Patient Name: Macy Guevara Date of : 1940 Date of Service: 08/09/2021 Attending Physician: Aldo Newman M.D. Macy Guevara returned for a scheduled follow-up appointment this afternoon for consideration of pelvic radiotherapy concerning the management of a previously diagnosed rectal cancer. A colonoscopy performed on December 01, 2020 on account of the patient's symptom of hematochezia identified a circumferential mass extending 2 cm from the anal verge distally 10 cm. Biopsies diagnosed a moderately differentiated invasive adenocarcinoma. The tumor demonstrated normal expression of DNA mismatch repair proteins. Initial lab studies indicated anemia (8 g/dL) and the CEA was 31.2 ng/mL. A PET/CT (independently visualized in [facility]) ordered on December 26, 2020 confirmed a 3.8 cm rectal mass with an SUV of 25.5, perirectal, left external iliac, and right common iliac lymphadenopathy. Total neoadjuvant chemotherapy with CapeOX was prescribed. Cycle 1 was administered on February 01, 2021. Severe adverse events developed including diarrhea, electrolyte imbalance, and a TIA resulting in discontinuation of chemotherapy. An abdominoperineal resection with a radical en bloc hysterectomy and vaginectomy and vaginal reconstruction performed by Naun Simon M.D. on June 08, 2021 (the operative report and pathology template were requested from the outside hospital and personally reviewed). There were 2 masses identified in the distal rectum 1 cm apart measuring 5.5 cm and 3 cm, respectively. The tumor directly invaded the vaginal wall. Tumor extended to the mesorectal margin. A total of 13 lymph nodes were harvested without metastases identified, however, two mesenteric deposits were described. A post-operative CEA level was 21.5 ng/mL (August 09, 2020). The patient was evaluated for adjuvant radiotherapy. I discussed with Ms. Guevara the AJCC pathological stage IIIC (T4bN1c) rectal cancer corresponding to her disease. I also reviewed the National Comprehensive Cancer Network Guidelines recommending adjuvant chemoradiotherapy following resection for high-risk tumors (i.e T3, T4, or node positive disease) that was established by the classic study conducted by the [facility] which validated combined modality therapy improved overall survival while decreasing locoregional recurrence and distant metastases. I will request a PET scan considering the elevated CEA level. If there is no evidence of distant metastatic disease, I would endorse a five week course of pelvic radiotherapy. The patient's medical treatment plan was discussed with Tanya Espinoza M.D. Signed by: Dr. Aldo Newman 12/15/2021 8:27:41 AM
== END 2021-08-09 12:15 | disposition home or self-care (01) ==
PROVIDERS: Absent Provider Radiology Radiation Oncology; PCP Family Medicine; Visit Provider Internal Medicine Hematology & Oncology
DX: C20 Malignant neoplasm of rectum (principal); D64.9 Anemia, unspecified; Z90.710 Acquired absence of both cervix and uterus; K62.89 Other specified diseases of anus and rectum
CPT/HCPCS: 36415; 80053; 82378; 85025; 99215

== ENCOUNTER 2021-09-01 09:27 | Outpatient (CLI) | payer MEDICARE, MEDICAID, SELFPAY ==
[2021-09-01 10:15] LABS: Basophils # 0.1 10^3/uL (0.0-0.1); Basophils % 0.9 %; Eosinophils # 0.1 10^3/uL (0.0-0.8); Eosinophils % 1.5 %; Hematocrit 35.4 % (37.0-47.0); Hemoglobin 11.2 g/dL (11.5-15.3); Lymphocytes # 1.2 10^3/uL (0.8-4.8); Lymphocytes % 22.5 %; Mean Corpuscular HGB Conc 31.6 g/dL (30.0-36.0); Mean Corpuscular Hemoglobin 28.6 pg (28.0-34.0); Mean Corpuscular Volume 90.3 fl (81-99); Mean Platelet Volume 9.2 fL (7.4-10.4); Monocytes # 0.4 10^3/uL (0.2-0.9); Neutrophils # 3.66 10^3/uL (1.8-7.7); Neutrophils % 66.9 %; Nucleated Red Blood Cells % 0 %; Platelet Count 268 10^3/cmm (130-400); Red Blood Count 3.92 10^6/uL (4.1-5.3); Red Cell Distribution Width 17.2 % (12.1-15.1); White Blood Count 5.5 10^3/uL (4.0-10.0)
[2021-09-01 10:47] LABS: Carcinoembryonic Antigen 36.7 ng/mL (0.0-4.7)
[2021-09-01 10:59] LABS: Alanine Aminotransferase 10 U/L (0-33); Albumin Level 4.3 g/dL (3.5-5.2); Alkaline Phosphatase 103 IU/L (35-105); Anion Gap 15.7 (5-19); Aspartate Amino Transferase 20 U/L (0-32); Blood Urea Nitrogen 26 mg/dL (8-23); Carbon Dioxide 22 mmol/L (22-29); Chloride 103 mmol/L (98-107); Globulin 3.1 g/dL (1.3-4.6); Glucose 97 mg/dL (65-115); Osmolality Calculated 289 mOsm/kg (285-295); Potassium 3.7 mmol/L (3.5-5.1); Sodium 137 mmol/L (136-145); Total Bilirubin 0.5 mg/dL (0.15-1.2); Total Protein 7.4 g/dL (6.6-8.7)
--- NOTE | 2021-09-01 14:05 | ONC FU_ITS ---
Dr. Espinoza follow up note Patient: Macy Guevara Unit #: [id number]: 1940 Dicatated By: Isela Espinoza M.D.Date of Visit:Sep 01, 2021 Onc Med Follow-up/Prog Note History of Present Illness: Ms. Diane Guevara, is a 81-year-old female with history of off-and-on rectal bleed for which she was referred to Dr. Dugan for evaluation, patient underwent colonoscopy on December 01, 2020 which showed circumferential, about 2 cm from anal verge proximal and going all the way to the distal about 10 cm mass, bleed to touch with induration and hard in consistency. Mass noted to have ulceration and cavitation with heaped up edges consistent with malignant growth and presence of external hemorrhoids,. 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 Bellamy in [place] for further evaluation. Patient denies any abdominal pain, denies any nausea or vomiting, denies any diarrhea or but off-and-on constipation, denies any hematuria or dysfunctional uterine bleeding. Denies any bony pains, denies any jaundice denies any weight loss Follow-up CT PET scan done on December 26, 2020 showed there is a 3.8 cm rectal mass with SUV of 25.5, multiple perirectal lymph nodes with modest FDG activity, consistent with local metastatic disease. Additional malignant adenopathy in the right common iliac, left external iliac territories. Index right common iliac lymph node is 1.4 cm with SUV of 3.8. No hepatic metastatic disease or distant mets. CT scan of chest abdomen pelvis done on January 22, 2021 in [place] showed no pulmonary nodule or mediastinal lymphadenopathy. Asymmetric rectal thickening, involving length of approximately 6.5 cm. Perirectal stranding thickening of mesorectal fascia. Mild perirectal adenopathy. A few small low-attenuation hepatic lesions that are too small to accurately characterize. Started on total neoadjuvant chemotherapy with oxaliplatin/Xeloda on February 01, 2021, subsequently patient developed severe complication including diarrhea, dehydration, electrolyte imbalance and eventually TIA, requiring inpatient care, no further chemotherapy was offered After first cycle of oxaliplatin/Xeloda, Then combined chemoradiation therapy in neoadjuvant fashion was planned but patient refused oral Xeloda and took 1 dose of radiation therapy when she was informed that radiation alone may be sufficient, she decided to proceed with surgery and on June 08, 2021 she underwent APR, and block hysterectomy and vaginectomy with vaginal reconstruction and colostomy bag and her final pathology report confirmed moderately differentiated adenocarcinoma, 2 masses, 13 lymph nodes negative for metastatic disease. The 2 implants of adenocarcinoma., Tumor directly invades adjacent structures. Margins are involved. Tumor extends into mesorectal margin. Lymphovascular invasion present., T4b, tumor directly invades and adhere to adjacent organs or structures. N1C, no regional lymph node positive but there are tumor deposit in the mesentery. Follow-up CT PET scan was done because of progressive CEA level CT PET scan done on August 14, 2021 showed residual perirectal node consistent with residual metastatic disease. New hepatic metastasis in the central right hepatic lobe, size about 2.1 cm with SUV of 11.9. A new right inguinal lymph node measuring 1.4 cm with FDG positive. Her CEA level checked on September 01, 2021 was 36.7 compared to 21.5 on August 09, 2021. Came for follow-up, denies any specific complaints, no fever chills, no nausea or vomiting, no diarrhea or constipation, no melena or hematochezia, colostomy bag functioning fine, no mouth sores, no jaundice, no abdominal pain, patient is here to discuss about her CT PET scan as well as treatment options. Medications: Bisacodyl 1 (10 mg) Suppository Rectal PRN, Eliquis 1 Tablet (of 5 mg) Oral b.i.d., Enema 1 (7-19 g/118mL) Enema Rectal PRN, Furosemide 1 Tablet (of 40 mg) Oral daily, HYDROcodone-Acetaminophen 1 Tablet (of 5-325 mg) Oral q 6 hours PRN, Loperamide HCl 1 Tablet (of 2 mg) Capsule Oral four times a day PRN, Loratadine 1 Capsule (of 10 mg) Oral daily, Melatonin 1 Tablet (of 3 mg) Oral at bedtime, Midodrine HCl 1 Tablet (of 5 mg) Oral t.i.d., Potassium Chloride Faith ER 1 Tablet (of 20 meq) Tablet, controlled release Oral daily, Zinc Oxide (22 %) Cream Topical b.i.d. Allergies: No Known Allergies. Review of Systems: Review of Systems is not available for this patient. Vital Signs: Performed on Sep 01, 2021 12:25 Height - 65.00 in Weight - 133.6 lbs (HIGH) BSA - 1.67 sq.m BMI - 22.23 Temperature - 97.4 F (LOW) Pulse - 96 /min Respiration - 16 /min BP - 175/102 mm(hg) (HIGH) O2 Sat - 96 % Pain - 0 Performance Status: 1 - No physically strenuous activity, but ambulatory and able to carry out light or sedentary work (e.g. office work, light house work). (ECOG) Physical Examination: ENMT - No mouth sores, no thrush, no jaundice, Respiratory - Lungs are clear to auscultation, Cardiovascular - Regular rate and rhythm of heart, Abdomen - Soft, bowel sounds present, Extremities - No visible edema. Lab/Imaging: Most recent lab results are not available for this patient. Impression: Metastatic colorectal cancer with liver mets per CT PET scan which was done because of progressive CEA level CT PET scan done on August 14, 2021 showed residual perirectal node consistent with residual metastatic disease. New hepatic metastasis in the central right hepatic lobe, size about 2.1 cm with SUV of 11.9. A new right inguinal lymph node measuring 1.4 cm with FDG positive. Moderately differentiated invasive adenocarcinoma per rectal mass biopsy/colonoscopy done on December 01, 2020, Staging CT PET scan done on December 26, 2020 shows FDG positive perirectal, bilateral common iliac and left external iliac lymph node consistent with malignancy no distant mets, clinically stage III disease CT scan of chest abdomen pelvis done on January 23, 2020 in [place] showed no pulmonary nodule, no mediastinal lymphadenopathy. Asymmetric rectal thickening, involving the length of approximately 6.5 cm. Perirectal stranding. Thickening of mesorectal fascia. Mild perirectal adenopathy. Few very small low-attenuation hepatic lesions that are too small to characterize Started on total neoadjuvant chemotherapy with oxaliplatin/Xeloda on February 01, 2021, subsequently patient developed severe complication including diarrhea, dehydration, electrolyte imbalance and eventually TIA, requiring inpatient care, no further chemotherapy was offered After first cycle of oxaliplatin/Xeloda, Then combined chemoradiation therapy in neoadjuvant fashion was planned but patient refused oral Xeloda and took 1 dose of radiation therapy when she was informed that radiation alone may be sufficient, she decided to proceed with surgery and on June 08, 2021 she underwent APR, and block hysterectomy and vaginectomy with vaginal reconstruction and colostomy bag and her final pathology report confirmed moderately differentiated adenocarcinoma, 2 masses, 13 lymph nodes negative for metastatic disease. The 2 implants of adenocarcinoma., Tumor directly invades adjacent structures. Margins are involved. Tumor extends into mesorectal margin. Lymphovascular invasion present., T4b, tumor directly invades and adhere to adjacent organs or structures. N1C, no regional lymph node positive but there are tumor deposit in the mesentery. Anemia, probably due to above, considering her age underlying myelodysplasia cannot be ruled out, Status post Injectafer x2 in January 2021 Hypertension Plan: Discussed with patient regarding her labs white blood count 5.5 hemoglobin 11.2 hematocrit 35.4 platelets 268,000 CMP within normal limits, CEA 36.7 compared to 21.5 on August 09, 2021 CT PET scan done on August 14, 2021 shows evidence of solitary hepatic metastatic disease and residual perirectal lymph node and inguinal lymph node. Clinically, patient is doing well with no new signs symptom but her follow-up CT PET scan shows disease progression now with liver mets and her repeat CEA level progressed further, treatment options including systemic therapy with FOLFOX biweekly or oral Xeloda/oxaliplatin were discussed, patient did not have good experience with oral Xeloda/oxaliplatin so she is refusing chemotherapy at this point but may consider oral Xeloda alone, patient was advised,, it may stabilize her disease but for better control, FOLFOX may be a better choice. Patient would like to think about this moreover patient is also refusing Port-A-Cath placement, patient wants to go home and think about this and then let us know which direction she wants to go whether to consider systemic therapy with FOLFOX in that case she will need Port-A-Cath placement or oral Xeloda or observation as patient was inquiring. Return to clinic in 1 week, for further discussion. Signed By: Isela Espinoza M.D. <<Signature on File>>
== END 2021-09-01 09:28 | disposition home or self-care (01) ==
PROVIDERS: PCP Family Medicine; Visit Provider Internal Medicine Hematology & Oncology
DX: C20 Malignant neoplasm of rectum (principal); C78.7 Secondary malignant neoplasm of liver and intrahepatic bile duct; D64.9 Anemia, unspecified; I10 Essential (primary) hypertension; Z79.899 Other long term (current) drug therapy
CPT/HCPCS: 36415; 80053; 82378; 85025; 99214

== ENCOUNTER 2021-09-14 10:28 | Outpatient (CLI) | payer MEDICARE, MEDICAID, SELFPAY ==
[2021-09-15 22:52] LABS: Quest SARS-CoV-2 RNA NOT DETECTED (NOT DETECTED)
== END 2021-09-14 10:29 | disposition home or self-care (01) ==
PROVIDERS: PCP Family Medicine; Visit Provider Internal Medicine Hematology & Oncology
DX: U07.1 COVID-19 (principal)
CPT/HCPCS: 87635

== ENCOUNTER 2021-09-20 10:47 | Day surgery (SDC) | payer MEDICARE, MEDICAID, SELFPAY ==
[2021-09-17 14:49] VITALS: BMI 20.3
--- NOTE | 2021-09-17 14:55 | SUR.PREOP ---
1430 pt states that she is taking ibuprofen and tylenol due to having a lot of hip pain, and may not make it to have surgery on Monday [facility] called for transportation for pick-up and ride home(confirmation #[id number]) to be picked up at pt's residence between 945-10 am on Monday, this message relayed to pt and verbalized understanding
[2021-09-20] VITALS (13 sets, daily range): BP systolic 110–193; BP diastolic 79–113; PULSE 75–108; RESP 16–18; TEMP 36.2–37.1; O2SAT 76–96
--- NOTE | 2021-09-20 | SCC_ITS ---
Procedure done: 1. Placement of right internal jugular vein PowerPort 2. Fluoroscopic guidance and interpretation for placement of catheter 3. Ultrasound guidance to access the right internal jugular vein 67.6 seconds of fluoroscopic guidance, for a cumulative dose of 6.29 mGy, was provided to Dr. Dugan by the radiology department. C-arm images of the chest were saved for the patient's permanent record. [facility]
[2021-09-20] MEDS: sodium chloride 0.9% 1,000 ML 30 ML IV (11:20)
--- NOTE | 2021-09-20 11:20 | SC_ITS ---
WS: [id number] INTRAOPERATIVE TECHNIQUE: 2 Spot fluoroscopic images for intraoperative purposes. FLUOROSCOPY TIME: 67.6 seconds CLINICAL INFORMATION: Powerport Placement COMPARISON: None. FINDINGS: RIGHT Port-A-Cath with tip in the distal SVC. No visualized pneumothorax. SC/C-arm FL for CVA [id number] IMPRESSION: Images obtained for intraoperative purposes.
[2021-09-20] MEDS: acetaminophen 1,000 MG/100 ML PIGGYBACK 400 MG IV (11:46)
--- NOTE | 2021-09-20 13:02 | ANES.PREANE2 ---
Pre-Anesthetic Assessment Height/Weight: Height 1.68 m Weight 57.153 kg Temp Pulse Resp BP Pulse Ox 98.7 F 108 H 18 176/110 94 09/20/21 11:10 09/20/21 11:10 09/20/21 11:10 09/20/21 11:10 09/20/21 11:10 Preop Diagnosis: Anorectal cancer Operation Date: 09/20/21 11:55 Proposed Procedures p Portacath Placement(Not Applicable) - Rickey Dugan MD Familial anesthetic complications: None Was Beta Dorota taken within 24 hours: N/A Was Clonidine taken within 24 hours: N/A Last intake: Intake Last Liquid Date 09/19/21 Last Liquid Time 23:00 Last Solid Date 09/19/21 Last Solid Time 08:00 Social No alcohol and No tobacco Exam alert, oriented x 3, clear to auscultation bilaterally and regular rate & rhythm Airway Submandibular: within normal limits Cervical ROM: within normal limits Mallampati: Class III Dentition: chipped CV/HEM Anemia and Hypertension GI colostomy, dysphagia, rectal CA Anesthetic Plan ASA status: 3 Anesthesia: Choice Risk of > 500 ml blood loss (7ml/kg in children): No Medications/Allergies Home Medications Medication Instructions Recorded Confirmed Last Taken Type No Known Home Medications 09/17/21 09/17/21 Unknown History Allergies Allergy/AdvReac Type Severity Reaction Status Date / Time No Known Allergies Allergy Verified 08/22/21 08:43 [facility] Anesthesia Medical History Anasarca Arthritis Bleeding per rectum Anal mass, biopsies were obtained to rule out anal cancer Brain TIA CVA (cerebral vascular accident) Dehydration Diarrhea Diverticulosis DVT (deep venous thrombosis) Elevated troponin Generalized weakness Hypertension Hypokalemia Rectal cancer Surgical History H/O rhinoplasty History of colonoscopy 2011 History of nasal surgery History of tonsillectomy Family History Father CAD (coronary artery disease) Mother Cancer Hypertension Denies family history of Diabetes Social History Smoking and tobacco status: never smoked Alcohol intake: never Lives independently: Yes Household members: none Housing: Apartment Marital status: Single Female Reproductive History Date of last menstrual period: 09/24/20 Data Anesthesia Cardiac Studies: Echocardiogram 03/28/21
--- NOTE | 2021-09-20 13:30 | P.HP_ITS ---
Same Day Surgery H&P Indication for Procedure/HPI DATE OF PROCEDURE: September 20, 2021 CHIEF COMPLAINT/INDICATIONFOR SURGICAL PROCEDURE: Port placement PREOP DIAGNOSIS: Anorectal cancer PLANNED PROCEDURE: Operation Date: 09/20/21 11:55 Proposed Procedures p Portacath Placement(Not Applicable) - Rickey Dugan MD This is a pleasant 81-year-old female patient comes today for PowerPort placement for chemotherapy status post abdominoperineal surgery for anal cancer. ROS All systems have been reviewed negative except as per the above or per problem list Medications/Allergies* Home Medications Medication Instructions Recorded Confirmed Type No Known Home Medications 09/17/21 09/17/21 History Allergies/Adverse Reactions Allergy/AdvReac Type Severity Reaction Status Date / Time No Known Allergies Allergy Verified 09/20/21 13:30 Pertinent History/Comorbid Conditions* Medical History (Updated 08/22/21 @ 08:44 by Rickey Dugan MD) Anasarca Arthritis Bleeding per rectum Anal mass, biopsies were obtained to rule out anal cancer Brain TIA CVA (cerebral vascular accident) Dehydration Diarrhea Diverticulosis DVT (deep venous thrombosis) Elevated troponin Generalized weakness Hypertension Hypokalemia Rectal cancer Surgical History (Updated 03/03/21 @ 18:59 by Lester Osman MD) H/O rhinoplasty History of colonoscopy 2010 History of nasal surgery History of tonsillectomy Family History (Updated 10/15/20 @ 13:23 by Muna Villatoro) CAD (coronary artery disease) Father Cancer Mother Hypertension Mother Denies family history of Diabetes Social History Smoking and tobacco status: never smoked Alcohol intake: never Lives independently: Yes Household members: none Housing: Apartment Marital status: Single Pertinent Exam Findings alert, oriented x 3, regular rate & rhythm and procedure specific exam findings (Chest examination shows no skin lesions) Recommendations Surgery/Procedure today (PowerPort placement) Other Plans: Plan of care; After thorough history physical examination and reviewing the chart and reviweing the images iwth my personal intrepretation.I counseled the patient for PowerPort placement, indications, risks including possibility of , stroke, heart attack, major bleeding, infection, pneumonia, organ failure, failure to benefit, prolonged hospital stay, pain after the procedure,pneumothorax that may require Chest tube(s) placement and potential injury of major vascular structures that may require Thoractomy, benefits,indications and alternatives were all discussed with the patient, patient understands and is interested to proceed. Rationale was carefully and clearly discussed with the patient.Appropriate informed consent have been reviewed and signed. Coding Level of Care Code Acute Licensed Optician for Prabhu Sullivan
[2021-09-20] MEDS: lidocaine 2% INJ 20 mL INJECTION (14:16)
[2021-09-20] MEDS: heparin, porcine 1,000 unit/mL INJ 10 mL 9000 UNIT XX (14:30)
--- NOTE | 2021-09-20 14:58 | P.OP_ITS ---
Operative Report Date of procedure: September 20, 2021 Pre-op diagnosis: Preop Diagnosis Anorectal cancer Post-op findings: Difficulty accessing the right subclavian vein Procedure done: 1. Placement of right internal jugular vein PowerPort 2. Fluoroscopic guidance and interpretation for placement of catheter 3. Ultrasound guidance to access the right internal jugular vein Surgeon: Rickey Dugan MD Lacquer Shader: Bartolo Hernández Anesthesia: MAC (Kareen Nassar) Estimated blood loss (mL): 20 Procedure: Patient was identified in the holding area and taken to the operative room and placed in supine position IV propofol was given by the anesthesia provider ,both arms were tucked,Time-out was done verifying the patient's name/date of /planned procedure and destination after the procedure, all were in agreement. SCDs confirmed to be functioning, preoperative antibiotics administered per protocol, and beta juan ramon protocol was confirmed, appropriate positioning of the patient was done by me. Medications were reviewed to assess for anticoagulant usage. Risks and benefits and prevention of central line associated blood stream infection (CLABSI) were discussed with the patient/CPOA, and a consent was obtained. Monitors were in place and monitored throughout the procedure. All necessary supplies were available prior to start. Hand hygiene was completed prior to starting. Maximum barrier technique was utilized including a sterile gown, sterile gloves with a hat and mask. Site was was prepped with [chlorhexidine] and a full body drape was placed. 5 mL of 2% lidocaine was injected into the skin with a 25 gauge needle. Prep& drape was done under the usual sterile technique, lidocaine 2% was injected at the site of the stick, started by the Right subclavian vein and I was able to gain an acess and after passing the wire that went all the way to the IVC, I started dilation and at the point where I started to pass the catheter onto the sheath I met resistance although the wire that I tried before I tried it again still goes in the right anatomical spot but the catheter will not pass likely there is some sort of stenosis or stricture so I had to abort at this point and deviated my attention towards the right internal jugular vein. Appropriate pressure was held onto the right subclavian area for about 7 to 10 minutes At that point right Internal Juglar vein stick that retrieved venous blood was obtained from the first stick under ultrasound guidance and there was no evidence of intraluminal thrombosis, interpretation was done by me through the whole entire procedure, a guidewire was then threaded and under the guidance of fluoroscopy position was confirmed to be in the IVC and my interpretation, there was no PVC changes, at that point the guidewire was secured to the drapes with a hemostat and the needle was taken out. Attention was then deviated towards creation of a pocket for the port were lidocaine 2% was injected using an 15 blade knife skin incision was created at the right upper Chest ,dissection using the Bovie to create a pocket for the PowerPortto be accommodated, hemostasis was secured, after the port being appropriately flushed it was inserted into the pocket and a tunneler was used to accommodate the catheter of the PowerPort to be delivered through the incision first created at the site of the stick, then I was able to retrieve the catheter at the index site of the stick. At that point under fluoroscopy an estimated length was measured for the catheter and was cut at the designed level, followed by that a dilator with the sheath introduced onto the guidewire the dilator and the wire were retrieved and the catheter of the port was introduced via the sheath where it was peeled off and the catheter maintained to be in the SVC that was confirmed with fluoroscopy, and the fluoroscopy interpretation was done by me throughout the entire procedure. Multiple flushes of the port was done by diluted heparin and I was able to retrieve without difficulty venous blood as well as appropriate flushing was achieved. The port was kept in its,3-0 Vicryl deep subdermal interrupted sutures, skin was then closed by 4-0 Monocryl as subcuticular closure. The port was appropriately flushed with heparin and venous blood was withdrawn without difficulty The stick site was closed by 4-0 Monocryl and Dermabond was used followed by dressing. Patient tolerated the procedure well was taken to the recovery area Count was correct at the end of the procedure I was present for the whole entire procedure Postprocedure chest x-ray was done and showed no pneumothorax and appropriate position of the PowerPort and catheter.
--- NOTE | 2021-09-20 15:03 | XRR_ITS ---
PROCEDURE INFORMATION: Exam: XR Chest Exam date and time: 09/20/2021 3:16 PM Age: 81 years old Clinical indication: Device placement; Other: Status post placement of right internal jugular vein power, port; Prior surgery; Surgery date: Post-operative (0-2 days) TECHNIQUE: Imaging protocol: XR of the chest. Views: 1 view. COMPARISON: CT chest abd pel w con* 05/07/2021 1:52 PM FINDINGS: Tubes, catheters and devices: There is a right jugular catheter whose tip is in the superior vena cava. Lungs: Unremarkable. No consolidation. Pleural spaces: Unremarkable. No pleural effusion. No pneumothorax. Heart/Mediastinum: Cardiomegaly is identified. Bones/joints: Unremarkable. XR/XR chest 1V portable [id number] IMPRESSION: There is a right jugular catheter whose tip is in the superior vena cava.
[2021-09-20] MEDS: hyDRALAzine 20 mg/mL INJ 1 mL 10 MG IVP (15:51)
--- NOTE | 2021-09-20 15:59 | PC.NURSE ---
PT GIVEN HYDRALAZINE 10 MG IV FOR BP OF 180'S 190'S OVER 100'S. PT BP AT ADMISSION WAS 176/110
--- NOTE | 2021-09-20 16:05 | ANE.PACU2 ---
Inpatient post-anesthesia follow up: Airway intact: Yes Vital signs: Temperature 97.7 F Pulse Rate 76 Respiratory Rate 16 Blood Pressure 168/97 Pulse Oximetry 93 Oxygen Delivery Me thod Room Air Oxygen Flow Rate Fraction of Inspir ed Oxygen Hydration adequate: Yes Nausea and vomiting: No Pain level: 2 Mental status: Baseline
[2021-09-20] MEDS: HYDROcodone-acetaminophen 5-325 mg Tablet 1 TAB PO (16:57)
== END 2021-09-20 17:40 | disposition home or self-care (01) ==
PROVIDERS: PCP Family Medicine; Visit Provider Surgery
PROC: (CPT 36561; principal; 2021-09-20 11:45)
DX: C21.8 Malignant neoplasm of overlapping sites of rectum, anus and anal canal (principal); M19.90 Unspecified osteoarthritis, unspecified site; Z86.73 Personal history of transient ischemic attack (TIA), and cerebral infarction without residual deficits; Z86.718 Personal history of other venous thrombosis and embolism; I10 Essential (primary) hypertension
CPT/HCPCS: 36561; 71045; 77001; C1788; J0360; J0690; J1644; J2704; J3490; J7030

== ENCOUNTER 2021-09-28 07:47 | Outpatient (CLI) | payer MEDICARE, MEDICAID, SELFPAY ==
[2021-09-28 08:23] LABS: Basophils # 0.1 10^3/uL (0.0-0.1); Basophils % 0.9 %; Eosinophils # 0.2 10^3/uL (0.0-0.8); Eosinophils % 2.6 %; Hemoglobin 10.7 g/dL (11.5-15.3); Lymphocytes # 1.3 10^3/uL (0.8-4.8); Lymphocytes % 23.1 %; Mean Corpuscular HGB Conc 31.5 g/dL (30.0-36.0); Mean Corpuscular Hemoglobin 28.8 pg (28.0-34.0); Mean Corpuscular Volume 91.6 fl (81-99); Mean Platelet Volume 8.8 fL (7.4-10.4); Monocytes # 0.5 10^3/uL (0.2-0.9); Monocytes % 8.3 %; Neutrophils # 3.68 10^3/uL (1.8-7.7); Neutrophils % 64.9 %; Nucleated Red Blood Cells % 0 %; Platelet Count 289 10^3/cmm (130-400); Red Blood Count 3.71 10^6/uL (4.1-5.3); Red Cell Distribution Width 15.9 % (12.1-15.1); White Blood Count 5.7 10^3/uL (4.0-10.0)
[2021-09-28 08:44] LABS: Alanine Aminotransferase 9 U/L (0-33); Albumin Level 4.1 g/dL (3.5-5.2); Alkaline Phosphatase 97 IU/L (35-105); Anion Gap 12.3 (5-19); Aspartate Amino Transferase 17 U/L (0-32); Blood Urea Nitrogen 30 mg/dL (8-23); Calcium 9.7 mg/dL (8.5-10.5); Carbon Dioxide 23 mmol/L (22-29); Chloride 104 mmol/L (98-107); Globulin 3.4 g/dL (1.3-4.6); Glucose 93 mg/dL (65-115); Osmolality Calculated 286 mOsm/kg (285-295); Potassium 4.3 mmol/L (3.5-5.1); Sodium 135 mmol/L (136-145); Total Bilirubin 0.2 mg/dL (0.15-1.2); Total Protein 7.5 g/dL (6.6-8.7)
--- NOTE | 2021-09-28 10:30 | ONC FU_ITS ---
Gris Flynn Progress Note Patient: Macy Guevara Unit #: [id number]: [id number] Dicatated By: Gris Flynn N.P.Date of Visit:Sep 28, 2021 Onc MED Follow-up/Prog Note Chief Complaint: Rectal cancer History of Present Illness: Ms. Diane Guevara, is a 81-year-old female with history of off-and-on rectal bleed for which she was referred to Dr. Dugan for evaluation, patient underwent colonoscopy on December 01, 2020 which showed circumferential, about 2 cm from anal verge proximal and going all the way to the distal about 10 cm mass, bleed to touch with induration and hard in consistency. Mass noted to have ulceration and cavitation with heaped up edges consistent with malignant growth and presence of external hemorrhoids,. 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 Bellamy in [place] for further evaluation. Patient denies any abdominal pain, denies any nausea or vomiting, denies any diarrhea or but off-and-on constipation, denies any hematuria or dysfunctional uterine bleeding. Denies any bony pains, denies any jaundice denies any weight loss Follow-up CT PET scan done on December 26, 2020 showed there is a 3.8 cm rectal mass with SUV of 25.5, multiple perirectal lymph nodes with modest FDG activity, consistent with local metastatic disease. Additional malignant adenopathy in the right common iliac, left external iliac territories. Index right common iliac lymph node is 1.4 cm with SUV of 3.8. No hepatic metastatic disease or distant mets. CT scan of chest abdomen pelvis done on January 22, 2021 in [place] showed no pulmonary nodule or mediastinal lymphadenopathy. Asymmetric rectal thickening, involving length of approximately 6.5 cm. Perirectal stranding thickening of mesorectal fascia. Mild perirectal adenopathy. A few small low-attenuation hepatic lesions that are too small to accurately characterize. Started on total neoadjuvant chemotherapy with oxaliplatin/Xeloda on February 01, 2021X1, subsequently patient developed severe complication including diarrhea, dehydration, electrolyte imbalance and eventually TIA, requiring inpatient care, no further chemotherapy was offered After first cycle of oxaliplatin/Xeloda, Then combined chemoradiation therapy in neoadjuvant fashion was planned but patient refused oral Xeloda and took 1 dose of radiation therapy when she was informed that radiation alone may be sufficient, she decided to proceed with surgery and on June 08, 2021 she underwent APR, and block hysterectomy and vaginectomy with vaginal reconstruction and colostomy bag and her final pathology report confirmed moderately differentiated adenocarcinoma, 2 masses, 13 lymph nodes negative for metastatic disease. The 2 implants of adenocarcinoma., Tumor directly invades adjacent structures. Margins are involved. Tumor extends into mesorectal margin. Lymphovascular invasion present., T4b, tumor directly invades and adhere to adjacent organs or structures. N1C, no regional lymph node positive but there are tumor deposit in the mesentery. Follow-up CT PET scan was done because of progressive CEA level CT PET scan done on August 14, 2021 showed residual perirectal node consistent with residual metastatic disease. New hepatic metastasis in the central right hepatic lobe, size about 2.1 cm with SUV of 11.9. A new right inguinal lymph node measuring 1.4 cm with FDG positive. Her CEA level checked on September 01, 2021 was 36.7 compared to 21.5 on August 09, 2021. Patient presents today for education on FOLFOX. Experiences mild fatigue. Her appetite has been good. No fever, chills, night sweats. No sinus drainage or sore throat. No cough or chest pain. No nausea or vomiting. She has a colostomy that is functioning properly. She has mild right upper abdominal pain on occasion. No urinary symptoms. She has arthritis but other than that no joint or bone pain. No headaches or dizziness. Review Of Symptoms: See above. Past Medical History: Ms. Guevara's medical history is unremarkable. Past Surgical History: Colonoscopy in 2020 Allergies: No Known Allergies. Medications: Bisacodyl 1 (10 mg) Suppository Rectal PRN Eliquis 1 Tablet (of 5 mg) Oral b.i.d. Enema 1 (7-19 g/118mL) Enema Rectal PRN Furosemide 1 Tablet (of 40 mg) Oral daily HYDROcodone-Acetaminophen 1 Tablet (of 5-325 mg) Oral q 6 hours PRN Loperamide HCl 1 Tablet (of 2 mg) Capsule Oral four times a day PRN Loratadine 1 Capsule (of 10 mg) Oral daily Melatonin 1 Tablet (of 3 mg) Oral at bedtime Midodrine HCl 1 Tablet (of 5 mg) Oral t.i.d. Potassium Chloride Faith ER 1 Tablet (of 20 meq) Tablet, controlled release Oral daily Zinc Oxide (22 %) Cream Topical b.i.d. Family History: Ms. Guevara's mother at age 83: Cancer, and hypertension. Ms. Guevara's father at age 84: coronary artery disease. Social History: Ms. Guevara is . Ms. Guevara has never smoked. She has no history of drinking. Physical Examination: Performed on Sep 28, 2021 09:42: Height - 65.00 in, Weight - 136.2 lbs (HIGH), BSA - 1.68 sq.m, BMI - 22.67, Temperature - 98.7 F, Pulse - 82 /min, Respiration - 16 /min, BP - 178/126 mm(hg) (HIGH), O2 Sat - 97 %, Pain - 2, and Fatigue - 0. Performance Status: 1 - No physically strenuous activity, but ambulatory and able to carry out light or sedentary work (e.g. office work, light house work). (ECOG) Constitutional Alert, cooperative, oriented. Mood and affect appropriate. Appears close to chronological age. Well nourished. Well developed. Head Normocephalic; no scars. Respiratory Lungs are clear to auscultation without rhonchi or wheezing. Cardiovascular Regular rate and rhythm of heart without murmurs, gallops or rubs. Abdomen Non-tender, non-distended, no masses, ascites or hepatosplenomegaly. Good bowel sounds. No guarding or rebound tenderness. Musculoskeletal No tenderness or swelling, normal range of motion. Generalized weakness Psychiatric Alert and oriented times three. Coherent speech. Verbalizes understanding of our discussions today. Laboratory: Test performed on Sep 28, 2021 08:05 Sodium 135 mmol/L Potassium 4.3 mmol/L Chloride 104 mmol/L CO2 23 mmol/L Anion Gap 12.3 BUN 30 mg/dL Creatinine 0.5 mg/dL Cr Clearance (Est) 87.2800 mL/min Glucose 93 mg/dL Osmolality - Calculated 286 mOsm/kg Calcium 9.7 mg/dL Protein, Total 7.5 g/dL Albumin 4.1 g/dL Globulin 3.4 g/dL Bilirubin, Total 0.2 mg/dL ALT (SGPT) 9 U/L AST (SGOT) 17 U/L Alkaline Phosphatase 97 IU/L WBC 5.7 10 3/uL RBC 3.71 10 6/uL HGB 10.7 g/dL HCT 34.0 % MCV 91.6 fl MCH 28.8 pg MCHC 31.5 g/dL RDW 15.9 % Platelet Count 289 10 3/cmm MPV 8.8 fL Neutrophils 3.68 10 3/uL Lymphocytes 1.3 10 3/uL Monocytes 0.5 10 3/uL Eosinophils 0.2 10 3/uL Basophils 0.1 10 3/uL Neutrophil % 64.9 % Lymphocyte % 23.1 % Monocyte % 8.3 % Eosinophil % 2.6 % Basophils % 0.9 % NRBC % 0 % 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 done on December 01, 2020, Staging CT PET scan done on December 26, 2020 shows FDG positive perirectal, bilateral common iliac and left external iliac lymph node consistent with malignancy no distant mets, clinically stage III disease CT scan of chest abdomen pelvis done on January 23, 2020 in [place] showed no pulmonary nodule, no mediastinal lymphadenopathy. Asymmetric rectal thickening, involving the length of approximately 6.5 cm. Perirectal stranding. Thickening of mesorectal fascia. Mild perirectal adenopathy. Few very small low-attenuation hepatic lesions that are too small to characterize Started on total neoadjuvant chemotherapy with oxaliplatin/Xeloda on February 01, 2021 Anemia, probably due to above, considering her age underlying myelodysplasia cannot be ruled out, Status post Injectafer x2 in January 2021 Hypertension Plan: Discussed with patient regarding her labs white blood count 5.5 hemoglobin 11.2 hematocrit 35.4 platelets 268,000 CMP within normal limits, CEA 36.7 compared to 21.5 on August 09, 2021 CT PET scan done on August 14, 2021 shows evidence of solitary hepatic metastatic disease and residual perirectal lymph node and inguinal lymph node. Patient presents today for education on FOLFOX. Handouts provided, indication for use, side effects were discussed. Patient agreeable to receive chemotherapy. She will be started at a 30% reduction due to history of side effects with oxaliplatin at full dose. She will return to the clinic in 1 week with CBC and CMP. Signed By: Gris Flynn N.P. <<Signature on File>>
[2021-09-28] MEDS: palonosetron 0.25 mg/5 mL SDV IV (10:32)
[2021-09-28] MEDS: dextrose 5% 250 ML 75 ML IV (10:32)
== END 2021-09-28 07:48 | disposition home or self-care (01) ==
PROVIDERS: PCP Family Medicine; Visit Provider Nurse Practitioner Family
DX: C20 Malignant neoplasm of rectum (principal); C78.7 Secondary malignant neoplasm of liver and intrahepatic bile duct; I10 Essential (primary) hypertension; Z79.899 Other long term (current) drug therapy
CPT/HCPCS: 80053; 85025; 96367; 96368; 96375; 96413; 96415; 96416; 99215; J0640; J1100; J2469; J9190; J9263

== ENCOUNTER 2021-09-30 14:34 | Outpatient (CLI) | payer MEDICARE, MEDICAID, SELFPAY | END 2021-09-30 14:35 | disposition home or self-care (01) | LOC: ONCMED 14:36 | PROVIDERS: PCP Family Medicine; Visit Provider Internal Medicine Hematology & Oncology | DX: Z45.2 Encounter for adjustment and management of vascular access device (principal) | CPT/HCPCS: 96523 ==

== ENCOUNTER 2021-10-04 09:14 | Outpatient (CLI) | payer MEDICARE, MEDICAID, SELFPAY ==
[2021-10-04 09:54] LABS: Basophils % 0.4 %; Eosinophils # 0.1 10^3/uL (0.0-0.8); Eosinophils % 2.1 %; Hematocrit 33.1 % (37.0-47.0); Hemoglobin 10.4 g/dL (11.5-15.3); Lymphocytes # 1.1 10^3/uL (0.8-4.8); Lymphocytes % 21.1 %; Mean Corpuscular HGB Conc 31.4 g/dL (30.0-36.0); Mean Corpuscular Hemoglobin 28.7 pg (28.0-34.0); Mean Corpuscular Volume 91.4 fl (81-99); Mean Platelet Volume 8.9 fL (7.4-10.4); Monocytes # 0.5 10^3/uL (0.2-0.9); Monocytes % 8.8 %; Neutrophils # 3.53 10^3/uL (1.8-7.7); Neutrophils % 67.2 %; Nucleated Red Blood Cells % 0 %; Platelet Count 260 10^3/cmm (130-400); Red Blood Count 3.62 10^6/uL (4.1-5.3); Red Cell Distribution Width 15.4 % (12.1-15.1); White Blood Count 5.3 10^3/uL (4.0-10.0)
[2021-10-04 11:58] LABS: Alanine Aminotransferase 9 U/L (0-33); Albumin Level 3.8 g/dL (3.5-5.2); Alkaline Phosphatase 99 IU/L (35-105); Aspartate Amino Transferase 18 U/L (0-32); Blood Urea Nitrogen 24 mg/dL (8-23); Calcium 9.2 mg/dL (8.5-10.5); Carbon Dioxide 22 mmol/L (22-29); Chloride 104 mmol/L (98-107); Globulin 3.1 g/dL (1.3-4.6); Glucose 96 mg/dL (65-115); Osmolality Calculated 286 mOsm/kg (285-295); Sodium 136 mmol/L (136-145); Total Bilirubin 0.3 mg/dL (0.15-1.2); Total Protein 6.9 g/dL (6.6-8.7)
[2021-10-04 14:36] LABS: Ferritin 141 ng/mL (15-150); Iron 47 ug/dL (37-145); Total Iron Binding Capacity 260 mcg/dl; Unsaturated Iron Binding 213 ug/dL (112-347)
--- NOTE | 2021-10-08 09:01 | ONC FU_ITS ---
Dr. Espinoza follow up note Patient: Macy Guevara Unit #: [id number]: 1940 Dicatated By: Isela Espinoza M.D.Date of Visit:Oct 04, 2021 Onc Med Follow-up/Prog Note History of Present Illness: Ms. Diane Guevara, is a 81-year-old female with history of off-and-on rectal bleed for which she was referred to Dr. Dugan for evaluation, patient underwent colonoscopy on December 01, 2020 which showed circumferential, about 2 cm from anal verge proximal and going all the way to the distal about 10 cm mass, bleed to touch with induration and hard in consistency. Mass noted to have ulceration and cavitation with heaped up edges consistent with malignant growth and presence of external hemorrhoids,. 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 Bellamy in [place] for further evaluation. Patient denies any abdominal pain, denies any nausea or vomiting, denies any diarrhea or but off-and-on constipation, denies any hematuria or dysfunctional uterine bleeding. Denies any bony pains, denies any jaundice denies any weight loss Follow-up CT PET scan done on December 26, 2020 showed there is a 3.8 cm rectal mass with SUV of 25.5, multiple perirectal lymph nodes with modest FDG activity, consistent with local metastatic disease. Additional malignant adenopathy in the right common iliac, left external iliac territories. Index right common iliac lymph node is 1.4 cm with SUV of 3.8. No hepatic metastatic disease or distant mets. CT scan of chest abdomen pelvis done on January 22, 2021 in [place] showed no pulmonary nodule or mediastinal lymphadenopathy. Asymmetric rectal thickening, involving length of approximately 6.5 cm. Perirectal stranding thickening of mesorectal fascia. Mild perirectal adenopathy. A few small low-attenuation hepatic lesions that are too small to accurately characterize. Started on total neoadjuvant chemotherapy with oxaliplatin/Xeloda on February 01, 2021X1, subsequently patient developed severe complication including diarrhea, dehydration, electrolyte imbalance and eventually TIA, requiring inpatient care, no further chemotherapy was offered After first cycle of oxaliplatin/Xeloda, Then combined chemoradiation therapy in neoadjuvant fashion was planned but patient refused oral Xeloda and took 1 dose of radiation therapy when she was informed that radiation alone may be sufficient, she decided to proceed with surgery and on June 08, 2021 she underwent APR, and block hysterectomy and vaginectomy with vaginal reconstruction and colostomy bag and her final pathology report confirmed moderately differentiated adenocarcinoma, 2 masses, 13 lymph nodes negative for metastatic disease. The 2 implants of adenocarcinoma., Tumor directly invades adjacent structures. Margins are involved. Tumor extends into mesorectal margin. Lymphovascular invasion present., T4b, tumor directly invades and adhere to adjacent organs or structures. N1C, no regional lymph node positive but there are tumor deposit in the mesentery. Follow-up CT PET scan was done because of progressive CEA level CT PET scan done on August 14, 2021 showed residual perirectal node consistent with residual metastatic disease. New hepatic metastasis in the central right hepatic lobe, size about 2.1 cm with SUV of 11.9. A new right inguinal lymph node measuring 1.4 cm with FDG positive. Her CEA level checked on September 01, 2021 was 36.7 compared to 21.5 on August 09, 2021.Started on modified dose FOLFOX on September 28, 2021 Came for follow-up, denies any specific complaints, no fever chills, no nausea or vomiting, no diarrhea constipation, no hemoptysis hematemesis, no peripheral neuropathy, no mouth sores, tolerated reduced dose of FOLFOX well. Medications: Bisacodyl 1 (10 mg) Suppository Rectal PRN, Eliquis 1 Tablet (of 5 mg) Oral b.i.d., Enema 1 (7-19 g/118mL) Enema Rectal PRN, Furosemide 1 Tablet (of 40 mg) Oral daily, HYDROcodone-Acetaminophen 1 Tablet (of 5-325 mg) Oral q 6 hours PRN, Loperamide HCl 1 Tablet (of 2 mg) Capsule Oral four times a day PRN, Loratadine 1 Capsule (of 10 mg) Oral daily, Melatonin 1 Tablet (of 3 mg) Oral at bedtime, Midodrine HCl 1 Tablet (of 5 mg) Oral t.i.d., Potassium Chloride Faith ER 1 Tablet (of 20 meq) Tablet, controlled release Oral daily, Zinc Oxide (22 %) Cream Topical b.i.d. Allergies: No Known Allergies. Review of Systems: Review of Systems is not available for this patient. Vital Signs: Performed on Oct 04, 2021 12:15 Height - 65.00 in Weight - 137.8 lbs (HIGH) BSA - 1.69 sq.m BMI - 22.93 Temperature - 98.8 F Pulse - 98 /min Respiration - 17 /min BP - 162/93 mm(hg) (HIGH) O2 Sat - 98 % Pain - 1 Fatigue - 0 Performance Status: 0 - Fully active, able to carry on all predisease activities without restrictions. (ECOG) Physical Examination: ENMT - No mouth sores, no thrush, no jaundice, Respiratory - Lungs are clear to auscultation, Cardiovascular - Regular rate and rhythm of heart, Abdomen - Soft, bowel sounds present, colostomy bag functioning fine, Extremities - No visible edema. Lab/Imaging: Test performed on Sep 28, 2021 08:05 Sodium 135 mmol/L Potassium 4.3 mmol/L Chloride 104 mmol/L CO2 23 mmol/L Anion Gap 12.3 BUN 30 mg/dL Creatinine 0.5 mg/dL Cr Clearance (Est) 87.2800 mL/min Glucose 93 mg/dL Osmolality - Calculated 286 mOsm/kg Calcium 9.7 mg/dL Protein, Total 7.5 g/dL Albumin 4.1 g/dL Globulin 3.4 g/dL Bilirubin, Total 0.2 mg/dL ALT (SGPT) 9 U/L AST (SGOT) 17 U/L Alkaline Phosphatase 97 IU/L WBC 5.7 10 3/uL RBC 3.71 10 6/uL HGB 10.7 g/dL HCT 34.0 % MCV 91.6 fl MCH 28.8 pg MCHC 31.5 g/dL RDW 15.9 % Platelet Count 289 10 3/cmm MPV 8.8 fL Neutrophils 3.68 10 3/uL Lymphocytes 1.3 10 3/uL Monocytes 0.5 10 3/uL Eosinophils 0.2 10 3/uL Basophils 0.1 10 3/uL Neutrophil % 64.9 % Lymphocyte % 23.1 % Monocyte % 8.3 % Eosinophil % 2.6 % Basophils % 0.9 % NRBC % 0 % Impression: Metastatic colorectal CXR CT PET scan done on August 14, 2021 showed residual perirectal node consistent with residual metastatic disease. New hepatic metastasis in the central right hepatic lobe size 2.1 cm with SUV of 11.9. A new right inguinal lymph node measuring 1.4 cm is FDG positive, CEA checked on September 01, 2021 was 36.7 Started on total neoadjuvant chemotherapy with oxaliplatin/Xeloda on February 01, 2021, Chemotherapy was discontinued after first dose because of significant toxicity requiring hospitalization, patient completed her radiation therapy followed by APR ,en block hysterectomy and vaginectomy with vaginal reconstruction and colostomy bag on June 08, 2021 final pathology report confirmed moderately differentiated adenocarcinoma 2 masses, 13 lymph nodes were negative for metastatic disease, tumor directly invades adjacent structures margins were involved. Lymphovascular invasion was seen, T4b, tumor directly invades and adhere to adjacent organs and structures. N1 C, no regional lymph node positive but tumor deposits seen in mesentery Moderately differentiated invasive adenocarcinoma per rectal mass biopsy/colonoscopy done on December 01, 2020, Staging CT PET scan done on December 26, 2020 shows FDG positive perirectal, bilateral common iliac and left external iliac lymph node consistent with malignancy no distant mets, clinically stage III disease CT scan of chest abdomen pelvis done on January 23, 2020 in [place] showed no pulmonary nodule, no mediastinal lymphadenopathy. Asymmetric rectal thickening, involving the length of approximately 6.5 cm. Perirectal stranding. Thickening of mesorectal fascia. Mild perirectal adenopathy. Few very small low-attenuation hepatic lesions that are too small to characterize Anemia, probably due to above, considering her age underlying myelodysplasia cannot be ruled out, Status post Injectafer x2 in January 2021 Hypertension Started on modified dose FOLFOX on September 28, 2021 for metastatic colorectal cancer per CT PET scan done on August 14, 2021 Plan: Discussed with patient regarding her labs white blood count 5.3 hemoglobin 10.4 hematocrit 33.1 platelets 260,000 CMP within normal limits iron studies showed iron 47 iron saturation 18 TIBC 260 ferritin 141 Clinically, patient doing well with no new signs symptoms suggestive of disease progression, tolerated first cycle of reduced dose FOLFOX well, her lab work-up is in a decent range except persistent mild anemia and her anemia work-up is inconclusive so etiology could be underlying myelodysplasia, will continue to monitor Patient return to clinic in 1 week with CBC CMP if reasonable, for second cycle of chemotherapy with FOLFOX. Signed By: Isela Espinoza M.D. <<Signature on File>>
== END 2021-10-04 09:15 | disposition home or self-care (01) ==
PROVIDERS: PCP Family Medicine; Visit Provider Internal Medicine Hematology & Oncology
DX: C20 Malignant neoplasm of rectum (principal); C78.7 Secondary malignant neoplasm of liver and intrahepatic bile duct; D64.9 Anemia, unspecified; I10 Essential (primary) hypertension; Z79.899 Other long term (current) drug therapy
CPT/HCPCS: 36415; 36591; 80053; 82728; 83540; 83550; 85025; 99215

== ENCOUNTER → 2021-10-20 11:39 | Outpatient (BNVA) | payer MEDICARE, MEDICAID, SELFPAY | PROVIDERS: PCP Family Medicine; Visit Provider Surgery | DX: Z98.890 Other specified postprocedural states (principal) ==

== ENCOUNTER 2021-10-28 06:41 | Outpatient (RCR) | payer MEDICARE, MEDICAID, SELFPAY ==
[2021-10-12 09:02] LABS: Basophils % 0.3 %; Eosinophils # 0.1 10^3/uL (0.0-0.8); Eosinophils % 1.5 %; Hematocrit 34.2 % (37.0-47.0); Lymphocytes # 1.5 10^3/uL (0.8-4.8); Lymphocytes % 23.7 %; Mean Corpuscular HGB Conc 32.2 g/dL (30.0-36.0); Mean Corpuscular Hemoglobin 29.5 pg (28.0-34.0); Mean Corpuscular Volume 91.7 fl (81-99); Mean Platelet Volume 9.3 fL (7.4-10.4); Monocytes # 0.5 10^3/uL (0.2-0.9); Monocytes % 8.3 %; Neutrophils # 4.02 10^3/uL (1.8-7.7); Neutrophils % 65.9 %; Nucleated Red Blood Cells % 0 %; Platelet Count 213 10^3/cmm (130-400); Red Blood Count 3.73 10^6/uL (4.1-5.3); Red Cell Distribution Width 15.9 % (12.1-15.1); White Blood Count 6.1 10^3/uL (4.0-10.0)
[2021-10-12 09:16] LABS: Alanine Aminotransferase 11 U/L (0-33); Albumin Level 4.1 g/dL (3.5-5.2); Alkaline Phosphatase 110 IU/L (35-105); Anion Gap 12.2 (5-19); Aspartate Amino Transferase 20 U/L (0-32); Blood Urea Nitrogen 22 mg/dL (8-23); Calcium 9.6 mg/dL (8.5-10.5); Carbon Dioxide 24 mmol/L (22-29); Chloride 102 mmol/L (98-107); Globulin 2.8 g/dL (1.3-4.6); Glucose 90 mg/dL (65-115); Osmolality Calculated 281 mOsm/kg (285-295); Potassium 4.2 mmol/L (3.5-5.1); Sodium 134 mmol/L (136-145); Total Bilirubin 0.4 mg/dL (0.15-1.2); Total Protein 6.9 g/dL (6.6-8.7)
[2021-10-12] MEDS: dextrose 5% 250 ML 300 ML IV (10:30)
[2021-10-12] MEDS: palonosetron 0.25 mg/5 mL SDV IV (10:35)
--- NOTE | 2021-10-13 17:22 | ONC FU_ITS ---
Dr. Espinoza follow up note Patient: Macy Guevara Unit #: [id number]: 1940 Dicatated By: Isela Espinoza M.D.Date of Visit:Oct 12, 2021 Onc Med Follow-up/Prog Note History of Present Illness: Ms. Diane Guevara, is a 81-year-old female with history of off-and-on rectal bleed for which she was referred to Dr. Dugan for evaluation, patient underwent colonoscopy on December 01, 2020 which showed circumferential, about 2 cm from anal verge proximal and going all the way to the distal about 10 cm mass, bleed to touch with induration and hard in consistency. Mass noted to have ulceration and cavitation with heaped up edges consistent with malignant growth and presence of external hemorrhoids,. 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 Bellamy in [place] for further evaluation. Patient denies any abdominal pain, denies any nausea or vomiting, denies any diarrhea or but off-and-on constipation, denies any hematuria or dysfunctional uterine bleeding. Denies any bony pains, denies any jaundice denies any weight loss Follow-up CT PET scan done on December 26, 2020 showed there is a 3.8 cm rectal mass with SUV of 25.5, multiple perirectal lymph nodes with modest FDG activity, consistent with local metastatic disease. Additional malignant adenopathy in the right common iliac, left external iliac territories. Index right common iliac lymph node is 1.4 cm with SUV of 3.8. No hepatic metastatic disease or distant mets. CT scan of chest abdomen pelvis done on January 22, 2021 in [place] showed no pulmonary nodule or mediastinal lymphadenopathy. Asymmetric rectal thickening, involving length of approximately 6.5 cm. Perirectal stranding thickening of mesorectal fascia. Mild perirectal adenopathy. A few small low-attenuation hepatic lesions that are too small to accurately characterize. Started on total neoadjuvant chemotherapy with oxaliplatin/Xeloda on February 01, 2021X1, subsequently patient developed severe complication including diarrhea, dehydration, electrolyte imbalance and eventually TIA, requiring inpatient care, no further chemotherapy was offered After first cycle of oxaliplatin/Xeloda, Then combined chemoradiation therapy in neoadjuvant fashion was planned but patient refused oral Xeloda and took 1 dose of radiation therapy when she was informed that radiation alone may be sufficient, she decided to proceed with surgery and on June 08, 2021 she underwent APR, and block hysterectomy and vaginectomy with vaginal reconstruction and colostomy bag and her final pathology report confirmed moderately differentiated adenocarcinoma, 2 masses, 13 lymph nodes negative for metastatic disease. The 2 implants of adenocarcinoma., Tumor directly invades adjacent structures. Margins are involved. Tumor extends into mesorectal margin. Lymphovascular invasion present., T4b, tumor directly invades and adhere to adjacent organs or structures. N1C, no regional lymph node positive but there are tumor deposit in the mesentery. Follow-up CT PET scan was done because of progressive CEA level CT PET scan done on August 14, 2021 showed residual perirectal node consistent with residual metastatic disease. New hepatic metastasis in the central right hepatic lobe, size about 2.1 cm with SUV of 11.9. A new right inguinal lymph node measuring 1.4 cm with FDG positive. Her CEA level checked on September 01, 2021 was 36.7 compared to 21.5 on August 09, 2021.Started on modified dose FOLFOX on September 28, 2021 Came for follow-up, denies any specific complaints, no fever chills, no nausea or vomiting, no diarrhea or constipation, no melena or hematochezia, no jaundice, no abdominal pain, no mouth sores, no skin rash, mild peripheral neuropathy. Tolerated first cycle of chemotherapy with modified FOLFOX, well Medications: Bisacodyl 1 (10 mg) Suppository Rectal PRN, Eliquis 1 Tablet (of 5 mg) Oral b.i.d., Enema 1 (7-19 g/118mL) Enema Rectal PRN, Furosemide 1 Tablet (of 40 mg) Oral daily, HYDROcodone-Acetaminophen 1 Tablet (of 5-325 mg) Oral q 6 hours PRN, Loperamide HCl 1 Tablet (of 2 mg) Capsule Oral four times a day PRN, Loratadine 1 Capsule (of 10 mg) Oral daily, Melatonin 1 Tablet (of 3 mg) Oral at bedtime, Midodrine HCl 1 Tablet (of 5 mg) Oral t.i.d., Potassium Chloride Faith ER 1 Tablet (of 20 meq) Tablet, controlled release Oral daily, Zinc Oxide (22 %) Cream Topical b.i.d. Allergies: No Known Allergies. Review of Systems: Review of Systems is not available for this patient. Vital Signs: Performed on Oct 12, 2021 10:14 Height - 65.00 in Weight - 139.8 lbs (HIGH) BSA - 1.70 sq.m BMI - 23.26 Temperature - 98.4 F Pulse - 101 /min (HIGH) Respiration - 16 /min BP - 164/92 mm(hg) (HIGH) O2 Sat - 97 % Pain - 0 Fatigue - 0 Performance Status: 1 - No physically strenuous activity, but ambulatory and able to carry out light or sedentary work (e.g. office work, light house work). (ECOG) Physical Examination: ENMT - No mouth sores, no thrush, no jaundice, Respiratory - Lungs are clear to auscultation, Cardiovascular - Regular rate and rhythm of heart, Abdomen - Soft, bowel sounds present, Colostomy bag functioning fine, Extremities - No visible edema. Lab/Imaging: Test performed on Sep 28, 2021 08:05 Sodium 135 mmol/L Potassium 4.3 mmol/L Chloride 104 mmol/L CO2 23 mmol/L Anion Gap 12.3 BUN 30 mg/dL Creatinine 0.5 mg/dL Cr Clearance (Est) 87.2800 mL/min Glucose 93 mg/dL Osmolality - Calculated 286 mOsm/kg Calcium 9.7 mg/dL Protein, Total 7.5 g/dL Albumin 4.1 g/dL Globulin 3.4 g/dL Bilirubin, Total 0.2 mg/dL ALT (SGPT) 9 U/L AST (SGOT) 17 U/L Alkaline Phosphatase 97 IU/L WBC 5.7 10 3/uL RBC 3.71 10 6/uL HGB 10.7 g/dL HCT 34.0 % MCV 91.6 fl MCH 28.8 pg MCHC 31.5 g/dL RDW 15.9 % Platelet Count 289 10 3/cmm MPV 8.8 fL Neutrophils 3.68 10 3/uL Lymphocytes 1.3 10 3/uL Monocytes 0.5 10 3/uL Eosinophils 0.2 10 3/uL Basophils 0.1 10 3/uL Neutrophil % 64.9 % Lymphocyte % 23.1 % Monocyte % 8.3 % Eosinophil % 2.6 % Basophils % 0.9 % NRBC % 0 % Impression: Metastatic colorectal CXR CT PET scan done on August 14, 2021 showed residual perirectal node consistent with residual metastatic disease. New hepatic metastasis in the central right hepatic lobe size 2.1 cm with SUV of 11.9. A new right inguinal lymph node measuring 1.4 cm is FDG positive, CEA checked on September 01, 2021 was 36.7 Started on total neoadjuvant chemotherapy with oxaliplatin/Xeloda on February 01, 2021, Chemotherapy was discontinued after first dose because of significant toxicity requiring hospitalization, patient completed her radiation therapy followed by APR ,en block hysterectomy and vaginectomy with vaginal reconstruction and colostomy bag on June 08, 2021 final pathology report confirmed moderately differentiated adenocarcinoma 2 masses, 13 lymph nodes were negative for metastatic disease, tumor directly invades adjacent structures margins were involved. Lymphovascular invasion was seen, T4b, tumor directly invades and adhere to adjacent organs and structures. N1 C, no regional lymph node positive but tumor deposits seen in mesentery Moderately differentiated invasive adenocarcinoma per rectal mass biopsy/colonoscopy done on December 01, 2020, Staging CT PET scan done on December 26, 2020 shows FDG positive perirectal, bilateral common iliac and left external iliac lymph node consistent with malignancy no distant mets, clinically stage III disease CT scan of chest abdomen pelvis done on January 23, 2020 in [place] showed no pulmonary nodule, no mediastinal lymphadenopathy. Asymmetric rectal thickening, involving the length of approximately 6.5 cm. Perirectal stranding. Thickening of mesorectal fascia. Mild perirectal adenopathy. Few very small low-attenuation hepatic lesions that are too small to characterize Anemia, probably due to above, considering her age underlying myelodysplasia cannot be ruled out, Status post Injectafer x2 in January 2021 Hypertension Started on modified dose FOLFOX on September 28, 2021 for metastatic colorectal cancer per CT PET scan done on August 14, 2021 Plan: Discussed with patient regarding her labs white blood count 6.1 hemoglobin 11 g compared to 10.4 previously hematocrit 34.2 platelets 213,000 CMP within normal limits except sodium 134 Clinically, patient doing well with no new signs symptom suggestive of disease progression, tolerating systemic therapy with modified dose FOLFOX reasonably well, will proceed with next cycle of modified dose FOLFOX today and then she will return to clinic in 2 weeks with CBC CMP, if reasonable for next cycle of chemotherapy, if patient has no side effects, we may titrate up her FOLFOX dose, as tolerated Signed By: Isela Espinoza M.D. <<Signature on File>>
[2021-10-26 08:38] LABS: Basophils # 0.1 10^3/uL (0.0-0.1); Basophils % 0.9 %; Eosinophils # 0.1 10^3/uL (0.0-0.8); Eosinophils % 2.3 %; Hematocrit 33.2 % (37.0-47.0); Hemoglobin 10.6 g/dL (11.5-15.3); Lymphocytes # 1.3 10^3/uL (0.8-4.8); Lymphocytes % 21.7 %; Mean Corpuscular HGB Conc 31.9 g/dL (30.0-36.0); Mean Corpuscular Hemoglobin 29.4 pg (28.0-34.0); Mean Platelet Volume 9.5 fL (7.4-10.4); Monocytes # 0.6 10^3/uL (0.2-0.9); Monocytes % 9.7 %; Neutrophils # 3.75 10^3/uL (1.8-7.7); Neutrophils % 65.2 %; Nucleated Red Blood Cells % 0 %; Platelet Count 221 10^3/cmm (130-400); Red Blood Count 3.61 10^6/uL (4.1-5.3); Red Cell Distribution Width 15.7 % (12.1-15.1); White Blood Count 5.8 10^3/uL (4.0-10.0)
[2021-10-26 09:05] LABS: Alanine Aminotransferase 10 U/L (0-33); Albumin Level 3.9 g/dL (3.5-5.2); Alkaline Phosphatase 96 IU/L (35-105); Aspartate Amino Transferase 24 U/L (0-32); Blood Urea Nitrogen 22 mg/dL (8-23); Calcium 8.5 mg/dL (8.5-10.5); Carbon Dioxide 23 mmol/L (22-29); Chloride 107 mmol/L (98-107); Globulin 3.2 g/dL (1.3-4.6); Glucose 93 mg/dL (65-115); Osmolality Calculated 293 mOsm/kg (285-295); Sodium 140 mmol/L (136-145); Total Bilirubin 0.4 mg/dL (0.15-1.2); Total Protein 7.1 g/dL (6.6-8.7)
[2021-10-26] MEDS: dextrose 5% 250 ML 50 ML IV (10:31)
[2021-10-26] MEDS: palonosetron 0.25 mg/5 mL SDV IV (10:31)
--- NOTE | 2021-10-26 20:55 | ONC FU_ITS ---
Gris Flynn Progress Note Patient: Macy Guevara Unit #: [id number]: 1940 Dicatated By: Gris Flynn N.P.Date of Visit:Oct 26, 2021 Onc MED Follow-up/Prog Note Chief Complaint: Rectal cancer History of Present Illness: Ms. Diane Guevara, is a 81-year-old female with history of off-and-on rectal bleed for which she was referred to Dr. Dugan for evaluation, patient underwent colonoscopy on December 01, 2020 which showed circumferential, about 2 cm from anal verge proximal and going all the way to the distal about 10 cm mass, bleed to touch with induration and hard in consistency. Mass noted to have ulceration and cavitation with heaped up edges consistent with malignant growth and presence of external hemorrhoids,. 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 Bellamy in [place] for further evaluation. Patient denies any abdominal pain, denies any nausea or vomiting, denies any diarrhea or but off-and-on constipation, denies any hematuria or dysfunctional uterine bleeding. Denies any bony pains, denies any jaundice denies any weight loss Follow-up CT PET scan done on December 26, 2020 showed there is a 3.8 cm rectal mass with SUV of 25.5, multiple perirectal lymph nodes with modest FDG activity, consistent with local metastatic disease. Additional malignant adenopathy in the right common iliac, left external iliac territories. Index right common iliac lymph node is 1.4 cm with SUV of 3.8. No hepatic metastatic disease or distant mets. CT scan of chest abdomen pelvis done on January 22, 2021 in [place] showed no pulmonary nodule or mediastinal lymphadenopathy. Asymmetric rectal thickening, involving length of approximately 6.5 cm. Perirectal stranding thickening of mesorectal fascia. Mild perirectal adenopathy. A few small low-attenuation hepatic lesions that are too small to accurately characterize. Started on total neoadjuvant chemotherapy with oxaliplatin/Xeloda on February 01, 2021X1, subsequently patient developed severe complication including diarrhea, dehydration, electrolyte imbalance and eventually TIA, requiring inpatient care, no further chemotherapy was offered After first cycle of oxaliplatin/Xeloda, Then combined chemoradiation therapy in neoadjuvant fashion was planned but patient refused oral Xeloda and took 1 dose of radiation therapy when she was informed that radiation alone may be sufficient, she decided to proceed with surgery and on June 08, 2021 she underwent APR, and block hysterectomy and vaginectomy with vaginal reconstruction and colostomy bag and her final pathology report confirmed moderately differentiated adenocarcinoma, 2 masses, 13 lymph nodes negative for metastatic disease. The 2 implants of adenocarcinoma., Tumor directly invades adjacent structures. Margins are involved. Tumor extends into mesorectal margin. Lymphovascular invasion present., T4b, tumor directly invades and adhere to adjacent organs or structures. N1C, no regional lymph node positive but there are tumor deposit in the mesentery. Follow-up CT PET scan was done because of progressive CEA level CT PET scan done on August 14, 2021 showed residual perirectal node consistent with residual metastatic disease. New hepatic metastasis in the central right hepatic lobe, size about 2.1 cm with SUV of 11.9. A new right inguinal lymph node measuring 1.4 cm with FDG positive. Her CEA level checked on September 01, 2021 was 36.7 compared to 21.5 on August 09, 2021.Started on modified dose FOLFOX on September 28, 2021 Patient presents today for follow-up. She states she is feeling okay. Her appetite is good. No fever, chills, night sweats. No sinus drainage or mouth sores. No shortness of breath, cough, chest pain no GI or problems other than she voids frequently due to diuretics. She denies any joint or bone pain. No headaches or dizziness. Review Of Symptoms see above Past Medical History: Ms. Guevara's medical history is unremarkable. Past Surgical History: Colonoscopy in 2020 Allergies: No Known Allergies. Medications: Ibuprofen Tablet Oral PRN Tylenol Tablet Oral PRN Family History: Ms. Guevara's mother at age 83: Cancer, and hypertension. Ms. Guevara's father at age 84: coronary artery disease. Social History: Ms. Guevara is . Ms. Guevara has never smoked. She has no history of drinking. Physical Examination: Performed on Oct 26, 2021 10:01: Height - 65.00 in, BP - 181/98 mm(hg) (HIGH), Performed on Oct 26, 2021 10:00: Height - 65.00 in, Weight - 142.0 lbs (HIGH), BSA - 1.71 sq.m, BMI - 23.63, Temperature - 98.2 F (LOW), Pulse - 77 /min, Respiration - 16 /min, BP - 182/104 mm(hg) (HIGH), O2 Sat - 99 %, Pain - 0, and Fatigue - 0. Performance Status: 1 - No physically strenuous activity, but ambulatory and able to carry out light or sedentary work (e.g. office work, light house work). (ECOG) Constitutional Alert, cooperative, oriented. Mood and affect appropriate. Appears close to chronological age. Well nourished. Well developed. Respiratory Lungs are clear to auscultation without rhonchi or wheezing. Cardiovascular Regular rate and rhythm of heart without murmurs, gallops or rubs. Abdomen Non-tender, non-distended, no masses, ascites or hepatosplenomegaly. Good bowel sounds. No guarding or rebound tenderness. Extremities 1+ edema bilateral lower extremities Musculoskeletal No tenderness or swelling, normal range of motion without obvious weakness. Psychiatric Alert and oriented times three. Coherent speech. Verbalizes understanding of our discussions today. Laboratory: Test performed on Oct 26, 2021 08:21 Sodium 140 mmol/L Potassium 4.0 mmol/L Chloride 107 mmol/L CO2 23 mmol/L Anion Gap 14.0 BUN 22 mg/dL Creatinine 0.4 mg/dL Cr Clearance (Est) 111.2300 mL/min Glucose 93 mg/dL Osmolality - Calculated 293 mOsm/kg Calcium 8.5 mg/dL Protein, Total 7.1 g/dL Albumin 3.9 g/dL Globulin 3.2 g/dL Bilirubin, Total 0.4 mg/dL ALT (SGPT) 10 U/L AST (SGOT) 24 U/L Alkaline Phosphatase 96 IU/L WBC 5.8 10 3/uL RBC 3.61 10 6/uL HGB 10.6 g/dL HCT 33.2 % MCV 92.0 fl MCH 29.4 pg MCHC 31.9 g/dL RDW 15.7 % Platelet Count 221 10 3/cmm MPV 9.5 fL Neutrophils 3.75 10 3/uL Lymphocytes 1.3 10 3/uL Monocytes 0.6 10 3/uL Eosinophils 0.1 10 3/uL Basophils 0.1 10 3/uL Neutrophil % 65.2 % Lymphocyte % 21.7 % Monocyte % 9.7 % Eosinophil % 2.3 % Basophils % 0.9 % NRBC % 0 % Impression: Metastatic colorectal CXR CT PET scan done on August 14, 2021 showed residual perirectal node consistent with residual metastatic disease. New hepatic metastasis in the central right hepatic lobe size 2.1 cm with SUV of 11.9. A new right inguinal lymph node measuring 1.4 cm is FDG positive, CEA checked on September 01, 2021 was 36.7 Started on total neoadjuvant chemotherapy with oxaliplatin/Xeloda on February 01, 2021, Chemotherapy was discontinued after first dose because of significant toxicity requiring hospitalization, patient completed her radiation therapy followed by APR ,en block hysterectomy and vaginectomy with vaginal reconstruction and colostomy bag on June 08, 2021 final pathology report confirmed moderately differentiated adenocarcinoma 2 masses, 13 lymph nodes were negative for metastatic disease, tumor directly invades adjacent structures margins were involved. Lymphovascular invasion was seen, T4b, tumor directly invades and adhere to adjacent organs and structures. N1 C, no regional lymph node positive but tumor deposits seen in mesentery Moderately differentiated invasive adenocarcinoma per rectal mass biopsy/colonoscopy done on December 01, 2020, Staging CT PET scan done on December 26, 2020 shows FDG positive perirectal, bilateral common iliac and left external iliac lymph node consistent with malignancy no distant mets, clinically stage III disease CT scan of chest abdomen pelvis done on January 23, 2020 in [place] showed no pulmonary nodule, no mediastinal lymphadenopathy. Asymmetric rectal thickening, involving the length of approximately 6.5 cm. Perirectal stranding. Thickening of mesorectal fascia. Mild perirectal adenopathy. Few very small low-attenuation hepatic lesions that are too small to characterize Anemia, probably due to above, considering her age underlying myelodysplasia cannot be ruled out, Status post Injectafer x2 in January 2021 Hypertension Started on modified dose FOLFOX on September 28, 2021 for metastatic colorectal cancer per CT PET scan done on August 14, 2021 Plan: Labs reviewed with patient with WBC at 5.8, hemoglobin 10.6, hematocrit 33.2, and platelet count 221,000. Her CMP is within normal limits. Patient is doing well and tolerating FOLFOX well. We will proceed with cycle 3 today and she will return to the clinic in 2 weeks with CBC CMP and CEA. Signed By: Gris Flynn N.Martha. <<Signature on File>>
== END 2021-10-30 23:59 | disposition home or self-care (01) ==
LOC: ONCMED 06:41
PROVIDERS: Nurse Practitioner Family; PCP Family Medicine; Visit Provider Internal Medicine Hematology & Oncology
DX: Z51.11 Encounter for antineoplastic chemotherapy (principal); C21.8 Malignant neoplasm of overlapping sites of rectum, anus and anal canal; C78.7 Secondary malignant neoplasm of liver and intrahepatic bile duct; C77.4 Secondary and unspecified malignant neoplasm of inguinal and lower limb lymph nodes; Z90.710 Acquired absence of both cervix and uterus; Z93.3 Colostomy status; D64.9 Anemia, unspecified; I10 Essential (primary) hypertension; Z79.899 Other long term (current) drug therapy; Z92.21 Personal history of antineoplastic chemotherapy
CPT/HCPCS: 80053; 85025; 96367; 96374; 96375; 96411; 96413; 96415; 96416; 96417; 96523; 99215; J0640; J1100; J2469; J9190; J9263

== ENCOUNTER 2021-11-11 14:51 | Emergency (ER) | payer MEDICARE, MEDICAID, SELFPAY ==
[2021-11-11 15:58] VITALS: BP 160/100; PULSE 88; RESP 16; TEMP 36.9; O2SAT 96; BMI 20.9
[2021-11-11 16:34] LABS: Basophils % 0.6 %; Eosinophils # 0.1 10^3/uL (0.0-0.8); Eosinophils % 0.7 %; Hematocrit 35.2 % (37.0-47.0); Hemoglobin 11.5 g/dL (11.5-15.3); Lymphocytes # 1.2 10^3/uL (0.8-4.8); Lymphocytes % 16.4 %; Mean Corpuscular HGB Conc 32.7 g/dL (30.0-36.0); Mean Corpuscular Hemoglobin 29.6 pg (28.0-34.0); Mean Corpuscular Volume 90.5 fl (81-99); Mean Platelet Volume 9.4 fL (7.4-10.4); Monocytes # 0.5 10^3/uL (0.2-0.9); Monocytes % 7.1 %; Neutrophils # 5.36 10^3/uL (1.8-7.7); Neutrophils % 75.1 %; Nucleated Red Blood Cells % 0 %; Platelet Count 224 10^3/cmm (130-400); Red Blood Count 3.89 10^6/uL (4.1-5.3); Red Cell Distribution Width 15.4 % (12.1-15.1); White Blood Count 7.1 10^3/uL (4.0-10.0)
[2021-11-11 16:38] VITALS: BP 160/100; PULSE 88; RESP 16; O2SAT 96
[2021-11-11 16:59] LABS: Alanine Aminotransferase 11 U/L (0-33); Albumin Level 4.4 g/dL (3.5-5.2); Alkaline Phosphatase 109 IU/L (35-105); Anion Gap 16.5 (5-19); Aspartate Amino Transferase 24 U/L (0-32); Blood Urea Nitrogen 30 mg/dL (8-23); Calcium 9.4 mg/dL (8.5-10.5); Carbon Dioxide 23 mmol/L (22-29); Chloride 101 mmol/L (98-107); Globulin 3.1 g/dL (1.3-4.6); Glucose 93 mg/dL (65-115); Osmolality Calculated 290 mOsm/kg (285-295); Potassium 3.5 mmol/L (3.5-5.1); Sodium 137 mmol/L (136-145); Total Bilirubin 0.6 mg/dL (0.15-1.2); Total Protein 7.5 g/dL (6.6-8.7)
--- NOTE | 2021-11-11 17:00 | XRR_ITS ---
PROCEDURE INFORMATION: Exam: XR Left Hip Exam date and time: 11/11/2021 5:27 PM Age: 81 years old Clinical indication: Hip pain; Left hip; Additional info: Pain, oncology patient, include hip TECHNIQUE: Imaging protocol: XR Left hip. Views: 2 or 3 views hip with pelvis when performed. COMPARISON: CT chest abd pel w con* 05/07/2021 1:52 PM FINDINGS: Bones/joints: Bilateral osteoarthritis of the hips. Lumbar spine degenerative disc space disease. Soft tissues: Unremarkable. XR/XR hip LT 2-3V wo/w pel* [id number] IMPRESSION: 1. Bilateral osteoarthritis of the hips. 2. Lumbar spine degenerative disc space disease.
[2021-11-11 17:01] LABS: Creatinine Clr Calc Pharmacy 53.2604
--- NOTE | 2021-11-11 17:02 | W.ED.BACK ---
HPI - Back Pain/Injury General: Chief Complaint: Back Pain/Injury Stated Complaint: Left lower back pain Time Seen by Provider: 11/11/21 17:01 History of Present Illness: 81-year-old female comes in today with complaints of low back pain and left hip pain. Patient reports increased pain with standing. Patient reports the pain jumps up to like an 8. Patient has a history of colon cancer. Patient is set up to have a PET scan on Monday. Patient denies any fever or chills. Patient was given a dose of steroids on Monday for her pain with minimal to no relief. Patient is at this time on chemotherapy for her colon cancer. Associated symptoms: Deny chills, fever(s), nausea or vomiting Review of Systems General: Reports: 10 or more systems reviewed and unremarkable except in HPI and below Const: Denies: fever(s) or chills Card: Denies: chest pain Resp: Denies: dyspnea GI: Denies: nausea or vomiting Musc: Reports: back pain and joint pain Skin/Breast: Denies: rash PFSH ED PFSH: Medical History Anasarca Arthritis Bleeding per rectum Anal mass, biopsies were obtained to rule out anal cancer Brain TIA CVA (cerebral vascular accident) Dehydration Diarrhea Diverticulosis DVT (deep venous thrombosis) Elevated troponin Generalized weakness Hypertension Hypokalemia Rectal cancer Surgical History H/O rhinoplasty History of colonoscopy 2011 History of nasal surgery History of tonsillectomy Family History Father CAD (coronary artery disease) Mother Cancer Hypertension Denies family history of Diabetes Social History Smoking and tobacco status: never smoked Alcohol intake: never Lives independently: Yes Household members: none Housing: Apartment Marital status: Single Female Reproductive History: Date of last menstrual period: 09/24/20 Physical Exam Const: COMMON NORMALS: alert HENMT: COMMON NORMALS: normocephalic HEAD & SCALP: normocephalic Neck/C-Spine: CERVICAL SPINE: No Cervical spine tenderness Chest: COMMONS NORMALS: normal inspection of the chest Resp: COMMON NORMALS: normal respiratory effort Cardio: COMMON NORMALS: regular rate RATE: regular rate GI: COMMON NORMALS: non-tender Back/Pelvis: LUMBAR SPINE/LOWER BACK: Yes lumbar spinal tenderness Lumbar spinal tenderness location: L5 Extremity: LEFT LOWER EXTREMITY: Yes hip joint (no redness) Left hip: Yes inspection, Yes palpation and Yes ROM Neuro: SENSORIUM/ORIENTATION: Yes alert Skin: NARRATIVE SKIN EXAM: senile purpura lower ext. Course Vital Signs: Vital signs: Vital Signs Temperature 98.5 F 11/11/21 15:58 Pulse Rate 88 11/11/21 16:38 Respiratory Rate 16 11/11/21 16:38 Blood Pressure 160/100 11/11/21 16:38 Pulse Oximetry 96 11/11/21 16:38 MDM - Back Pain/Injury Medical Decision Making 81-year-old female comes in today for complaints of low back pain radiating into her left hip. Patient did have a dose of steroid on Monday and reported minimal relief. Patient denies any fever chills nausea or vomiting. On exam lungs are clear to auscultation. Abdomen soft nontender. Skin is warm and dry. No signs of redness or induration is noted. Differential diagnosis includes but not limited to lumbar radiculopathy, intervertebral disc disease, osteoarthritis of the hip, osteomyelitis. X-rays of the lumbar spine and the lower back and indicated significant degenerative disease without any signs of bone deterioration. Laboratory values were unremarkable. I think the patient's pain is probably most likely related due to the severe degeneration of the disks in the lumbar spine. I offered pain medication for patient including hydrocodone or tramadol but she wanted to avoid narcotics. Patient was encouraged to use acetaminophen and/or ibuprofen to help control her pain. Patient should also monitor for fever. Patient reported understanding of care plan and need for follow-up or return to the ER. Patient will continue with evaluation with oncology as she has a PET scan on Monday. Patient was agreeable to plan and need for follow-up Labs : 11/11/21 16:26 11/11/21 16: Laboratory Results WBC 7.1 10^3/uL (4.0-10.0) 11/11/21 16: RBC 3.89 10^6/uL (4.1-5.3) L 11/11/21 16: Hgb 11.5 g/dL (11.5-15.3) 11/11/21 16: Hct 35.2 % (37.0-47.0) L 11/11/21 16: MCV 90.5 fl (81-99) 11/11/21 16: MCH 29.6 pg (28.0-34.0) 11/11/21 16: MCHC 32.7 g/dL (30.0-36.0) 11/11/21 16: RDW 15.4 % (12.1-15.1) H 11/11/21 16: Plt Count 224 10^3/cmm (130-400) 11/11/21 16: MPV 9.4 fL (7.4-10.4) 11/11/21 16: Neut % (Auto) 75.1 % 11/11/21 16: Lymph % (Auto) 16.4 % 11/11/21 16: [place] % (Auto) 7.1 % 11/11/21 16: Eos % (Auto) 0.7 % 11/11/21 16: Baso % (Auto) 0.6 % 11/11/21 16: Neut # (Auto) 5.36 10^3/uL (1.8-7.7) 11/11/21: Lymph # (Auto) 1.2 10^3/uL (0.8-4.8) 11/11/21 16: [place] # (Auto) 0.5 10^3/uL (0.2-0.9) 11/11/21: Eos # (Auto) 0.1 10^3/uL (0.0-0.8) 11/11/21 16: Baso # (Auto) 0.0 10^3/uL (0.0-0.1) 11/11/21: Nucleated RBC % (auto) 0 % 11/11/21: Nucleated RBCs # 0.0 /100WBC 11/11/21 16: Sodium 137 mmol/L (136-145) 11/11/21 16: Potassium 3.5 mmol/L (3.5-5.1) 11/11/21 16: Chloride 101 mmol/L (98-107) 11/11/21 16:26 Carbon Dioxide 23 mmol/L (22-29) 11/11/21 16:26 Anion Gap 16.5 (5-19) 11/11/21 16:26 BUN 30 mg/dL (8-23) H 11/11/21 16:26 Creatinine 0.4 mg/dL (0.5-0.9) L 11/11/21 16:26 GFR Calculation Not Reportable 11/11/21 16:26 Glucose 93 mg/dL (65-115) 11/11/21 16:26 Calculated Osmolality 290 mOsm/kg (285-295) 11/11/21 16:26 Calcium 9.4 mg/dL (8.5-10.5) 11/11/21 16:26 Total Bilirubin 0.6 mg/dL (0.15-1.2) 11/11/21 16:26 AST 24 U/L (0-32) 11/11/21 16:26 ALT 11 U/L (0-33) 11/11/21 16:26 Alkaline Phosphatase 109 IU/L (35-105) H 11/11/21 16:26 Total Protein 7.5 g/dL (6.6-8.7) 11/11/21 16:26 Albumin 4.4 g/dL (3.5-5.2) 11/11/21 16:26 Globulin 3.1 g/dL (1.3-4.6) 11/11/21 16:26 Discharge Plan Discharge Patient Disposition: Home Clinical Impression: Lumbar radiculopathy Condition: Stable Prescriptions: No Action hydrocodone-acetaminophen 5-325 mg tablet 1 tab PO Q6H PRN (Reason: pain) Qty: 20 0RF Discharge Orders: Discharge ED (Routine); Ordered 11/11/21 Ordered By: Artie Mccray Referrals: Carl Burch DO [Primary Care Provider] - Discharge Diet: Usual diet Discharge Activity: Increase activity as tolerated Patient Instructions: Lumbar Radiculopathy (ED) Activity Restrictions/Additional Instructions: Try to maintain your normal activity as tolerated. Use acetaminophen and ibuprofen for pain. Use ice and heat for further pain relief. Monitor for fever. Return to ER for any signs of fever, chills, nausea or vomiting. Follow-up with primary care as needed. Coding Level of Care Code ED Drivability Technician for Maryg Fwnegrita Exam Comprehensive
--- NOTE | 2021-11-11 17:12 | XRR_ITS ---
PROCEDURE INFORMATION: Exam: XR Lumbosacral Spine Exam date and time: 11/11/2021 5:27 PM Age: 81 years old Clinical indication: Low back pain TECHNIQUE: Imaging protocol: XR of the lumbosacral spine. Views: 2 or 3 views. COMPARISON: CT chest abd pel w con* 05/07/2021 1:52 PM FINDINGS: Bones/joints: Lumbar spine levoscoliosis with a Moya angle of 21 degrees as measured between the superior endplate of T11 and inferior endplate of L5. T12 superior endplate compression deformity new compared to prior exam without retropulsion of bony fragments. Stable chronic L1 vertebral body compression fracture without retropulsion of bony fragments. Multilevel severe disc space narrowing throughout the lumbar spine. Soft tissues: Unremarkable. XR/XR lumbar spine 2-3V* [id number] IMPRESSION: 1. Lumbar spine levoscoliosis with a Moya angle of 21 degrees as measured between the superior endplate of T11 and inferior endplate of L5. 2. T12 superior endplate compression deformity new compared to prior exam without retropulsion of bony fragments. 3. Stable chronic L1 vertebral body compression fracture without retropulsion of bony fragments. 4. Multilevel severe disc space narrowing throughout the lumbar spine.
[2021-11-11] MEDS: ketorolac 30 mg/mL INJ IM (18:07)
== END 2021-11-11 18:10 | disposition home or self-care (01) ==
PROVIDERS: Physician Assistant; Emergency Provider Nurse Practitioner Family; PCP Family Medicine
DX: M54.16 Radiculopathy, lumbar region (principal)
CPT/HCPCS: 36415; 72100; 73502; 80053; 85025; 96372; 99283; J1885

== ENCOUNTER 2021-11-23 08:30 | Oncology outpatient (recurring) (ONCR) | payer MEDICARE, MEDICAID, SELFPAY ==
[2021-11-09 09:15] VITALS: BMI 22.8
[2021-11-09 09:23] LABS: Basophils % 0.7 %; Eosinophils # 0.1 10^3/uL (0.0-0.8); Eosinophils % 1.8 %; Hematocrit 33.8 % (37.0-47.0); Lymphocytes # 0.9 10^3/uL (0.8-4.8); Mean Corpuscular HGB Conc 32.5 g/dL (30.0-36.0); Mean Corpuscular Hemoglobin 29.6 pg (28.0-34.0); Mean Corpuscular Volume 90.9 fl (81-99); Mean Platelet Volume 9.5 fL (7.4-10.4); Monocytes # 0.5 10^3/uL (0.2-0.9); Monocytes % 8.9 %; Neutrophils # 4.46 10^3/uL (1.8-7.7); Neutrophils % 73.3 %; Nucleated Red Blood Cells % 0 %; Platelet Count 224 10^3/cmm (130-400); Red Blood Count 3.72 10^6/uL (4.1-5.3); Red Cell Distribution Width 15.5 % (12.1-15.1); White Blood Count 6.1 10^3/uL (4.0-10.0)
[2021-11-09 09:45] LABS: Carcinoembryonic Antigen 80.2 ng/mL (0.0-4.7)
[2021-11-09 09:56] LABS: Alanine Aminotransferase 11 U/L (0-33); Albumin Level 4.2 g/dL (3.5-5.2); Alkaline Phosphatase 96 IU/L (35-105); Aspartate Amino Transferase 22 U/L (0-32); Blood Urea Nitrogen 22 mg/dL (8-23); Calcium 9.5 mg/dL (8.5-10.5); Carbon Dioxide 23 mmol/L (22-29); Chloride 105 mmol/L (98-107); Globulin 2.9 g/dL (1.3-4.6); Glucose 88 mg/dL (65-115); Osmolality Calculated 289 mOsm/kg (285-295); Sodium 138 mmol/L (136-145); Total Bilirubin 0.4 mg/dL (0.15-1.2); Total Protein 7.1 g/dL (6.6-8.7)
[2021-11-09 11:06] VITALS: BP 169/107; PULSE 75; RESP 18; TEMP 36.4; O2SAT 98
[2021-11-09] MEDS: dextrose 5% 250 ML 75 ML IV (12:15)
[2021-11-09] MEDS: palonosetron 0.25 mg/5 mL SDV IVP (12:30)
[2021-11-09] MEDS: leucovorin 690 MG in dextrose 5% 250 ML 79.75 MG IV (12:54)
[2021-11-09] MEDS: dexamethasone 10 mg/mL INJ 6 MG IM (13:01)
[2021-11-09] MEDS: methylPREDNISolone (DEPO) 40 mg/mL INJ 1 mL IM (13:02)
[2021-11-09] MEDS: fluorouraciL 2,900 MG, elastomeric pump 1 PUMP in sodium chloride 0.9% (100 ml) 34 ML IV (16:34)
[2021-11-11 14:40] VITALS: BP 161/100; PULSE 86; RESP 18; TEMP 36.1; O2SAT 97
== END 2021-11-30 23:59 | disposition home or self-care (01) ==
PROVIDERS: PCP Family Medicine; Visit Provider Nurse Practitioner Family
DX: Z53.9 Procedure and treatment not carried out, unspecified reason (principal)
CPT/HCPCS: 80053; 82378; 85025; 96367; 96368; 96372; 96375; 96402; 96413; 96415; 96416; 96417; 96523; 99215; 99999; J0640; J1030; J1100; J2469; J9190; J9263

== ENCOUNTER 2021-12-16 13:00 | Oncology outpatient (recurring) (ONCR) | payer MEDICARE, MEDICAID, SELFPAY ==
--- NOTE | 2021-12-16 13:45 | ONCRAD EPV_ITS ---
Radiation Oncology Follow-Up Note Patient Name: Macy Guevara Date of : 1940 Date of Service: 12/16/2021 Attending Physician: Aldo Newman M.D. Macy Guevara was evaluated this afternoon for consideration of radiotherapy concerning the management of metastatic rectal cancer. A colonoscopy performed on December 01, 2020 on account of the patient's symptom of hematochezia identified a circumferential mass extending 2 cm from the anal verge distally 10 cm. Biopsies diagnosed a moderately differentiated invasive adenocarcinoma. The tumor demonstrated normal expression of DNA mismatch repair proteins. Initial lab studies indicated anemia (8 g/dL) and the CEA was 31.2 ng/mL. A PET/CT ordered on December 26, 2020 confirmed a 3.8 cm rectal mass with an SUV of 25.5, perirectal, left external iliac, and right common iliac lymphadenopathy. Total neoadjuvant chemotherapy with CapeOX was prescribed. Cycle 1 was administered on February 01, 2021. Severe adverse events developed including diarrhea, electrolyte imbalance, and a TIA resulting in discontinuation of chemotherapy. An abdominoperineal resection with a radical en bloc hysterectomy and vaginectomy and vaginal reconstruction performed by Naun Simon M.D. on June 08, 2021 (the operative report and pathology template were requested from the outside hospital and personally reviewed). There were 2 masses identified in the distal rectum 1 cm apart measuring 5.5 cm and 3 cm, respectively. The tumor directly invaded the vaginal wall. Tumor extended to the mesorectal margin. A total of 13 lymph nodes were harvested without metastases identified, however, two mesenteric deposits were described. A post-operative CEA level was 21.5 ng/mL (August 09, 2020). A PET scan obtained on August 14, 2021 reported a right perirectal node measuring 1.1 cm (SUV 6.2), a right inguinal node measuring 1.4 cm (no SUV reported), and a 2.1 cm central right hepatic lobe lesion (SUV 11.9). Modified FOLFOX was prescribed (September 28, 2021 through November 09, 2021). She was prescribed 4 cycles of modified FOLFOX between the dates of September 28, 2021 through November 09, 2021. A CEA level ordered at this time was 80.2 ng/mL. A repeat PET scan (independently reviewed in [facility]) completed on November 13, 2021 described progression of the right perirectal node and central right hepatic lobe lesion, in addition to, a new 1.6 cm right hepatic dome lesion (SUV 7). The patient was evaluated for stereotactic ablative body radiotherapy for the hepatic metastases. I discussed with the patient the role of stereotactic ablative body radiotherapy for the management of recurrent lung cancer. I also reviewed the SABR-COMET trial that enrolled patients with a controlled primary malignancy and 1-5 metastatic lesions to SBRT or palliative standard of care. This radiotherapy modality provided a 22-month median overall survival benefit in comparison to palliative management. I anticipate an ultra-hypofractionated course of stereotactic radiotherapy. A 4-dimensional computed tomographic radiotherapy planning will be acquired to delineate the gross tumor volume preceding implementation of treatment. Potential toxicities of stereotactic body radiotherapy to the liver were reviewed. The patient has verbalized understanding and will consider this treatment recommendation. Her medical treatment plan was discussed with Tanya Espinoza M.D. Signed by: Dr. Aldo Newman 12/16/2021 1:51:22 PM
== END 2021-12-30 23:59 | disposition home or self-care (01) ==
PROVIDERS: PCP Family Medicine; Visit Provider Radiology Radiation Oncology
DX: Z53.9 Procedure and treatment not carried out, unspecified reason (principal)
CPT/HCPCS: 99214; 99215

== ENCOUNTER 2021-12-31 10:27 | Oncology outpatient (recurring) (ONCR) | payer MEDICARE, MEDICAID, SELFPAY | END 2021-12-31 23:59 | disposition home or self-care (01) | PROVIDERS: PCP Family Medicine; Visit Provider Radiology Radiation Oncology | DX: C20 Malignant neoplasm of rectum (principal); D64.9 Anemia, unspecified; Z93.3 Colostomy status; M54.50 Low back pain, unspecified | CPT/HCPCS: 99214 ==

== ENCOUNTER → 2022-02-24 09:05 | Outpatient (BNVA) | payer MEDICARE, MEDICAID, SELFPAY | PROVIDERS: PCP Family Medicine; Visit Provider Family Medicine | DX: C20 Malignant neoplasm of rectum (principal); Z20.822 Contact with and (suspected) exposure to COVID-19 | CPT/HCPCS: 87635 ==

== ENCOUNTER → 2022-04-28 07:50 | Outpatient (BNVA) | payer MEDICARE, MEDICAID, SELFPAY | PROVIDERS: PCP Family Medicine; Visit Provider Clinical Nurse Specialist Adult Health | DX: N39.0 Urinary tract infection, site not specified (principal) | CPT/HCPCS: 81000; 87086 ==

== ENCOUNTER → 2022-05-12 09:33 | Outpatient (BNVA) | payer MEDICARE, MEDICAID, SELFPAY | PROVIDERS: PCP Family Medicine; Visit Provider Family Medicine | DX: N39.0 Urinary tract infection, site not specified (principal) | CPT/HCPCS: 81000 ==

== ENCOUNTER → 2022-06-06 13:43 | Outpatient (BNVA) | payer MEDICARE, MEDICAID, SELFPAY | PROVIDERS: PCP Family Medicine; Visit Provider Surgery | DX: C20 Malignant neoplasm of rectum (principal) | CPT/HCPCS: 99213 ==

== ENCOUNTER → 2022-07-12 09:24 | Outpatient (BNVA) | payer MEDICARE, MEDICAID, SELFPAY | PROVIDERS: PCP Family Medicine; Visit Provider Clinical Nurse Specialist Adult Health | DX: N39.0 Urinary tract infection, site not specified (principal) | CPT/HCPCS: 81000; 87086 ==

== ENCOUNTER → 2022-07-13 15:29 | Outpatient (BNVA) | payer MEDICARE, MEDICAID, SELFPAY | PROVIDERS: PCP Family Medicine; Visit Provider Surgery | DX: Z95.828 Presence of other vascular implants and grafts (principal) | CPT/HCPCS: 99213 ==

== ENCOUNTER 2022-07-21 08:16 | Day surgery (SDC) | payer MEDICARE, MEDICAID, SELFPAY ==
--- NOTE | 2022-07-20 15:20 | PC.NURSE ---
phone pre-op attempted. PT was very short and verbalized her annoyance with my call. She refused to participate and told me to hurry up. I told her the arrival time as of now and she told me that did not work for her and I would need to change her time to after 10am because that is when her ride is picking her up. Ms. Guevara then started yelling at me when I told her I could not change the time myself, she then proceeded to hang up on me. Part of her instructions were given.
[2022-07-21] VITALS (9 sets, daily range): BP systolic 121–176; BP diastolic 81–105; PULSE 83–96; RESP 15–22; TEMP 36.1–36.8; O2SAT 91–99
[2022-07-21] MEDS: sodium chloride 0.9% 1,000 ML 30 ML IV (09:00)
--- NOTE | 2022-07-21 09:21 | P.ANESASSM_ITS ---
Pre-Anesthetic Assessment Height/Weight: Height 1.68 m Weight 65.771 kg Temp Pulse Resp BP Pulse Ox O2 Del Method 98.2 F 96 16 172/105 99 07/21/22 09:13 07/21/22 09:13 07/21/22 09:13 07/21/22 09:13 07/21/22 09:13 07/21/22 09:13 Preop Diagnosis: Mediport in place Operation Date: 07/21/22 09:50 Proposed Procedures p [id number] port a cath removal ,Z95.828(Not Applicable) - Jeffrey Crum DO Familial anesthetic complications: none Was Beta Dorota taken within 24 hours: Yes Was Clonidine taken within 24 hours: N/A Last intake: Intake Last Liquid Date 07/20/22 Last Liquid Time 23:30 Last Solid Date 07/20/22 Last Solid Time 23:30 Social Tobacco and No alcohol Exam alert, oriented x 3 and regular rate & rhythm Airway Submandibular: within normal limits Cervical ROM: within normal limits Mallampati: Class III Dentition: full Pulmonary Chronic Obstructive Pulmonary Disease CV/HEM Anemia GI rectal CA Anesthetic Plan ASA status: 3 Anesthesia: MAC Medications/Allergies Home Medications Medication Instructions Recorded Confirmed Last Taken Type ibuprofen 200 mg tablet 400 mg PO Q6H PRN Pain 12/14/21 07/21/22 07/20/22 History loratadine 10 mg tablet (Allergy 10 mg PO DAILY #90 tabs 02/07/22 07/20/22 07/20/22 Rx Relief (loratadine)) diphenoxylate-atropine 2.5 1 tab PO TID PRN diarrhea #30 tabs 03/10/22 07/20/22 Unknown Rx mg-0.025 mg tablet (Lomotil) docusate sodium 100 mg capsule 100 mg PO BID stool softening #180 05/12/22 07/20/22 07/19/22 Rx caps labetalol 100 mg tablet 100 mg PO BID #180 tabs 06/06/22 07/21/22 2 Days Ago Rx ~07/19/22 Allergies Allergy/AdvReac Type Severity Reaction Status Date / Time No Known Allergies Allergy Verified 07/21/22 08:43 [facility] Anesthesia Medical History Anasarca Arthritis Bleeding per rectum Anal mass, biopsies were obtained to rule out anal cancer Brain TIA CVA (cerebral vascular accident) Dehydration Diarrhea Diverticulosis DVT (deep venous thrombosis) Elevated troponin Generalized weakness Hypertension Hypokalemia Rectal cancer Surgical History H/O rhinoplasty History of colonoscopy 2010 History of nasal surgery History of tonsillectomy Family History Father CAD (coronary artery disease) Mother Cancer Hypertension Denies family history of Diabetes Social History Smoking and tobacco status: never smoked Alcohol intake: never Lives independently: Yes Household members: none Housing: Apartment Marital status: Single Female Reproductive History Date of last menstrual period: 09/24/20 Data Anesthesia Cardiac Studies: Echocardiogram 03/28/21
--- NOTE | 2022-07-21 09:25 | W.PM.OPSUD ---
Surgery/Procedure H&P Update DATE OF PROCEDURE: July 21, 2022 DATE H&P PERFORMED: 07/13/22 PREOP DIAGNOSIS: Mediport in place PLANNED PROCEDURE: Operation Date: 07/21/22 09:50 Proposed Procedures p [id number] port a cath removal ,Z95.828(Not Applicable) - Jeffrey Crum DO
[2022-07-21] MEDS: ceFAZolin 2,000 MG in sodium chloride 0.9% (plus) 50 ML 100 MG IV (09:34)
--- NOTE | 2022-07-21 10:01 | PM.OP ---
Operative Report Date of procedure: July 21, 2022 Pre-op diagnosis: Preop Diagnosis Mediport in place Post-op diagnosis: other (Mediport removed) Procedure done: Mediport removal Specimens removed/disposition: Mediport-not sent to pathology Anesthesia: MAC Estimated blood loss (mL): 5 Complications: None apparent Brief History: This very pleasant 81-year-old female who is refusing further chemotherapy and desires Mediport removal. The risks and benefits were explained and documented. Procedure: AWC Mediport removal
--- NOTE | 2022-07-21 10:17 | PC.NURSE ---
patient awake. Airway removed
--- NOTE | 2022-07-21 13:51 | ANE.PACU2 ---
Inpatient post-anesthesia follow up: Airway intact: Yes Vital signs: Temperature 97 F Pulse Rate 84 Respiratory Rate 16 Blood Pressure 160/100 Pulse Oximetry 92 Oxygen Delivery Me thod Room Air Oxygen Flow Rate 8 Fraction of Inspir ed Oxygen Hydration adequate: Yes Nausea and vomiting: No Pain level: 2 Mental status: Baseline
== END 2022-07-21 11:10 | disposition home or self-care (01) ==
PROVIDERS: PCP Family Medicine; Visit Provider Surgery
PROC: (CPT 36589; principal; 2022-07-21 09:40)
DX: Z45.2 Encounter for adjustment and management of vascular access device (principal); Z95.828 Presence of other vascular implants and grafts; J44.9 Chronic obstructive pulmonary disease, unspecified; Z85.048 Personal history of other malignant neoplasm of rectum, rectosigmoid junction, and anus; M19.90 Unspecified osteoarthritis, unspecified site; Z86.73 Personal history of transient ischemic attack (TIA), and cerebral infarction without residual deficits; Z86.718 Personal history of other venous thrombosis and embolism; I10 Essential (primary) hypertension
CPT/HCPCS: 36590; J0690; J2704; J3010; J7030

== ENCOUNTER 2022-08-06 09:52 | Emergency (ER) | payer MEDICARE, MEDICAID, SELFPAY ==
[2022-08-06] VITALS (10 sets, daily range): BP systolic 147–187; BP diastolic 82–122; PULSE 87–119; RESP 17–20; TEMP 36.9; O2SAT 92–96; BMI 22.6
--- NOTE | 2022-08-06 10:30 | ED_ITS ---
HPI - Female Genitourinary General: Chief complaint: Urogenital-Female Stated complaint: Blood in urine Time Seen by Provider: 08/06/22 10:23 Source: patient Mode of arrival: ambulatory History of Present Illness: 82-year-old female rectal cancer who recently had a procedure done now has blood in her urine. She denies any dysuria urgency or frequency. 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 She not currently getting any treatment. She comes in complaining of pain on the right side and co mplaining of gross hematuria. She denies fever sweats or chills or recent illness. Pertinent past history: other (Rectal CA) Onset (ago): day(s) Severity: mild Female Urogenital Radiation: R Flank Quality of pain: sharp Consistency: constant Urinary symptoms: Hematuria Exacerbating factors: none Relieving factors: none Associated symptoms: Reports abdominal pain; Deny short of breath, fevers/chills, headache(s), nausea, rash, seizures, syncope, vaginal bleeding, vaginal discharge or weakness Treatment prior to arrival: none Date of Last Menstrual Period: 09/24/20 Review of Systems Const: Reports: fatigue and malaise; Denies: fever(s), chills, body aches or change in appetite ENMT: Denies: throat pain, ear or mastoid pain, nasal discharge or nasal con gestion Card: Denies: syncope Resp: Denies: dyspnea, productive cough or non-productive cough GI: Reports: abdominal pain, bloating and GI cramping; Denies: nausea or vomiting : Reports: dysuria and hematuria; Denies: urinary frequency, urinary urgency or vaginal discharge Skin/Breast: Denies: rash or pruritus Neuro: Denies: headache(s) PFSH ED PFSH: Medical History Anasarca Arthritis Bleeding per rectum Anal mass, biopsies were obtained to rule out anal cancer Brain TIA CVA (cerebral vascular accident) Dehydration Diarrhea Diverticulosis DVT (deep venous thrombosis) Elevated troponin Generalized weakness Hypertension Hypokalemia Rectal cancer Surgical History H/O rhinoplasty History of colonoscopy 2011 History of nasal surgery History of tonsillectomy Family History Father CAD (coronary artery disease) Mother Cancer Hypertension Denies family history of Diabetes Social History Smoking and tobacco status: never smoked Alcohol intake: never Lives independently: Yes Household members: none Housing: Apartment Marital status: Single Female Reproductive History: Date of last menstrual period: 09/24/20 Physical Exam Const: COMMON NORMALS: no acute distress GENERAL APPEARANCE: cooperative a nd comfortable ORIENTATION/CONSCIOUSNESS: Yes awake, Yes oriented to person, Yes oriented to place and Yes oriented to time HENMT: COMMON NORMALS: normocephalic, atraumatic and hearing grossly normal bilaterally HEAD & SCALP: normocephalic and atraumatic Resp: COMMON NORMALS: normal respiratory effort, No retractions, No use of accessory muscles and clear to auscultation bilaterally AUSCULTATION: clear to auscultation bilaterally Cardio: COMMON NORMALS: regular rate, regular rhythm and No murmurs present (Cardio) RATE: regular rate RHYTHM: regular rhythm GI: COMMON NORMALS: Soft to palpation and No hepatosplenomegaly present A USCULTATION: Yes normoactive bowel sounds PALPATION: Yes Soft to palpation, No Tenderness to palpation present (GI), No Guarding due to palpation present (GI) and Yes No hepatosplenomegaly present : BLADDER/KIDNEY EXAM: Yes CVA tenderness SPECULUM EXAM - VAGINA: No vaginal bleeding OB/EXTERNAL & SPECULUM: No vaginal bleeding Back/Pelvis: GENERAL BACK: Yes CVA tenderness CVA tenderness: right Extremity: COMMON NORMALS: normal to inspection, capillary refill normal, no clubbing, cyanosis or edema, no calf tenderness and no pedal edema Neuro: SENSORIUM/ORIENTATION: Yes oriented to person, Yes oriented to place and Yes oriented to time Skin: COMMON NORMALS: no rashes or lesions noted GENERAL SKIN EXAM: no rashes or lesions noted Course Vital Signs: Vital signs: Vital Signs Temperature 98.4 F 08/06/22 10:17 Pulse Rate 87 08/06/22 23:23 Respiratory Rate 18 08/06/22 23:23 Blood Pressure 149/82 08/06/22 23:23 Pulse Oximetry 93 08/06/22 23:23 Oxygen Delivery Me thod 08/06/22 14:22 MDM - Female Medical Decision Making TransferTumor blocking the right ureter impinging causing severe hydronephrosis. Discussed with the patient for IR and urology capabilities to place stent. Patient expresses understanding. We will to get [facility] and [facility] to accept. Patient is an ER to ER transfer really or evaluate her in the emergency room. Medical Records I reviewed the patient's medical records. Lab Data I reviewed the patient's lab results. 08/06/22 11:28 08/06/22 11:28 Radiology Impressions Abdomen/Pelvis CT 08/06/22 12:16 IMPRESSION: 1. Severe right hydronephrosis and hydroureter with a suspected soft tissue density mass in the distal right ureter, not well characterized, delayed phase CT imaging could further evaluate this. Additionally at the right ureterovesical junction/posterior aspect of the right ureter is a 6.4 cm soft tissue density, series 4, image 165 suggestive of tumor involvement in this region as well. 2. Left deep pelvis 3.9 cm soft tissue mass in the perirectal fat along with suspected masslike thickening of the rectum and anus with a soft tissue mass extending to the coccygeal region measuring up to 5.3 cm suggestive of an underlying colonic malignancy. 3. Left kidney parapelvic renal cysts. 4. Constipation. 5. Left-sided ostomy site. 6. 2.3 cm short axis probable enlarged metastatic lymph node adjacent to the left common iliac artery with several additional enlarged lymph nodes near the aortic bifurcation and in the left upper pelvis.. 7. Cholelithiasis. 8. Diverticulosis without diverticulitis. 9. L1 vertebral body chronic compression fracture with mild retropulsion of bony fragments with minimal spinal canal narrowing, similar to prior exam. 10. Trace pericardial effusion. 11. Emphysematous changes. 12. Right middle lobe 15 mm pulmonary nodule incompletely visualized, dedicated chest CT advised for further evaluation, finding appears new compared to prior exam. An additional 16 mm nodule is seen in the lower portion of the right middle lobe abutting the pleura. 13. Right hepatic dome low-density lesion measuring up to at least 4.2 cm concerning for metastatic disease with several additional suspected lesions, CT abdomen pelvis with intravenous contrast could better evaluate this. 14. Enlarged inguinal lymph nodes bilaterally measuring up to 19 mm on the right likely reflecting metastatic disease. COMMENTS: Consistent with the [employer]'s Incidental Findings Committee white paper (J Am Laureano Radiol 2018): Any incidental renal lesion less than 1 cm or classified as too small to characterize, or any incidental cystic renal lesion characterized as simple-appearing, is likely benign. No follow-up imaging is recommended for these lesions per consensus recommendations based on imaging criteria. Laboratory Results WBC 7.4 10^3/uL (4.0-10.0) 08/06/22 11:28 RBC 3.81 10^6/uL (4.1-5.3) L 08/06/22 11:28 Hgb 10.6 g/dL (11.5-15.3) L 08/06/22 11:28 Hct 33.8 % (37.0-47.0) L 08/06/22 11:28 MCV 88.7 fl (81-99) 08/06/22 11:28 MCH 27.8 pg (28.0-34.0) L 08/06/22 11:28 MCHC 31.4 g/dL (30.0-36.0) 08/06/22 11:28 RDW 14.8 % (12.1-15.1) 08/06/22 11:28 Plt Count 332 10^3/cmm (130-400) 08/06/22 11:28 MPV 9.7 fL (7.4-10.4) 08/06/22 11:28 Neut % (Auto) 78.1 % 08/06/22 11:28 Lymph % (Auto) 11.3 % 08/06/22 11:28 [place] % (Auto) 8.1 % 08/06/22 11:28 Eos % (Auto) 1.7 % 08/06/22 11:28 Baso % (Auto) 0.5 % 08/06/22 11:28 Neut # (Auto) 5.81 10^3/uL (1.8-7.7) 08/06/22 11:28 Lymph # (Auto) 0.8 10^3/uL (0.8-4.8) 08/06/22 11:28 [place] # (Auto) 0.6 10^3/uL (0.2-0.9) 08/06/22 11:28 Eos # (Auto) 0.1 10^3/uL (0.0-0.8) 08/06/22 11:28 Baso # (Auto) 0.0 10^3/uL (0.0-0.1) 08/06/22 11:28 Nucleated RBC % (auto) 0 % 08/06/22 11:28 Nucleated RBCs # 0.0 /100WBC 08/06/22 11:28 Sodium 133 mmol/L (136-145) L 08/06/22 11:28 Potassium 4.3 mmol/L (3.5-5.1) 08/06/22 11:28 Chloride 98 mmol/L (98-107) 08/06/22 11:28 Carbon Dioxide 23 mmol/L (22-29) 08/06/22 11:28 Anion Gap 16.3 (5-19) 08/06/22 11:28 BUN 25 mg/dL (8-23) H 08/06/22 11:28 Creatinine 0.8 mg/dL (0.5-0.9) 08/06/22 11:28 GFR Calculation Not Reportable 08/06/22 11:28 Glucose 95 mg/dL (65-115) 08/06/22 11:28 Calculated Osmolality 280 mOsm/kg (285-295) L 08/06/22 11:28 Calcium 8.9 mg/dL (8.5-10.5) 08/06/22 11:28 Urine Color Red (Yellow) 08/06/22 11:00 Urine Appearance Bloody (CLEAR) A 08/06/22 11:00 Urine pH 6 (5-7) 08/06/22 11:00 Ur Specific [place] 1.020 (1.005-1.030) 08/06/22 11:00 Urine Protein 2+ (Negative) H 08/06/22 11:00 Urine Glucose (UA) Norm (Normal) 08/06/22 11:00 Urine Ketones Negative (Negative) 08/06/22 11:00 Urine Blood 3+ (Negative) H 08/06/22 11:00 Urine Nitrate Negative (Negative) 08/06/22 11:00 Urine Bilirubin Neg (Negative) 08/06/22 11:00 Urine Urobilinogen Norm mg/dL (Negative) 08/06/22 11:00 Ur Leukocyte Esterase Negative (Negative) 08/06/22 11:00 Urine RBC Too numerous to cnt /hpf (0-2) H 08/06/22 11:00 Urine WBC 5-10 /hpf (0-5) H 08/06/22 11:00 Ur Squamous Epith Cells None /hpf (0-5) 08/06/22 11:00 Amorphous Sediment Not Reportable 08/06/22 11:00 Urine Bacteria 2+ /hpf (NONE) H 08/06/22 11:00 Urine Mucus Trace /hpf 08/06/22 11:00 SARS-CoV-2 Ag (Rapid) negative (Negative) 08/06/22 18:30 Discharge Plan Discharge Patient Disposition: Transfer to ED Condition: Stable Prescriptions: No Action loratadine [Allergy Relief (loratadine)] 10 mg tablet 10 mg PO DAILY Qty: 90 3RF docusate sodium 100 mg capsule 200 mg PO BID labetalol 100 mg tablet 100 mg PO BID Referrals: Carl Burch DO [Primary Care Provider] - Coding Level of Care Code ED Manager [facility]
[2022-08-06 11:46] LABS: Basophils % 0.5 %; Eosinophils # 0.1 10^3/uL (0.0-0.8); Eosinophils % 1.7 %; Hematocrit 33.8 % (37.0-47.0); Hemoglobin 10.6 g/dL (11.5-15.3); Lymphocytes # 0.8 10^3/uL (0.8-4.8); Lymphocytes % 11.3 %; Mean Corpuscular HGB Conc 31.4 g/dL (30.0-36.0); Mean Corpuscular Hemoglobin 27.8 pg (28.0-34.0); Mean Corpuscular Volume 88.7 fl (81-99); Mean Platelet Volume 9.7 fL (7.4-10.4); Monocytes # 0.6 10^3/uL (0.2-0.9); Monocytes % 8.1 %; Neutrophils # 5.81 10^3/uL (1.8-7.7); Neutrophils % 78.1 %; Nucleated Red Blood Cells % 0 %; Platelet Count 332 10^3/cmm (130-400); Red Blood Count 3.81 10^6/uL (4.1-5.3); Red Cell Distribution Width 14.8 % (12.1-15.1); White Blood Count 7.4 10^3/uL (4.0-10.0)
[2022-08-06 11:57] LABS: Bilirubin Urine Neg (Negative); Blood Urine 3+ (Negative); Glucose Urine UA Norm (Normal); Ketones Urine Negative (Negative); Leukocyte Esterase Urine Negative (Negative); Nitrate Urine Negative (Negative); Protein Urine 2+ (Negative); Urine Appearance Bloody (CLEAR); Urine Color Red (Yellow); Urobilinogen Urine Norm (Negative); pH Urine 6 (5-7)
[2022-08-06 11:58] LABS: Add Urine Culture? Yes; Add Urine Microscopic? YES; Bacteria Urine 2+ /hpf; Mucus Urine TRACE /hpf; RBC Urine TOO NUMEROUS TO CNT /hpf (0-2)
[2022-08-06 12:07] LABS: Anion Gap 16.3 (5-19); Blood Urea Nitrogen 25 mg/dL (8-23); Calcium 8.9 mg/dL (8.5-10.5); Carbon Dioxide 23 mmol/L (22-29); Chloride 98 mmol/L (98-107); Creatinine Clr Calc Pharmacy 53.9938; Glucose 95 mg/dL (65-115); Osmolality Calculated 280 mOsm/kg (285-295); Potassium 4.3 mmol/L (3.5-5.1); Sodium 133 mmol/L (136-145)
--- NOTE | 2022-08-06 12:16 | CTR_ITS ---
PROCEDURE INFORMATION: Exam: CT Abdomen And Pelvis Without Contrast Exam date and time: 08/06/2022 12:49 PM Age: 82 years old Clinical indication: Abdominal pain; Flank; Left; Prior surgery; Surgery type: Gb; Additional info: Hematuria TECHNIQUE: Imaging protocol: Computed tomography of the abdomen and pelvis without contrast. Radiation optimization: All CT scans at this facility use at least one of these dose optimization techniques: automated exposure control; mA and/or kV adjustment per patient size (includes targeted exams where dose is matched to clinical indication); or iterative reconstruction. Other protocol: This patient has received 2 known CTs and 0 known cardiac nuclear medicine studies in the 12 months prior to the current study. COMPARISON: CT chest abdpel w/*[id number] 05/07/2021 1:52 PM RADIATION DOSE METRICS: Total DLP (mGy-cm): 440.44 FINDINGS: Lungs: Emphysematous changes. Right middle lobe 15 mm pulmonary nodule incompletely visualized, dedicated chest CT advised for further evaluation, finding appears new compared to prior exam. An additional 16 mm nodule is seen in the lower portion of the right middle lobe abutting the pleura. Heart: Trace pericardial effusion. Liver: Right hepatic dome low-density lesion measuring up to at least 4.2 cm concerning for metastatic disease with several additional suspected lesions, CT abdomen pelvis with intravenous contrast could better evaluate this. Gallbladder and bile ducts: Cholelithiasis. Pancreas: Normal. No ductal dilation. Spleen: Normal. No splenomegaly. Adrenal glands: Normal. No mass. Kidneys and ureters: Severe right hydronephrosis and hydroureter with a suspected soft tissue density mass in the distal right ureter, not well characterized, delayed phase CT imaging could further evaluate this. Additionally at the right ureterovesical junction/posterior aspect of the right ureter is a 6.4 cm soft tissue density, series 4, image 165 suggestive of tumor involvement in this region as well. Left kidney parapelvic renal cysts. Stomach and bowel: Left deep pelvis 3.9 cm soft tissue mass in the perirectal fat along with suspected masslike thickening of the rectum and anus with a soft tissue mass extending to the coccygeal region measuring up to 5.3 cm suggestive of an underlying colonic malignancy. Constipation. Left-sided ostomy site. Diverticulosis without diverticulitis. Appendix: No evidence of appendicitis. Intraperitoneal space: Unremarkable. No free air. No significant fluid collection. Vasculature: Unremarkable. No abdominal aortic aneurysm. Lymph nodes: 2.3 cm short axis probable enlarged metastatic lymph node adjacent to the left common iliac artery with several additional enlarged lymph nodes near the aortic bifurcation and in the left upper pelvis. Enlarged inguinal lymph nodes bilaterally measuring up to 19 mm on the right likely reflecting metastatic disease. Urinary bladder: Unremarkable as visualized. Reproductive: Unremarkable as visualized. Bones/joints: L1 vertebral body chronic compression fracture with mild retropulsion of bony fragments with minimal spinal canal narrowing, similar to prior exam. Chronic left pubic symphysis fracture. Soft tissues: Unremarkable. CT/CT kidney stone [id number] IMPRESSION: 1. Severe right hydronephrosis and hydroureter with a suspected soft tissue density mass in the distal right ureter, not well characterized, delayed phase CT imaging could further evaluate this. Additionally at the right ureterovesical junction/posterior aspect of the right ureter is a 6.4 cm soft tissue density, series 4, image 165 suggestive of tumor involvement in this region as well. 2. Left deep pelvis 3.9 cm soft tissue mass in the perirectal fat along with suspected masslike thickening of the rectum and anus with a soft tissue mass extending to the coccygeal region measuring up to 5.3 cm suggestive of an underlying colonic malignancy. 3. Left kidney parapelvic renal cysts. 4. Constipation. 5. Left-sided ostomy site. 6. 2.3 cm short axis probable enlarged metastatic lymph node adjacent to the left common iliac artery with several additional enlarged lymph nodes near the aortic bifurcation and in the left upper pelvis.. 7. Cholelithiasis. 8. Diverticulosis without diverticulitis. 9. L1 vertebral body chronic compression fracture with mild retropulsion of bony fragments with minimal spinal canal narrowing, similar to prior exam. 10. Trace pericardial effusion. 11. Emphysematous changes. 12. Right middle lobe 15 mm pulmonary nodule incompletely visualized, dedicated chest CT advised for further evaluation, finding appears new compared to prior exam. An additional 16 mm nodule is seen in the lower portion of the right middle lobe abutting the pleura. 13. Right hepatic dome low-density lesion measuring up to at least 4.2 cm concerning for metastatic disease with several additional suspected lesions, CT abdomen pelvis with intravenous contrast could better evaluate this. 14. Enlarged inguinal lymph nodes bilaterally measuring up to 19 mm on the right likely reflecting metastatic disease. COMMENTS: Consistent with the [employer]'s Incidental Findings Committee white paper (J Am Laureano Radiol 2018): Any incidental renal lesion less than 1 cm or classified as too small to characterize, or any incidental cystic renal lesion characterized as simple-appearing, is likely benign. No follow-up imaging is recommended for these lesions per consensus recommendations based on imaging criteria.
[2022-08-06] MEDS: ondansetron 2 mg/ML SDV 2 mL 4 MG IVP (15:37)
[2022-08-06] MEDS: morphine 4 mg/mL SDV 1 mL IVP ×2 (15:37→22:55)
[2022-08-06] MEDS: hyDRALAzine 20 mg/mL INJ 1 mL 10 MG IVP (17:08)
[2022-08-06] MEDS: morphine 4 mg/mL SDV 1 mL 2 MG IVP (17:58)
[2022-08-06 18:53] LABS: SARS Covid-2 Antigen negative (Negative)
== END 2022-08-06 23:25 ==
PROVIDERS: Emergency Provider Family Medicine; PCP Family Medicine
DX: R31.9 Hematuria, unspecified (principal); Z20.822 Contact with and (suspected) exposure to COVID-19; Z86.73 Personal history of transient ischemic attack (TIA), and cerebral infarction without residual deficits; I10 Essential (primary) hypertension; Z85.048 Personal history of other malignant neoplasm of rectum, rectosigmoid junction, and anus
CPT/HCPCS: 36415; 51701; 74176; 80048; 81001; 85025; 87086; 87426; 96374; 96375; 96376; 99285; J0360; J2270; J2405

== ENCOUNTER 2022-08-17 10:19 | Emergency (ER) | payer MEDICARE, MEDICAID, SELFPAY ==
[2022-08-17 10:24] VITALS: BP 142/94; PULSE 89; TEMP 36.1; O2SAT 95; BMI 25.2
[2022-08-17 11:00] VITALS: BP 157/111; PULSE 79; RESP 16; O2SAT 93
--- NOTE | 2022-08-17 11:03 | W.ED.FEMALGU ---
HPI - Female Genitourinary General: Chief complaint: Urogenital-Female Stated complaint: bladder bag needs fixed Time Seen by Provider: 08/17/22 10:24 Source: patient Mode of arrival: ambulatory History of Present Illness: 82-year-old female who presents emergency room with leaking at the junction of her nephrostomy tube to the collection bag. Denies any pain or problems other than just a urine bag leaking and would like a different bag. She has it wrapped in a plastic grocery bag to prevent leakage onto her clothing. Patient was recently seen here in the emergency room and transferred to another facility to have a nephrostomy tube placed by interventional radiology after portion of her tumor had obstructed her right ureter. Associated symptoms: Deny abdominal pain or nausea Date of Last Menstrual Period: 09/24/20 Review of Systems Const: Denies: fever(s), chills, body aches, change in appetite, fatigue or malaise ENMT: Denies: throat pain, ear or mastoid pain, nasal discharge or nasal congestion Card: Denies: chest pain, edema, dyspnea on exertion or orthopnea Resp: Denies: dyspnea, productive cough or non-productive cough GI: Denies: abdominal pain, nausea, vomiting, hematemesis, coffee ground emesis, diarrhea, constipation, bloating, hematochezia or melena : Denies: flank pain, difficulty voiding, dysuria, urinary frequency or urinary urgency Skin/Breast: Denies: rash or pruritus PFS ED PFSH: Medical History Anasarca Arthritis Bleeding per rectum Anal mass, biopsies were obtained to rule out anal cancer Brain TIA CVA (cerebral vascular accident) Dehydration Diarrhea Diverticulosis DVT (deep venous thrombosis) Elevated troponin Generalized weakness Hypertension Hypokalemia Rectal cancer Surgical History H/O rhinoplasty History of colonoscopy 2011 History of nasal surgery History of tonsillectomy Family History Father CAD (coronary artery disease) Mother Cancer Hypertension Denies family history of Diabetes Social History Smoking and tobacco status: never smoked Alcohol intake: never Lives independently: Yes Household members: none Housing: Apartment Marital status: Single Female Reproductive History: Date of last menstrual period: 09/24/20 Physical Exam Const: GENERAL APPEARANCE: cooperative and comfortable ORIENTATION/CONSCIOUSNESS: Yes awake, Yes oriented to person, Yes oriented to place and Yes oriented to time HENMT: COMMON NORMALS: normocephalic and atraumatic HEAD & SCALP: normocephalic and atraumatic Resp: COMMON NORMALS: normal respiratory effort, No retractions, No use of accessory muscles and clear to auscultation bilaterally AUSCULTATION: clear to auscultation bilaterally Cardio: COMMON NORMALS: regular rate, regular rhythm and No murmurs present (Cardio) RATE: regular rate RHYTHM: regular rhythm GI: COMMON NORMALS: Soft to palpation and No hepatosplenomegaly present AUSCULTATION: Yes normoactive bowel sounds PALPATION: Yes Soft to palpation, No Tenderness to palpation present (GI), No Guarding due to palpation present (GI) and Yes No hepatosplenomegaly present Extremity: COMMON NORMALS: normal to inspection, capillary refill normal, no clubbing, cyanosis or edema, no calf tenderness and no pedal edema Neuro: SENSORIUM/ORIENTATION: Yes oriented to person, Yes oriented to place and Yes oriented to time Skin: COMMON NORMALS: no rashes or lesions noted GENERAL SKIN EXAM: no rashes or lesions noted Course Vital Signs: Vital signs: Vital Signs Temperature 96.9 F L 08/17/22 10:24 Pulse Rate 78 08/17/22 12:00 Respiratory Rate 16 08/17/22 12:00 Blood Pressure 157/111 08/17/22 11:00 Pulse Oximetry 97 08/17/22 12:00 Oxygen Delivery Me thod 08/17/22 10:24 MDM - Female Medical Decision Making Patient had leaking at the joint between the tubing of the nephrostomy tube collection bag. She is also walking around several times to basically just hanging at her side with no support. Counseled her as to why is important not to allow that. We were able to write something up to get it to flow to a bag so as not to create a mass. We contacted home health gave them information on the original bag that she had they reported they had several in stock they are sending someone to the ER to assist her and set her up with BiPAP properly fitting bag along with some replacements. Patient moved vertical flow where home health will help her with the proper equipment. Medical Records I reviewed the patient's medical records. Lab Data I reviewed the patient's lab results. Discharge Plan Discharge Patient Disposition: Home Clinical Impression: Malfunction of nephrostomy tube Condition: Stable Prescriptions: No Action hydrocodone-acetaminophen 5-325 mg tablet 1 tab PO Q4H PRN (Reason: pain from cancer) 30 Days Qty: 120 0RF loratadine [Allergy Relief (loratadine)] 10 mg tablet 10 mg PO DAILY Qty: 90 3RF docusate sodium 100 mg capsule 200 mg PO BID labetalol 100 mg tablet 100 mg PO BID nitrofurantoin monohyd/m-cryst 100 mg capsule 100 mg PO BID Discharge Orders: Discharge ED (Routine); Ordered 08/17/22 Ordered By: Joseph Martinez Referrals: Carl Burch, [Primary Care Provider] - Discharge Diet: Usual diet Discharge Activity: Increase activity as tolerated Patient Instructions: Opioid Safety, Pain Management Activity Restrictions/Additional Instructions: You are seen today for leaking at the junction of the tube and the bag for your nephrostomy tube. Unfortunately our hospital does not stock that particular brand. We were able to fashion something that will work for the time being but you should follow-up with home health care and they can help make arrangements to order a properly fitting replacement bag. Coding Level of Care Code ED Education Program Manager for [facility]
[2022-08-17 12:00] VITALS: PULSE 78; RESP 16; O2SAT 97
[2022-08-17] MEDS: ketorolac 30 mg/mL INJ IM (13:40)
== END 2022-08-17 14:20 | disposition home or self-care (01) ==
PROVIDERS: Emergency Provider Family Medicine; PCP Family Medicine
DX: N99.522 Malfunction of incontinent external stoma of urinary tract (principal)
CPT/HCPCS: 96372; 99284; J1885

== ENCOUNTER 2022-08-20 04:32 | Emergency (ER) | payer MEDICARE, MEDICAID, SELFPAY ==
[2022-08-20 04:37] VITALS: BP 160/97; PULSE 85; RESP 16; O2SAT 97; BMI 21.9
--- NOTE | 2022-08-20 04:50 | ED_ITS ---
HPI - Wound/Laceration General: Chief Complaint: Wound/Laceration Stated Complaint: dressing on wound on back fell off Time Seen by Provider: 08/20/22 04:33 Source: patient Mode of arrival: ambulatory Limitations: no limitations History of Present Illness: 82-year-old female who states she has had some drainage around her nephrostomy tube she had a nephrostomy tube placed roughly 2 to 3 weeks ago in the right kidney due to a mass causing blockage she denies any fever she has had normal drainage from it she states that she feels like her dressing is wet and she can change it as it is on her back Associated symptoms: Denies chills, fever(s), nausea or vomiting Review of Systems Const: Denies: fever(s), chills, body aches or change in appetite Eyes: Denies: blurry vision or eye discomfort ENMT: Denies: throat pain or dental pain Card: Denies: chest pain Resp: Denies: dyspnea GI: Denies: abdominal pain, nausea, vomiting or diarrhea : Denies: dysuria Musc: Denies: neck pain or back pain Skin/Breast: Denies: rash Neuro: Denies: headache(s) Psych: Denies: depression Mik/Lymph: Denies: easy bruising All/Imm: Denies: urticaria PFSH ED PFSH: Medical History Anasarca Arthritis Bleeding per rectum Anal mass, biopsies were obtained to rule out anal cancer Brain TIA CVA (cerebral vascular accident) Dehydration Diarrhea Diverticulosis DVT (deep venous thrombosis) Elevated troponin Generalized weakness Hypertension Hypokalemia Rectal cancer Surgical History H/O rhinoplasty History of colonoscopy 2010 History of nasal surgery History of tonsillectomy Family History Father CAD (coronary artery disease) Mother Cancer Hypertension Denies family history of Diabetes Social History Smoking and tobacco status: never smoked Alcohol intake: never Lives independently: Yes Household members: none Housing: Apartment Marital status: Single Physical Exam Const: COMMON NORMALS: no acute distress and patient oriented x3 HENMT: COMMON NORMALS: normocephalic HEAD & SCALP: normocephalic Eye: COMMON NORMALS: conjunctivae normal CONJUNCTIVA: Yes conjunctivae normal Neck/C-Spine: COMMON NORMALS: supple Chest: COMMONS NORMALS: normal inspection of the chest Resp: COMMON NORMALS: normal respiratory effort Cardio: COMMON NORMALS: regular rate RATE: regular rate GI: COMMON NORMALS: Normal to inspection, nondistended, normoactive bowel sounds present INSPECTION: Yes normal to inspection : OTHER: Nephrostomy tube is in place no redness or purulent drainage at this time it is draining urine into the bag Extremity: COMMON NORMALS: normal to inspection Neuro: COMMON NORMALS: patient oriented x3 Psych: COMMON NORMALS: mental status grossly normal Skin: COMMON NORMALS: no rashes or lesions noted GENERAL SKIN EXAM: no rashes or lesions noted Course Vital Signs: Vital signs: Vital Signs Pulse Rate 85 08/20/22 04:37 Respiratory Rate 16 08/20/22 04:37 Blood Pressure 160/97 08/20/22 04:37 Pulse Oximetry 97 08/20/22 04:37 Oxygen Delivery Me thod 08/20/22 04:37 MDM - Wound/Laceration Medical Decision Making Patient presents here for dressing change from her nephrostomy tube nephrostomy tube is in place has good drainage into her bag no signs of infection she is to follow-up with her urologist return if worsening Discharge Plan Discharge Patient Disposition: Home Clinical Impression: Change of dressing Condition: Stable Prescriptions: No Action hydrocodone-acetaminophen 5-325 mg tablet 1 tab PO Q4H PRN (Reason: pain from cancer) 30 Days Qty: 120 0RF loratadine [Allergy Relief (loratadine)] 10 mg tablet 10 mg PO DAILY Qty: 90 3RF docusate sodium 100 mg capsule 200 mg PO BID labetalol 100 mg tablet 100 mg PO BID nitrofurantoin monohyd/m-cryst 100 mg capsule 100 mg PO BID Discharge Orders: Discharge ED (Routine); Ordered 08/20/22 Ordered By: Anderson Anaya Referrals: Carl Burch DO [Primary Care Provider] - Discharge Diet: Advance as tolerated Discharge Activity: Resume usual activity Patient Instructions: Nephrostomy Tube Care (ED) Coding Level of Care Code ED Laboratory Equipment Cleaner for Chg Laurie
[2022-08-20] MEDS: ketorolac 30 mg/mL INJ 15 MG IM (05:54)
== END 2022-08-20 05:56 | disposition home or self-care (01) ==
PROVIDERS: Emergency Provider Emergency Medicine; PCP Family Medicine
DX: Z48.01 Encounter for change or removal of surgical wound dressing (principal); Z93.6 Other artificial openings of urinary tract status; Z86.73 Personal history of transient ischemic attack (TIA), and cerebral infarction without residual deficits; I10 Essential (primary) hypertension; Z85.048 Personal history of other malignant neoplasm of rectum, rectosigmoid junction, and anus
CPT/HCPCS: 96372; 99283; J1885

== ENCOUNTER 2022-09-13 15:58 | Emergency (ER) | payer MEDICARE, MEDICAID, SELFPAY ==
[2022-09-13] VITALS (20 sets, daily range): BP systolic 147–186; BP diastolic 99–120; PULSE 93–105; RESP 14–16; TEMP 36.3; O2SAT 92–96
--- NOTE | 2022-09-13 17:27 | CTR_ITS ---
PROCEDURE INFORMATION: Exam: CT Abdomen And Pelvis With Contrast Exam date and time: 09/13/2022 6:06 PM Age: 82 years old Clinical indication: Abdominal pain; Generalized; Prior surgery; Surgery date: 6+ months; Surgery type: Colostomy, drain tube; Patient HX: Open wound RT buttox; Additional info: R/O abscess or infection TECHNIQUE: Imaging protocol: Computed tomography of the abdomen and pelvis with contrast. Radiation optimization: All CT scans at this facility use at least one of these dose optimization techniques: automated exposure control; mA and/or kV adjustment per patient size (includes targeted exams where dose is matched to clinical indication); or iterative reconstruction. Contrast material: OMNIPAQUE 350; Contrast volume: 100 ml; Contrast route: INTRAVENOUS (IV); REPORTING DATA: Count of CT and Cardiac NM exams in prior 12 months: This patient has received 2 known CTs and 0 known cardiac nuclear medicine studies in the 12 months prior to the current study. COMPARISON: CT kidney stone [id number] 08/06/2022 12:49 PM RADIATION DOSE METRICS: Total DLP (mGy-cm): 496.16 FINDINGS: Lungs: Pulmonary nodules in both lung bases, the largest on the right measuring 1.9 cm. Liver: Multiple inhomogenous low-density nodules in the liver, the largest measuring 9.9 cm. Gallbladder and bile ducts: Normal. No calcified stones. No ductal dilation. Pancreas: Normal. No ductal dilation. Spleen: Normal. No splenomegaly. Adrenal glands: Normal. No mass. Kidneys and ureters: Right nephrostomy tube with pigtail in the renal pelvis. No hydronephrosis. Multiple enhancing nodular lesions in the distal right ureter, extending into the urinary bladder. Stable central cysts in the left kidney, Hounsfield units less than 20. No follow-up imaging recommended. Stomach and bowel: Multiple nodular masses along the rectal and anal fossa. Left lower quadrant terminal colostomy. Prior resection of the distal colon, rectum, and likely anus. The stomach and small bowel are unremarkable. No obstruction. Appendix: No evidence of appendicitis. Intraperitoneal space: Unremarkable. No free air. No significant fluid collection. Vasculature: Obstruction of the intrahepatic right portal veins. Lymph nodes: Increased bulky lymph nodes in the inferior left retroperitoneum and left iliac chain group. The largest measures 4.1 cm. Stable inguinal lymphadenopathy. Urinary bladder: Nodular masses in the distal right ureter extending into the posterior right bladder. Otherwise no wall thickening. Reproductive: The uterus and right ovary are absent. Stable multiple small cysts in the left ovary. Inhomogenous nodular soft tissue masses in the region of the vagina and left pelvis have increased in size, and appear contiguous with the masses in the anal and rectal fossa. Bones/joints: Scoliosis and degenerative changes. Stable L1 and L2 compression fractures. No acute fracture. Soft tissues: Soft tissue masses in the anal fossa appear dist extend posteriorly into the buttock region. Small fat containing umbilical and supraumbilical hernia. Small fat containing stomal hernia. CT/CT abdomen pelvis w con* [id number] IMPRESSION: 1. Worsen inhomogenous malignant masses in the rectal and anal fossa with extension into the vagina and medial buttock. 2. Nodular masses in the distal right ureter with extension into the bladder, consistent with metastatic disease. 3. Worsened hepatic metastatic disease. 4. Metastatic lymphadenopathy in the inferior retroperitoneum, left iliac chain, and inguinal regions. 5. Worsened pulmonary metastatic disease. 6. Right nephrostomy tube placement with resolution of the previous hydronephrosis.
--- NOTE | 2022-09-13 17:36 | W.ED.GENADLT ---
HPI - General Adult General: Chief complaint: General Medical Stated complaint: drain issues? Time Seen by Provider: 09/13/22 17:27 History of Present Illness: 82-year-old female comes in today for concerns of possible infection to the right nephrostomy site. Patient was seen by home health nurse today and noted significant redness around the area and was concerned for infection. Patient's primary care provider had called in [facility] for the patient, but home health nurse felt patient should be evaluated in the emergency department. Patient is alert oriented and appears nontoxic. Patient denies any nausea or vomiting or high fever. Patient reports no significant pain. Patient does have a history of rectal cancer with colostomy in place, and renal stents due to hydronephrosis, and hypertension. Patient's urologist is in [place]. Associated symptoms: Deny chest pain, dyspnea, headache(s), nausea or vomiting Review of Systems Const: Denies: fever(s) Card: Denies: chest pain Resp: Denies: dyspnea GI: Denies: nausea or vomiting : Reports: other (Change in urine) Skin/Breast: Reports: erythema Neuro: Denies: headache(s) PFSH ED PFSH: Medical History Anasarca Arthritis Bleeding per rectum Anal mass, biopsies were obtained to rule out anal cancer Brain TIA CVA (cerebral vascular accident) Dehydration Diarrhea Diverticulosis DVT (deep venous thrombosis) Elevated troponin Generalized weakness Hypertension Hypokalemia Rectal cancer Surgical History H/O rhinoplasty History of colonoscopy 2011 History of nasal surgery History of tonsillectomy Family History (Updated 09/09/22 @ 10:25 by Geni Spears LPN) Father CAD (coronary artery disease) Mother Cancer unknown Hypertension Denies family history of Diabetes Chronic kidney disease (CKD) Anesthesia complication Social History (Updated 09/09/22 @ 10:25 by Geni Spears LPN) Smoking and tobacco status: never smoked Alcohol intake: never Lives independently: Yes Household members: none Housing: Apartment Marital status: Single Physical Exam Const: COMMON NORMALS: alert HENMT: COMMON NORMALS: normocephalic HEAD & SCALP: normocephalic Neck/C-Spine: COMMON NORMALS: full ROM Resp: COMMON NORMALS: normal respiratory effort and clear to auscultation bilaterally AUSCULTATION: clear to auscultation bilaterally Cardio: COMMON NORMALS: regular rate and regular rhythm RATE: regular rate RHYTHM: regular rhythm GI: COMMON NORMALS: Soft to palpation and non-tender PALPATION: Yes Soft to palpation : COMMON NORMALS: Yes no CVA tenderness BLADDER/KIDNEY EXAM: Yes no CVA tenderness OTHER: Right nephrostomy tube in place with catheter draining cloudy urine, erythema around the site. Back/Pelvis: COMMON NORMALS: no CVA tenderness Extremity: COMMON NORMALS: full ROM Neuro: SENSORIUM/ORIENTATION: Yes alert Skin: COMMON NORMALS: turgor normal GENERAL SKIN EXAM: turgor normal Course Vital Signs: Vital signs: Vital Signs Temperature 97.3 F L 09/13/22 16:15 Pulse Rate 94 09/13/22 17:13 Respiratory Rate 16 09/13/22 17:13 Blood Pressure 186/120 09/13/22 18:45 Pulse Oximetry 95 09/13/22 18:45 Oxygen Delivery Me thod 09/13/22 17:13 [facility] - General Adult Medical Decision Making Patient was referred to the ER today for concerns of redness to the site of the nephrostomy tube. Patient is alert and oriented. Patient reports no fever. Patient reports some change in nephrostomy drainage. Patient has a history of rectal cancer with metastatic disease. On exam abdomen soft nontender. Patient does have redness surrounding the site of the nephrostomy tube. Vital signs are normal except for some elevation of blood pressure. Differential diagnosis includes sepsis, cellulitis, pyelonephritis, UTI, dermatitis. Laboratory values noted some leukocytosis at 11,000, CMP noted increasing liver enzymes, lactate was 1.0. CT of the abdomen and pelvis noted extension of the metastatic disease. Mass in the liver has gotten larger. No signs of infection or abscess was noted. No perinephric stranding was noted. Urine did show a large amount of white blood cell suspect may be a urinary tract infection. Patient was given a gram Rocephin will continue with the cephalexin as prescribed by her urologist that she had not started. Recommend follow-up with primary care or return to the ED for worsening symptoms or new concerns. Lab Data 09/13/22 17:47 09/13/22 17:47 Radiology Impressions Abdomen/Pelvis CT 09/13/22 17:27 IMPRESSION: 1. Worsen inhomogenous malignant masses in the rectal and anal fossa with extension into the vagina and medial buttock. 2. Nodular masses in the distal right ureter with extension into the bladder, consistent with metastatic disease. 3. Worsened hepatic metastatic disease. 4. Metastatic lymphadenopathy in the inferior retroperitoneum, left iliac chain, and inguinal regions. 5. Worsened pulmonary metastatic disease. 6. Right nephrostomy tube placement with resolution of the previous hydronephrosis. Laboratory Results WBC 11.2 10^3/uL (4.0-10.0) H 09/13/22 17:47 RBC 3.77 10^6/uL (4.1-5.3) L 09/13/22 17:47 Hgb 10.4 g/dL (11.5-15.3) L 09/13/22 17:47 Hct 32.7 % (37.0-47.0) L 09/13/22 17:47 MCV 86.7 fl (81-99) 09/13/22 17:47 MCH 27.6 pg (28.0-34.0) L 09/13/22 17:47 MCHC 31.8 g/dL (30.0-36.0) 09/13/22 17:47 RDW 17.0 % (12.1-15.1) H 09/13/22 17:47 Plt Count 434 10^3/cmm (130-400) H 09/13/22 17:47 MPV 9.8 fL (7.4-10.4) 09/13/22 17:47 Neut % (Auto) 81.5 % 09/13/22 17:47 Lymph % (Auto) 8.8 % 09/13/22 17:47 [place] % (Auto) 8.2 % 09/13/22 17:47 Eos % (Auto) 0.8 % 09/13/22 17:47 Baso % (Auto) 0.4 % 09/13/22 17:47 Neut # (Auto) 9.09 10^3/uL (1.8-7.7) H 09/13/22 17:47 Lymph # (Auto) 1.0 10^3/uL (0.8-4.8) 09/13/22 17:47 [place] # (Auto) 0.9 10^3/uL (0.2-0.9) 09/13/22 17:47 Eos # (Auto) 0.1 10^3/uL (0.0-0.8) 09/13/22 17:47 Baso # (Auto) 0.1 10^3/uL (0.0-0.1) 09/13/22 17:47 Nucleated RBC % (auto) 0 % 09/13/22 17:47 Nucleated RBCs # 0.0 /100WBC 09/13/22 17:47 Sodium 133 mmol/L (136-145) L 09/13/22 17:47 Potassium 4.2 mmol/L (3.5-5.1) 09/13/22 17:47 Chloride 96 mmol/L (98-107) L 09/13/22 17:47 Carbon Dioxide 26 mmol/L (22-29) 09/13/22 17:47 Anion Gap 15.2 (5-19) 09/13/22 17:47 BUN 36 mg/dL (8-23) H 09/13/22 17:47 Creatinine 0.8 mg/dL (0.5-0.9) 09/13/22 17:47 GFR Calculation Not Reportable 09/13/22 17:47 Glucose 104 mg/dL (65-115) 09/13/22 17:47 Calculated Osmolality 285 mOsm/kg (285-295) 09/13/22 17:47 Lactate 1.0 mmol/L (0.5-2.2) 09/13/22 17:47 Calcium 9.5 mg/dL (8.5-10.5) 09/13/22 17:47 Total Bilirubin 0.6 mg/dL (0.15-1.2) 09/13/22 17:47 AST 93 U/L (0-32) H 09/13/22 17:47 ALT 35 U/L (0-33) H 09/13/22 17:47 Alkaline Phosphatase 714 U/L (35-105) H 09/13/22 17:47 Total Protein 8.5 g/dL (6.6-8.7) 09/13/22 17:47 Albumin 3.8 g/dL (3.5-5.2) 09/13/22 17:47 Globulin 4.7 g/dL (1.3-4.6) H 09/13/22 17:47 Urine Color Yellow (Yellow) 09/13/22 18:17 Urine Appearance Sl hazy (CLEAR) A 09/13/22 18:17 Urine pH 5 (5-7) 09/13/22 18:17 Ur Specific [place] 1.010 (1.005-1.030) 09/13/22 18:17 Urine Protein 1+ (Negative) H 09/13/22 18:17 Urine Glucose (UA) Norm (Normal) 09/13/22 18:17 Urine Ketones Negative (Negative) 09/13/22 18:17 Urine Blood 3+ (Negative) H 09/13/22 18:17 Urine Nitrate Negative (Negative) 09/13/22 18:17 Urine Bilirubin Neg (Negative) 09/13/22 18:17 Urine Urobilinogen Norm mg/dL (Negative) 09/13/22 18:17 Ur Leukocyte Esterase 2+ (Negative) H 09/13/22 18:17 Urine RBC 25-40 /hpf (0-2) H 09/13/22 18:17 Urine WBC >100 /hpf (0-5) H 09/13/22 18:17 Ur Squamous Epith Cells 0-4 /hpf (0-5) H 09/13/22 18:17 Amorphous Sediment Not Reportable 09/13/22 18:17 Urine Bacteria 1+ /hpf (NONE) H 09/13/22 18:17 Discharge Plan Discharge Patient Disposition: Home Clinical Impression: Acute UTI (urinary tract infection), Metastases to the liver, Rectal cancer Condition: Stable Prescriptions: No Action hydrocodone-acetaminophen 5-325 mg tablet 1 tab PO Q4H PRN (Reason: pain from cancer) 30 Days Qty: 120 0RF loratadine [Allergy Relief (loratadine)] 10 mg tablet 10 mg PO DAILY Qty: 90 3RF docusate sodium 100 mg capsule 200 mg PO BID labetalol 100 mg tablet 100 mg PO BID Discharge Orders: Discharge ED (Routine); Ordered 09/13/22 Ordered By: Artie Mccray Referrals: Carl Burch DO [Primary Care Provider] - Patient Instructions: Urinary Tract Infection in Older Adults (ED) Activity Restrictions/Additional Instructions: Increase fluid intake, drink at least 2 L of fluid a day. Home and rest. Drink plenty of fluids. Continue with routine care as directed. Follow-up with primary care and specialist for further treatment and evaluation. Return to ED for worsening symptoms such as inability to hold down fluids, fever greater than 100.4, or new concerns. Coding Level of Care Code ED Medical Records Library Professor for Prabhu Sullivan
[2022-09-13 18:05] LABS: Basophils # 0.1 10^3/uL (0.0-0.1); Basophils % 0.4 %; Eosinophils # 0.1 10^3/uL (0.0-0.8); Eosinophils % 0.8 %; Hematocrit 32.7 % (37.0-47.0); Hemoglobin 10.4 g/dL (11.5-15.3); Lymphocytes % 8.8 %; Mean Corpuscular HGB Conc 31.8 g/dL (30.0-36.0); Mean Corpuscular Hemoglobin 27.6 pg (28.0-34.0); Mean Corpuscular Volume 86.7 fl (81-99); Mean Platelet Volume 9.8 fL (7.4-10.4); Monocytes # 0.9 10^3/uL (0.2-0.9); Monocytes % 8.2 %; Neutrophils # 9.09 10^3/uL (1.8-7.7); Neutrophils % 81.5 %; Nucleated Red Blood Cells % 0 %; Platelet Count 434 10^3/cmm (130-400); Red Blood Count 3.77 10^6/uL (4.1-5.3); White Blood Count 11.2 10^3/uL (4.0-10.0)
[2022-09-13] MEDS: iohexol 350 mg/mL 500 mL Btl (per mL) IV (18:10)
[2022-09-13 18:21] LABS: Alanine Aminotransferase 35 U/L (0-33); Albumin Level 3.8 g/dL (3.5-5.2); Alkaline Phosphatase 714 U/L (35-105); Anion Gap 15.2 (5-19); Aspartate Amino Transferase 93 U/L (0-32); Blood Urea Nitrogen 36 mg/dL (8-23); Calcium 9.5 mg/dL (8.5-10.5); Carbon Dioxide 26 mmol/L (22-29); Chloride 96 mmol/L (98-107); Globulin 4.7 g/dL (1.3-4.6); Glucose 104 mg/dL (65-115); Osmolality Calculated 285 mOsm/kg (285-295); Potassium 4.2 mmol/L (3.5-5.1); Sodium 133 mmol/L (136-145); Total Bilirubin 0.6 mg/dL (0.15-1.2); Total Protein 8.5 g/dL (6.6-8.7)
[2022-09-13 18:54] LABS: Add Urine Culture? Yes; Add Urine Microscopic? YES; Bacteria Urine 1+ /hpf; Bilirubin Urine Neg (Negative); Blood Urine 3+ (Negative); Glucose Urine UA Norm (Normal); Ketones Urine Negative (Negative); Leukocyte Esterase Urine 2+ (Negative); Nitrate Urine Negative (Negative); Protein Urine 1+ (Negative); RBC Urine 25-40 /hpf (0-2); Squamous Epithelial Cell Urine 0-4 /hpf (0-5); Urine Appearance SL Hazy (CLEAR); Urine Color Yellow (Yellow); Urobilinogen Urine Norm (Negative); WBC Urine >100 /hpf (0-5); pH Urine 5 (5-7)
[2022-09-13] MEDS: cefTRIAXone 1,000 MG in sodium chloride 0.9% (plus) 50 ML 100 MG IV (19:13)
--- NOTE | 2022-09-13 19:14 | PC.NURSE ---
Report from [facility] [place]. Pt resting quietly. Requests a blanket. Effie provided. Provider at bedside to evaluate wound dressing. Pt reports she thinks dressing is leaking. Dressing is clean and dry. Area around nephrostomy tube indurated, skin very sensitive to tape removal. Foam tape reapplied to secure dressing. Pt tolerated well.
--- NOTE | 2022-09-16 13:47 | PC.NURSE ---
Called pt to update her of antibiotic change. educated pt to discontinue cephalexin and to start new prescription of macrobid. pt requests medication to be called into [facility] in [place]
== END 2022-09-13 20:02 | disposition home or self-care (01) ==
PROVIDERS: Emergency Provider Nurse Practitioner Family; PCP Family Medicine
DX: N39.0 Urinary tract infection, site not specified (principal); C20 Malignant neoplasm of rectum; C78.7 Secondary malignant neoplasm of liver and intrahepatic bile duct; Z86.73 Personal history of transient ischemic attack (TIA), and cerebral infarction without residual deficits; I10 Essential (primary) hypertension
CPT/HCPCS: 36415; 74177; 80053; 81001; 83605; 85025; 87040; 87077; 87086; 87186; 99285; J0696; Q9967

== ENCOUNTER 2022-09-19 11:20 | Outpatient (CLI) | payer MEDICARE, MEDICAID, SELFPAY ==
[2022-09-19 16:38] LABS: Urine Appearance Cloudy (CLEAR); Urine Color Dark Yellow (Yellow); pH Urine 8 (5-7)
[2022-09-19 16:39] LABS: Specific Gravity, Urine 1.015 (1.005-1.030)
[2022-09-19 16:40] LABS: Add Urine Microscopic? YES; Bilirubin Urine Neg (Negative); Blood Urine 3+ (Negative); Glucose Urine UA Norm (Normal); Ketones Urine Negative (Negative); Leukocyte Esterase Urine 2+ (Negative); Nitrate Urine Negative (Negative); Protein Urine 3+ (Negative); Sulfosalicylic Acid Urine Positive (Negative); Urobilinogen Urine Norm (Negative)
[2022-09-19 16:41] LABS: Add Urine Culture? Yes; Amorphous Sediment Urine 1+ /hpf; Bacteria Urine 3+ /hpf; Mucus Urine 1+ /hpf; Triple Phosphate Crystal Urine 25-40 /hpf
== END 2022-09-19 11:21 | disposition home or self-care (01) ==
LOC: LAB 09-20 11:20
PROVIDERS: PCP Family Medicine; Visit Provider Urology
DX: N39.0 Urinary tract infection, site not specified (principal)
CPT/HCPCS: 81001; 87077; 87086; 87186

== ENCOUNTER 2022-09-23 17:38 | Emergency (ER) | payer MEDICARE, MEDICAID, SELFPAY ==
[2022-09-23 17:50] VITALS: BP 168/100; PULSE 129; RESP 20; TEMP 36.7; O2SAT 96; BMI 20.9
--- NOTE | 2022-09-23 20:23 | XRR_ITS ---
PROCEDURE INFORMATION: Exam: XR Abdomen Exam date and time: 09/23/2022 8:54 PM Age: 82 years old Clinical indication: Abdominal pain; Other: PT has rectal CA; Prior surgery; Surgery date: 1-6 months; Additional info: Blood in nephrostomy tube TECHNIQUE: Imaging protocol: Radiologic exam of the abdomen. Views: Frontal supine view of the abdomen. 1 View. COMPARISON: CT abdomen pelvis w con* [id number] 09/13/2022 6:06 PM FINDINGS: Tubes, catheters and devices: Right-sided percutaneous nephrostomy catheter. Gastrointestinal tract: Nonobstructive intestinal gas pattern demonstrated. Bones/joints: Scoliosis and degeneration of the spine. XR/XR KUB portable [id number] IMPRESSION: No acute abnormality demonstrated.
[2022-09-23 21:31] VITALS: RESP 16
[2022-09-23] MEDS: labetalol 200 mg Tablet 100 MG PO (21:31)
[2022-09-23] MEDS: HYDROmorphone 1 mg/mL INJ 1 mL IM (21:31)
[2022-09-23 21:36] VITALS: BP 201/130; PULSE 116; RESP 16; O2SAT 95
[2022-09-23 21:53] LABS: Add Urine Microscopic? YES; Bilirubin Urine Neg (Negative); Blood Urine 3+ (Negative); Glucose Urine UA Norm (Normal); Ketones Urine Negative (Negative); Leukocyte Esterase Urine 2+ (Negative); Nitrate Urine Positive (Negative); Protein Urine 2+ (Negative); Urine Appearance Cloudy (CLEAR); Urine Color Yellow (Yellow); Urobilinogen Urine Neg (Negative); pH Urine 7 (5-7)
[2022-09-23 21:55] LABS: Add Urine Culture? Yes; Bacteria Urine 2+ /hpf; RBC Urine >100 /hpf (0-2); Squamous Epithelial Cell Urine 0-4 /hpf (0-5); WBC Urine 25-40 /hpf (0-5)
[2022-09-23] MEDS: levoFLOXacin 500 mg Tablet PO (22:22)
[2022-09-23 22:48] VITALS: BP 178/106; PULSE 94; RESP 16; O2SAT 95
--- NOTE | 2022-09-24 14:32 | ED_ITS ---
HPI - Back Pain/Injury General: Chief Complaint: Back Pain/Injury Stated Complaint: Bleeding from lower back with pain Time Seen by Provider: 09/23/22 20:21 Source: patient History of Present Illness: 82 year old female presenting with increased right flank pain, and blood and her nephrostomy bag on that side. She was treated in [facility] for urinary outlet obstruction with nephrostomy tube placement. She has pain, but denies fever. She was sent in by a home health nurse who noticed the blood in the bag. She has a follow up with her urologist next week. She has been on antibiotics for a urinary tract infection. MD elicited complaint: other Pertinent past history: other Onset (ago): day(s) Timing: constant Severity: moderate Similar Symptoms Previously: Yes Quality: aching Radiation: none (r flank) Relieving factors: none Context: other Associated symptoms: Reports fatigue, hematuria and nausea; Deny abdominal pain, chills, fecal incontinence, fever(s) or vomiting Review of Systems Const: Reports: fatigue; Denies: fever(s) or chills Card: Denies: chest pain Resp: Denies: dyspnea GI: Reports: nausea; Denies: abdominal pain, vomiting or fecal incontinence : Reports: flank pain and hematuria Psych: Reports: anxiety PFSH ED PFSH: Medical History Anasarca Arthritis Bleeding per rectum Anal mass, biopsies were obtained to rule out anal cancer Brain TIA CVA (cerebral vascular accident) Dehydration Diarrhea Diverticulosis DVT (deep venous thrombosis) Elevated troponin Generalized weakness Hypertension Hypokalemia Rectal cancer Surgical History H/O rhinoplasty History of colonoscopy 2011 History of nasal surgery History of tonsillectomy Family History Father CAD (coronary artery disease) Mother Cancer unknown Hypertension Denies family history of Diabetes Chronic kidney disease (CKD) Anesthesia complication Social History Smoking and tobacco status: never smoked Alcohol intake: never Lives independently: Yes Household members: none Housing: Apartment Marital status: Single Physical Exam Const: COMMON NORMALS: no acute distress GENERAL APPEARANCE: cooperative and frail appearing (mildly); not ill appearing ORIENTATION/CONSCIOUSNESS: Yes awake, Yes oriented to person, Yes oriented to place and Yes oriented to time HENMT: COMMON NORMALS: normocephalic, atraumatic and Normal external nose present HEAD & SCALP: normocephalic and atraumatic NOSE: Normal external nose present Eye: COMMON NORMALS: Equal, round and reactive pupils present and EOMs intact bilaterally PUPIL: Yes Equal, round and reactive pupils present Neck/C-Spine: GENERAL: Yes trachea midline Chest: CHEST: Yes Symmetrical chest wall rise Resp: COMMON NORMALS: normal respiratory effort, No use of accessory muscles and clear to auscultation bilaterally AUSCULTATION: clear to auscultation bilaterally Cardio: COMMON NORMALS: regular rate and regular rhythm RATE: regular rate RHYTHM: regular rhythm GI: COMMON NORMALS: Normal to inspection, nondistended, normoactive bowel sounds present and non-tender : BLADDER/KIDNEY EXAM: Yes CVA tenderness Back/Pelvis: GENERAL BACK: Yes CVA tenderness CVA tenderness: right OTHER: Nephrostomy tube in place. Bloody urine, foul smelling in nephrostomy bag. No clots. Neuro: SENSORIUM/ORIENTATION: Yes oriented to person, Yes oriented to place and Yes oriented to time Skin: NARRATIVE SKIN EXAM: significant contact dermatitis with abrasion and some slight bleeding around b andage site of nephrostomy tube. Course Vital Signs: Vital signs: Vital Signs Temperature 98.1 F 09/23/22 17:50 Pulse Rate 94 09/23/22 22:48 Respiratory Rate 16 09/23/22 22:48 Blood Pressure 178/106 09/23/22 22:48 Pulse Oximetry 95 09/23/22 22:48 Oxygen Delivery Me thod 09/23/22 21:36 MDM - Back Pain/Injury Medical Decision Making 82 year old female with flank pain, and blood in her frosty tube. Blood has actually cleared. KUB shows nephrostomy and proper position. She is hypertensive here, but has missed two doses of labetalol today. She is given one those here. She is afebrile. Her pain is improved. She has close outpatient follow up. Urinalysis does show hematuria, with some continued evidence of urinary tract infection. She had been on keflex, she'll be switched to the levaquin. She knows to return for any worsening symptoms, especially fever. Labs Radiology Impressions KUB X-Ray 09/23/22 20:23 IMPRESSION: No acute abnormality demonstrated. Laboratory Results Urine Color Yellow (Yellow) 09/23/22 21:25 Urine Appearance Cloudy (CLEAR) A 09/23/22 21:25 Urine pH 7 (5-7) 09/23/22 21:25 Ur Specific [place] 1.010 (1.005-1.030) 09/23/22 21:25 Urine Protein 2+ (Negative) H 09/23/22 21:25 Urine Glucose (UA) Norm (Normal) 09/23/22 21:25 Urine Ketones Negative (Negative) 09/23/22 21:25 Urine Blood 3+ (Negative) H 09/23/22 21:25 Urine Nitrate Positive (Negative) H 09/23/22 21:25 Urine Bilirubin Neg (Negative) 09/23/22 21:25 Urine Urobilinogen Neg mg/dL (Negative) 09/23/22 21:25 Ur Leukocyte Esterase 2+ (Negative) H 09/23/22 21:25 Urine RBC >100 /hpf (0-2) H 09/23/22 21:25 Urine WBC 25-40 /hpf (0-5) H 09/23/22 21:25 Ur Squamous Epith Cells 0-4 /hpf (0-5) H 09/23/22 21:25 Amorphous Sediment Not Reportable 09/23/22 21:25 Urine Bacteria 2+ /hpf (NONE) H 09/23/22 21:25 Discharge Plan Discharge Patient Disposition: Home Clinical Impression: Acute UTI (urinary tract infection) Condition: Stable Prescriptions: New levofloxacin 500 mg tablet 500 mg PO DAILY 7 Days Qty: 7 0RF No Action loratadine [Allergy Relief (loratadine)] 10 mg tablet 10 mg PO DAILY Qty: 90 3RF hydrocodone-acetaminophen 5-325 mg tablet 1 tab PO Q4H PRN (Reason: pain from cancer) 30 Days Qty: 120 0RF docusate sodium 100 mg capsule 200 mg PO BID labetalol 100 mg tablet 100 mg PO BID Discharge Orders: Discharge ED (Routine); Ordered 09/23/22 Ordered By: Aftab Gama Referrals: Carl Burch, [Primary Care Provider] - Patient Instructions: Urinary Tract Infection in Women (ED), Nephrostomy Tube Care (ED) Activity Restrictions/Additional Instructions: Call your urologist on Monday for follow-up appointment. Discontinue the antibiotic you were placed on prior, and continue with the antibiotic you were prescribed tonight. Return for fever greater than 100, worsening pain, other concerning symptoms. Coding Level of Care Code ED Cupola Melter Helper for Prabhu Sullivan
== END 2022-09-23 22:50 | disposition home or self-care (01) ==
PROVIDERS: Emergency Provider Emergency Medicine; PCP Family Medicine
DX: N39.0 Urinary tract infection, site not specified (principal); I10 Essential (primary) hypertension; Z86.73 Personal history of transient ischemic attack (TIA), and cerebral infarction without residual deficits; Z93.6 Other artificial openings of urinary tract status
CPT/HCPCS: 74018; 81001; 87077; 87086; 87186; 96372; 99284; J1170

== ENCOUNTER 2022-11-04 07:26 | Emergency (ER) | payer OTHER, SELFPAY ==
[2022-11-04 07:36] VITALS: PULSE 104; RESP 16; TEMP 36.9; O2SAT 95
--- NOTE | 2022-11-04 07:38 | W.ED.GENADLT ---
HPI - General Adult General: Chief complaint: Weakness Stated complaint: weakness Time Seen by Provider: 11/04/22 07:27 Source: patient Mode of arrival: EMS History of Present Illness: 82-year-old female with a history of metastatic cancer. She is complaining of severe weakness. She is enrolled in the hospice program they were in the process of arranging for respite care at one of the nursing homes. When we contacted them they were not aware she was in the emergency room this morning. They had not yet completed their process. She has a nephrostomy tube as well as an ileostomy she is not had any bright red blood from either. No vomiting. She initially denies any pain but shortly after arrival here states she had some low back and buttock discomfort from sitting in the bed. Onset (ago): day(s) Severity: severe Relieving factors: none Exacerbating factors: none Associated symptoms: Deny chest pain, confusion, cough, diaphoresis, decreased appetite, dyspnea, fevers/chills, headache(s), malaise, nausea, rash, palpitations, seizures, short of breath, syncope, vomiting or weakness Treatments prior to arrival: none Review of Systems Const: Denies: fever(s), chills, fatigue, malaise or diaphoresis ENMT: Denies: throat pain, ear or mastoid pain, nasal discharge or nasal congestion Card: Denies: chest pain, palpitations, edema or syncope Resp: Denies: dyspnea, productive cough or non-productive cough GI: Denies: abdominal pain, nausea or vomiting : Denies: flank pain, difficulty voiding, dysuria, urinary frequency or urinary urgency Skin/Breast: Denies: rash Neuro: Denies: headache(s) or confusion PFSH ED PFSH: Medical History Anasarca Arthritis Bleeding per rectum Anal mass, biopsies were obtained to rule out anal cancer Brain TIA CVA (cerebral vascular accident) Dehydration Diarrhea Diverticulosis DVT (deep venous thrombosis) Elevated troponin Generalized weakness Hypertension Hypokalemia Rectal cancer Surgical History H/O rhinoplasty History of colonoscopy 2011 History of nasal surgery History of tonsillectomy Family History Father CAD (coronary artery disease) Mother Cancer unknown Hypertension Denies family history of Diabetes Chronic kidney disease (CKD) Anesthesia complication Social History (System 11/04/22 @ 08:13 by Monik Regalado) Smoking and tobacco status: never smoked Alcohol intake: never Substance/Drug Use: never Lives independently: Yes Household members: none Housing: Apartment Marital status: Single Physical Exam Const: GENERAL APPEARANCE: cooperative and comfortable ORIENTATION/CONSCIOUSNESS: Yes awake, Yes oriented to person, Yes oriented to place and Yes oriented to time HENMT: COMMON NORMALS: normocephalic, atraumatic and hearing grossly normal bilaterally HEAD & SCALP: normocephalic and atraumatic Resp: COMMON NORMALS: normal respiratory effort, No retractions, No use of accessory muscles and clear to auscultation bilaterally AUSCULTATION: clear to auscultation bilaterally Cardio: COMMON NORMALS: regular rate, regular rhythm and No murmurs present (Cardio) RATE: regular rate RHYTHM: regular rhythm GI: COMMON NORMALS: Soft to palpation and No hepatosplenomegaly present AUSCULTATION: Yes normoactive bowel sounds PALPATION: Yes Soft to palpation, No Tenderness to palpation present (GI), No Guarding due to palpation present (GI) and Yes No hepatosplenomegaly present OTHER: Ileostomy and nephrostomy tubes functioning no blood in the bags. : COMMON NORMALS: Yes no CVA tenderness BLADDER/KIDNEY EXAM: Yes no CVA tenderness Back/Pelvis: COMMON NORMALS: no CVA tenderness Extremity: COMMON NORMALS: normal to inspection, capillary refill normal, no clubbing, cyanosis or edema, no calf tenderness and no pedal edema Neuro: SENSORIUM/ORIENTATION: Yes oriented to person, Yes oriented to place and Yes oriented to time Skin: COMMON NORMALS: no rashes or lesions noted GENERAL SKIN EXAM: no rashes or lesions noted Course Vital Signs: Vital signs: Vital Signs Temperature 98.5 F 11/04/22 07:36 Pulse Rate 104 H 11/04/22 08:34 Respiratory Rate 20 H 11/04/22 07:55 Blood Pressure 163/105 11/04/22 09:32 Pulse Oximetry 97 11/04/22 09:32 Oxygen Delivery Me thod Room Air 11/04/22 07:[address] [facility] - General Adult Medical Decision Making Patient has a history of rectal carcinoma with significant metastasis she is currently on hospice. Hemoglobin today was 4.9. We discussed with her different options offered transfusion. Hospice team came and spoke with the patient. Patient was considering going off of hospice to receive transfusions after discussing with hospice ultimately decided she decided to go forward with placement in senior care for respite and further hospice care management. She does understand that her hemoglobin is critically low and may contribute to further decline. Hospice reports she has had significant decline recently. Patient will be discharged to senior care continuing as a hospice program. She understands that if she were to change her mind she can return to the ER we would reevaluate and transfuse if she so desired Medical Records I reviewed the patient's medical records. Lab Data I reviewed the patient's lab results. 11/04/22 07:33 11/04/22 07:33 Laboratory Results WBC 16.4 10^3/uL (4.0-10.0) H 11/04/22 07:33 RBC 1.93 10^6/uL (4.1-5.3) L 11/04/22 07:33 Hgb 4.9 g/dL (11.5-15.3) L* 11/04/22 07:33 Hct 17.0 % (37.0-47.0) L* 11/04/22 07:33 MCV 88.1 fl (81-99) 11/04/22 07:33 MCH 25.4 pg (28.0-34.0) L 11/04/22 07:33 MCHC 28.8 g/dL (30.0-36.0) L 11/04/22 07:33 RDW 18.8 % (12.1-15.1) H 11/04/22 07:33 Plt Count 539 10^3/cmm (130-400) H 11/04/22 07:33 MPV 10.1 fL (7.4-10.4) 11/04/22 07:33 Neut % (Auto) 83.6 % 11/04/22 07:33 Lymph % (Auto) 6.3 % 11/04/22 07:33 Dickson % (Auto) 7.5 % 11/04/22 07:33 Eos % (Auto) 2.0 % 11/04/22 07:33 Baso % (Auto) 0.2 % 11/04/22 07:33 Neut # (Auto) 13.67 10^3/uL (1.8-7.7) H 11/04/22 07:33 Lymph # (Auto) 1.0 10^3/uL (0.8-4.8) 11/04/22 07:33 Dickson # (Auto) 1.2 10^3/uL (0.2-0.9) H 11/04/22 07:33 Eos # (Auto) 0.3 10^3/uL (0.0-0.8) 11/04/22 07:33 Baso # (Auto) 0.0 10^3/uL (0.0-0.1) 11/04/22 07:33 Nucleated RBC % (auto) 0 % 11/04/22 07:33 Nucleated RBCs # 0.0 /100WBC 11/04/22 07:33 Sodium 136 mmol/L (136-145) 11/04/22 07:33 Potassium 3.1 mmol/L (3.5-5.1) L 11/04/22 07:33 Chloride 99 mmol/L (98-107) 11/04/22 07:33 Carbon Dioxide 21 mmol/L (22-29) L 11/04/22 07:33 Anion Gap 19.1 (5-19) H 11/04/22 07:33 BUN 61 mg/dL (8-23) H 11/04/22 07:33 Creatinine 1.8 mg/dL (0.5-0.9) H 11/04/22 07:33 GFR Calculation Not Reportable 11/04/22 07:33 Glucose 113 mg/dL (65-115) 11/04/22 07:33 Calculated Osmolality 300 mOsm/kg (285-295) H 11/04/22 07:33 Calcium 8.3 mg/dL (8.5-10.5) L 11/04/22 07:33 Total Bilirubin 0.8 mg/dL (0.15-1.2) 11/04/22 07:33 AST 161 U/L (0-32) H 11/04/22 07:33 ALT 83 U/L (0-33) H 11/04/22 07:33 Alkaline Phosphatase 761 U/L (35-105) H 11/04/22 07:33 Total Protein 7.2 g/dL (6.6-8.7) 11/04/22 07:33 Albumin 3.1 g/dL (3.5-5.2) L 11/04/22 07:33 Globulin 4.1 g/dL (1.3-4.6) 11/04/22 07:33 Urine Color Brown (Yellow) 11/04/22 07:39 Urine Appearance Cloudy (CLEAR) A 11/04/22 07:39 Urine pH 9 (5-7) H 11/04/22 07:39 Ur Specific [place] 1.015 (1.005-1.030) 11/04/22 07:39 Urine Protein 2+ (Negative) H 11/04/22 07:39 Urine Glucose (UA) Norm (Normal) 11/04/22 07:39 Urine Ketones 1+ (Negative) H 11/04/22 07:39 Urine Blood 3+ (Negative) H 11/04/22 07:39 Urine Nitrate Positive (Negative) H 11/04/22 07:39 Urine Bilirubin Neg (Negative) 11/04/22 07:39 Prot Sulfosalicylic Acd Positive (Negative) 11/04/22 07:39 Urine Urobilinogen Neg mg/dL (Negative) 11/04/22 07:39 Ur Leukocyte Esterase 2+ (Negative) H 11/04/22 07:39 Urine RBC Too numerous to cnt /hpf (0-2) H 11/04/22 07:39 Urine WBC 40-55 /hpf (0-5) H 11/04/22 07:39 Ur Squamous Epith Cells 0-4 /hpf (0-5) H 11/04/22 07:39 Triple Phos Crystals 10-15 /hpf H 11/04/22 07:39 Amorphous Sediment 1+ /hpf 11/04/22 07:39 Urine Bacteria 4+ /hpf (NONE) H 11/04/22 07:39 Urine Mucus 1+ /hpf 11/04/22 07:39 Blood Type O Positive 11/04/22 08:17 Rho(D) Type Positive 11/04/22 08:17 Antibody Screen Negative 11/04/22 08:17 Discharge Plan Discharge Patient Disposition: Home Clinical Impression: Rectal cancer, Metastatic cancer, Hospice care patient, Anemia Condition: Stable Prescriptions: No Action labetalol 100 mg tablet 100 mg PO BID Qty: 180 0RF Ensure High Protein Liquid 1 ea PO TIDWMEAL 30 Days Qty: 5688 4RF Rx Instructions: Vanilla flavor bisacodyl 10 mg suppository 10 mg CA DAILY PRN (Reason: constipation) Qty: 5 0RF Rx Instructions: 1 suppository per rectum every day PRN for constipation. atropine 1 % drops 4 drp sublingual Q4H PRN (Reason: secretions) Qty: 5 0RF Rx Instructions: 4 drops SL q 4 hours PRN for terminal congestion/excessive secretions. morphine 15 mg tablet extended release 15 mg PO Q12H 30 Days Qty: 60 0RF morphine 15 mg tablet 15 mg PO Q3H PRN (Reason: pain) 14 Days Qty: 60 0RF hydrocodone-acetaminophen 10-325 mg tablet 1 tab PO Q4H 30 Days Qty: 120 0RF ibuprofen 200 mg Tablet 400 mg PO Q4H cefdinir 300 mg capsule 300 mg PO BID Rx Instructions: for 14 days (rx filled 11/02/22) docusate sodium 100 mg capsule 200 mg PO BID PRN (Reason: stool softner) Allergy Relief (loratadine) 10 mg tablet 10 mg PO DAILY PRN (Reason: Allergy Symptoms) morphine concentrate 100 mg/5 mL (20 mg/mL) solution See Rx Instructions .ROUTE .COMPLEX Rx Instructions: 0.25ml-1ml under tongue every one hour as directed as needed for pain/sob for 14 days may increase to 0.5ml-1ml every one hour as needed ondansetron 4 mg tablet,disintegrating See Rx Instructions .ROUTE .COMPLEX PRN (Reason: nausea) Rx Instructions: Dissolve 1 tablet under tongue every 4 hours PRN for nausea lorazepam 2 mg/mL concentrate See Rx Instructions .ROUTE .COMPLEX Rx Instructions: 0.25ml-1ml q4H PRN Anxiety/Seizure Start 0.25ml may increase to 0.5ml-1ml q4H Discharge Orders: Discharge ED (Routine); Ordered 11/04/22 Ordered By: Joseph Martinez Referrals: Carl Burch DO [Primary Care Provider] - Patient Instructions: Opioid Safety, Pain Management Activity Restrictions/Additional Instructions: You were seen in the emergency room for weakness. You were found to have significant anemia. After discussion with hospice you have decided to forego blood transfusion and will be admitted to the senior care for further hospice and respite care. Coding Level of Care Code ED Package Collector for Prabhu Sullivan
[2022-11-04 07:40] LABS: Basophils % 0.2 %; Lymphocytes % 6.3 %; Nucleated Red Blood Cells % 0 %
[2022-11-04 07:50] LABS: Eosinophils # 0.3 10^3/uL (0.0-0.8); Mean Corpuscular HGB Conc 28.8 g/dL (30.0-36.0); Mean Corpuscular Hemoglobin 25.4 pg (28.0-34.0); Mean Corpuscular Volume 88.1 fl (81-99); Mean Platelet Volume 10.1 fL (7.4-10.4); Monocytes # 1.2 10^3/uL (0.2-0.9); Monocytes % 7.5 %; Neutrophils # 13.67 10^3/uL (1.8-7.7); Neutrophils % 83.6 %; Platelet Count 539 10^3/cmm (130-400); Red Blood Count 1.93 10^6/uL (4.1-5.3); Red Cell Distribution Width 18.8 % (12.1-15.1); White Blood Count 16.4 10^3/uL (4.0-10.0)
[2022-11-04 07:55] VITALS: RESP 20
[2022-11-04 07:55] LABS: Hemoglobin 4.9 g/dL (11.5-15.3)
[2022-11-04] MEDS: morphine 4 mg/mL SDV 1 mL IVP (07:55)
[2022-11-04] MEDS: sodium chloride 0.9% 1,000 ML 150 ML IV (08:00)
[2022-11-04 08:01] LABS: Alanine Aminotransferase 83 U/L (0-33); Albumin Level 3.1 g/dL (3.5-5.2); Alkaline Phosphatase 761 U/L (35-105); Anion Gap 19.1 (5-19); Aspartate Amino Transferase 161 U/L (0-32); Blood Urea Nitrogen 61 mg/dL (8-23); Calcium 8.3 mg/dL (8.5-10.5); Carbon Dioxide 21 mmol/L (22-29); Chloride 99 mmol/L (98-107); Globulin 4.1 g/dL (1.3-4.6); Glucose 113 mg/dL (65-115); Osmolality Calculated 300 mOsm/kg (285-295); Potassium 3.1 mmol/L (3.5-5.1); Sodium 136 mmol/L (136-145); Total Bilirubin 0.8 mg/dL (0.15-1.2); Total Protein 7.2 g/dL (6.6-8.7)
[2022-11-04 08:06] LABS: Blood Urine 3+ (Negative); Glucose Urine UA Norm (Normal); Ketones Urine 1+ (Negative); Protein Urine 2+ (Negative); Specific Gravity, Urine 1.015 (1.005-1.030); Urine Appearance Cloudy (CLEAR); Urine Color Brown (Yellow); pH Urine 9 (5-7)
[2022-11-04 08:07] LABS: Add Urine Microscopic? YES; Bilirubin Urine Neg (Negative); Leukocyte Esterase Urine 2+ (Negative); Nitrate Urine Positive (Negative); RBC Urine TOO NUMEROUS TO CNT /hpf (0-2); Sulfosalicylic Acid Urine Positive (Negative); Urobilinogen Urine Neg (Negative)
[2022-11-04 08:09] LABS: Bacteria Urine 4+ /hpf; Mucus Urine 1+ /hpf; Squamous Epithelial Cell Urine 0-4 /hpf (0-5); WBC Urine 40-55 /hpf (0-5)
[2022-11-04 08:10] LABS: Add Urine Culture? Yes; Amorphous Sediment Urine 1+ /hpf
[2022-11-04 08:34] VITALS: BP 173/99; PULSE 104; O2SAT 95
[2022-11-04 09:04] VITALS: BP 161/95; O2SAT 93
--- NOTE | 2022-11-04 09:10 | PC.PHAR ---
pt states she takes care of her own medications-pt states she is only taking the labetalol 100mg bid filled 10/31/22 14d/s-cefdinir 300mg bid filled 11/02/22 14d/s-norco 10-325mg q4h filled 10/31/22 14d/s ibu 200mg take 400mg po q4h -[facility] colace,acetaminophen,clartin,morphine er 15mg q12h and morphine ir 15mg q3h prn both pain meds have a note that say pt is refusing to use medication placed in comfort pack in [facility] for when pt is ready to start-ext shows meds filled 10/25/22 atropine 1% drops,bisacodyl suppository,zofran odt 4mg-morphine concentrate solution 100mg/5ml (20mg/ml)-and lorazepam 2mg/ml-medications entered are from what the pt states [facility] takes [facility] and what shows has been filled recently on ext me history
[2022-11-04 09:32] VITALS: BP 163/105; O2SAT 97
[2022-11-04 11:40] VITALS: BP 159/98; PULSE 110; O2SAT 96
== END 2022-11-04 11:15 | disposition home or self-care (01) ==
PROVIDERS: Emergency Provider Family Medicine; PCP Family Medicine
DX: C20 Malignant neoplasm of rectum (principal); C79.9 Secondary malignant neoplasm of unspecified site; D64.9 Anemia, unspecified; Z86.73 Personal history of transient ischemic attack (TIA), and cerebral infarction without residual deficits; I10 Essential (primary) hypertension
CPT/HCPCS: 36415; 80053; 81001; 85025; 86850; 86900; 87077; 87086; 87186; 96361; 96374; 99284; J2270; J7030